=== PATIENT | female | born 1980 | race Caucasian/White ===

== ENCOUNTER 2017-07-08 18:26 | Emergency (ER) | payer OTHER, SELFPAY ==
[2017-07-08 18:26] VITALS: BP 183/106; PULSE 92; RESP 20; TEMP 36.7; O2SAT 97; BMI 30.7
--- NOTE | 2017-07-08 18:36 | RAD_ITS ---
STUDY: X-RAY - RIGHT WRIST REASON FOR EXAM: Female, 37 years old. Fall TECHNIQUE: 3 view(s) of the wrist were obtained. COMPARISON: None. FINDINGS: There is a comminuted intra-articular distal radial fracture with dorsal displacement of the distal radius. There is an ulnar styloid fracture visualized as well. Normal carpal bones. Normal carpal articulations. Normal carpometacarpal articulation of the thumb. Normal second through fifth carpometacarpal articulations. Normal visualized metacarpal bones. There is diffuse soft tissue swelling overlying the distal radius and ulna. RAD/Wrist min 3 Views IMPRESSION: Comminuted distal radial fracture. Ulnar styloid fracture. Electronically Signed: Jen Hemphill MD at 20:08 EDT Tel , Service support ,
--- NOTE | 2017-07-08 18:42 | ED.VISSUMM ---
- ER Visit Summary Date of Service: 07/08/17 Chief Complaint: Fall complaining of right wrist pain History of Present Illness: The patient is a 37 F was bowling with her family. She slipped and fell injuring her right wrist. Denies other injuries. She is right-hand dominant. She has never broken her right wrist or any prior right upper extremity surgery. Physical Examination: Young female no acute distress. Vital signs are stable afebrile. Right arm is in a sling with an ice pack on it. H EENT exam atraumatic. Pupils round reactive light. No signs of trauma to her face or scalp. Nontender. C-spine normal range of motion nontender. Trachea midline. Lungs clear to auscultation bilaterally. Heart regular rate and rhythm. Chest wall nontender. Abdomen soft nontender. Pelvic girdle intact. Left upper extremity both lower extremities have normal range of motion. No deformities and nontender. Back nontender. Neurologically she is awake and alert without focal deficits. Her right collarbone, shoulder, humerus, elbow and proximal right forearm are all nontender neurovascular intact no deformity. She has an on palpation to her right wrist. Skin is intact. Right hand is neurovascular intact with cap refill and sensation. Neurologic exam is normal. Test Results: Right wrist x-ray comminuted distal radius fracture with dorsal angulation and ulnar styloid fracture. Emergency Department Course and Treatment: Per patient request only Motrin for pain. I spoke to Dr. Samir Nance about the x-rays. He had me reduce the patient's fracture and he will see her in follow-up. Treatment Plan: Satish with patient options. She was consciously sedated with propofol. She had not eaten since lunch. She was initially given 60 mg IV of propofol and 40 more for a total of 100 mg. Conscious sedation was achieved. I was able to reduce the distal radius fracture. She was placed in a short arm AP Ortho-Glass splint that I fabricated. It was well-padded. An Jony wrap. Patient tolerated procedure very well. She will be watched so she wakes up and is appropriate to be discharged. With the sling. Disposition: Discharged Impression: Acute fall Acute right wrist still radius comminuted fracture and dorsally angulated and ulnar styloid fracture Fracture reduction and fracture care by ER physician. Short arm AP splint by ER. Conscious sedation using propofol by ER This note was generated with [employer] dictation software. It may contain incorrect words, spelling, and punctuation that were not noted in review of the chart prior to signing ED Disposition - Plan for ED Patient: Chief Complaint: Upper Extremity Injury Referrals: Yoselin Alexander DO [Primary Care Provider] -
[2017-07-08] MEDS: Ibuprofen 600 MG Tablet PO (18:47)
[2017-07-08 19:42] VITALS: BP 161/91; PULSE 90; RESP 17; O2SAT 100
[2017-07-08 20:02] VITALS: BP 127/79; BP 150/88; BP 177/102; PULSE 87; PULSE 88; PULSE 89; PULSE 90; PULSE 99; RESP 12; RESP 15; RESP 19; RESP 25; RESP 9; O2SAT 100
[2017-07-08] MEDS: Ondansetron 4 MG/2 ML Vial IV (20:02)
[2017-07-08] MEDS: Propofol 200 MG/20 ML Vial 40 MG IV BOLUS (20:10)
[2017-07-08 20:11] VITALS: BP 138/89; PULSE 83; RESP 25; O2SAT 100
--- NOTE | 2017-07-08 20:16 | ED.DEP ---
ED Disposition - Plan for ED Patient: Disposition: Home or Assisted Living Chief Complaint: Upper Extremity Injury Instructions: ED Fx Wrist General Prescriptions: Hydrocodone/Acetaminophen [Alden 7.5-325 Tablet] 1 ea PO Q4H PRN PRN #30 tab PRN Reason: Pain Ondansetron [Zofran Odt] 4 mg PO Q4H PRN PRN #20 tab.rapdis PRN Reason: Nausea Referrals: Deuce Nance, [STAFF PHYSICIAN] - As soon as possible Additional Instructions: Keep splint dry and clean. Ice and elevate right hand and wrist as much as possible to decrease pain and swelling. Motrin and Alden for pain. If you become nauseated I wrote you a prescription for Zofran. Call and follow-up with the orthopedic physician Dr. Deuce Nance or any orthopedic physician of your choice as soon as possible. This may need surgical repair.
--- NOTE | 2017-07-08 20:18 | RAD_ITS ---
STUDY: X-RAY - RIGHT WRIST REASON FOR EXAM: Female, 37 years old. Post reduction TECHNIQUE: 3 view(s) of the wrist were obtained. COMPARISON: July 08, 2017 at 6:43 PM FINDINGS: Casting material obscures anatomic detail. There is an intra-articular distal radial fracture. There is improved alignment. There is a ulnar styloid fracture visualized as well. Normal carpometacarpal articulation of the thumb. Normal second through fifth carpometacarpal articulations. Normal visualized metacarpal bones. The soft tissue structures are unremarkable. RAD/Wrist min 3 Views IMPRESSION: Distal intra-articular radial fracture. Ulnar styloid fracture. Electronically Signed: Jen Hemphill MD at 20:55 EDT Tel , Service support ,
[2017-07-08 20:20] VITALS: BP 149/81; O2SAT 100
--- NOTE | 2017-07-08 20:20 | DCINST.ED_ITS ---
ED Disposition - Plan for ED Patient: Disposition: Home or Assisted Living Chief Complaint: Upper Extremity Injury Instructions: ED Fx Wrist General Prescriptions: Hydrocodone/Acetaminophen [Medford 7.5-325 Tablet] 1 ea PO Q4H PRN PRN #30 tab PRN Reason: Pain Ondansetron [Zofran Odt] 4 mg PO Q4H PRN PRN #20 tab.rapdis PRN Reason: Nausea Referrals: Deuce Nance, [STAFF PHYSICIAN] - As soon as possible Additional Instructions: Keep splint dry and clean. Ice and elevate right hand and wrist as much as possible to decrease pain and swelling. Motrin and Medford for pain. If you become nauseated I wrote you a prescription for Zofran. Call and follow-up with the orthopedic physician Dr. Deuce Nance or any orthopedic physician of your choice as soon as possible. This may need surgical repair.
[2017-07-08] MEDS: Propofol 200 MG/20 ML Vial 60 MG IV BOLUS (20:24)
[2017-07-08] MEDS: Ondansetron ODT 4 MG Tablet PO (20:43)
[2017-07-08] MEDS: HYDROcodone Bitartrate/Apap 5/325 Tablet PO (20:43)
[2017-07-08 20:45] VITALS: BP 139/91; PULSE 91; RESP 14; O2SAT 98
== END 2017-07-08 20:46 | disposition home or self-care (01) ==
PROVIDERS: Emergency Provider Emergency Medicine; Family Provider Internal Medicine; PCP Internal Medicine
DX: S52.501A Unspecified fracture of the lower end of right radius, initial encounter for closed fracture (principal); S52.611A Displaced fracture of right ulna styloid process, initial encounter for closed fracture; W01.0XXA Fall on same level from slipping, tripping and stumbling without subsequent striking against object, initial encounter; Y93.9 Activity, unspecified; Y92.9 Unspecified place or not applicable; E11.9 Type 2 diabetes mellitus without complications; Z79.4 Long term (current) use of insulin
CPT/HCPCS: 25605; 73110; 96374; 99285; J7030

== ENCOUNTER → 2017-10-05 12:23 | Outpatient (CLI) | payer OTHER, SELFPAY ==
[2017-10-05 14:16] LABS: Absolute Lymphocyte Count 1.92 X10^3/ul (0.83-4.51); Absolute Neutrophil Count 4.7 X10^3/uL (2.0-7.7); Basophil# 0.05 X10^3/uL; Basophil% 0.6 % (0-1); Eosinophil# 0.24 X10^3/uL; Hematocrit 37.2 % (37-47); Hemoglobin 11.7 g/dl (12.0-15.0); Lymphocyte # 1.92 X10^3/ul (4.0); Lymphocyte % 23.9 % (19-41); Mean Corp Hgb Conc 31.5 g/gl (32-36); Mean Corpuscular Hgb 25.2 pg (27.0-32.0); Mean Corpuscular Volume 80.2 fL (81-99); Monocyte# 1.11 X10^3/uL; Monocyte% 13.8 % (0-10); Neutrophil # 4.71 X10^3/uL (2.7-7.7); Neutrophil % 58.6 % (47-70); Platelet Count 326 K/mm3 (150-450); RBC Distribution Width CV 14.3 % (11.6-14.6); RBC Distribution Width SD 41.6 fl (35.1-43.9); Red Blood Count 4.64 M/mm3 (4.2-5.4)
[2017-10-05 14:19] LABS: POSITIVE COUNT NO; POSITIVE DIFFERENTIAL NO; POSITIVE MORPHOLOGY NO
[2017-10-05 14:24] LABS: Hemoglobin A1c 8.5 % (4.2-6.3)
[2017-10-05 14:29] LABS: ALB/GLOB Ratio 0.8 RATIO (0.9-2.4); AST(SGOT) 16 U/L (15-37); Alanine Aminotransfer ALT/SGPT 24 U/L (13-56); Albumin, Serum 3.6 g/dL (3.2-5.0); Alkaline Phosphatase 112 U/L (45-117); Anion Gap 6 (5-15); BUN 18 mg/dL (7-18); BUN/Creat Ratio 19.4 RATIO (10-20); Calcium,Total 8.8 mg/dL (8.5-10.1); Chloride 103 mmol/L (98-107); Creatinine, Serum 0.93 mg/dL (0.55-1.02); EST Glomerular Filtration Rate 72 mL/min (>60); Est Glom Filt Rate - Afr Amer 87 mL/min (>60); Ferritin 8 ng/mL (8-252); Globulin 4.3 g/dL (2.2-4.2); Glucose 56 mg/dL (74-106); Iron 18 ug/dL (50-170); Protein, Total 7.9 g/dL (6.4-8.2); Sodium Level 138 mmol/L (136-145)
[2017-10-06 11:27] LABS: Thyroid Peroxidase AB 146 IU/mL (0-34)
== END ==
PROVIDERS: Family Provider Internal Medicine; PCP Internal Medicine; Visit Provider Internal Medicine Endocrinology, Diabetes & Metabolism
DX: E10.319 Type 1 diabetes mellitus with unspecified diabetic retinopathy without macular edema (principal); E10.65 Type 1 diabetes mellitus with hyperglycemia; E55.9 Vitamin D deficiency, unspecified; E04.0 Nontoxic diffuse goiter; E61.1 Iron deficiency
CPT/HCPCS: 36415; 80053; 82306; 82728; 83036; 83540; 84443; 85025; 86376

== ENCOUNTER 2017-10-06 13:30 | Outpatient (RCR) | payer OTHER, SELFPAY ==
--- NOTE | 2017-09-01 07:49 | HP.OTEVAL_ITS ---
Patient's Visit Information ROLANDO SWANN is a 37 year old F, referred to Occupational Therapy by Raúl Escobedo MD, with a diagnosis of right distal radius fx. Date of Evaluation: 08/30/17 Occupational Therapist: Shanna Rosen, OTR/L, CHT - Subjective Subjective: This 37 year old female states she was at a bowling event July 08 and fell and broke her right wrist. pt is right handed. pt underwent sx August 14 for right radius ORIF and CTR. pt states her fingers still feel numb most of the time. pt states she is out of her brace while working and at home. Does use brace for travel. - Pain right wrist 1 Pain Intensity Range: 0, 3 - Objective Objective/Observation: pt states she is still having difficulty to home mtg and daily occupations due to her limited ROM and strength. - ROM Forearm: right WFL left WNL Wrist: right 35/40 left 65/65 ROM Comments: right UD 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 with home mtg tasks by d/c Goal:: pt will report pain no greater than 1/10 with use of right hand with BADLs and IADLS by d/c Goal:: pt will report return of sensation to median n. digits by d/c Goal:: pt will demo understanding of scar mtg by end of 1st session, to decrease scar adhesions. - Rehabilitation General Assessment: S/P ORIF right wrist with right CTR. pt currently demo with decrease right wrist ROM and decrease functional strength. Pt states she is having most difficulty with home mtg tasks and ADL tasks. pt would benefit from skilled OT services to return pt to PLOF. Due to pts work and work travel schedule pt may only be able to schdule every other week. Therapy will focus on ROM and follow Dr. alatorre to begin PRE in 3 weeks. Today pt was ed.on scar mtg, AROM/PROM of wrist, forearm and digits. pt demo understanding of HEP given. Rehabilitation Potential: Good - Anticipated Interventions Anticipated Interventions: A/AAROM/PROM, Strengthening, Scar Care, Triggerpoint Release, Sensory Retraining, Modalities, Orthoses, Fine Motor Coord/Abhijeet, Home Program - Visit Plan Frequency: 1-2x /Week Duration: 6 Weeks TEXT: Thank you for the opportunity to evaluate your patient. For Medicare and Medicare HMO plans, please review the plan of care and approve it. It will need to be FAXED BACK to us at [phone] for Medicare purposes. Please let me know if there are questions or concerns regarding this plan of care. Physician Signature: Date:
--- NOTE | 2017-10-06 15:06 | HP.OTDCSUM_ITS ---
HP - OT D/C Summary It has been my pleasure to treat ORLANDO SWANN under orders from Raúl Escobedo MD, for the diagnosis of right distal radius fx for a total of 6 visit (s). Please see the following information for a summary of their discharge status. - Objective Objective/Function: right wrist 65/45. right special needs nanny 43# a increase from 20#. right lateral pinch 10# a increase from 2#. lateral pinch 8# a increase from unable. - Goals Patient Goals: Regain Mobility, Regain Strength, Return to Work, Use Hand/Wrist/ Arm Normally Again, Decrease Tingling/Numbness Goal:: pt will demo a increase in right special needs nanny strength to greater than 40# to return pt to PLOF with her ADLS and IADLs by d/c Goal:: pt will demo a increase in right wrist ROM 60/55 to gain increase ind. with home mtg tasks by d/c Goal:: pt will report pain no greater than 1/10 with use of right hand with BADLs and IADLS by d/c Goal:: pt will report return of sensation to median n. digits by d/c Goal:: pt will demo understanding of scar mtg by end of 1st session, to decrease scar adhesions. - Plan Plan: D/C - D/C Information Discharge Comments: PT attended 6 OT sessions. pt demo good increase in her functional ROM and strength pt has met goals in OT and is D/C with HEP to cont. to make improvments with her ROM /strength . pt is agreeable to tx plan. If there are questions or concerns regarding this patient's occupational therapy , please fell free to call me at [phone]. Thank you for the referral of this patient. Sincerely, Shanna Rosen, OTR/L, CHT
== END 2017-10-06 19:00 | disposition home or self-care (01) ==
LOC: OT 13:30
PROVIDERS: Family Provider Internal Medicine; PCP Internal Medicine; Visit Provider Orthopaedic Surgery
DX: S52.501D Unspecified fracture of the lower end of right radius, subsequent encounter for closed fracture with routine healing (principal)
CPT/HCPCS: 97110; 97140; 97166; 97530

== ENCOUNTER → 2017-11-11 11:29 | Outpatient (CLI) | payer OTHER, SELFPAY ==
[2017-11-11 14:23] LABS: Hemoglobin A1c 8.4 % (4.2-6.3)
[2017-11-11 14:30] LABS: ALB/GLOB Ratio 0.9 RATIO (0.9-2.4); AST(SGOT) 23 U/L (15-37); Alanine Aminotransfer ALT/SGPT 34 U/L (13-56); Albumin, Serum 3.5 g/dL (3.2-5.0); Alkaline Phosphatase 104 U/L (45-117); Anion Gap 11 (5-15); BUN 24 mg/dL (7-18); BUN/Creat Ratio 28.8 RATIO (10-20); Calcium,Total 8.7 mg/dL (8.5-10.1); Chloride 104 mmol/L (98-107); Creatinine, Serum 0.83 mg/dL (0.55-1.02); EST Glomerular Filtration Rate 81 mL/min (>60); Est Glom Filt Rate - Afr Amer 98 mL/min (>60); Ferritin 37 ng/mL (8-252); Glucose 182 mg/dL (74-106); Iron 56 ug/dL (50-170); Protein, Total 7.5 g/dL (6.4-8.2); Sodium Level 140 mmol/L (136-145)
[2017-11-11 14:32] LABS: Vitamin D,25 Hydroxy 25.8 ng/mL (29.95-100.01)
== END ==
PROVIDERS: Family Provider Internal Medicine; PCP Internal Medicine; Visit Provider Internal Medicine Endocrinology, Diabetes & Metabolism
DX: E10.65 Type 1 diabetes mellitus with hyperglycemia (principal); E55.9 Vitamin D deficiency, unspecified; E61.1 Iron deficiency; R30.0 Dysuria
CPT/HCPCS: 36415; 80053; 82306; 82728; 83036; 83540; 87086; 87088; 87186

== ENCOUNTER → 2018-03-30 14:56 | Outpatient (CLI) | payer OTHER, SELFPAY | PROVIDERS: Family Provider Family Medicine; PCP Family Medicine; Visit Provider Family Medicine | DX: R30.0 Dysuria (principal) | CPT/HCPCS: 87077; 87086; 87088; 87186 ==

== ENCOUNTER → 2019-01-01 13:33 | Outpatient (CLI) | payer OTHER, SELFPAY | PROVIDERS: Family Provider Family Medicine; PCP Family Medicine; Referring Provider Family Medicine; Visit Provider Family Medicine | DX: R30.0 Dysuria (principal) | CPT/HCPCS: 87086; 87088; 87186 ==

== ENCOUNTER → 2020-04-03 | Outpatient (CLI) | payer OTHER, SELFPAY | END | disposition home or self-care (01) | LOC: LABSPEC 04-04 14:20 | PROVIDERS: PCP Family Medicine; Visit Provider Family Medicine | DX: Z20.822 Contact with and (suspected) exposure to COVID-19 (principal) | CPT/HCPCS: 87635; U0005; U0003 ==

== ENCOUNTER → 2020-08-13 10:39 | Outpatient (CLI) | payer OTHER, SELFPAY ==
--- NOTE | 2020-08-13 | IMM_PTH ---
PATIENT: ORLANDO SORIANO LOC: [facility] U#:[id number] AGE/SX: 44/F ROOM: RE08/13/[address]: Dr. Elizabeth Og MD : 1980 BED: DIS: SPEC #: [id number] RECD: 08/14/20 12:50 STATUS: MANOHAR REQ #: [id number] KARAN: 08/13/20 00:[address]: Elizabeth Og DEPT: IMMUNOHISTOCHEMISTRY RECD BY: Kathrine Sanchez ENTERED: 08/14/20 12:51 SP TYPE: IMMUNO OTHR DR: Dr. Frederic Gomez MD Tissues: Right breast, NOS Procedures: SMA (add) CALPONIN-1 (add) CK7 (add) Pankeratin (initial) P40 (add) S-100 (add) PHYSICIAN & INSTITUTION [facility] [id number] SPECIMEN INFORMATION: Tissue Source: Right breast Clinical Info: Right breast abnormal mammogram Specimen Number: [id number] #1 CPT code: 31363, 33131 x5 METHODOLOGY: Deparaffinized sections of prefer/formalin-fixed tissue or PAP/DQ stained slides are incubated with monoclonal/polyclonal antibodies/oligonucleotide probes. Localization is made via biotin free immunoperoxidase method. Appropriate controls are performed and reacted as expected. Results on target cell population are indicated in the following table: RESULTS: ANTIBODY / CLONE RESULT Block 1 AE1-3 (AE1/AE3/PCK26) negative CK7 (OV-TL12/30) negative S-100 (4C4.9) negative Actin (1A4) positive P40 (BC28) negative Calponin-1 (JC761K) negative These tests were developed and their performance characteristics determined by [facility]. They may not have been cleared or approved by the U.S. Food and Drug Administration. The FDA has determined that such clearance or approval is not necessary. The above immunohistochemical/dualISH markers are ordered and reviewed by the Pathologist. INTERPRETATION: Right breast, stereotactic core biopsy: Negative for malignancy. LUCAS:donna 08/15/2020 Case has been reviewed in consultation with Dr. Barrios who concurs with the above diagnosis. IDC:AM
--- NOTE | 2020-08-13 11:05 | BRBX_PTH ---
PATIENT: ORLANDO SORIANO LOC: [facility] U#:[id number] AGE/SX: 44/F ROOM: RE08/13/[address]: Dr. Elizabeth Og MD : 1980 BED: DIS: SPEC #: [id number] RECD: 08/13/20 11:23 STATUS: MANOHAR RE #: [id number] KARAN: 08/13/20 11:[address]: Elizabeth Og DEPT: SURGICAL PATHOLOGY RECD BY: Gayle Garcia ENTERED: 08/13/20 12:15 SP TYPE: BREAST BX OTHR DR: Dr. Frederic Gomez MD Tissues: Right breast, NOS Procedures: Surgery Specimen Level IV HEADER OPERATION: Right breast stereotactic biopsy PRE-OP DIAGNOSIS: Right abnormal mammogram TISSUE SUBMITTED: Right breast core tissue ISCHEMIC TIME: 2 minutes FIXATION TIME: 8.5 hours MICROSCOPIC DIAGNOSIS Right breast, stereotactic core biopsy: Fragments of benign breast tissue with dense stromal keloidal type fibrosis, perilobular lymphocytic inflammation and focal epitheloid myofibroblasts. Negative for atypia or malignancy. See comment. 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 Immunohistochemistry ([id number]) supports the above diagnosis. Correlation with clinical, radiologic findings and appropriate follow up are necessary. Case has been reviewed in consultation with Dr. Barrios who concurs with the above diagnosis. IDC:AM MICROSCOPIC DESCRIPTION Slides are reviewed. GROSS DESCRIPTION Received in fixative is one container labeled with the patient name and designated right breast. The specimen consists of multiple elongated fragments of donald-yellow fibroadipose tissue that in aggregate measure 5 x 3 x 0.6 cm. The entire specimen is submitted in four cassettes. / LUCAS:donna 08/13/20 TC:5 CPT: 04858
--- NOTE | 2020-08-13 16:58 | OP.PCM_ITS ---
Report of Operation Date of Procedure: 08/13/20 Pre-Operative Diagnosis: abnormal mammogram Post-Operative Diagnosis: same Surgery/Procedure Performed:: right stereotactic breast biopsy Description of Surgical Findings:: density of right breast mammograms Surgeon: Elizabeth Og Type of Anesthesia: Local Specimen's removed: right breast tissue Estimated Blood Loss (mL): minimal Description of Procedure: After informed consent was given, the patient was brought into the Breast Biopsy suite. Appropriate time out protocol was followed. The patient was placed in the prone position on the stereotactic biopsy table. The patient?s right breast was then placed in the opening at the head of the biopsy table. A motorcycle builder compression mammogram was then obtained in the lateral view. The suspicious radiological lesion was thus identified. Stereo pictures of the lesion were then taken for XYZ coordinates. The Mammotome biopsy stylus was then positioned where it would be entering into the patient?s breast. The skin at this site was then cleansed with a surgical skin preparation. The skin and subcutaneous tissues at this site were then infiltrated with 1% xylocaine. A small skin incision was made with an 11 blade scalpel. The biopsy stylus was then positioned into the patient?s breast at the proper coordinates of depth. Using the Mammotome vacuum-assist device, several core samples of breast tissue were obtained. A hemostatic marker clip was then placed into the biopsy cavity and a motorcycle builder film revealed that it was properly deployed. The patient was then placed in the supine position and pressure was applied to the breast until no active bleeding was noted. Steristrips were applied to reapproximate the skin. A unilateral mammogram in the CC and MLO view were then taken which revealed that the marker clip was in the same area as the previous suspicious lesion. The patient tolerated the procedure well and was discharged from the Breast Biopsy suite in good condition. Complications none noted
== END ==
PROVIDERS: PCP Family Medicine; Referring Provider Surgery; Visit Provider Surgery
DX: R92.8 Other abnormal and inconclusive findings on diagnostic imaging of breast (principal); N60.31 Fibrosclerosis of right breast; E11.9 Type 2 diabetes mellitus without complications; E78.5 Hyperlipidemia, unspecified; I10 Essential (primary) hypertension; E03.9 Hypothyroidism, unspecified
CPT/HCPCS: 19081; 88305; 88341; 88342; J7050

== ENCOUNTER → 2021-01-26 08:58 | Outpatient (CLI) | payer OTHER, SELFPAY ==
[2021-01-26 10:39] LABS: Cholesterol 198 mg/dL (200); Glucose 149 mg/dL (74-106); High Density Lipoprotein 60 mg/dL; Triglycerides 170 mg/dL; Very Low Density Lipoprotein 34 mg/dL (5-40)
== END ==
PROVIDERS: PCP Family Medicine; Visit Provider Family Medicine
DX: Z13.9 Encounter for screening, unspecified (principal)
CPT/HCPCS: 36415; 80061; 82947

== ENCOUNTER 2021-03-16 17:49 | Outpatient (CLI) | payer OTHER, SELFPAY | END 2021-03-16 23:59 | disposition short-term general hospital (02) | PROVIDERS: PCP Family Medicine; Visit Provider Family Medicine | DX: U07.1 COVID-19 (principal) | CPT/HCPCS: 87635; U0003; U0005 ==

== ENCOUNTER 2021-05-05 11:53 | Outpatient (CLI) | payer OTHER, SELFPAY ==
[2021-05-05 15:50] LABS: ALB/GLOB Ratio 0.8 RATIO (0.9-2.4); AST(SGOT) 15 U/L (15-37); Alanine Aminotransfer ALT/SGPT 27 U/L (13-56); Albumin, Serum 3.3 g/dL (3.2-5.0); Alkaline Phosphatase 55 U/L (45-117); Anion Gap 6 (5-15); BUN 22 mg/dL (7-18); BUN/Creat Ratio 21.8 RATIO (10-20); Calcium,Total 8.8 mg/dL (8.5-10.1); Chloride 101 mmol/L (98-107); Cholesterol 176 mg/dL (200); Creatinine, Serum 1.01 mg/dL (0.55-1.02); EST Glomerular Filtration Rate 64 mL/min (>60); Est Glom Filt Rate - Afr Amer 77 mL/min (>60); Globulin 3.9 g/dL (2.2-4.2); Glucose 163 mg/dL (74-106); High Density Lipoprotein 49 mg/dL; Potassium 3.9 mmol/L (3.5-5.1); Protein, Total 7.2 g/dL (6.4-8.2); Sodium Level 134 mmol/L (136-145); T4 Free Direct 1.43 ng/dL (0.76-1.46); Thyroid Stim Hormone (TSH) 2.44 uIU/mL (0.358-3.74); Triglycerides 94 mg/dL; Very Low Density Lipoprotein 19 mg/dL (5-40)
[2021-05-05 16:10] LABS: Microalbumin,Random Urine < 5.0 mg/L (NO RANGE EST.)
== END 2021-05-05 23:59 | disposition home or self-care (01) ==
LOC: BIMLAB 11:54
PROVIDERS: PCP Family Medicine; Referring Provider Internal Medicine Endocrinology, Diabetes & Metabolism; Visit Provider Internal Medicine Endocrinology, Diabetes & Metabolism
DX: E10.65 Type 1 diabetes mellitus with hyperglycemia (principal); E03.8 Other specified hypothyroidism; E06.3 Autoimmune thyroiditis
CPT/HCPCS: 36415; 80053; 80061; 82043; 82570; 84439; 84443

== ENCOUNTER → 2022-06-22 | Outpatient (CLI) | payer OTHER, SELFPAY ==
[2022-06-22 10:30] LABS: Thyroid Stim Hormone (TSH) 3.36 uIU/mL (0.358-3.74)
== END | disposition home or self-care (01) ==
PROVIDERS: PCP Family Medicine; Referring Provider Internal Medicine Endocrinology, Diabetes & Metabolism; Visit Provider Internal Medicine Endocrinology, Diabetes & Metabolism
DX: E03.8 Other specified hypothyroidism (principal); E06.3 Autoimmune thyroiditis
CPT/HCPCS: 36415; 84439; 84443

== ENCOUNTER → 2022-06-30 | Outpatient (CLI) | payer OTHER, SELFPAY ==
[2022-06-30 15:32] LABS: Absolute Lymphocyte Count 1.76 X10^3/uL (0.83-4.51); Absolute Neutrophil Count 5.8 X10^3/uL (2.0-7.7); Basophil# 0.04 X10^3/uL; Basophil% 0.5 % (0-1); Eosinophils% 1.2 % (0-5); Hematocrit 37.1 % (37-47); Hemoglobin 12.4 g/dL (12.0-15.0); Lymphocyte # 1.76 X10^3/ul (0.83-4.51); Lymphocyte % 20.5 % (19-41); Mean Corp Hgb Conc 33.4 g/dL (32-36); Mean Corpuscular Hgb 29.5 pg (27.0-32.0); Mean Corpuscular Volume 88.1 fL (81-99); Mean Platelet Vol. 11.5 fl (6.2-12.0); Monocyte# 0.83 X10^3/uL; Monocyte% 9.7 % (0-10); NRBC Flagged by Analyzer 0 % (0-5); Neutrophil % 67.6 % (47-70); Platelet Count 280 K/mm3 (150-450); RBC Distribution Width CV 12.3 % (11.6-14.6); RBC Distribution Width SD 39.5 fl (35.1-43.9); Red Blood Count 4.21 M/mm3 (4.2-5.4); White Blood Count 8.6 K/mm3 (4.4-11.0)
[2022-06-30 15:52] LABS: Vitamin B12 740 pg/mL (211-911); Vitamin D,25 Hydroxy 133.8 ng/mL
[2022-06-30 16:03] LABS: ALB/GLOB Ratio 0.8 RATIO (0.9-2.4); AST(SGOT) 18 U/L (15-37); Alanine Aminotransfer ALT/SGPT 22 U/L (13-56); Albumin, Serum 3.2 g/dL (3.2-5.0); Alkaline Phosphatase 52 U/L (45-117); Anion Gap 7 (5-15); BUN 20 mg/dL (7-18); BUN/Creat Ratio 19.8 RATIO (10-20); Calcium,Total 8.7 mg/dL (8.5-10.1); Chloride 106 mmol/L (98-107); Creatinine, Serum 1.01 mg/dL (0.55-1.02); EST Glomerular Filtration Rate 64 mL/min (>60); Est Glom Filt Rate - Afr Amer 77 mL/min (>60); Ferritin 97 ng/mL (8-252); Free T3 2.4 pg/mL (2.18-3.98); Globulin 3.8 g/dL (2.2-4.2); Glucose 91 mg/dL (74-106); Iron 60 ug/dL (50-170); Potassium 3.6 mmol/L (3.5-5.1); Sodium Level 139 mmol/L (136-145); T4 Free Direct 1.52 ng/dL (0.76-1.46)
[2022-06-30 16:19] LABS: Erythrocyte Sedimentation Rate 14 mm/hr (0-30)
[2022-07-02 08:12] LABS: Thyroid Peroxidase AB 60 IU/mL (0-34)
== END | disposition home or self-care (01) ==
LOC: MFPLAB 14:10
PROVIDERS: PCP Family Medicine; Visit Provider Family Medicine
DX: R53.83 Other fatigue (principal); E03.9 Hypothyroidism, unspecified
CPT/HCPCS: 36415; 80053; 82306; 82533; 82607; 82728; 83540; 84439; 84481; 85025; 85652; 86376

== ENCOUNTER → 2022-09-24 | Outpatient (CLI) | payer OTHER, SELFPAY | END | disposition home or self-care (01) | PROVIDERS: Referring Provider Family Medicine; Visit Provider Family Medicine | DX: N39.0 Urinary tract infection, site not specified (principal) | CPT/HCPCS: 87077; 87086; 87088; 87186 ==

== ENCOUNTER → 2022-12-31 | Outpatient (CLI) | payer OTHER, SELFPAY ==
[2022-12-31 10:32] LABS: Hemoglobin A1c 6.6 % (3.8-5.6)
[2022-12-31 10:44] LABS: Free T3 2.9 pg/mL (2.18-3.98); T4 Free Direct 1.36 ng/dL (0.76-1.46); Thyroid Stim Hormone (TSH) 2.54 uIU/mL (0.358-3.74)
[2022-12-31 10:52] LABS: ALB/GLOB Ratio 1.1 RATIO (0.9-2.4); AST(SGOT) 32 U/L (15-37); Alanine Aminotransfer ALT/SGPT 48 U/L (13-56); Albumin, Serum 3.4 g/dL (3.2-5.0); Alkaline Phosphatase 75 U/L (45-117); Anion Gap 5 (5-15); BUN 22 mg/dL (7-18); BUN/Creat Ratio 20.8 RATIO (10-20); Calcium,Total 9.3 mg/dL (8.5-10.1); Chloride 103 mmol/L (98-107); Cholesterol 201 mg/dL (200); Creatinine, Serum 1.06 mg/dL (0.55-1.02); EST Glomerular Filtration Rate 60 mL/min (>60); Est Glom Filt Rate - Afr Amer 73 mL/min (>60); Globulin 3.2 g/dL (2.2-4.2); Glucose 109 mg/dL (74-106); High Density Lipoprotein 66 mg/dL; Potassium 4.1 mmol/L (3.5-5.1); Protein, Total 6.6 g/dL (6.4-8.2); Sodium Level 139 mmol/L (136-145); Triglycerides 78 mg/dL; Very Low Density Lipoprotein 16 mg/dL (5-40)
== END | disposition home or self-care (01) ==
PROVIDERS: PCP Family Medicine; Referring Provider Family Medicine; Visit Provider Family Medicine
DX: Z13.220 Encounter for screening for lipoid disorders (principal); E10.9 Type 1 diabetes mellitus without complications; E03.9 Hypothyroidism, unspecified
CPT/HCPCS: 36415; 80053; 80061; 83036; 84439; 84443; 84481

== ENCOUNTER → 2024-01-03 | Outpatient (CLI) | payer OTHER, SELFPAY ==
[2024-01-03 16:13] LABS: Hemoglobin A1c 7.4 % (3.8-5.6)
[2024-01-03 16:16] LABS: ALB/GLOB Ratio 0.9 RATIO (0.9-2.4); AST(SGOT) 37 U/L (15-37); Alanine Aminotransfer ALT/SGPT 58 U/L (13-56); Albumin, Serum 3.4 g/dL (3.2-5.0); Alkaline Phosphatase 88 U/L (45-117); Anion Gap 6 (5-15); BUN 21 mg/dL (7-18); BUN/Creat Ratio 19.6 RATIO (10-20); Calcium,Total 9.4 mg/dL (8.5-10.1); Chloride 102 mmol/L (98-107); Cholesterol 143 mg/dL (200); Creatinine, Serum 1.07 mg/dL (0.55-1.02); EST Glomerular Filtration Rate 59 mL/min (>60); Est Glom Filt Rate - Afr Amer 72 mL/min (>60); Globulin 3.8 g/dL (2.2-4.2); Glucose 105 mg/dL (74-106); High Density Lipoprotein 71 mg/dL; Potassium 4.2 mmol/L (3.5-5.1); Protein, Total 7.2 g/dL (6.4-8.2); Sodium Level 137 mmol/L (136-145); T4 Free Direct 1.27 ng/dL (0.76-1.46); Triglycerides 64 mg/dL; Very Low Density Lipoprotein 13 mg/dL (5-40)
== END | disposition home or self-care (01) ==
LOC: MFPLAB 11:18
PROVIDERS: PCP Family Medicine; Visit Provider Family Medicine
DX: E03.9 Hypothyroidism, unspecified (principal); E10.9 Type 1 diabetes mellitus without complications
CPT/HCPCS: 36415; 80053; 80061; 83036; 84439; 84443

== ENCOUNTER → 2024-02-03 | Outpatient (CLI) | payer OTHER, SELFPAY ==
[2024-02-03 10:01] LABS: Absolute Lymphocyte Count 1.65 X10^3/uL (0.83-4.51); Absolute Neutrophil Count 5.4 X10^3/uL (2.0-7.7); Basophil# 0.06 X10^3/uL; Basophil% 0.7 % (0-1); Eosinophils% 2.4 % (0-5); Hematocrit 36.1 % (37-47); Hemoglobin 11.8 g/dL (12.0-15.0); Lymphocyte # 1.65 X10^3/ul (0.83-4.51); Lymphocyte % 19.9 % (19-41); Mean Corp Hgb Conc 32.7 g/dL (32-36); Mean Corpuscular Hgb 28.3 pg (27.0-32.0); Mean Corpuscular Volume 86.6 fL (81-99); Mean Platelet Vol. 11.2 fl (6.2-12.0); Monocyte# 0.93 X10^3/uL; Monocyte% 11.2 % (0-10); NRBC Flagged by Analyzer 0 % (0-5); Neutrophil % 65.2 % (47-70); Platelet Count 245 K/mm3 (150-450); RBC Distribution Width SD 38.1 fl (35.1-43.9); Red Blood Count 4.17 M/mm3 (4.2-5.4); White Blood Count 8.3 K/mm3 (4.4-11.0)
[2024-02-03 10:18] LABS: Vitamin B12 1179 pg/mL (211-911); Vitamin D,25 Hydroxy 65.6 ng/mL
[2024-02-03 11:02] LABS: AST(SGOT) 27 U/L (15-37); Alanine Aminotransfer ALT/SGPT 39 U/L (13-56); Albumin, Serum 3.2 g/dL (3.2-5.0); Alkaline Phosphatase 95 U/L (45-117); Anion Gap 8 (5-15); BUN 17 mg/dL (7-18); BUN/Creat Ratio 18.9 RATIO (10-20); Calcium,Total 9.1 mg/dL (8.5-10.1); Chloride 105 mmol/L (98-107); EST Glomerular Filtration Rate 72 mL/min (>60); Est Glom Filt Rate - Afr Amer 87 mL/min (>60); Estradiol 357.7 pg/mL; Free T3 2.6 pg/mL (2.18-3.98); Globulin 3.2 g/dL (2.2-4.2); Glucose 178 mg/dL (74-106); Protein, Total 6.4 g/dL (6.4-8.2); Sodium Level 139 mmol/L (136-145); T4 Free Direct 1.16 ng/dL (0.76-1.46)
[2024-02-04 08:11] LABS: PROGESTERONE 0.8 ng/mL (.)
[2024-02-06 16:09] LABS: Anti-Thyroglobulin AB < 1.0 IU/mL (0.0-0.9); DHEA Sulfate 57.7 ug/dL (57.3-279.2); Thyroglobulin, Serum Qt. 4.8 ng/mL (1.5-38.5); Thyroid Peroxidase AB 24 IU/mL (0-34)
== END | disposition home or self-care (01) ==
LOC: MTLAB 07:55
PROVIDERS: PCP Family Medicine; Referring Provider Specialist; Visit Provider Specialist
DX: N95.8 Other specified menopausal and perimenopausal disorders (principal); E55.9 Vitamin D deficiency, unspecified; R53.83 Other fatigue; E03.8 Other specified hypothyroidism
CPT/HCPCS: 36415; 80053; 82306; 82607; 82627; 82670; 84144; 84403; 84432; 84439; 84443; 84481; 85025; 86376; 86800; 82626

== ENCOUNTER → 2024-02-08 | Outpatient (CLI) | payer OTHER, SELFPAY ==
--- NOTE | 2024-02-08 17:05 | RAD_ITS ---
EXAM: XR RIGHT HAND COMPLETE, 3 OR MORE VIEWS CLINICAL INDICATION: R 3rd PIP pain TECHNIQUE: Frontal, lateral and oblique views of the right hand. COMPARISON: Wrist, 07/08/2017 FINDINGS: BONES/JOINTS: Posttraumatic changes of the distal radius and distal ulna with displaced styloid process fracture of the ulna and status post plate-screw fixation of the distal radius. Periarticular erosions at the heads of the third and fourth proximal phalanges with mild joint space narrowing of the third and fourth proximal interphalangeal joints. No additional erosive changes and no evidence of an acute fracture or dislocation. SOFT TISSUES: No significant abnormality. No soft tissue swelling or gas. No radiopaque foreign body. RAD/Hand Min 3 Views IMPRESSION: 1. Posttraumatic changes of the distal radius and distal ulna with displaced styloid process fracture of the ulna and status post plate-screw fixation of the distal radius. 2. 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 Electronically Signed: Miller Calderon DO at 23:57 EST ,
== END | disposition home or self-care (01) ==
LOC: MTRAD 17:04
PROVIDERS: PCP Family Medicine; Referring Provider Family Medicine; Visit Provider Family Medicine
DX: M79.644 Pain in right finger(s) (principal)
CPT/HCPCS: 73130

== ENCOUNTER → 2024-02-24 | Outpatient (CLI) | payer OTHER, SELFPAY ==
[2024-02-24 12:13] LABS: Absolute Lymphocyte Count 1.62 X10^3/uL (0.83-4.51); Basophil# 0.06 X10^3/uL; Basophil% 0.6 % (0-1); Eosinophil# 0.15 X10^3/uL; Eosinophils% 1.5 % (0-5); Hematocrit 37.7 % (37-47); Hemoglobin 12.5 g/dL (12.0-15.0); Lymphocyte # 1.62 X10^3/ul (0.83-4.51); Lymphocyte % 16.6 % (19-41); Mean Corp Hgb Conc 33.2 g/dL (32-36); Mean Corpuscular Hgb 28.9 pg (27.0-32.0); Mean Corpuscular Volume 87.3 fL (81-99); Mean Platelet Vol. 11.1 fl (6.2-12.0); Monocyte# 0.81 X10^3/uL; Monocyte% 8.3 % (0-10); NRBC Flagged by Analyzer 0 % (0-5); Neutrophil # 7.01 X10^3/uL (2.7-7.7); Neutrophil % 72.2 % (47-70); Platelet Count 311 K/mm3 (150-450); RBC Distribution Width CV 12.3 % (11.6-14.6); RBC Distribution Width SD 39.3 fl (35.1-43.9); Red Blood Count 4.32 M/mm3 (4.2-5.4); White Blood Count 9.7 K/mm3 (4.4-11.0)
[2024-02-24 13:04] LABS: CRP 5.33 mg/L (0.0-3.0); Rheumatoid Factor < 10.0 IU/mL (<15); Uric Acid 4.3 mg/dL (2.6-6.0)
[2024-02-27 13:06] LABS: ANTINUCLEAR ANTIBODIES DIRECT Negative (Negative)
== END | disposition home or self-care (01) ==
LOC: MTLAB 10:08
PROVIDERS: PCP Family Medicine; Referring Provider Family Medicine; Visit Provider Family Medicine
DX: M79.644 Pain in right finger(s) (principal)
CPT/HCPCS: 36415; 84550; 85025; 86038; 86140; 86431

== ENCOUNTER → 2024-05-21 | Outpatient (CLI) | payer OTHER, SELFPAY | END | disposition home or self-care (01) | LOC: LABSPEC 15:11 | PROVIDERS: PCP Family Medicine; Visit Provider Family Medicine | DX: R30.0 Dysuria (principal) | CPT/HCPCS: 87086; 87088; 87186 ==

== ENCOUNTER → 2024-08-08 | Outpatient (CLI) | payer OTHER, SELFPAY | END | disposition home or self-care (01) | LOC: LABSPEC 16:54 | PROVIDERS: PCP Family Medicine; Referring Provider Family Medicine; Visit Provider Family Medicine | DX: N39.0 Urinary tract infection, site not specified (principal) | CPT/HCPCS: 87077; 87086; 87088; 87186 ==

== ENCOUNTER → 2024-08-27 | Outpatient (CLI) | payer OTHER, SELFPAY ==
[2024-08-27 10:16] LABS: Microalbumin,Random Urine < 12.0 mg/L (NO RANGE EST.); Microalbumin:Creatinine Ratio UNABLE TO CALCULATE mg/g CRE
== END | disposition home or self-care (01) ==
LOC: MTLAB 08:59
PROVIDERS: PCP Family Medicine; Referring Provider Internal Medicine Endocrinology, Diabetes & Metabolism; Visit Provider Internal Medicine Endocrinology, Diabetes & Metabolism
DX: E10.65 Type 1 diabetes mellitus with hyperglycemia (principal); Z96.41 Presence of insulin pump (external) (internal); E03.8 Other specified hypothyroidism; E06.3 Autoimmune thyroiditis; H00-H59 Diseases of the eye and adnexa; I10 Essential (primary) hypertension
CPT/HCPCS: 82043; 82570

== ENCOUNTER → 2024-10-15 | Outpatient (CLI) | payer OTHER, SELFPAY ==
[2024-10-15 10:30] LABS: Hematocrit 39.2 % (37-47); Hemoglobin 13.0 g/dL (12.0-15.0); Mean Corp Hgb Conc 33.2 g/dL (32-36); Mean Corpuscular Volume 87.5 fL (81-99); Mean Platelet Vol. 11.6 fl (6.2-12.0); Platelet Count 314 K/mm3 (150-450); RBC Distribution Width CV 12.9 % (11.6-14.6); RBC Distribution Width SD 41.1 fl (35.1-43.9); Red Blood Count 4.48 M/mm3 (4.2-5.4); White Blood Count 8.1 K/mm3 (4.4-11.0)
[2024-10-15 11:00] LABS: AST(SGOT) 16 U/L (<=31); Alanine Aminotransfer ALT/SGPT 22 U/L (<=34); Albumin, Serum 4.1 g/dL (3.5-5.0); Alkaline Phosphatase 58 U/L (35-104); Anion Gap 10 (5-15); BUN 17 mg/dL (4-19); BUN/Creat Ratio 15.3 RATIO (10-20); Calcium,Total 9.6 mg/dL (7.6-11.0); Carbon Dioxide 25.3 mmol/L (21.0-32.0); Chloride 105 mmol/L (98-108); Globulin 2.6 g/dL (2.2-4.2); Glucose 151 mg/dL (70-99); Potassium 4.5 mmol/L (3.3-5.1)
== END | disposition home or self-care (01) ==
LOC: MTLAB 09:05
PROVIDERS: PCP Family Medicine; Referring Provider Family Medicine; Visit Provider Family Medicine
DX: E03.9 Hypothyroidism, unspecified (principal); E10.9 Type 1 diabetes mellitus without complications
CPT/HCPCS: 36415; 80053; 84439; 84443; 85027

== ENCOUNTER → 2024-12-27 | Outpatient (CLI) | payer OTHER, SELFPAY ==
--- NOTE | 2024-12-27 11:59 | US_ITS ---
PROCEDURE: KIDNEY AND BLADDER 12/27/2024 REASON FOR EXAM: UTI TECHNIQUE: Procedure Code: USKI Modality: US Procedure: KIDNEY AND BLADDER FINDINGS: Right kidney measures 9 cm and left kidney measures 9.2 cm. Normal echotexture of bilateral kidneys. No hydronephrosis. No renal stones. Mildly thickened urinary bladder wall which may reflect cystitis vs nondistention; consider correlation with urinalysis. US/Kidney and Bladder IMPRESSION: No hydronephrosis. Mildly thickened urinary bladder wall which may reflect cystitis vs nondistenti on; consider correlation with urinalysis. Reading Location: [id number]
== END | disposition home or self-care (01) ==
LOC: US 11:58
PROVIDERS: PCP Family Medicine; Referring Provider Urology; Visit Provider Urology
DX: N39.0 Urinary tract infection, site not specified (principal)
CPT/HCPCS: 76770

== ENCOUNTER → 2025-02-19 | Outpatient (CLI) | payer OTHER, SELFPAY ==
--- OUTSIDE RECORDS SUMMARY | 2025-02-19 08:29 | XMS RPT_ITS | CCD ---
Author Organization [facility] Care Team Providers Care Machine Tech Name Role Phone BATRES, ELIZABETH K Unavailable Unavailable BATRES, ELIZABETH K Unavailable Unavailable NO REFERRING DR Unavailable Unavailable BATRES, ELIZABETH K Unavailable Unavailable BATRES, ELIZABETH K Unavailable Unavailable NO REFERRING DR Unavailable Unavailable BATRES, ELIZABETH K Unavailable Unavailable ROSELYN, KATRICARDO Unavailable Unavailable BATRES, ELIZABETH K Unavailable Unavailable BATRES, ELIZABETH K Unavailable Unavailable BATRES, ELIZABETH K Unavailable Unavailable BATRES, ELIZABETH K Unavailable Unavailable BATRES, ELIZABETH K Unavailable Unavailable Roselyn DO, Yoselin Unavailable Frederick Momin MD Unavailable [facility] Unavailable Zulma Loera Unavailable Mallorie Aranda RN Unavailable Unavailable Mallorie Rosen Unavailable Unavailable Corin Epstein RN Unavailable Unavailable Unavailable Unavailable Joan Maza MD Primary Care Provider Joan Maza MD Primary Care Provider Joan Maza MD Primary Care Provider [phone] Dr. Martinez Gomez Referring Provider Dr. Melquiades Gonzalez Attending Provider Rozina Gomez MD Primary Care Provider ASIYA CAVAZOS MD Attending Unavailable PHYSICIAN, NONE Primary Care Unavailable PHYSICIAN, NONE Primary Care Physician Unavailab Dr. Rozina Hutchinson MD Primary Care Provider Dr. Elan Mccabe DO Attending Provider Dr. Elan Mccabe DO Referring Provider Dr. Luis Carlos Gomez MDer Attending Provider Jason PATRICK, Dr. Handy Referring Provider King DARNELL, Dr. Arnett Attending Provider [phone] JASON PATRICK, DR HANDY Primary Care Physician JASON PATRICK, DR HANDY Primary Care Blane SMITH MD, SYLVIE Burgess Attending Unavail able Jason PATRICK, Dr. Handy Primary Care Provider Jason PATRICK, Dr. Handy Attending Provider [phone] Jason PATRICK, Dr. Handy Referring Provider [phone] King DARNELL, Dr. Arnett Attending Provider King DARNELL, Dr. Arnett Referring Provider Jason PATRICK, Dr. Handy Primary Care Provider Jason PATRICK, Dr. Handy Attending Provider JASON, LUIS CARLOSER B Primary Care Unavailabl e GERRY VARGAS, ANA Referring Unavail able JASON, LISAOPHER B Primary Care Unavailabl e OMAR HONGRE Attending Unavail able JASON, LUIS CARLOSER B Primary Care Unavailabl e NEDOMENICOT ALICIA, ANA Referring Unavail able RANJOHNATHON, CHRISTOPHER B Primary Care Unavailabl e ELIZABETH OG Attending Unavailable GERRY VARGAS, ANA Referring Unavail able Melquiades Gonzalez Referring Unavailable Melquiades Gonzalez Attending Unavailable Ranney, Christopher Primary Care Unavailable RanneyLuis Carloser Attending Unavailable Ranney, Christopher Referring Unavailable Ranney, Christopher Primary Care Unavailable Jazmín Adkins Attending Unavailable Jazmín Adkins Referring Unavailable Ranney, Christopher Primary Care Unavailable Ranney, Christopher Primary Care Unavailable Elan Mccabe Attending Unavailable Elan Mccabe Referring Unavailable Ranney, Christopher Primary Care Unavailable Rozina Gomez Attending Unavailable Ranney, Christopher Referring Unavailable Ranney, Christopher Primary Care Unavailable Rozina Gomez Attending Unavailable Ranney, Christopher Referring Unavailable Jazmín Adkins Attending Unavailable Ranney, Christopher Referring Unavailable Ranney, Rozina Primary Care Unavailable Placidojohnathon, Rozina Primary Care Unavailable Melquiades Gonzalez Attending Unavailable Jason, Rozina Referring Unavailable Ranjohnathon, Rozina Primary Care Unavailable Melquiades Gonzalez Attending Unavailable Jason, Rozina Referring Unavailable Jazmín Adkins Attending Unavailable Placidojohnathon, Rozina Referring Unavailable Ranjohnathon, Rozina Primary Care Unavailable Jason, Rozina Primary Care Unavailable Rozina Gomez Attending Unavailable Placidoebony, [facility] Unavailable Ranjohnathon, Rozina Attending Unavailable Jason, Luis Carloser Referring Unavailable Jason PATRICK, Dr. Handy Primary Care Physicia n Jason PATRICK, Dr. Handy Attending Physician Jason PATRICK, Dr. Handy Referring Provider Jed PATRICK, Dr. Noyola Attending Physician Dr. Jazmín Adkins MD Referring Provider Dr. Yoselin Dempsey DO Attending Physician Allergies Allergy Classification Reported Allergen(s) Allergy Type Date of Onset Reaction(s) Facility Unclassified (1 source) Potassimin *MINERALS & ELECTROLYTES*; Translations: [Potassimin *MINERALS & ELECTROLYTES*] Allergy to drug (finding) [facility]; [facility] Work Phone: Comment on above: IV edema (1 source) acetaminophen / HYDROcodone; Translations: [VICODIN] Drug Allergy [facility] Repository (1 source) acetaminophen / oxyCODONE; Translations: [PERCOCET] Drug Allergy [facility] (1 source) codeine; Translations: [CODEINE] Drug Allergy [facility] Rep[facility] (1 source) lisinopril; Translations: [LISINOPRIL] Drug Allergy [facility] (20 sources) potassium; Translations: [POTASSIUM] Drug Allergy 7 Swelling [facility] Comment on above: IV ONLY (1 source) potassium chloride; Translations: [POTASSIUM CHLORIDE] Drug Allergy [facility] Medications Current Medications Medication Drug Class(es) Dates Sig (Normalized) Sig (Original) atorvastatin 20 mg oral tablet (4 sources) HMG-CoA Reductase Inhibitor Start: 10-28-2023 atorvastatin 20 mg oral tablet 0 Refill(s) Start Date: 10/28/23 Status: Ordered Repeat number: 1 Start: 07-04-2023 take 1 tablet by mouth once at orvastatin (LIPITOR) 20 mg tablet Take 1 tablet by mouth every afternoon. 07/04/2023 Active biotin 10 mg oral capsule (9 sources) Start: 12-19-2024 Biotin 10,000 mcg capsule Active ug PO December 18, 2024 11:00pm Complies with drug therapy Start: 09-03-2020 End: 08-27-2024 take 1 mg by mouth once daily Biotin 5 mg tablet Disco ntinued mg PO DAILY September 02, 2020 11:00pm August 27, 2024 7:06am Start: 09-03-2020 take 1 mg by mouth once daily Biotin Active MG PO DAILY September 02, 2020 11:00pm Blood-Glucose Sensor (Dexcom G7 Sensor) device (6 sources) Start: 02-24-2024 Blood-Glucose Sensor (Dexcom G7 Sensor) device Active 0 .Route 1 0 February 24, 2024 12:00am As directed Start: 02-24-2024 Blood-Glucose Sensor (Dexcom G7 Sensor) device Active 0 .Route 1 0 February 24, 2024 1:00am As directed Start: 02-24-2024 Blood-Glucose Sensor (Dexcom G7 Sensor) device Active 0 .ROUTE 1 February 24, 2024 1:00am As directed 24 hr buPROPion hydrochloride 300 mg extended release oral tablet (16 sources) Aminoketone Start: 08-27-2024 take 1 tablet by mouth once daily in the morning Bupropion Hcl 300 mg tablet extended release 24 hr Active 300 mg PO EVERY MORNING August 27, 2024 7:06am Complies with drug therapy Start: 10-28-2023 buPROPion 300 mg/24 hours (XL) oral tablet, extended release 0 Refill(s) Start Date: 10/28/23 Status: Ordered Repeat number: 1 Start: 08-06-2021 End: 08-27-2024 take 1 tablet by mouth every twenty-four hours Bupropion Hcl 300 mg tablet extended release 24 hr Discontinued NMA PO August 05, 2021 11:00pm August 27, 2024 7:07am Start: 08-06-2021 Bupropion Hcl Active TAB PO August 05, 2021 11:00pm cephalexin 250 mg oral capsule (1 source) Cephalosporin Antibacterial Start: 12-19-2024 End: 01-07-2025 take 1 capsule by mouth at bedtime as needed Cephalexin 250 mg capsule Discontinued 250 mg PO AT BEDTIME as needed for sexual activity 90 0 December 18, 2024 11:00pm January 07, 2025 3:20pm cholecalciferol 0.125 mg oral capsule (18 sources) Vitamin D Start: 08-27-2024 take 1 capsule by mouth once daily Cholecalciferol (Vitamin D3) 125 mcg (5,000 unit) capsule Active 125 ug PO daily August 26, 2024 11:00pm Complies with drug therapy Start: 02-24-2024 End: 08-27-2024 take 1 capsule by mouth once daily Cholecalciferol (Vitamin D3) 250 mcg (10,000 unit) capsule Discontinued 125 ug PO DAILY February 24, 2024 9:27am August 27, 2024 7:06am Start: 09-03-2020 End: 02-24-2024 take 1 capsule by mouth once daily Cholecalciferol (Vitamin D3) 250 mcg (10,000 unit) capsule Discontinued 250 ug PO DAILY September 02, 2020 11:00pm February 24, 2024 9:29am cholecalciferol, vitamin D3, (VITAMIN D3 ORAL) (11 sources) cholecalciferol, vitamin D3, (VITAMIN D3 ORAL) Take by mouth. Active cholecalciferol, vitamin D3, (VITAMIN D3 ORAL) Take by mouth. 0 Active Comment on above: Take by mouth. estradiol 0.1 mg/ml vaginal cream (1 source) Estrogen Start: 12-19-2024 Estradiol 0.01 % (0.1 mg/gram) cream Active 1 g VAGINAL 3 TIMES A WEEK 42.5 90 3 December 18, 2024 11:00pm Complies with drug therapy Ethinyl Estradiol / Norethindrone (20 sources) Estrogen Start: 07-28-2023 Norethindrone Acet-Ethinyl Est (JUNE,) 1.5-30 mg-mcg Take 1 tablet by mouth once daily. Take one active pill continuously - discard placebo pill 112 tablet 4 07/28/2023 Active Start: 07-28-2023 End: 07-28-2023 take 1 tablet by mouth once daily Norethindrone Acet-Ethinyl Est (JULYL .07/27, ,) 1.5-30 mg-mcg Take 1 tablet by mouth once daily. 84 tablet 3 07/28/2023 07/28/2023 Discontinued Start: 12-27-2022 End: 07-28-2023 take 1 tablet by mouth once daily Norethindrone Acet-Ethinyl Est (JULYL .07/27, 21,) 1.5-30 mg-mcg Take 1 tablet by mouth once daily. 84 tablet 1 12/27/2022 07/28/2023 Discontinued Start: 12-27-2022 take 1 tablet by meli th once daily Norethindrone Acet-Ethinyl Est (, ,) 1.5-30 mg-mcg Take 1 tablet by mouth once daily. 84 tablet 1 12/27/2022 Active Start: 05-24-2022 End: 12-25-2022 take 1 tablet by mouth once daily JULYL 1.07/27, 21, 1.5-30 mg-mcg TAKE 1 TABLET BY MOUTH EVERY DAY 84 tablet 1 05/24/2022 12/25/2022 Discontinued Start: 05-24-2022 take 1 tablet by meli th once daily 1.07/27, 21, 1.5-30 mg-mcg TAKE 1 TABLET BY MOUTH EVERY DAY 84 tablet 1 05/24/2022 Active Start: 10-28-2021 End: 05-24-2022 take 1 tablet by mouth once daily Norethindrone Acet-Ethinyl Est (EDU .07/27, 21,) 1.5-30 mg-mcg Take 1 tablet by mouth once daily. 21 tablet 11 10/28/2021 05/24/2022 Discontinued Start: 10-28-2021 take 1 tablet by meli th once daily Norethindrone Acet-Ethinyl Est (EDU .07/27, 21,) 1.5-30 mg-mcg Take 1 tablet by mouth once daily. 21 tablet 11 10/28/2021 Active Start: 08-03-2021 End: 10-28-2021 take 1 tablet by mouth once daily EDU 1.5/30, 21, 1.5-30 mg-mcg take 1 tablet by mouth once daily 21 tablet 2 08/03/2021 10/28/2021 Discontinued Start: 08-03-2021 take 1 tablet by meli th once daily EDU 1.5/30, 21, 1.5-30 mg-mcg take 1 tablet by mouth once daily 21 tablet 2 08/03/2021 Active Start: 05-12-2021 End: 08-03-2021 take 1 tablet by mouth once daily EDU 1.5/30, 21, 1.5-30 mg-mcg take 1 tablet by mouth once daily 21 tablet 2 05/12/2021 08/03/2021 Discontinued Start: 05-12-2021 take 1 tablet by meli th once daily EDU 1.5/30, 21, 1.5-30 mg-mcg take 1 tablet by mouth once daily 21 tablet 2 05/12/2021 Active Start: 09-03-2020 End: 02-24-2024 Norethindrone Ac-Eth Estradi ol (Edu 1.5/30 (21)) 1.5-30 mg-mcg tablet Discontinued 1 {tbl} PO DAILY September 02, 2020 11:00pm February 24, 2024 9:28am Comment on above: take 1 tablet by meli th once daily Take 1 tablet by meli th once daily. TAKE 1 TABLET BY MELI TH EVERY DAY FA/mv,Ca,iron,min/lycopene/l ut (MULTIVITAL ORAL) (11 sources) FA/mv,Ca,iron,mi n/lycopene /lut (MULTIVITAL ORAL) Take by mouth. Active FA/mv,Ca,iron,mi n/lycopene/lut (MULTIVITAL ORAL) Take by mouth. 0 Active Comment on above: Take by mouth. hydroCHLOROthiazide 12.5 mg / losartan potassium 50 mg oral tablet (20 sources) Thiazide Diuretic, Angiotensin 2 Receptor Juan Miguel Start: 10-28-2023 hydrochlorothiazid e-losartan 12.5-50 mg oral tablet 0 Refill(s) Start Date: 10/28/23 Status: Ordered Repeat number: 1 Start: 11-30-2021 End: 02-13-2024 Losartan-Hydrochlorothiazide 50-12.5 mg tablet Discontinued 1 {tbl} PO DAILY January 10, 2023 10:40am February 13, 2024 10:09am Start: 11-30-2021 End: 08-23-2022 take 1 tablet by mouth once daily Losartan-Hydrochlorothiazide Active 1 TA BLET PO DAILY August 23, 2022 8:46am Start: 05-05-2021 End: 11-30-2021 Losartan-Hydrochlorothiazide 50-12.5 mg tablet Discontinued NMA PO May 05, 2021 12:00am November 30, 2021 12:28pm Start: 05-05-2021 End: 11-30-2021 Losartan-Hydrochlorothiazide Discontinued EACH PO May 05, 2021 12:00am November 30, 2021 12:28pm Start: 04-20-2021 End: 10-28-2021 take 1 tablet by mouth once daily losartan-hydroCHLOROthiazide (HYZAAR) 50-12.5 mg per tablet Take 1 tablet by mouth once daily. 30 tablet 10/28/2021 Active Comment on above: Take 1 tablet by meli th once daily. insulin aspart prot/insuln asp (NOVOLOG MIX 70-30 SUBCUTANEOUS) (2 sources) Start: 01-28-2021 insulin aspart prot/insuln asp (NOVOLOG MIX 70-30 SUBCUTANEOUS) 01/28/2021 Active Start: 01-28-2021 insulin aspart prot/insuln asp (NOVOLOG MIX 70-30 SUBCUTANEOUS) Insulin Pump Cart,Auto,Bt,G6 /7 (Omnipod 5 G6-G7 Pods (Gen 5)) cartridge (9 sources) Start: 08-27-2024 Insulin Pump C art,Auto,Bt,G6/7 (Omnipod 5 G6-G7 Pods (Gen 5)) cartridge Active 0 .Route 30 August 27, 2024 7:32am change every 3 days Start: 08-27-2024 Insulin Pump C art,Auto,Bt,G6/7 (Omnipod 5 G6-G7 Pods (Gen 5)) cartridge Active 0 .Route 30 August 27, 2024 8:32am change every 3 days Start: 06-18-2024 End: 08-27-2024 Insulin Pump Cart,Auto,Bt,G6 /7 (Omnipod 5 G6-G7 Pods (Gen 5)) cartridge Discontinued 0 .Route 30 June 17, 2024 11:00pm August 27, 2024 7:33am change every 3 days Start: 06-18-2024 End: 08-27-2024 Insulin Pump Cart,Auto,Bt,G6 /7 (Omnipod 5 G6-G7 Pods (Gen 5)) cartridge Discontinued 0 .Route 30 June 18, 2024 12:00am August 27, 2024 8:33am change every 3 days Start: 06-18-2024 Insulin Pump C art,Auto,Bt,G6/7 (Omnipod 5 G6-G7 Pods (Gen 5)) cartridge Active 0 .Route June 18, 2024 12:00am change every 3 days levocetirizine dihydrochloride 5 mg oral tablet (1 source) Histamine-1 Receptor Antagonist Start: 12-19-2024 take 1 tablet by mouth once daily Levocetirizine (Xyzal) 5 mg tablet Active 5 mg PO daily December 18, 2024 11:00pm Complies with drug therapy levothyroxine sodium 0.125 mg oral tablet (20 sources) l-Thyroxine Start: 10-28-2023 levothyroxine 125 mcg (0.125 mg) oral tablet 0 Refill(s) Start Date: 10/28/23 Status: Ordered Repeat number: 1 Start: 06-10-2020 End: 02-13-2024 take 1 tablet by mouth once daily Levothyroxine 125 mcg tablet Discontinued 125 ug PO DAILY 90 January 03, 2023 12:35pm February 13, 2024 10:09am Start: 04-09-2016 End: 09-27-2016 take 1 tablet by mouth once daily Synthroid 25 MCG Oral Tablet 1 (one) Tablet qd on empty stomach for 0 days Quantity: 30 {Tablet} Refills: 1 Ordered: 27-Sep-2016 Nadira Valera LPN Start : 09-Apr-2016 End : 27-Sep-2016 Discontinued Dispense as Written Comment on above: Take 125 mcg by mout h once daily. Multivitamin preparation (2 sources) Start: 09-03-2020 take 1 tablet by mouth once daily Multivitamin Active 1 TABLET PO DAILY September 02, 2020 11:00pm Start: 09-03-2020 take 1 tablet by meli th once daily Multivitamin Active 1 TABLET PO DAILY September 03, 2020 12:00am Multivitamin tablet (6 sources) Start: 09-03-2020 Multivitamin t ablet Active 1 {tbl} PO DAILY September 02, 2020 11:00pm Complies with drug therapy Start: 09-03-2020 Multivitamin t ablet Active 1 {tbl} PO DAILY September 03, 2020 12:00am naproxen 250 mg oral tablet (1 source) Nonsteroidal Anti-inflammatory Drug Start: 08-03-2024 End: 08-14-2024 naproxen 250 mg oral tablet Dose : 250 mg = 1 tab(s), Oral, BID, # 20 tab(s), 0 Refill(s), 08/14/24 1:08:00 PM EDT Start Date: 08/03/24 Stop Date: 08/14/24 Status: Ordered Quantity: 20.0 Unit: tab(s) Repeat number: 1 nitrofurantoin, macrocrystals 25 mg / nitrofurantoin, monohydrate 75 mg oral capsule (1 source) Nitrofuran Antibacterial Start: 12-19-2024 End: 01-07-2025 take 1 capsule by mouth twice daily at mealtime Nitrofurantoin Monohyd/M-Cryst (Macrobid) 100 mg capsule Discontinued 100 mg PO TWICE A DAY 14 0 December 18, 2024 11:00pm January 07, 2025 3:20pm must administer with a meal/food OMNIPOD 5 G6 PODS, GEN 5, crtg (2 sources) Start: 07-18-2023 OMNIPOD 5 G6 PODS, GEN 5, crtg USE 1 POD EVERY 72 HOURS 07/18/2023 Active Start: 07-18-2023 OMNIPOD 5 G6 P ODS, GEN 5, crtg USE 1 POD EVERY 72 HOURS 0 07/18/2023 Active semaglutide 3 mg oral tablet (1 source) Start: 12-19-2024 take 1 tablet by mouth once daily Semaglutide 3 mg tablet Active 3 mg PO daily December 18, 2024 11:00pm Complies with drug therapy Completed/Discontinued Medications Medication Drug Class(es) Dates Sig (Normalized) Sig (Original) acetaminophen 325 mg / HYDROcodone bitartrate 7.5 mg oral tablet (8 sources) Opioid Agonist Start: 07-08-2017 End: 09-03-2020 Hydrocodone-Acetami nophen 1 TABLET tablet Discontinued 1 NMA PO EVERY 4 HOURS NEEDED as needed for Pain 30 0 July 08, 2017 7:17pm September 03, 2020 9:28am Fracture of right wrist Start: 07-08-2017 End: 09-03-2020 Hydrocodone-Acetaminophen Di scontinued 1 EACH PO EVERY 4 HOURS NEEDED July 08, 2017 7:17pm September 03, 2020 9:28am amoxicillin 875 mg / clavulanate 125 mg oral tablet (1 source) Penicillin-class Antibacterial Start: 02-03-2017 End: 02-17-2017 take 1 tablet by mouth twice daily at mealtime Augmentin 875-125 MG Oral Tablet 1 (one) Tablet PO BID for 14 days Quantity: 28 {Tablet} Refills: 0 Ordered: 03-Feb-2017 Mallorie Rosen Start : 03-Feb-2017 End : 17-Feb-2017 Inactive Comments: Take with food Comment on above: Take with food ascorbic acid 250 mg oral tablet (8 sources) Vitamin C Start: 09-03-2020 End: 08-27-2024 take 1 tablet by mouth once daily Ascorbic Acid (Vitamin C) 250 mg tablet Discontinued 250 mg PO DAILY September 02, 2020 11:00pm August 27, 2024 7:06am ascorbic acid 60 mg / beta carotene 5000 unt / copper sulfate 40 mg / dl-alpha tocopheryl acetate 30 unt / sodium selenite 0.04 mg / zinc oxide 40 mg oral tablet (1 source) Vitamin C take 1 tablet by mouth once daily Multivitamin Women Oral Tablet 1 qd Active Blood-Glucose Sensor (Dexcom G6 Sensor) device (8 sources) Start: 05-05-2021 End: 02-24-2024 Blood-Glucose Sensor (Dexcom G6 Sensor) device Discontinued 0 .ROUTE .MEDSUPPLY 3 May 05, 2021 12:00am February 24, 2024 9:47am As directed Start: 05-05-2021 End: 02-24-2024 Blood-Glucose Sensor (Dexcom G6 Sensor) device Discontinued 0 .ROUTE .MEDSUPPLY 3 May 05, 2021 1:00am February 24, 2024 10:47am As directed Start: 05-05-2021 End: 02-24-2024 Blood-Glucose Sensor (Dexcom G6 Sensor) device Discontinued 0 .ROUTE .MEDSUPPLY 3 May 05, 2021 1:00am February 24, 2024 10:47am As directed Start: 05-05-2021 Blood-Glucose Sensor (Dexcom G6 Sensor) device Active 0 .ROUTE .MEDSUPPLY May 05, 2021 12:00am As directed Start: 05-05-2021 Blood-Glucose Sensor (Dexcom G6 Sensor) device Active 0 .ROUTE .MEDSUPPLY 3 May 05, 2021 1:00am As directed Blood-Glucose Transmitter (Dexcom G6 Transmitter) device (8 sources) Start: 05-05-2021 End: 02-24-2024 Blood-Glucose Transmitter (Dexcom G6 Transmitter) device Discontinued 0 .ROUTE .MEDSUPPLY 1 May 05, 2021 12:00am February 24, 2024 9:47am As directed Start: 05-05-2021 End: 02-24-2024 Blood-Glucose Transmitter (D excom G6 Transmitter) device Discontinued 0 .ROUTE .MEDSUPPLY 1 May 05, 2021 1:00am February 24, 2024 10:47am As directed Start: 05-05-2021 End: 02-24-2024 Blood-Glucose Transmitter (D excom G6 Transmitter) device Discontinued 0 .ROUTE .MEDSUPPLY May 05, 2021 1:00am February 24, 2024 10:47am As directed Start: 05-05-2021 Blood-Glucose Transmitter (Dexcom G6 Transmitter) device Active 0 .ROUTE .MEDSUPPLY May 05, 2021 12:00am As directed Start: 05-05-2021 Blood-Glucose Transmitter (Dexcom G6 Transmitter) device Active 0 .ROUTE .MEDSUPPLY May 05, 2021 1:00am As directed fexofenadine hydrochloride 180 mg oral tablet (12 sources) Histamine-1 Receptor Antagonist Start: 06-28-2017 take 1 tablet by mouth once daily Dianelys Allergy 180 MG Oral Tablet 1 (one) Tablet qd for 0 days Quantity: 30 {Tablet} Refills: 2 Ordered: 28-Jun-2017 Yoselin Dempsey DO, DO, Kathleen Start : 28-Jun-2017 Active fexofenadine HCl (DIANELYS ALLERGY ORAL) Take by mouth. Active fexofenadine HCl (DIANELYS ALLERGY ORAL) Take by mouth. 0 Active Comment on above: Take by mouth. fluconazole 150 mg oral tablet (1 source) Azole Antifungal Start: 02-03-2017 End: 06-28-2017 Diflucan 150 MG Oral Tablet 1 (one) Tablet PO x 1 for 0 days Quantity: 1 {Tablet} Refills: 0 Ordered: 28-Jun-2017 Corin Epstein RN Start : 03-Feb-2017 End : 28-Jun-2017 Inactive insulin aspart, human 100 unt/ml injectable solution (20 sources) Insulin Analog Start: 10-28-2023 NovoLOG 100 units/mL injectable solution 0 Refill(s) Start Date: 10/28/23 Status: Ordered Repeat number: 1 Start: 05-05-2021 End: 08-27-2024 Insulin Aspart U-100 (Novolo g U-100 Insulin Aspart) 100 unit/mL solution Discontinued 100 U SC DAILY 60 1 February 13, 2024 10:07am February 24, 2024 9:53am via insulin pump 3 ml insulin glargine 100 unt/ml pen injector (14 sources) Insulin Analog Start: 12-27-2022 End: 02-24-2024 Insulin Glargine (Basaglar Kwikpen U-100 Insulin) 100 unit/mL (3 mL) insulin pen Discontinued 20 U SC EVERY MORNING 15 0 December 28, 2022 11:00pm February 24, 2024 9:29am Type 1 diabetes mellitus with hyperglycemia Type 1 diabetes mellitus with hyperglycemia to be used for pump failure insulin glulisine, human 100 unt/ml injectable solution (20 sources) Insulin Analog Start: 07-08-2017 End: 05-05-2021 Insulin Glulisine U-100 (Apidra) 100 UNIT/ML solution Discontinued July 07, 2017 11:00pm May 05, 2021 11:24am Start: 06-28-2017 End: 07-28-2017 Apidra 100 UNIT/ML Injection Solution 1 (one) Solution uad for 30 days Quantity: 1 {Box} Refills: 0 Ordered: 28-Jun-2017 Yoselin Dempsey DO, DO, Kathleen Start : 28-Jun-2017 End : 28-Jul-2017 Inactive Comments: insulin pump INSULIN GLULISIN E (APIDRA SUBCUTANEOUS) Inject subcutaneously. Administered via pump Active INSULIN GLULISIN E (APIDRA SUBCUTANEOUS) Inject subcutaneously. Administered via pump 0 Active Comment on above: insulin pump Inject subcutaneousl y. Administered via pump insulin lispro 100 unt/ml injectable solution (16 sources) Insulin Analog Start: 05-06-19 End: 05-06-19 inject 1 dose by subcutaneous injection once daily Insulin Lispro 100 unit/mL solution Discontinued 100 sliding scale dose continuous subcutaneous infusion DAILY 30 6 May 05, 2021 11:24am May 05, 2021 5:49pm Start: 05-05-2021 End: 05-05-2021 Insulin Lispro 100 unit/mL s olution Discontinued 1 sliding scale dose continuous subcutaneous infusion May 05, 2021 12:00am May 05, 2021 11:25am Insulin Pump Cart,Auto,Bt-Cn tr (Omnipod 5 G6 Intro Kit (Gen 5)) cartridge (20 sources) Start: 12-21-2021 End: 08-30-2022 Insulin Pump Cart,Auto,Bt-Cn tr (Omnipod 5 G6 Intro Kit (Gen 5)) cartridge Discontinued 0 .Route 1 December 20, 2021 11:00pm August 30, 2022 3:25pm As directed Start: 12-21-2021 End: 08-30-2022 Insulin Pump Cart,Auto,Bt-Cn tr (Omnipod 5 G6 Intro Kit (Gen 5)) cartridge Discontinued 0 .Route 1 December 21, 2021 12:00am August 30, 2022 4:25pm As directed Start: 12-21-2021 End: 08-30-2022 Insulin Pump Cart,Auto,Bt-Cn tr (Omnipod 5 G6 Intro Kit (Gen 5)) cartridge Discontinued 0 .Route 1 December 20, 2021 11:00pm August 30, 2022 3:25pm As directed Start: 12-21-2021 End: 08-30-2022 Insulin Pump Cart,Auto,Bt-Cn tr (Omnipod 5 G6 Intro Kit (Gen 5)) cartridge Discontinued 0 .Route 1 December 21, 2021 12:00am August 30, 2022 4:25pm As directed Start: 12-10-2021 End: 08-30-2022 Insulin Pump Cart,Auto,Bt-Cn tr (Omnipod 5 G6 Intro Kit (Gen 5)) cartridge Discontinued 0 .Route 1 0 December 10, 2021 11:07am August 30, 2022 3:25pm Diabetes mellitus Type 1 diabetes mellitus with hyperglycemia As directed Start: 12-10-2021 End: 08-30-2022 Insulin Pump Cart,Auto,Bt-Cn tr (Omnipod 5 G6 Intro Kit (Gen 5)) cartridge Discontinued 0 .Route 1 0 December 10, 2021 12:07pm August 30, 2022 4:25pm Diabetes mellitus Type 1 diabetes mellitus with hyperglycemia As directed Start: 12-10-2021 End: 08-30-2022 Insulin Pump Cart,Auto,Bt-Cn tr (Omnipod 5 G6 Intro Kit (Gen 5)) cartridge Discontinued 0 .Route 1 December 10, 2021 11:07am August 30, 2022 3:25pm As directed Start: 12-10-2021 End: 08-30-2022 Insulin Pump Cart,Auto,Bt-Cn tr (Omnipod 5 G6 Intro Kit (Gen 5)) cartridge Discontinued 0 .Route 1 December 10, 2021 12:07pm August 30, 2022 4:25pm As directed Start: 08-27-2021 End: 12-10-2021 Insulin Pump Cart,Auto,Bt-Cn tr (Omnipod 5 G6 Intro Kit (Gen 5)) cartridge Discontinued 0 .Route 1 0 August 26, 2021 11:00pm December 10, 2021 11:07am Diabetes mellitus Type 1 diabetes mellitus with hyperglycemia As directed Start: 08-27-2021 End: 12-10-2021 Insulin Pump Cart,Auto,Bt-Cn tr (Omnipod 5 G6 Intro Kit (Gen 5)) cartridge Discontinued 0 .Route 1 0 August 27, 2021 12:00am December 10, 2021 12:07pm Diabetes mellitus Type 1 diabetes mellitus with hyperglycemia As directed Start: 08-27-2021 End: 12-10-2021 Insulin Pump Cart,Auto,Bt-Cn tr (Omnipod 5 G6 Intro Kit (Gen 5)) cartridge Discontinued 0 .Route 1 August 26, 2021 11:00pm December 10, 2021 11:07am As directed Start: 08-27-2021 End: 12-10-2021 Insulin Pump Cart,Auto,Bt-Cn tr (Omnipod 5 G6 Intro Kit (Gen 5)) cartridge Discontinued 0 .Route 1 August 27, 2021 12:00am December 10, 2021 12:07pm As directed Insulin Pump Cart,Automated, Bt (Omnipod 5 G6 Pods (Gen 5)) cartridge (20 sources) Start: 10-11-2023 End: 06-18-2024 Insulin Pump Cart,Automated, Bt (Omnipod 5 G6 Pods (Gen 5)) cartridge Discontinued 0 .Route 30 2 October 11, 2023 11:08am June 18, 2024 11:52am Diabetes mellitus Type 1 diabetes mellitus with hyperglycemia 1 pod q 72 hours Start: 10-11-2023 End: 06-18-2024 Insulin Pump Cart,Automated, Bt (Omnipod 5 G6 Pods (Gen 5)) cartridge Discontinued 0 .Route 30 October 11, 2023 12:08pm June 18, 2024 12:52pm Diabetes mellitus Type 1 diabetes mellitus with hyperglycemia 1 pod q 72 hours Start: 10-11-2023 End: 06-18-2024 Insulin Pump Cart,Automated, Bt (Omnipod 5 G6 Pods (Gen 5)) cartridge Discontinued 0 .Route October 11, 2023 12:08pm June 18, 2024 12:52pm 1 pod q 72 hours Start: 10-11-2023 Insulin Pump C art,Automated,Bt (Omnipod 5 G6 Pods (Gen 5)) cartridge Active 0 .Route October 11, 2023 12:08pm 1 pod q 72 hours Start: 07-18-2023 End: 10-11-2023 Insulin Pump Cart,Automated, Bt (Omnipod 5 G6 Pods (Gen 5)) cartridge Discontinued 0 .Route 30 July 18, 2023 7:07am October 11, 2023 11:08am Diabetes mellitus Type 1 diabetes mellitus with hyperglycemia 1 pod q 72 hours Start: 07-18-2023 End: 10-11-2023 Insulin Pump Cart,Automated, Bt (Omnipod 5 G6 Pods (Gen 5)) cartridge Discontinued 0 .Route 30 July 18, 2023 8:07am October 11, 2023 12:08pm Diabetes mellitus Type 1 diabetes mellitus with hyperglycemia 1 pod q 72 hours Start: 07-18-2023 End: 10-11-2023 Insulin Pump Cart,Automated, Bt (Omnipod 5 G6 Pods (Gen 5)) cartridge Discontinued 0 .Route July 18, 2023 8:07am October 11, 2023 12:08pm 1 pod q 72 hours Start: 12-27-2022 End: 07-18-2023 Insulin Pump Cart,Automated, Bt (Omnipod 5 G6 Pods (Gen 5)) cartridge Discontinued 0 .Route 29 03December 27, 2022 6:33am July 18, 2023 7:08am Diabetes mellitus Type 1 diabetes mellitus with hyperglycemia 1 pod q 72 hours Start: 12-27-2022 End: 07-18-2023 Insulin Pump Cart,Automated, Bt (Omnipod 5 G6 Pods (Gen 5)) cartridge Discontinued 0 .Route 29 03December 27, 2022 7:33am July 18, 2023 8:08am Diabetes mellitus Type 1 diabetes mellitus with hyperglycemia 1 pod q 72 hours Start: 12-27-2022 End: 07-18-2023 Insulin Pump Cart,Automated, Bt (Omnipod 5 G6 Pods (Gen 5)) cartridge Discontinued 0 .Route December 27, 2022 7:33am July 18, 2023 8:08am 1 pod q 72 hours Start: 12-27-2022 Insulin Pump C art,Automated,Bt (Omnipod 5 G6 Pods (Gen 5)) cartridge Active 0 .Route December 27, 2022 6:33am 1 pod q 72 hours Start: 08-05-2022 End: 12-27-2022 Insulin Pump Cart,Automated, Bt (Omnipod 5 G6 Pods (Gen 5)) cartridge Discontinued 0 .Route 29 03August 05, 2022 8:11am December 27, 2022 6:35am Diabetes mellitus Type 1 diabetes mellitus with hyperglycemia 1 pod q 72 hours Start: 08-05-2022 End: 12-27-2022 Insulin Pump Cart,Automated, Bt (Omnipod 5 G6 Pods (Gen 5)) cartridge Discontinued 0 .Route 29 03August 05, 2022 9:11am December 27, 2022 7:35am Diabetes mellitus Type 1 diabetes mellitus with hyperglycemia 1 pod q 72 hours Start: 08-05-2022 End: 12-27-2022 Insulin Pump Cart,Automated, Bt (Omnipod 5 G6 Pods (Gen 5)) cartridge Discontinued 0 .Route August 05, 2022 9:11am December 27, 2022 7:35am 1 pod q 72 hours Start: 08-05-2022 End: 12-27-2022 Insulin Pump Cart,Automated, Bt (Omnipod 5 G6 Pods (Gen 5)) cartridge Discontinued 0 .Route August 05, 2022 8:11am December 27, 2022 6:35am 1 pod q 72 hours Start: 08-05-2022 Insulin Pump C art,Automated,Bt (Omnipod 5 G6 Pods (Gen 5)) cartridge Active 0 .Route August 05, 2022 9:11am 1 pod q 72 hours Start: 12-21-2021 End: 12-27-2022 Insulin Pump Cart,Automated, Bt (Omnipod 5 G6 Pods (Gen 5)) cartridge Discontinued 0 .Route 12 03December 20, 2021 11:00pm December 27, 2022 6:33am As directed Start: 12-21-2021 End: 12-27-2022 Insulin Pump Cart,Automated, Bt (Omnipod 5 G6 Pods (Gen 5)) cartridge Discontinued 0 .Route 12 03December 21, 2021 12:00am December 27, 2022 7:33am As directed Start: 12-21-2021 End: 12-27-2022 Insulin Pump Cart,Automated, Bt (Omnipod 5 G6 Pods (Gen 5)) cartridge Discontinued 0 .Route December 21, 2021 12:00am December 27, 2022 7:33am As directed Start: 12-21-2021 End: 12-27-2022 Insulin Pump Cart,Automated, Bt (Omnipod 5 G6 Pods (Gen 5)) cartridge Discontinued 0 .Route December 20, 2021 11:00pm December 27, 2022 6:33am As directed Start: 12-21-2021 Insulin Pump C art,Automated,Bt (Omnipod 5 G6 Pods (Gen 5)) cartridge Active 0 .Route December 21, 2021 12:00am As directed Start: 12-10-2021 End: 08-05-2022 Insulin Pump Cart,Automated, Bt (Omnipod 5 G6 Pods (Gen 5)) cartridge Discontinued 0 .Route 30 December 10, 2021 11:07am August 05, 2022 8:11am Diabetes mellitus Type 1 diabetes mellitus with hyperglycemia 1 pod q 72 hours Start: 12-10-2021 End: 08-05-2022 Insulin Pump Cart,Automated, Bt (Omnipod 5 G6 Pods (Gen 5)) cartridge Discontinued 0 .Route 30 December 10, 2021 12:07pm August 05, 2022 9:11am Diabetes mellitus Type 1 diabetes mellitus with hyperglycemia 1 pod q 72 hours Start: 12-10-2021 End: 08-05-2022 Insulin Pump Cart,Automated, Bt (Omnipod 5 G6 Pods (Gen 5)) cartridge Discontinued 0 .Route December 10, 2021 11:07am August 05, 2022 8:11am 1 pod q 72 hours Start: 12-10-2021 End: 08-05-2022 Insulin Pump Cart,Automated, Bt (Omnipod 5 G6 Pods (Gen 5)) cartridge Discontinued 0 .Route December 10, 2021 12:07pm August 05, 2022 9:11am 1 pod q 72 hours Start: 08-27-2021 End: 12-10-2021 Insulin Pump Cart,Automated, Bt (Omnipod 5 G6 Pods (Gen 5)) cartridge Discontinued 0 .Route 30 August 26, 2021 11:00pm December 10, 2021 11:07am Diabetes mellitus Type 1 diabetes mellitus with hyperglycemia 1 pod q 72 hours Start: 08-27-2021 End: 12-10-2021 Insulin Pump Cart,Automated, Bt (Omnipod 5 G6 Pods (Gen 5)) cartridge Discontinued 0 .Route 30 August 27, 2021 12:00am December 10, 2021 12:07pm Diabetes mellitus Type 1 diabetes mellitus with hyperglycemia 1 pod q 72 hours Start: 08-27-2021 End: 12-10-2021 Insulin Pump Cart,Automated, Bt (Omnipod 5 G6 Pods (Gen 5)) cartridge Discontinued 0 .Route August 26, 2021 11:00pm December 10, 2021 11:07am 1 pod q 72 hours Start: 08-27-2021 End: 12-10-2021 Insulin Pump Cart,Automated, Bt (Omnipod 5 G6 Pods (Gen 5)) cartridge Discontinued 0 .Route August 27, 2021 12:00am December 10, 2021 12:07pm 1 pod q 72 hours Insulin Pump Cart,Automated, Bt cartridge (5 sources) Start: 06-18-2024 End: 06-18-2024 Insulin Pump Cart,Automated, Bt cartridge Discontinued 0 .Route 30 2 June 18, 2024 11:51am June 18, 2024 3:47pm Diabetes mellitus Type 1 diabetes mellitus with hyperglycemia 1 pod q 72 hours Start: 06-18-2024 End: 06-18-2024 Insulin Pump Cart,Automated, Bt cartridge Discontinued 0 .Route 30 2 June 18, 2024 12:51pm June 18, 2024 4:47pm Diabetes mellitus Type 1 diabetes mellitus with hyperglycemia 1 pod q 72 hours Start: 06-18-2024 End: 06-18-2024 Insulin Pump Cart,Automated, Bt cartridge Discontinued 0 .Route 30 June 18, 2024 12:51pm June 18, 2024 4:47pm 1 pod q 72 hours losartan potassium 25 mg oral tablet (11 sources) Angiotensin 2 Receptor Juan Miguel Start: 10-08-2014 End: 09-03-2020 take 1 tablet by mouth once daily Losartan 25 MG tablet Discontinued 25 mg PO DAILY July 07, 2017 11:00pm September 03, 2020 9:28am meclizine hydrochloride 25 mg oral tablet (1 source) Antiemetic Start: 01-15-2016 End: 09-27-2016 take 1 tablet by mouth every eight hours as needed Meclizine HCl 25 MG Oral Tablet 1 (one) Tablet q 8 hr prn vertigo for 0 days Quantity: 30 {Tablet} Refills: 0 Ordered: 27-Sep-2016 Nadira Valera LPN Start : 15-Jan-2016 End : 27-Sep-2016 Discontinued mometasone furoate 0.05 mg/actuat metered dose nasal spray (1 source) Corticosteroid Start: 06-28-2017 take 1 spray(s) nasal route once daily Nasonex 50 MCG/ACT Nasal Suspension 1 (one) [place] each nostril daily for 0 days Quantity: 1 {Container} Refills: 0 Ordered: 28-Jun-2017 Yoselin Dempsey DO, DO, Kathleen Start : 28-Jun-2017 Active olopatadine 1 mg/ml ophthalmic solution (1 source) Histamine-1 Receptor Inhibitor Start: 06-28-2017 Patanol 0.1 % Ophthalmic Solution 1 (one) Metric Drop each eye bid for 0 days Quantity: 1 {Bottle} Refills: 0 Ordered: 28-Jun-2017 Yoselin Dempsey DO, DO, Kathleen Start : 28-Jun-2017 Active Comments: remove contacts to apply Comment on above: remove contacts to a pply ondansetron 4 mg disintegrating oral tablet (8 sources) Serotonin-3 Receptor Antagonist Start: 07-08-2017 End: 09-03-2020 take 1 tablet by mouth every four hours as needed for nausea Ondansetron 4 MG tablet,disintegra ting Discontinued 4 mg PO EVERY 4 HOURS NEEDED as needed for Nausea 20 0 July 08, 2017 7:19pm September 03, 2020 9:28am Semaglutide (Weight Loss) (12 sources) Start: 10-28-2023 End: 02-24-2024 Semaglutide (Weight Loss) (Wegovy) 0.25 mg/0.5 mL pen injector Discontinued 0.25 mg SC EVERY WEEK 2 October 28, 2023 10:09am February 24, 2024 9:28am administer weeks 1 through 4 of therapy Start: 10-28-2023 End: 02-24-2024 Semaglutide (Weight Loss) (W egovy) 0.25 mg/0.5 mL pen injector Discontinued 0.25 mg SC EVERY WEEK 2 October 28, 2023 11:09am February 24, 2024 10:28am administer weeks 1 through 4 of therapy Start: 10-28-2023 End: 02-24-2024 Semaglutide (Weight Loss) (W egovy) 0.25 mg/0.5 mL pen injector Discontinued 0.25 mg SC EVERY WEEK 2 October 28, 2023 11:09am February 24, 2024 10:28am administer weeks 1 through 4 of therapy Start: 10-27-2023 End: 10-28-2023 Semaglutide (Weight Loss) (W egovy) 0.25 mg/0.5 mL pen injector Discontinued 0.25 mg SC EVERY WEEK 2 October 26, 2023 11:00pm October 28, 2023 10:09am administer weeks 1 through 4 of therapy Start: 10-27-2023 End: 10-28-2023 Semaglutide (Weight Loss) (W egovy) 0.25 mg/0.5 mL pen injector Discontinued 0.25 mg SC EVERY WEEK 2 1 October 27, 2023 12:00am October 28, 2023 11:09am administer weeks 1 through 4 of therapy Start: 10-27-2023 End: 10-28-2023 Semaglutide (Weight Loss) (W egovy) 0.25 mg/0.5 mL pen injector Discontinued 0.25 mg SC EVERY WEEK 2 October 27, 2023 12:00am October 28, 2023 11:09am administer weeks 1 through 4 of therapy NEGATED: Highlighted row has not occurred!No Known Historical Medications (1 source) No Known Histori aleksandra Medications Problems Active Problems Problem Classification Problem Date Documented Date Episodic/Chronic Abdominal pain (1 source) Pelvic and perineal pain; Translations: [Pelvic pain in female] Onset: 11-27-2024 Episodic Conditions associated with dizziness or vertigo (2 sources) Vertigo; Translations: [Vertigo] 02-03-2017 Episodic Comment on above: will hold off on ENT referral for now Deficiency and other anemia (1 source) Deficiency and other anemia Diabetes mellitus with complications (16 sources) Diabetes with ophthalmic manifestations, type I [juvenile type], not stated as uncontrolled; Translations: [Diabetes type I, uncontrolled, ophthalmic comp (250.53)] Onset: 08-29-2024 06-28-2017 Chronic Diabetes mellitus without complication (8 sources) Patient encounter status; Translations: [Encounter for fitting and adjustment of insulin pump] 12-11-2021 Chronic Diabetes mellitus without complication (12 sources) Insulin pump present; Translations: [Presence of insulin pump (external) (internal)] 09-02-2022 Episodic Diabetes mellitus without complication (3 sources) Diabetes mellitus without complication Essential hypertension (13 sources) Benign hypertension; Translations: [HTN (hypertension), benign] 02-03-2017 Chronic Comment on above: Hasn't taken BP meds for a couple months. Fracture of lower limb (2 sources) Closed fracture of metatarsal bone; Translations: [Displaced fracture of fifth metatarsal bone, unspecified foot, initial encounter for closed fracture] Onset: 08-03-2024 Episodic Genitourinary symptoms and ill-defined conditions (4 sources) Stress incontinence (female) (male); Translations: [Genuine stress incontinence] Onset: 01-07-2025 12-20-2024 Chronic Immunizations and screening for infectious disease (3 sources) Pneumococcal vaccination given; Translations: [Pneumococcal vaccination given] 02-03-2017 Episodic Malaise and fatigue (1 source) Fatigue; Translations: [Other fatigue] 11-12-2024 Episodic Menopausal disorders (1 source) Other specified menopausal and perimenopausal disorders; Translations: [Other specified menopausal and perimenopausal disorders] Onset: 03-06-2024 Chronic Menstrual disorders (1 source) Disorder of menstruation; Translations: [Abnormal menses] 02-03-2017 Chronic Comment on above: discussed us etc to look at stripe / gn can do in office or know meds to rx etc - will see them Mycoses (1 source) Opportunistic mycosis; Translations: [Antibiotic-induced yeast infection] 02-03-2017 Episodic Other connective tissue disease (1 source) Ganglion cyst of right wrist; Translations: [Ganglion of right wrist] 02-03-2017 Episodic Comment on above: pt will follow and i f more pain will refer to hand specialist for resection Other ear and sense organ disorders (1 source) Impacted cerumen in left ear; Translations: [Impacted cerumen of left ear] 02-03-2017 Episodic Other female genital disorders (2 sources) Vaginal bleeding; Translations: [Vaginal bleeding] 02-03-2017 Chronic Other female genital disorders (1 source) Deep dyspareunia; Translations: [Deep dyspareunia] Onset: 11-27-2024 Chronic Other female genital disorders (1 source) Pruritus of vagina; Translations: [Vaginal itching] 02-03-2017 Episodic Other hematologic conditions (1 source) H/O: anemia - iron deficient; Translations: [History of iron deficiency anemia] 02-03-2017 Episodic Other lower respiratory disease (2 sources) Cough; Translations: [Cough] 02-03-2017 Episodic Other lower respiratory disease (2 sources) Dyspnea; Translations: [SOB (shortness of breath)] 02-03-2017 Episodic Other nutritional; endocrine; and metabolic disorders (2 sources) Body mass index 30+ - obesity; Translations: [BMI 30.0-30.9,adult] 06-28-2017 Chronic Other nutritional; endocrine; and metabolic disorders (11 sources) Obesity; Translations: [Obesity, unspecified] 09-02-2022 Chronic Other nutritional; endocrine; and metabolic disorders (1 source) Obesity, unspecified; Translations: [Obesity, unspecified] 08-30-2022 Chronic Other nutritional; endocrine; and metabolic disorders (6 sources) Body mass index 25-29 - overweight 09-30-2023 Episodic Other upper respiratory disease (1 source) Allergic rhinitis; Translations: [Allergic rhinitis, mild] 06-28-2017 Chronic Other upper respiratory infections (1 source) Bacterial sinusitis; Translations: [Sinusitis, bacterial] 02-03-2017 Chronic Residual codes; unclassified (1 source) Generalized aches and pains; Translations: [Body aches] 02-03-2017 Episodic Residual codes; unclassified (1 source) Non-smoker; Translations: [Non-smoker] 06-28-2017 Episodic Retinal detachments; defects; vascular occlusion; and retinopathy (9 sources) Proliferative retinopathy; Translations: [Other non-diabetic proliferative retinopathy, bilateral] 09-30-2023 Chronic Thyroid disorders (13 sources) Hypothyroidism; Translations: [Hypothyroidism, unspecified] Onset: 10-26-2024 09-02-2022 Chronic Unclassified (11 sources) Inconclusive mammogram; Translations: [Thyroid hormone tests abnormal] Onset: 10-21-2016 02-03-2017 Episodic Unclassified (6 sources) Unclassified (4 sources) Non-smoker Unclassified (3 sources) BMI 31.0-31.9,adult Unclassified (3 sources) HTN (hypertension), benign Unclassified (1 source) Abnormal TSH Unclassified (1 source) Ganglion of right wrist Unclassified (1 source) Abnormal menses Unclassified (2 sources) Body mass index 25-29 - overweight; Translations: [Body mass index (BMI) of 25.0 to 29.9] 12-11-2021 Unclassified (1 source) Pelvic pain in female; Translations: [Pelvic pain in female] Onset: 11-30-2024 Urinary tract infections (4 sources) Urinary tract infection, site not specified; Translations: [Urinary tract infectious disease] Onset: 01-02-2025 12-19-2024 Episodic Past or Other Problems Problem Classification Problem Date Documented Da te Episodic/Chronic Genitourinary symptoms and ill-defined conditions (4 sources) Dysuria; Translations: [Nocturia] Onset: 05-28-2024 12-20-2024 Episodic Nonmalignant breast conditions (3 sources) Unspecified lump in breast; Translations: [UNSPECIFIED LUMP IN GILBERTO] Onset: 10-21-2016 Episodic Other connective tissue disease (1 source) Pain in right finger(s); Translations: [Pain in right finger(s)] Onset: 03-19-2024 Episodic Unclassified (1 source) Abortions/Miscarria ges; Translations: [Abortions/Miscarri ages] 02-03-2017 Comment on above: 1. Unclassified (1 source) Pregnancies (); Translations: [Pregnancies ()] 02-03-2017 Comment on above: 1. Unclassified (1 source) BMI 30.0-30.9,adult Unclassified (1 source) Allergic rhinitis, mild Unclassified (1 source) Body aches Unclassified (1 source) Impacted cerumen of left ear Unclassified (1 source) Sinusitis, bacterial Unclassified (1 source) Antibiotic-induced yeast infection Unclassified (1 source) Vaginal itching Unclassified (1 source) Encounter for well adult exam with abnormal findings (Renamed from Encounter for general adult medical examination with abnormal findings) Results Test Name Value Interpretation Reference Range Facility Laboratory - Chemistry and C hemistry - challengeOrdered By: Jazmín Adkins on 01-07-2025 Bilirubin Ql (U) Negative [facility] Glucose Ql (U) Negative [facility] Ketones Ql (U) Trace (5) [facility] pH (U) 6.5 [pH] [facility] Specific gravity (U) [Rel density] 1.015 [facility] Urobilinogen (U) [Mass/Vol] 0.9689372 mg/dL [facility] Laboratory - Hematology and Cell countsOrdered By: Jazmín Adkins on 01-07-2025 Hemoglobin Ql (U) Trace [facility] Laboratory - UrinalysisOrder ed By: Jazmín Adkins on 01-07-2025 Nitrite Ql (U) Negative [facility] Protein Ql (U) Trace [facility] MR/BMSDanette 01-07-2025 MR/ISACC [facility] [address], [address] [place] [address] OFFICE VISIT Date of Service: 01/07/25 MR#: [id number] Acct: [id number] Name: IRMA SORIANO Rep #: [id number] : 1980 Provider: Dr. 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 Accompanied by: self Is patient in pain?: No Allergies potassium Allergy (Verified 01/07/25 15:20) Swelling Medications ???Medication ???Instructions ???Recorded ???Confirmed ???Type multivitamin 1 tab PO DAILY 09/03/20 01/07/25 H istory insulin syringe-needle U-100 0.3 #100 ea 12/27/22 08/27/24 Rx mL 31 gauge x 5/16 (BD Insulin Syringe Ultra-Fine) levothyroxine 125 mcg tablet 125 mcg PO DAILY #90 tabs 02/13/24 01/07/25 Rx losartan 50 mg-hydrochlorothiazide 1 tab PO DAILY #90 tabs 02/13/24 01/07/25 Rx 12.5 mg tablet blood-glucose sensor (Dexcom G7 #1 ea 02/24/24 08/27/24 Rx Sensor device) Novolog U-100 Insulin aspart 100 100 unit subcut DAILY #90 mL 08/2701/07/25 Rx unit/mL subcutaneous solution (insulin aspart U-100) bupropion HCl 300 mg 24 hr tablet, 300 mg PO QAM 08/27/24 01/07/25 History extended release cholecalciferol (vitamin D3) 125 125 mcg PO QDAY 08/27/24 01/07/25 History mcg (5,000 unit) capsule insulin pump cart,auto,BT,G6/7 #30 ea 08/27/24 08/27/24 Rx (Omnipod 5 G6-G7 Pods (Gen 5) subcutaneous cartridge) biotin 10,000 mcg capsule mcg PO 12/19/24 01/07/25 History estradiol 0.01% (0.1 mg/gram) 1 g vaginal 3XW 3 months #42.5 01/07/25 Rx vaginal cream grams levocetirizine 5 mg tablet (Xyzal) 5 mg PO QDAY 12/19/24 01/07/25 H istory semaglutide 3 mg tablet 3 mg PO QDAY 12/19/24 01/07/25 His tory Nurse's Note: undressed [facility] Medical History Type 1 diabetes mellitus with hyperglycemia Overweight (BMI 25.0-29.9) Insulin pump titration Presence of insulin pump Obesity Hypothyroid Vertigo Migraine High cholesterol Hypertension Surgical History H/O lumpectomy left wrist hardware removal left thumb tendon transfer left wrist orif H/O foot surgery Family History Grandfather Alcoholism Diabetes Mother Diabetes Thyroid disorder Celiac disease Father Hypertension High cholesterol CVA (cerebral vascular accident) Brother Severe allergy Sister Sarcoidosis Social History Smoking Status: Never smoker alcohol intake: current alcohol intake frequency: holidays/special occasions only Alcohol type: hard liquor substance use type: does not use what type of physical activity do you participate in: walking and aerobics frequency: 1-2 times per week HPI HPI Urology Chief Complaint: cystoscpy and pevic exam Details: IRMA SORIANO, is a 44 F. She is here for cystoscopy and pelvic exam today. She has no sign of acute urinary tract infection today. She denies hematuria. Questions regarding the procedure were answered and she gives consent to proceed. 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 Usually getting cranberry in twice a day. We discussed start thearpy and when to follow up here. ROS Const Constitutional: No chills, fatigue, fever(s), headache(s), night sweats, weakness, weight change, abnormal sleep pattern or change in appetite Eyes Eyes: No change in vision ENT ENT: No headache(s) or dry mouth Resp Respiratory: No cough, chest congestion, shortness of breath or wheezing Cardio Cardiology: Positive for other (No chest pain.); No shortness of breath, irregular heart rhythm or lightheadedness Gastro GI: Positive for other (No nausea.); No abdominal pain, change in bowel habits, constipation, diarrhea or vomiting Musc Musculoskeletal: No abnormal gait Skin Skin: No yellowing of the eye, lesions, itchy eyes, rash or skin ulcer Neuro Neurology: No abnormal gait, confusion, dizziness, weakness, headache(s) or memory loss Psych Psychiatric: No abnormal sleep pattern, No change in appetite, No confusion and No memory loss Endo Endocrine: No fatigue, increased thirst/drinking or weight change Aller/Imm Allergy/Immunologic: No itchy eyes or wheezing Paulo/Lymp Hematologic/Lymphatic: No easy bleeding, easy bruising or enlarged lymph nodes Exam Const General: cooperative, healthy appearing, comfortable and no acute distress HENMT (more content not included)... Normal [facility] No Panel InformationOrdered By: Jazmín Adkins on 01-07-2025 Urine Leukocytes Positive [facility] Urine Non-Hemolyzed Blood Negative [facility] RAJ SCREENING W TOMOon 01-04 RAJ SCREENING W ESTEFANI * * *Final Report* * * DATE OF EXAM: Jan 04 2025 9:58AM [facility] [id number] - RAJ SCREENING W ESTEFANI / PROCEDURE REASON: Encounter for screening mammogram for breast cancer * * * * Physician Interpretation * * * * RESULT: [place] [id number] #[id number] - RAJ SCREENING W ESTEFANI HISTORY: 44 year-old patient presents for screening. Patient is asymptomatic in both breasts. Patient states no personal history of breast cancer. COMPARISON STUDIES: The present examination has been compared to prior imaging studies dated 07/03/2020 (mammogram), 07/15/2020 (mammogram), 11/20/2021 (mammogram), 12/27/2022 (mammogram) and 12/30/2023 (mammogram). MAMMOGRAM TECHNIQUE: The study was acquired using full field digital technology and interpreted from soft copy. Digital Breast Tomosynthesis (DBT) images were obtained and used to assist in the interpretation of this examination. MAMMOGRAM FINDINGS: The breasts are heterogeneously dense, which may obscure small masses. There is a biopsy clip in the right breast. No suspicious mass, calcifications, or other abnormality is seen in either breast. There are no significant interval changes. IMPRESSION: There is no mammographic evidence of malignancy in either breast. Routine screening mammogram is recommended. Annual mammogram will be due in 1 year. BI-RADS Category 1: Negative RISK: Based on the Tyrer-Cuzick (TC) risk assessment model, this patient has a 14.3% lifetime risk of developing breast cancer, meaning they are at average risk for developing breast cancer. However, this is only an estimate based on available history provided on the patient's questionnaire. We encourage all patients to talk with their providers about these results, further recommendations for managing breast health, and appropriate supplemental screening options if the patient has dense breast tissue. Interpreting Radiologist: Rissa Molina M.D. Electronically signed on: 01/05/2025 Cheese Wrapper: SARA Transcribe Date/Time: Jan 04 2025 9:41A Dictated by: RISSA MOLINA MD This examination was interpreted and the report reviewed and electronically signed by: RISSA MOLINA MD on Jan 05 2025 9:07AM EST [id number] Normal [facility] Kidney and Bladderon [address] [facility] Imaging Services [address] [place] [address] [id number] Kidney and Bladder MR#: [id number] Acct: [id number] Name: IRMA SORIANO VIPIN Rep #: [id number] : 1980 F 44 From: Chelsea Jiang PCP: Dr. Rozina Gomez MD Status: [facility] CLI Study: Kidney and Bladder Date of Exam: 12/27/24 Exam# [id number] Ordering Dr: Jazmín Adkins MD PROCEDURE: KIDNEY AND BLADDER 12/27/2024 REASON FOR EXAM: UTI TECHNIQUE: Procedure Code: USKI Modality: US Procedure: KIDNEY AND BLADDER FINDINGS: Right kidney measures 9 cm and left kidney measures 9.2 cm. Normal echotexture of bilateral kidneys. No hydronephrosis. No renal stones. Mildly thickened urinary bladder wall which may reflect cystitis vs nondistention; consider correlation with urinalysis. US/Kidney and Bladder IMPRESSION: No hydronephrosis. Mildly thickened urinary bladder wall which may reflect cystitis vs nondistention; consider correlation with urinalysis. Reading Location: [facility] CC: Dr. Rozina Gomez MD; Dr. Jazmín Adkins MD Cheese Wrapper: Signed Normal [facility] [id number] 12-25-2024 [id number] HNO ID: [id number] Author: KELSIE GUTIÉRREZ RN Service: ? Author Type: Registered Nurse Type: [id number] Filed: 12/25/2024 10:05 Note Text: Post procedure discharge instructions, copy of report, and appointment reminder if applicable given to patient and All questions answered and patient verbalizes understanding. Kelsie Gutiérrez RN Normal [facility] Colonoscopyon 12-25-2024 Colonoscopy [facility] Gastrointestinal Endoscopy Patient Name: Irma Soriano Procedure Date: 12/25/2024 8:33 AM Date of : 1980 Admit Type: Outpatient Age: 44 Gender: Female Note Status: Finalized Procedure: Colonoscopy - screening Indications: Screening for colorectal malignant neoplasm Providers: Elizabeth Og MD Patient Profile: Refer to note in patient chart for documentation of history and physical. Last Colonoscopy: none. The patient's first colonoscopy is today. Referring Physician: Ana Vargas (Referring ) Medicines: Midazolam 5 mg IV, Fentanyl 50 micrograms IV, Diphenhydramine 50 mg IV, Ondansetron 4 mg IV Complications: No immediate complications. Requesting Provider: Procedure: Pre-Anesthesia Assessment: - Prior to the procedure, a History and Physical was performed, and patient medications and allergies were reviewed. The patient is competent. The risks and benefits of the procedure and the sedation options and risks were discussed with the patient. All questions were answered and informed consent was obtained. Patient identification and proposed procedure were verified by the physician in the pre-procedure area. Mental Status Examination: alert and oriented. Airway Examination: normal oropharyngeal airway and neck mobility. CV Examination: normal. Prophylactic Antibiotics: The patient does not require prophylactic antibiotics. Prior Anticoagulants: The patient has taken no anticoagulant or antiplatelet agents. ASA Grade Assessment: III - A patient with severe systemic disease. After reviewing the risks and benefits, the patient was deemed in satisfactory condition to undergo the procedure. The anesthesia plan was to use moderate sedation / analgesia (conscious sedation). Immediately prior to administration of medications, the patient was re-assessed for adequacy to receive sedatives. The heart rate, respiratory rate, oxygen saturations, blood pressure, adequacy of pulmonary ventilation, and response to care were monitored throughout the procedure. The physical status of the patient was re-assessed after the procedure. After I obtained informed consent, the scope was passed under direct vision. Throughout the procedure, the patient's blood pressure, pulse, and oxygen saturations were monitored continuously. The Colonoscope was introduced through the anus and advanced to the cecum, identified by the appendiceal orifice, IC valve and transillumination. The colonoscopy was performed without difficulty. The patient tolerated the procedure well. The quality of the bowel preparation was adequate to identify polyps greater than 5 mm in size. The ileocecal valve, the appendiceal orifice and the rectum were photographed. Moderate Sedation: The administration of moderate sedation was initiated at 08:42. Moderate (conscious) sedation was personally administered by the endoscopist. The following parameters were monitored: oxygen saturation, heart rate, blood pressure, respiratory rate, EKG, adequacy of pulmonary ventilation, and response to care. Total physician intraservice time was 19 minutes. Findings: The perianal and digital rectal examinations were normal. Non-bleeding external and internal hemorrhoids were found. A 1 to 2 mm polyp was found in the cecum. The polyp was sessile. The polyp was removed with a cold biopsy forceps. Resection and retrieval were complete. Verification of patient identification for the specimen was done by the nurse. Estimated blood loss was minimal. Impression: - Non-bleeding external and internal hemorrhoids. - One 1 to 2 mm polyp in the cecum, removed with a cold biopsy forceps. Resected and retrieved. Recommendation: - Repeat colonoscopy date to be determined after pending pathology results are reviewed for surveillance based on pathology results. - Return to referring provider at the next available appointment. - OR- Follow up with Shala Rossi NP, , may be via televisit for discussion of pathology results and determination of timing of future endoscopies - Patient has a contact number available for emergencies. The signs and symptoms of potential delayed complications were discussed with the patient. Return to normal activities tomorrow. Written discharge instructions were provided to the patient. - Continue present medications. - Resume previous diet. Procedure Code(s): --- Professional --- 57198, Colonoscopy, flexible; with biopsy, single or multiple 96587, 59, Moderate sedation services provided by the same physician or other qualified health home care music therapist performing the diagnostic or therapeutic service that the sedation supports, requiring the presence of an independent trained observer to assist in the monitoring of the patient's level of consciousness and physiological status; initial 15 minutes of int (more content not included)... Normal [facility] HISTORY PHYSICALon HISTORY PHYSICAL HNO ID: [id number] Author: ELIZABETH OG MD Service: General Surgery Author Type: Physician Type: H&P Filed: 12/25/2024 08:33 Note Text: HISTORY AND PHYSICAL Irma Soriano 1980 REFERRING PHYSICIAN: Trice Hong* CHIEF COMPLAINT: No chief complaint on file. HPI: The patient is a 44 year old female here for colonoscopy for screening for colon Cancer Last colonoscopy - none PAST MEDICAL HISTORY Diagnosis Date Anemia Diabetes (HCC) Hyperlipidemia Hypertension Hypothyroid Migraines Seasonal allergies Sinus tachycardia Vertigo PAST SURGICAL HISTORY Procedure Laterality Date BREAST BIOPSY HX Left BX BREAST W/DEVICE 1ST LESION STEREOTACTIC GUID Right 08/13/2020 FOOT SURGERY HX Left 1992 WRIST SURGERY HX Bilateral 2018- Right 2014-Left Current Outpatient Medications Medication Sig SEMAGLUTIDE, WEIGHT LOSS, SQ INJECT 20 UNITS SUBCUTANEOUSLY ONCE WEEKLY buPROPion XL (WELLBUTRIN XL) 300 mg 24 hr tablet Take 300 mg by mouth once daily. OMNIPOD 5 G6 PODS, GEN 5, crtg USE 1 POD EVERY 72 HOURS losartan (COZAAR) 25 mg tablet insulin aspart prot/insuln asp (NOVOLOG MIX 70-30 SUBCUTANEOUS) atorvastatin (LIPITOR) 20 mg tablet Take 1 tablet by mouth every afternoon. losartan-hydroCHLOROthi azide (HYZAAR) 50-12.5 mg per tablet Take 1 tablet by mouth once daily. FA/mv,Ca,iron,min/lycop alessia/lut (MULTIVITAL ORAL) Take by mouth. cholecalciferol, vitamin D3, (VITAMIN D3 ORAL) Take by mouth. levothyroxine (SYNTHROID) 125 mcg tablet Take 125 mcg by mouth once daily. No current facility-administered medications for this encounter. ALLERGIES: Potassium PERSONAL HISTORY: SOCIAL HISTORY[1] FAMILY HISTORY Problem Relation Age of Onset other (papilloma) Mother Celiac Disease Mother Diabetes Mother type 2 other (htn) Father Stroke Father TIA Hyperlipidemia Father Lung Cancer Father Sarcoidosis Sister Thyroid Brother REVIEW OF SYMPTOMS: Denies chest pain Denies shortness of breath PHYSICAL EXAMINATION: General: The patient is 44 year old female, well nourished, well hydrated in no acute distress. The patient is oriented to time, place, and person. VITALS: Last menstrual period 10/12/2024. There is no height or weight on file to calculate BMI. Head - Normocephalic. EOM intact with sclera clear. Mouth with mucus membranes moist. Neck - supple with no jugular venous distention noted. Trachea is midline. Lungs - normal breath sounds, normal respiratory motion, no adventitial sounds noted. Heart - normal heart sounds. Regular rate. Abdomen - soft and benign. Extremities - no pitting edema noted. Skin - Normal skin integrity. Neurological - non focal Psych - calm and appropriate Impression: screening for colon cancer, Discussion/Plan/Recomme ndations: I have discussed the above with the patient. I have offered colonoscopy , possible biopsies I have explained the procedure to the patient. I have counseled the patient as to the risks of the procedure, including but not limited to: infection, bleeding, injury to any intrabdominal organs such as liver/spleen, perforation of the GI tract, inability to complete the procedure, complications of anesthesia, etc. - the patient understands. The patient wishes to proceed. I have answered all questions to the patient?s satisfaction and the patient has no further questions. . Elizabeth Og MD [1] Social History Tobacco Use Smoking status: Never Smokeless tobacco: Never Vaping Use Vaping status: Never Used Substance Use Topics Alcohol use: Yes Comment: social Drug use: No Normal [facility] Pathology biopsy report Dilip (Tiss)on 12-25-2024 AP DISCLAIMER Normal [facility] Comment on above: Order Comment: Speci men Type: TISSUE SPECIMEN Ordering Facility: [facility] Address: [address] [place] [address] Result Comment: Brodie macedo Developed Test (LDT) Disclaimer: Performance characteristics of immunohistochemical, immunofluorescent, and chromogenic in-situ hybridization tests have been determined by the performing laboratory within the [facility] Department of Pathology and Laboratory Medicine ([facility], [facility], [facility], [facility], [facility], [facility], or [facility]) in a manner consistent with CLIA requirements. One or more of these tests may not have been cleared or approved by the FDA. The [facility] Department of Pathology and Laboratory Medicine is regulated under CLIA as qualified to perform high-complexity testing. These tests are used for clinical purposes. These should not be regarded as investigational or for research. Positive and negative controls stain appropriately. Performed By: #### 6 6121-5 #### [facility] CLIA [id number] [address] [place] [address] [place] CASE REPORT Normal [facility] Comment on above: Order Comment: Mc zuñiga Type: TISSUE SPECIMEN Ordering Facility: [facility] Address: [address] [place] [address] Result Comment: Surg [facility] Pathology Report Case: [id number] Authorizing Provider: Elizabeth Og MD Collected: 12/25/2024 08:54 AM Ordering Location: Ambulatory Surgery Received: 12/25/2024 02:33 PM Pathologist: Umer Johnston MD Specimen: Colon, Cecum, Polyp Performed By: #### 6 6121-5 #### [facility] CLIA [id number] [address] [place] [address] [place] CLINICAL HISTORY Normal [facility] Comment on above: Order Comment: Mc zuñiga Type: TISSUE SPECIMEN Ordering Facility: [facility] Address: [address] [place] [address] Result Comment: Lynda felder Diagnoses: Z12.11 - Screen for colon cancer Performed By: #### 6 6121-5 #### [facility] CLIA [id number] [address] [place] [address] [place] FINAL DIAGNOSIS Normal [facility] Comment on above: Order Comment: Speci men Type: TISSUE SPECIMEN Ordering Facility: [facility] Address: [address] [place] [address] Result Comment: Andrei andersonum, polypectomy: - Tubular adenoma. at 1304 EDT Performed By: #### 6 6121-5 #### [facility] CLIA [id number] [address] [place] [address] [place] FINAL PERFORMING LAB Normal [facility] Comment on above: Order Comment: Speci men Type: TISSUE SPECIMEN Ordering Facility: [facility] Address: [address] [place] [address] Result Comment: Diag nostic interpretation performed at: [facility], [address] [place] [address] CLIA# [id number] Fuse Spooler: Sherin Castillo MD Performed By: #### 6 6121-5 #### [facility] CLIA [id number] [address] [place] [address] [place] GROSS DESCRIPTION Normal [facility] Comment on above: Order Comment: Speci men Type: TISSUE SPECIMEN Ordering Facility: [facility] Address: [address] [place] [address] Result Comment: Andrei Howard olon, Cecum, Polyp Received in formalin is one piece of donald, soft tissue measuring 0.3 x 0.2 x 0.2 cm. Totally submitted in one cassette. [facility] December 25, 2024 11:19 PM Gross examination performed at [facility], [address] [place] [address] Performed By: #### 6 6121-5 #### [facility] CLIA [id number] [address] [place] [address] [place] Laboratory - Chemistry and C hemistry - challengeOrdered By: Jazmín Adkins on 12-19-2024 Bilirubin Ql (U) Negative [facility] Glucose Ql (U) Negative [facility] Ketones Ql (U) Negative [facility] pH (U) 6 [pH] [facility] Specific gravity (U) [Rel density] 1.015 [facility] Urobilinogen (U) [Mass/Vol] 0.5381786 mg/dL [facility] Laboratory - Hematology and Cell countsOrdered By: Jazmín Adkins on 12-19-2024 Hemoglobin Ql (U) Negative [facility] Laboratory - UrinalysisOrder ed By: Jazmín Adkins on 12-19-2024 Nitrite Ql (U) Negative [facility] Protein Ql (U) Trace [facility] MR/Petra 12-19-2024 MR/[facility] [address], [address] [place] [address] OFFICE VISIT Date of Service: 12/19/24 MR#: [id number] Acct: [id number] Name: IRMA SORIANO Rep #: [id number] : 1980 Provider: Dr. Jazmín Muniz i, MD Age/Sex: 44/F [facility] Status: Signed Intake Vital Signs 08/27/24 08:00 12/19/24 14:26 Height 5 ft 4 in 5 ft 4 in Weight: 183 lb 183 lb BMI 31.4 31.4 BP 108/74 115/84 H Blood Pressure Location Lt brachial Position Sitting Pulse 92 91 Pulse Source Monitor Pulse Oximetry (%) 97 Oxygen Delivery Method room air Intake Visit Reasons: Recurrent UTI Chief Complaint: new patient- recurrent uti Senior Maintenance Technician Required: No Accompanied by: self Allergies potassium Allergy (Verified 12/19/24 14:24) Swelling Medications ???Medication ???Instructions ???Recorded ???Confirmed ???Type multivitamin 1 tab PO DAILY 09/03/20 12/19/24 H istory insulin syringe-needle U-100 0.3 #100 ea 12/27/22 08/27/24 Rx mL 31 gauge x 5/16 (BD Insulin Syringe Ultra-Fine) levothyroxine 125 mcg tablet 125 mcg PO DAILY #90 tabs 02/13/24 12/19/24 Rx losartan 50 mg-hydrochlorothiazide 1 tab PO DAILY #90 tabs 02/13/24 12/19/24 Rx 12.5 mg tablet blood-glucose sensor (Skiftcom G7 #1 ea 02/24/24 08/27/24 Rx Sensor device) Novolog U-100 Insulin aspart 100 100 unit subcut DAILY #90 mL 08/2712/19/24 Rx unit/mL subcutaneous solution (insulin aspart U-100) bupropion HCl 300 mg 24 hr tablet, 300 mg PO QAM 08/27/24 12/19/24 History extended release cholecalciferol (vitamin D3) 125 125 mcg PO QDAY 08/27/24 12/19/24 History mcg (5,000 unit) capsule insulin pump cart,auto,BT,G6/7 #30 ea 08/27/24 08/27/24 Rx (Omnipod 5 G6-G7 Pods (Gen 5) subcutaneous cartridge) biotin 10,000 mcg capsule mcg PO 12/19/24 12/19/24 History cephalexin 250 mg capsule 250 mg PO QHS PRN sexual activity 12/19/24 12/19/24 Rx #90 caps estradiol 0.01% (0.1 mg/gram) 1 g vaginal 3XW 3 months #42.5 12/19/24 Rx vaginal cream grams levocetirizine 5 mg tablet (Xyzal) 5 mg PO QDAY 12/19/24 12/19/24 H istory nitrofurantoin 100 mg PO BID #14 caps 12/19/24 Rx monohydrate/macrocrysta ls 100 mg capsule (Macrobid) semaglutide 3 mg tablet 3 mg PO QDAY 12/19/24 12/19/24 His tory Nurse's Note: recurrent uti, sx come back within weeks of finishing abx H/o diabetes bladder scan PVR 0cc PFSH Medical History Type 1 diabetes mellitus with hyperglycemia Overweight (BMI 25.0-29.9) Insulin pump titration Presence of insulin pump Obesity Hypothyroid Vertigo Migraine High cholesterol Hypertension Surgical History H/O lumpectomy left wrist hardware removal left thumb tendon transfer left wrist orif H/O foot surgery Family History Grandfather Alcoholism Diabetes Mother Diabetes Thyroid disorder Celiac disease Father Hypertension High cholesterol CVA (cerebral vascular accident) Brother Severe allergy Sister Sarcoidosis Social History Smoking Status: Never smoker alcohol intake: current alcohol intake frequency: holidays/special occasions only Alcohol type: hard liquor substance use type: does not use what type of physical activity do you participate in: walking and aerobics frequency: 1-2 times per week HPI HPI Urology Chief Complaint: new patient- recurrent uti Details: IRMA SORIANO, is a 44 F. She is here for evaluation and management of recurrent urinary tract infection. She has had these for a long time, but many more in the last year. She has had at least 5 in the last year. Her symptoms are typically odor, pressure, urgency, frequency and nocturia. No fever, chills, nausea, vomiting, hematuria or dysuria. She has been seen by urology a long time ago, she remembers a bladder ultrasound, nothing else. She is a type on diabetic. She is voiding 5-6 times during the day, 1 times at night. There is no urge incontinence where she cannot make it to the bathroom. There is mild stress incontinence with cough, laugh, sneeze, lifting, etc. She is using 0 pads in 24 hours. She has not had visible blood in her urine. She is sexually active, 1-2 times weekly, no issues. There is no sensation of vaginal bulging. One that was a miscarriage. She has the following issues with chronic bowel function: none. There is no pelvic pain. She has no history of smoking. There is no history of blood clots or easy bleeding. There is not a family history of female cancer. ROS Const Constitutional: No chills, fatigue, (more content not included)... Normal [facility] No Panel InformationOrdered By: Jazmín Adkins on 12-19-2024 Urine Leukocytes Negatve [facility] Urine Non-Hemolyzed Blood Negative [facility] CNOVon 11-27-2024 CNOV Office Visit (OBGYWM ) IRMA SORIANO ([id number]) 1980 F Date Time Provider Department 11/27/24 2:30 PM ANA HONG OBGYWM During your visit today, we recorded the following information about you: Blood pressure Weight Height Last Period 128/80 76.7 kg 1.626 m 10/12/24 Ana Hong MD 11/27/2024 4:07 PM Signed Garment Cutter offered: Patient declines.Garment Cutter offered: Patient declines. Some documentation from previous visit of 07/28/23 was copied and pasted, documentation has been reviewed and edited as necessary for today's visit. Eli is a 44 year old who presents for an annual gynecologic exam with concerns- sporadic RLQ during intercourse. Has had 6 UTIs this year. Will be seeing urology this month. Works for [employer]. 2 daughters- 15/16yo. Using testosterone pellets and progesterone PO By outside MANAGER ADOBE Menses: cycles every 28 days and 3-4 days of flow. Contraception: vasectomy HPV vaccine: No Last Pap: 08/09/2023 normal HPV: 08/09/2023 negative History of abnormal pap: No Last mammogram: 2023 normal Sexually active: Yes History of STDS: None Patient concerns for STD exposure: No. 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: 10/12/2024, Having periods Age at Menarche: 12 Age at First : Age at Menopause: Certified Composites Technician History Comments: Sexual Activity: Yes; Male Contraception: Vasectomy Menstrual Tracking History Flowsheet Row Office Visit from 11/27/2024 in OB/Gynecology Period Cycle (Days) 28 Period Duration (Days) 5 Menstrual Flow Moderate PAST MEDICAL HISTORY Diagnosis Date Anemia Diabetes (HCC) Hyperlipidemia Hypertension Hypothyroid Migraines Seasonal allergies Sinus tachycardia Vertigo PAST SURGICAL HISTORY Procedure Laterality Date BREAST BIOPSY HX Left BX BREAST W/DEVICE 1ST LESION STEREOTACTIC GUID Right 08/13/2020 FOOT SURGERY HX Left 1993 WRIST SURGERY HX Bilateral 2018- Right 2015-Left FAMILY HISTORY Problem Relation Age of Onset other (papilloma) Mother Celiac Disease Mother Diabetes Mother type 2 other (htn) Father Stroke Father TIA Hyperlipidemia Father Lung Cancer Father Sarcoidosis Sister Thyroid Brother SOCIAL HISTORY Social History Tobacco Use Smoking status: Never Smokeless tobacco: Never Vaping Use Vaping status: Never Used Substance Use Topics Alcohol use: Yes Comment: social Drug use: No REVIEW OF SYSTEMS Abdomen: No abdominal pain, nausea, vomiting, diarrhea, or constipation. No bloating, early satiety, indigestion, or increased flatulence. Bladder: No dysuria, gross hematuria, urinary frequency, urinary urgency, or incontinence. Breast: No breast lumps, nipple d/c, overlying skin changes, redness or skin retraction. Allergies and current medication updated:Yes EXAM: BP 128/80 Ht 5' 4 (1.63m) Wt 169 lb (76.7kg) LMP 10/12/2024 BMI 28.99 kg/(m2). GENERAL: pleasant, female in no apparent distress HEENT: Normocephalic, atraumatic, mucus membranes moist, and no lesions NECK: Supple, full range of motion, no adenopathy, and thyroid normal DERMATOLOGY: Normal, without lesions, non-icteric, and non-hirsute BREAST: soft, non-tender, symmetric, no dominant mass, normal nipple-areolar complex, no lymphadenopathy, and no nipple discharge ABDOMEN: soft, non-tender, and no masses PELVIC: external genitalia normal, normal Bartholin's glands, urethra, Olar's glands, no vulvar lesions, no cervical lesions, good vaginal support, physiologic discharge present, normal appearing perineal body and perianal region BIMANUAL: uterus normal size, shape and consistency, no adnexal masses, and non-tender RECTOVAGINAL: deferred. NEURO: alert and oriented x3,exam grossly non-focal EXTREMITIES: normal ASSESSMENT/PLAN: 1) Health maintenance: Pap done with HPV. Mammogram ordered Nutrition, exercise and routine health maintenance exams reviewed. Calcium/Vitamin D supplementation information provided. Colon cancer screening: start at age 45 2) Contraception: Vasectomy 3) STD screening: Declined STD check. 4) Follow up one year or sooner as needed MD Gerry Gamino Deidre, MD 11/27/2024 4:07 PM Signed Garment Cutter offered: Patient declines. Allergies As of Date: 11/27/2024 Noted Allergy Reaction POTASSIUM 10/07/2016 7 - Swelling Comments: When administered through IV Arm swelling Date Reviewed: 11/27/2024 Reviewed by: Keila Valladares MA - Fully Assessed Reason for Visit: Yearly Exam [187] Primary Visit Diagnosis:Encounter for gynecological examination (general) (routine) without abnormal findings [Z01.419] Other (more content not included)... Normal [facility] Anion gap in Serum or Plasma Ordered By: Rozina Gomez on 10-15-2024 Anion gap [Moles/Vol] 10 mmol/L 5-15 [facility] BUN/creatinine ratioOrdered By: Rozina Gomez on 10-15-2024 Urea nitrogen/Creatinine [Mass ratio] 15.3 mg/mg 10-20 [facility] Bilirubin, totalOrdered By: Rozina Gomez on 10-15-2024 Bilirubin [Mass/Vol] 0.40 mg/dL Normal 0.00-1.30 [facility] Comment on above: Order Comment: Order Date: 10/10/24 Order Info: 0786-1 - CMP Order Info: 3016-3 - TSH Order Info: 3024-7 - T4F Performed By: #### L 501.9520, L506.0400, L100.0500, L500.4050 #### [facility] [address] [place], [address] CBC-Complete Blood Cnt No Di ffon 10-15-2024 Erythrocyte distribution width (RBC) [Ratio] 12.9 % Normal 11.6-14.6 [facility] Comment on above: Order Comment: Order Date: 10/10/24 Order Info: [id number] - CBC Performed By: #### L [id number], L506.0400, L100.0500, L500.4050 #### [facility] [address] [place], [address] Hematocrit (Bld) [Volume fraction] 39.2 % Normal 37-47 [facility] Comment on above: Order Comment: Order Date: 10/10/24 Order Info: [id number] - CBC Performed By: #### L [id number], L506.0400, L100.0500, L500.4050 #### [facility] [address] [place], [address] Hemoglobin (Bld) [Mass/Vol] 13.0 g/dL Normal 12.0-15.0 [facility] Comment on above: Order Comment: Order Date: 10/10/24 Order Info: [id number] - CBC Performed By: #### L [id number], L506.0400, L100.0500, L500.4050 #### [facility] [address] [place], [address] MCH (RBC) [Entitic mass] 29.0 pg Normal 27.0-32.0 [facility] Comment on above: Order Comment: Order Date: 10/10/24 Order Info: [id number] - CBC Performed By: #### L [id number], L506.0400, L100.0500, L500.4050 #### [facility] [address] [place], [address] MCHC (RBC) [Mass/Vol] 33.2 g/dL Normal 32-36 [facility] Comment on above: Order Comment: Order Date: 10/10/24 Order Info: [id number] - CBC Performed By: #### L 501.9520, L506.0400, L100.0500, L500.4050 #### [facility] [address] [place], [address] MCV (RBC) [Entitic vol] 87.5 fL Normal 81-99 [facility] Comment on above: Order Comment: Order Date: 10/10/24 Order Info: [id number] - CBC Performed By: #### L [id number], L506.0400, L100.0500, L500.4050 #### [facility] [address] [place], [address] Platelet mean volume (Bld) [Entitic vol] 11.6 fL Normal 6.2-12.0 [facility] Comment on above: Order Comment: Order Date: 10/10/24 Order Info: [id number] - CBC Performed By: #### L 501.9520, L506.0400, L100.0500, L500.4050 #### [facility] [address] [place], [address] Platelets (Bld) [#/Vol] 314 10*3/uL Normal 150-450 [facility] Comment on above: Order Comment: Order Date: 10/10/24 Order Info: [id number] - CBC Performed By: #### L 501.9520, L506.0400, L100.0500, L500.4050 #### [facility] [address] [place], [address] RBC (Bld) [#/Vol] 4.48 10*6/uL Normal 4.2-5.4 [facility] Comment on above: Order Comment: Order Date: 10/10/24 Order Info: [id number] - CBC Performed By: #### L 501.9520, L506.0400, L100.0500, L500.4050 #### [facility] [address] [place], [address] RDW SD 41.1 fl Normal 35.1-43.9 [facility] Comment on above: Order Comment: Order Date: 10/10/24 Order Info: [id number] - CBC Performed By: #### L 501.9520, L506.0400, L100.0500, L500.4050 #### [facility] [address] [place], [address] WBC (Bld) [#/Vol] 8.1 10*3/uL Normal 4.4-11.0 [facility] Comment on above: Order Comment: Order Date: 10/10/24 Order Info: [id number] - CBC Performed By: #### L 501.9520, L506.0400, L100.0500, L500.4050 #### [facility] [address] [place], [address] Carbon dioxide, total [Moles /volume] in Central venous bloodOrdered By: Rozina Gomez on 10-15-2024 CO2 [Moles/Vol] 25.3 mmol/L Normal 21.0-32.0 [facility] Comment on above: Order Comment: Order Date: 10/10/24 Order Info: 0786-1 - CMP Order Info: 3016-3 - TSH Order Info: 3024-7 - T4F Performed By: #### L 501.9520, L506.0400, L100.0500, L500.4050 #### [facility] [address] [place], [address] Chloride assayOrdered By: Patti Gomez on 10-15-2024 Chloride [Moles/Vol] 105 mmol/L Normal 98-108 [facility] Comment on above: Order Comment: Order Date: 10/10/24 Order Info: 0786-1 - CMP Order Info: 3016-3 - TSH Order Info: 3024-7 - T4F Performed By: #### L 501.9520, L506.0400, L100.0500, L500.4050 #### [facility] [address] [place], [address] Comprehensive Metabolic Prof ilon 10-15-2024 ALK PHOS 58 U/L Normal 35-104 [facility] Comment on above: Order Comment: Order Date: 10/10/24 Order Info: 0786-1 - CMP Order Info: 3016-3 - TSH Order Info: 3024-7 - T4F Performed By: #### L 501.9520, L506.0400, L100.0500, L500.4050 #### [facility] [address] [place], [address] BUN/CRE 15.3 RATIO Normal 10-20 [facility] Comment on above: Order Comment: Order Date: 10/10/24 Order Info: 0786-1 - CMP Order Info: 3016-3 - TSH Order Info: 3024-7 - T4F Performed By: #### L 501.9520, L506.0400, L100.0500, L500.4050 #### [facility] [address] [place], [address] GAP 10 Normal 5-15 [facility] Comment on above: Order Comment: Order Date: 10/10/24 Order Info: 785-1 - CMP Order Info: 3015-3 - TSH Order Info: 3024-7 - T4F Performed By: #### L 501.9520, L506.0400, L100.0500, L500.4050 #### [facility] [address] [place], [address] Potassium [Moles/Vol] 4.5 mmol/L Normal 3.3-5.1 [facility] Comment on above: Order Comment: Order Date: 10/10/24 Order Info: 07-1 - CMP Order Info: 3016-3 - TSH Order Info: 3024-7 - T4F Performed By: #### L 501.9520, L506.0400, L100.0500, L500.4050 #### [facility] [address] [place], [address] T PROT 6.7 g/dL Normal 5.9-8.4 [facility] Comment on above: Order Comment: Order Date: 10/10/24 Order Info: 07-1 - CMP Order Info: 3016-3 - TSH Order Info: 3024-7 - T4F Performed By: #### L 501.9520, L506.0400, L100.0500, L500.4050 #### [facility] [address] [place], [address] Comprehensive Metabolic Prof ilOrdered By: Rozina Gomez on 10-15-2024 AST [Catalytic activity/Vol] 16 U/L Normal <=31 [facility] Comment on above: Order Comment: Order Date: 10/10/24 Order Info: 0786-1 - CMP Order Info: 3013 - TSH Order Info: 7 - T4F Performed By: #### L 501.9520, L506.0400, L100.0500, L500.4050 #### [facility] [address] [place], [place], [address] Erythrocyte distribution wid th ratioOrdered By: Rozina Gomez on 10-15-2024 Erythrocyte distribution width (RBC) [Ratio] 12.9 % 11.6-14.6 [facility] Erythrocyte distribution wid th standard deviationOrdered By: Rozina Gomez on 10-15-2024 Erythrocyte distribution width (RBC) [Ratio] 41.1 fl 35.1-43.9 [facility] Glomerular filtration rate ( GFR) estimation/1.73 sq m using serum, plasma, or whole bOrdered By: Rozina Gomez on 10-15-2024 GFR/1.73 sq M.predicted among non-blacks MDRD (S/P/Bld) [Vol rate/Area] 63 mL/min/{1.73_m2} Normal >60 [facility] Comment on above: mL/min/1.73m2 CKD-EP I Creatinine Equation (2020) Order Comment: Order Date: 10/10/24 Order Info: 0786-1 - CMP Order Info: 30107-31 - TSH Order Info: 3023-08 - T4F Result Comment: mL/m in/1.73m2 CKD-EPI Creatinine Equation (2020) Performed By: #### L 501.9520, L506.0400, L100.0500, L500.4050 #### [facility] [address] [place], [place], [address] Hematocrit Auto (Bld) [Volum e fraction]Ordered By: Rozina Gomez on 10-15-2024 Hematocrit (Bld) [Volume fraction] 39.2 % 37-47 [facility] Hemoglobin measurementOrdere d By: Rozina Gomez on 10-15-2024 Hemoglobin (Bld) [Mass/Vol] 13.0 g/dL 12.0-15.0 [facility] MCV (mean corpuscular volume ) determinationOrdered By: Rozina Gomez on 10-15-2024 MCV (RBC) [Entitic vol] 87.5 fL 81-99 [facility] Mean corpuscular hemoglobin (MCH) determinationOrdered By: Rozina Gomez on 10-15-2024 MCH (RBC) [Entitic mass] 29.0 pg 27.0-32.0 [facility] Mean corpuscular hemoglobin concentration (MCHC) determinationOrdered By: Rozina Gomez on 10-15-2024 MCHC (RBC) [Mass/Vol] 33.2 g/dL 32-36 [facility] Mean platelet volume determi nationOrdered By: Rozina Gomez on 10-15-2024 Platelet mean volume (Bld) [Entitic vol] 11.6 fL 6.2-12.0 [facility] Platelet countOrdered By: Patti Gomez on 10-15-2024 Platelets (Bld) [#/Vol] 314 10*3/uL 150-450 [facility] Potassium measurement (mass/ volume)Ordered By: Rozina Gomez on 10-15-2024 Potassium (Unsp spec) [Mass/Vol] 4.5 mmol/L 3.3-5.1 [facility] RBC Auto (Bld) [#/Vol]Ordere d By: Rozina Gomez on 10-15-2024 RBC (Bld) [#/Vol] 4.48 10*6/uL 4.2-5.4 [facility] Serum creatinine measurement (mass/volume)Ordered By: Rozina Gomez on 10-15-2024 Creatinine [Mass/Vol] 1.10 mg/dL Normal 0.70-1.20 [facility] Comment on above: Order Comment: Order Date: 10/10/24 Order Info: 0786-1 - CMP Order Info: 3016-3 - TSH Order Info: 3024-7 - T4F Performed By: #### L 501.9520, L506.0400, L100.0500, L500.4050 #### [facility] [address] [place], [address] Serum globulin measurementOr dered By: Rozina Gomez on 10-15-2024 Globulin (S) [Mass/Vol] 2.6 g/dL Normal 2.2-4.2 [facility] Comment on above: Order Comment: Order Date: 10/10/24 Order Info: 0786-1 - CMP Order Info: 3016-3 - TSH Order Info: 3024-7 - T4F Performed By: #### L 501.9520, L506.0400, L100.0500, L500.4050 #### [facility] [address] [place], [address] Serum glucose measurement (m ass/volume)Ordered By: Rozina Gomez on 10-15-2024 Glucose [Mass/Vol] 151 mg/dL High 70-99 [facility] Comment on above: Order Comment: Order Date: 10/10/24 Order Info: 0786-1 - CMP Order Info: 3015-3 - TSH Order Info: 3024-7 - T4F Performed By: #### L 501.9520, L506.0400, L100.0500, L500.4050 #### [facility] [address] [place], [address] Serum or plasma alanine mantilla otransferase (ALT) measurementOrdered By: Rozina Gomez on 10-15-2024 ALT [Catalytic activity/Vol] 22 U/L Normal <=34 [facility] Comment on above: Order Comment: Order Date: 10/10/24 Order Info: 0786-1 - CMP Order Info: 3016-3 - TSH Order Info: 3024-7 - T4F Performed By: #### L 501.9520, L506.0400, L100.0500, L500.4050 #### [facility] [address] [place], [address] Serum or plasma albumin betty urement (mass/volume)Ordered By: Rozina Gomez on 10-15-2024 Albumin [Mass/Vol] 4.1 g/dL Normal 3.5-5.0 [facility] Comment on above: Order Comment: Order Date: 10/10/24 Order Info: 0786-1 - CMP Order Info: 3015-3 - TSH Order Info: 3023-7 - T4F Performed By: #### L 501.9520, L506.0400, L100.0500, L500.4050 #### [facility] [address] [place], [place], [address] Serum or plasma albumin/glob ulin mass ratioOrdered By: Rozina Gomez on 10-15-2024 Albumin/Globulin [Mass ratio] 1.5 {ratio} Normal 0.9-2.4 [facility] Comment on above: Order Comment: Order Date: 10/10/24 Order Info: 0786-1 - CMP Order Info: 3015-3 - TSH Order Info: 3023-08 - T4F Performed By: #### L 501.9520, L506.0400, L100.0500, L500.4050 #### [facility] [address] [place], [address] Serum or plasma alkaline corine sphatase measurementOrdered By: Rozina Gomez on 10-15-2024 ALP [Catalytic activity/Vol] 58 U/L 35-104 [facility] Serum or plasma calcium betty urement (mass/volume)Ordered By: Rozina Gomez on 10-15-2024 Calcium [Mass/Vol] 9.6 mg/dL Normal 7.6-11.0 [facility] Comment on above: Order Comment: Order Date: 10/10/24 Order Info: 0786-1 - CMP Order Info: 3016-3 - TSH Order Info: 3024-7 - T4F Performed By: #### L 501.9520, L506.0400, L100.0500, L500.4050 #### [facility] [address] [place], [place], [address] Serum or plasma urea nitroge n measurement (mass/volume)Ordered By: Rozina Gomez on 10-15-2024 Urea nitrogen [Mass/Vol] 17 mg/dL Normal 4-19 [facility] Comment on above: Order Comment: Order Date: 10/10/24 Order Info: 0786-1 - CMP Order Info: 3016-3 - TSH Order Info: 302-7 - T4F Performed By: #### L 501.9520, L506.0400, L100.0500, L500.4050 #### [facility] [address] [place], [place], [id number] Sodium levelOrdered By: Rudy Gomez on 10-15-2024 Sodium [Moles/Vol] 140 mmol/L Normal 133-145 [facility] Comment on above: Order Comment: Order Date: 10/10/24 Order Info: 0786 - CMP Order Info: 3 - TSH Order Info: 3027 - T4F Performed By: #### L 501.9520, L506.0400, L100.0500, L500.4050 #### [facility] [address] [place], [place], [address] T4 Free Directon 10-15-2024 T4 FREE DIRECT 1.60 ng/dL High 0.76-1.46 [facility] Comment on above: Order Comment: Order Date: 10/10/24 Order Info: 0786-1 - CMP Order Info: 3016-3 - TSH Order Info: 3024-7 - T4F Performed By: #### L 501.9520, L506.0400, L100.0500, L500.4050 #### [facility] [address] [place], [place], [id number] T4 freeOrdered By: Luis Carlos Gomez on 10-15-2024 Free T4 [Mass/Vol] 1.60 ng/dL High 0.76-1.46 [facility] TSH DL <= 0.005 mIU/L QnOrde red By: Rozina Gomez on 10-15-2024 TSH Qn 0.258 uIU/mL Low 0.300-4.20 0 [facility] Thyroid Stim Hormone (TSH)on 10-15-2024 TSH 0.258 uIU/mL Low 0.300-4.20 0 [facility] Comment on above: Order Comment: Order Date: 10/10/24 Order Info: 0786-1 - CMP Order Info: 3016-3 - TSH Order Info: 3024-7 - T4F Performed By: #### L 501.9520, L506.0400, L100.0500, L500.4050 #### [facility] [address] [place], [place], [address] Total proteinOrdered By: Spike Gomez on 10-15-2024 Protein [Mass/Vol] 6.7 g/dL 5.9-8.4 [facility] White blood cell (WBC) count Ordered By: Rozina Gomez on 10-15-2024 WBC (Bld) [#/Vol] 8.1 10*3/uL 4.4-11.0 [facility] Endocrinology Visit Reporton 08-27-2024 Endocrinology Visit Report [facility] [address] [place] [address]. 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 Required: No Accompanied by: Self Is patient in pain?: No Allergies potassium Allergy (Verified 08/27/24 08:00) Swelling Medications ???Medication ???Instructions ???Recorded ???Confirmed ???Type multivitamin 1 tab PO DAILY 09/03/20 08/27/24 H istory insulin syringe-needle U-100 0.3 #100 ea 12/27/22 08/27/24 Rx mL 31 gauge x 5/16 (BD Insulin Syringe Ultra-Fine) levothyroxine 125 mcg tablet 125 mcg PO DAILY #90 tabs 02/13/24 08/27/24 Rx losartan 50 mg-hydrochlorothiazide 1 tab PO DAILY #90 tabs 02/13/24 08/27/24 Rx 12.5 mg tablet blood-glucose sensor (Dexcom G7 #1 ea 02/24/24 08/27/24 Rx Sensor device) Novolog U-100 Insulin aspart 100 100 unit subcut DAILY #90 mL 08/2708/27/24 Rx unit/mL subcutaneous solution (insulin aspart U-100) bupropion HCl 300 mg 24 hr tablet, 300 mg PO QAM 08/27/24 08/27/24 History extended release cholecalciferol (vitamin D3) 125 125 mcg PO QDAY 08/27/24 08/27/24 History mcg (5,000 unit) capsule insulin pump cart,auto,BT,G6/7 #30 ea 08/27/24 08/27/24 Rx (Omnipod 5 G6-G7 Pods (Gen 5) subcutaneous cartridge) Have you fallen in the past year?: No PFSH Medical History Type 1 diabetes mellitus with hyperglycemia Overweight (BMI 25.0-29.9) Insulin pump titration Presence of insulin pump Obesity Hypothyroid Vertigo Migraine High cholesterol Hypertension Surgical History H/O lumpectomy left wrist hardware removal left thumb tendon transfer left wrist orif H/O foot surgery Family History Grandfather Alcoholism Diabetes Mother Diabetes Thyroid disorder Celiac disease Father Hypertension High cholesterol CVA (cerebral vascular accident) Brother Severe allergy Sister Sarcoidosis Social History Smoking Status: Never smoker alcohol intake: current alcohol intake frequency: a few times a month substance use type: does not use what type of physical activity do you participate in: walking frequency: 1-2 times per week HPI HPI Chief Complaint: Diabetes Details: IRMA SORIANO, is a 44 F who presents to the office today for follow up. A1C is 6.9% GMI is 7.5% She is using Omnipod 5 insulin pump with Dexcom CGM and automated mode. Upload shows controlled blood sugars with highs post meal and only reporting 88 g carbs/day. She has lost 18 pounds. She is using compounded semaglutide. She is feeling well. She has known retinopathy. She is overdue for urine microalbumin. She has hypothyroidism. TSH normal in January. She is on ARB. BP is good today, she doesn't want to discontinue HCTZ due to fluid shifts. ROS Const Constitutional: Positive for weight change; No fatigue, weakness or change in appetite Eyes Eyes: No change in vision ENT ENT: No hearing loss, nasal congestion or difficulty swallowing Cardio Cardiology: No chest pain at rest, chest pain with exertion or shortness of breath Musc Musculoskeletal: No numbness Neuro Neurology: No weakness, memory loss or numbness Psych Psychiatric: No change in appetite, No memory loss and No Thoughts of harming yourself/Others Resp Respiratory: No cough, chest congestion or shortness of breath Gastro GI: No abdominal pain, constipation, diarrhea or difficulty swallowing Genitourinary-Female: No burning urination Skin Skin: No itchy eyes or wounds Endo Endocrine: Positive for weight change; No fatigue Aller/Imm Allergy/Immunologic: No itchy eyes Exam Const General: cooperative, healthy appearing, comfortable, no acute distress, well developed and not cushingoid Nutritional Appearance: well nourished Orientation: alert, awake and oriented x3 HENMT Head: normal to inspection Ears: hearing grossly normal bilaterally Nose: external nose normal Mouth: oral mucosae normal Eyes General: appearance normal, both eyes and all related structures Alignment and Position: alignment piyush (more content not included)... Normal [facility] - Hematology and Cell countsOrdered By: Melquiades Gonzalez on 08-27-2024 HbA1c (Bld) [Mass fraction] 6.9 % High 4.2-6.3 [facility] Microalb:Creat Ratio,Random URon 08-27-2024 Creatinine [Mass/Vol] 71.80 mg/dL Normal 28.00- 217. 00 [facility] Comment on above: Order Comment: GAMA MARTINEZ STATES THAT SHE WILL DO URINE ONLY TODAY Performed By: #### M 100.2200 #### [facility] [address] [place], [address] MALB:CREAT UNABLE TO CALCULATE Normal [facility] Comment on above: Order Comment: GAMA MARTINEZ STATES THAT SHE WILL DO URINE ONLY TODAY Performed By: #### M 100.2200 #### [facility] [address] [place], [address] MICROALBUMIN,UR < 12.0 Normal NO RANGE EST. [facility] Comment on above: Order Comment: GAMA MARTINEZ STATES THAT SHE WILL DO URINE ONLY TODAY Performed By: #### M 100.2200 #### [facility] [address] [place], [address] Microalbumin/creat ratio urO rdered By: Melquiades Gonzalez on 08-27-2024 Urine microalbumin/creatinine ratio measurement UNABLE TO CALCULATE mg/g CRE [facility] Random urine creatinine betty urement (mass/volume)Ordered By: Melquiades Gonzalez on 08-27-2024 Creatinine Unsp time (U) [Mass/Vol] 71.80 mg/dL 28.00-217. 00 [facility] Urine albumin measurement wi detection limit of 20 mg/L or less (mass/volume)Ordered By: Melquiades Gonzalez on 08-27-2024 Albumin DL <= 20 mg/L (U) [Mass/Vol] < 12.0 mg/L NO RANGE EST. [facility] Urine Cultureon 08-10-2024 URC Order Date: 08/08/24 Order Info: 630-4 - CUUR Escherichia coli [place] Count 50,000-80,000 Escherichia coli: REACTION Ampicillin Islt CAROL 8 Ampicillin+Sulbac Islt CAROL <=2 S Cefepime Islt CAROL <=0.12 S cefTRIAXone Islt CAROL <=0.25 S Ciprofloxacin Islt CAROL <=0.06 S B-Lactamase Extended Susc Islt NEG Gentamicin Islt CAROL <=1 S levoFLOXacin Islt CAROL <=0.12 S Meropenem Islt CAROL <=0.25 S Pip+Tazo Islt CAROL <=4 S TMP SMX Islt CAROL <=20 S Normal [facility] Comment on above: Performed By: #### M 100.4170 #### [facility] [address] [place], [address] Urine cultureOrdered By: Spike Gomez on 08-08-2024 Bacteria identified Cx Nom (U) Escherichia coli Abnormal [facility] XR TOES 5TH DIGIT 3 VIEWS RI Polina 08-03-2024 XR TOES 5TH DIGIT 3 VIEWS RIGHT ORIGINAL EXAMINATION: THREE XRAY VIEWS OF THE RIGHT TOE(S)08/03/2024 12:43 pm Right foot 5th digit three views COMPARISON: None HISTORY: ORDERING SYSTEM PROVIDED HISTORY: Reason for Exam: pain, swelling, injury FINDINGS: There is an oblique mildly displaced and minimally comminuted fracture of the 5th proximal phalanx without articular extension. No radiopaque foreign body. IMPRESSION: Fracture 5th proximal phalanx. Interpreted by: Fern Baez MD Preliminary Report By: Fern Baez MD Electronically signed By Fern Baez MD Dictated Date: 08/03/2024 12:58:15 PM Prelim Date: 08/03/2024 12:58:56 PM Sign Date: 08/03/2024 12:58:56 PM Ordering Provider: RUSTY Henry [facility] Urine Cultureon 05-23-2024 [facility] Order Date: 05/21/24 Order Info: 630-4 - CUUR Presumptive E. coli [place] Count >100,000 Presumptive E. coli: REACTION Ampicillin Islt CAROL 8 Ampicillin+Sulbac Islt CAROL <=2 S Cefepime Islt CAROL <=0.12 S cefTRIAXone Islt CAROL <=0.25 S Ciprofloxacin Islt CAROL <=0.06 S B-Lactamase Extended Susc Islt NEG Gentamicin Islt CAROL <=1 S levoFLOXacin Islt CAROL <=0.12 S Meropenem Islt CAROL <=0.25 S Pip+Tazo Islt CAROL <=4 S TMP SMX Islt CAROL <=20 S Normal [facility] Comment on above: Performed By: #### M 100.2200 #### [facility] [address] [place], [place], [id number] Urine cultureOrdered By: Spike Gomez on 05-21-2024 Bacteria identified Cx Nom (U) Presumptive E. coli Abnormal [facility] ANTINUCLEAR ANTIBODIES DIREC Ton 02-27-2024 ИВАН,DIRECT Negative Normal Negative [facility] Comment on above: Order Comment: Order Date: 02/14/24Order Info: 0270-1 - ИВАН Result Comment: Perf ormed at: [facility] [address] [place], [place] [id number] [employer] Meter Installer: Jules Field PhD, Phone: [phone] Performed By: #### M 100.2200 #### [facility] [address] [place], [address] ИВАН serumOrdered By: Shaquille Gomez on 02-24-2024 Anti-Nuclear Antibody Screen Negative Negative [facility] Comment on above: Performed at: [facility] [address] [place], [place] [id number] Director: Jules Field PhD, Phone: [phone] Absolute neutrophil countOrd ered By: Rozina Gomez on 02-24-2024 Neutrophils (Bld) [#/Vol] 7.0 10*3/uL 2.0-7.7 [facility] Basophil percentageOrdered B y: Rozina Gomez on 02-24-2024 Basophils/100 WBC (Bld) 0.6 % 0-1 [facility] C-reactive protein measureme nt by high sensitivity methodOrdered By: Rozina Gomez on 02-24-2024 C-Reactive Protein Extended Range 5.33 mg/L High 0.0-3.0 [facility] Comment on above: C-Reactive Protein ( CRP) provides useful information for thediagnosis, therapy and monitoring of inflammatory processesand associated diseases. For the evaluation of Relative Riskfor Cardiovascular Disease, a High Sensitivity CRP (HSCRP)should be ordered. CBC W/Diff, Automatedon 01-29 Absolute Lymph 1.62 X10 3/uL Normal 0.83-4.51 [facility] Comment on above: Order Comment: Order Date: 02/14/24Order Info: 0184-1 - CBCD Performed By: #### M 100.2200 #### [facility] [address] [place], [address] Absolute Neut 7.0 X10 3/uL Normal 2.0-7.7 [facility] Comment on above: Order Comment: Order Date: 02/14/24Order Info: 0184-1 - CBCD Performed By: #### M 100.2200 #### [facility] [address] [place], [address] Basophils/100 WBC (Bld) 0.6 % Normal 0-1 [facility] Comment on above: Order Comment: Order Date: 02/14/24Order Info: 4-1 - CBCD Performed By: #### M 100.2200 #### [facility] [address] [place], [address] Eosinophils/100 WBC (Bld) 1.5 % Normal 0-5 [facility] Comment on above: Order Comment: Order Date: 02/14/24Order Info: 0184-1 - CBCD Performed By: #### M 100.2200 #### [facility] [address] [place], [address] Erythrocyte distribution width (RBC) [Ratio] 12.3 % Normal 11.6-14.6 [facility] Comment on above: Order Comment: Order Date: 02/14/24Order Info: 0184-1 - CBCD Performed By: #### M 100.2200 #### [facility] [address] [place], [address] Hematocrit (Bld) [Volume fraction] 37.7 % Normal 37-47 [facility] Comment on above: Order Comment: Order Date: 02/14/24Order Info: 0184-1 - CBCD Performed By: #### M 100.2200 #### [facility] [address] [place], [address] Hemoglobin (Bld) [Mass/Vol] 12.5 g/dL Normal 12.0-15.0 [facility] Comment on above: Order Comment: Order Date: 02/14/24Order Info: 183- - CBCD Performed By: #### M 100.2200 #### [facility] [address] [place], [address] IG% 0.800 Normal 0.0-0.9 [facility] Comment on above: Order Comment: Order Date: 02/14/24Order Info: 183- - CBCD Result Comment: IG% - Immature Granulocytes (promyelocytes, myelocytes and metamyelocytes) > 1% indicates that a LEFT SHIFT is Present. Performed By: #### M 100.2200 #### [facility] [address] [place], [address] Lymphocytes/100 WBC (Bld) 16.6 % Low 19-41 [facility] Comment on above: Order Comment: Order Date: 02/14/24Order Info: 183- - CBCD Performed By: #### M 100.2200 #### [facility] [address] [place], [address] MCH (RBC) [Entitic mass] 28.9 pg Normal 27.0-32.0 [facility] Comment on above: Order Comment: Order Date: 02/14/24Order Info: 018- - CBCD Performed By: #### M 100.2200 #### [facility] [address] [place], [address] MCHC (RBC) [Mass/Vol] 33.2 g/dL Normal 32-36 [facility] Comment on above: Order Comment: Order Date: 02/14/24Order Info: 018- - CBCD Performed By: #### M 100.2200 #### [facility] [address] [place], [address] MCV (RBC) [Entitic vol] 87.3 fL Normal 81-99 [facility] Comment on above: Order Comment: Order Date: 02/14/24Order Info: 183-1 - CBCD Performed By: #### M 100.2200 #### [facility] [address] [place], [address] Monocytes/100 WBC (Bld) 8.3 % Normal 0-10 [facility] Comment on above: Order Comment: Order Date: 02/14/24Order Info: 183- - CBCD Performed By: #### M 100.2200 #### [facility] [address] [place], [address] Neutrophils/100 WBC (Bld) 72.2 % High 47-70 [facility] Comment on above: Order Comment: Order Date: 02/14/24Order Info: 183- - CBCD Performed By: #### M 100.2200 #### [facility] [address] [place], [address] Nucleated RBC (Bld) [#/Vol] 0 10*3/uL Normal 0-5 [facility] Comment on above: Order Comment: Order Date: 02/14/24Order Info: 018- - CBCD Performed By: #### M 100.2200 #### [facility] [address] [place], [address] Platelet mean volume (Bld) [Entitic vol] 11.1 fL Normal 6.2-12.0 [facility] Comment on above: Order Comment: Order Date: 02/14/24Order Info: 018-1 - CBCD Performed By: #### M 100.2200 #### [facility] [address] [place], [address] Platelets (Bld) [#/Vol] 311 10*3/uL Normal 150-450 [facility] Comment on above: Order Comment: Order Date: 02/14/24Order Info: 018- - CBCD Performed By: #### M 100.2200 #### [facility] [address] [place], [address] RBC (Bld) [#/Vol] 4.32 10*6/uL Normal 4.2-5.4 [facility] Comment on above: Order Comment: Order Date: 02/14/24Order Info: 018- - CBCD Performed By: #### M 100.2200 #### [facility] [address] [place], [address] RDW SD 39.3 fl Normal 35.1-43.9 [facility] Comment on above: Order Comment: Order Date: 02/14/24Order Info: [id number] - CBCD Performed By: #### M 100.2200 #### [facility] [address] [place], [address] WBC (Bld) [#/Vol] 9.7 10*3/uL Normal 4.4-11.0 [facility] Comment on above: Order Comment: Order Date: 02/14/24Order Info: 018- - CBCD Performed By: #### M 100.2200 #### [facility] [address] [place], [address] CRPon 02-24-2024 C-REACTIVE PROT 5.33 mg/L High 0.0-3.0 [facility] Comment on above: Order Comment: Order Date: 02/14/24Order Info: 3084-1 - URICOrder Info: [id number] - CRPOrder Info: 75578-6 - RA Result Comment: C-Re active Protein (CRP) provides useful information for the diagnosis, therapy and monitoring of inflammatory processes and associated diseases. For the evaluation of Relative Risk for Cardiovascular Disease, a High Sensitivity CRP (HSCRP) should be ordered. Performed By: #### M 100.2200 #### [facility] [address] [place], [address] Endocrinology Visit Reporton 02-24-2024 Endocrinology Visit Report [facility] [address] [place] [address] OFFICE VISIT Date of Service: 02/24/24 MR#: [id number] Acct: [id number] Name: IRMA SORIANO Rep #: [id number] : 1980 Provider: Nidhi Lopez Age/Sex: 43/F Location: [facility] Status: Signed Intake Vital Signs 09/30/23 08:52 02/24/24 09:26 Height 5 ft 4 in 5 ft 4 in Weight: 201 lb 4 oz BMI 34.5 BP 128/80 H Blood Pressure Location Rt brachial Position Sitting Pulse 96 Pulse Source Monitor Pulse Oximetry (%) 98 Oxygen Delivery Method room air Intake Visit Reasons: 4 M FU Chief Complaint: Diabetes Is patient in pain?: No Allergies potassium Allergy (Verified 09/30/23 08:50) Swelling Medications ???Medication ???Instructions ???Recorded ???Confirmed ???Type ascorbic acid (vitamin C) 250 mg 250 mg PO DAILY 09/03/20 02/24/24 History tablet biotin 5 mg tablet mg PO DAILY 09/03/20 02/24/24 History multivitamin 1 tab PO DAILY 09/03/20 02/24/24 History bupropion HCl 300 mg 24 hr tablet, tablet PO 08/06/21 02/24/24 History extended release insulin syringe-needle U-100 0.3 #100 ea 12/27/22 02/24/24 Rx mL 31 gauge x 5/16 (BD Insulin Syringe Ultra-Fine) insulin pump cart,automated,BT #30 ea 10/11/23 02/24/24 Rx (Omnipod 5 G6 Pods (Gen 5) subcutaneous cartridge) levothyroxine 125 mcg tablet 125 mcg PO DAILY #90 tabs 02/13/24 02/24/24 Rx losartan 50 mg-hydrochlorothiazide 1 tab PO DAILY #90 tabs 02/13/24 02/24/24 Rx 12.5 mg tablet Novolog U-100 Insulin aspart 100 100 unit subcut DAILY #90 mL 02/24/24 02/24/24 Rx unit/mL subcutaneous solution (insulin aspart U-100) blood-glucose sensor (Dexcom G7 #1 ea 02/24/24 02/24/24 Rx Sensor device) cholecalciferol (vitamin D3) 250 125 mcg PO DAILY 02/24/24 02/24/24 History mcg (10,000 unit) capsule [facility] Medical History Type 1 diabetes mellitus with hyperglycemia Overweight (BMI 25.0-29.9) Insulin pump titration Presence of insulin pump Obesity Hypothyroid Vertigo Migraine High cholesterol Hypertension Surgical History H/O lumpectomy left wrist hardware removal left thumb tendon transfer left wrist orif H/O foot surgery Family History Grandfather Alcoholism Diabetes Mother Diabetes Thyroid disorder Celiac disease Father Hypertension High cholesterol CVA (cerebral vascular accident) Brother Severe allergy Sister Sarcoidosis Social History Smoking Status: Never smoker alcohol intake: current alcohol intake frequency: a few times a month substance use type: does not use what type of physical activity do you participate in: walking frequency: 1-2 times per week HPI HPI Chief Complaint: Diabetes Details: IRMA SORIANO, is a 43 F who presents to the office today for follow up. A1C is 7.4% down from 9.4% She is using Omnipod 5 with Dexcom G7 and automated mode. Upload shows controlled blood sugars. She has hypothyroidism and is taking levothyroxine. TSH is normal. Lipid panel is good. She has known retinopathy. She has gained weight. ROS Const Constitutional: No fatigue, weight change or change in appetite Eyes Eyes: No change in vision ENT ENT: No dizziness/vertigo or difficulty swallowing Cardio Cardiology: No chest pain at rest, chest pain with exertion, shortness of breath or palpitations Musc Musculoskeletal: No abnormal gait, joint pain, numbness or tingling Neuro Neurology: No abnormal gait, memory loss, numbness or tingling Psych Psychiatric: No change in appetite, No memory loss and No Thoughts of harming yourself/Others Resp Respiratory: No cough, chest congestion or shortness of breath Gastro GI: No abdominal pain, constipation, diarrhea or difficulty swallowing Genitourinary-Female: No burning urination Skin Skin: No itchy eyes or wounds Endo Endocrine: No fatigue or weight change Aller/Imm Allergy/Immunologic: No itchy eyes Exam Const General: cooperative, healthy appearing, comfortable, no acute distress, well developed and not cushingoid Nutritional Appearance: well nourished Orientation: alert, awake and oriented x3 HENMT Head: normal to inspection Ears: hearing grossly normal bilaterally Nose: external nose normal Mouth: oral mucosae normal Eyes General: appearance normal, both eyes and all related structures Alignment and Position: alignment normal Periorbital: periorbital findings normal Eyelids: eyelids normal Conjunctivae: conjunctivae normal Neck Neck: normal visual inspection Neck mass: (more content not included)... Normal [facility] Eosinophil percentageOrdered By: Rozina Gomez on 02-24-2024 Eosinophils/100 WBC (Bld) 1.5 % 0-5 [facility] Erythrocyte distribution wid th ratioOrdered By: Rozina Gomez on 02-24-2024 Erythrocyte distribution width (RBC) [Ratio] 12.3 % 11.6-14.6 [facility] Erythrocyte distribution wid th standard deviationOrdered By: Rozina Gomez on 02-24-2024 Erythrocyte distribution width (RBC) [Entitic vol] 39.3 fL 35.1-43.9 [facility] Hematocrit Auto (Bld) [Volum e fraction]Ordered By: Rozina Gomez on 02-24-2024 Hematocrit (Bld) [Volume fraction] 37.7 % 37-47 [facility] Hemoglobin measurementOrdere d By: Rozina Gomez on 02-24-2024 Hemoglobin (Bld) [Mass/Vol] 12.5 g/dL 12.0-15.0 [facility] Immature granulocytes/100 WB C Auto (Bld)Ordered By: Rozina Gomez on 02-24-2024 Immature granulocytes/100 WBC (Bld) 0.800 % 0.0-0.9 [facility] Comment on above: IG% - Immature Granu locytes (promyelocytes, myelocytes and metamyelocytes) > 1% indicates that a LEFT SHIFT is Present. Lymphocytes Auto (Unsp spec) [#/Vol]Ordered By: Rozina Gomez on 02-24-2024 Lymphocytes (Bld) [#/Vol] 1.62 10*3/uL 0.83-4.51 [facility] Lymphocytes/100 WBC Auto (Un sp spec)Ordered By: Rozina Gomez on 02-24-2024 Lymphocytes/100 WBC (Bld) 16.6 % Low 19-41 [facility] MCV (mean corpuscular volume ) determinationOrdered By: Rozina Gomez on 02-24-2024 MCV (RBC) [Entitic vol] 87.3 fL 81-99 [facility] Mean corpuscular hemoglobin (MCH) determinationOrdered By: Rozina Gomez on 02-24-2024 MCH (RBC) [Entitic mass] 28.9 pg 27.0-32.0 [facility] Mean corpuscular hemoglobin concentration (MCHC) determinationOrdered By: Rozina Gomez on 02-24-2024 MCHC (RBC) [Mass/Vol] 33.2 g/dL 32-36 [facility] Mean platelet volume determi nationOrdered By: Rozina Gomez on 02-24-2024 Platelet mean volume (Bld) [Entitic vol] 11.1 fL 6.2-12.0 [facility] Monocyte percentageOrdered B y: Rozina Gomez on 02-24-2024 Monocytes/100 WBC (Bld) 8.3 % 0-10 [facility] Neutrophil percentageOrdered By: Rozina Gomez on 02-24-2024 Neutrophils/100 WBC (Bld) 72.2 % High 47-70 [facility] Nucleated red blood cell per centageOrdered By: Rozina Gomez on 02-24-2024 Nucleated RBC/100 WBC (Bld) [Ratio] 0 % 0-5 [facility] Platelet countOrdered By: Patti Gomez on 02-24-2024 Platelets (Bld) [#/Vol] 311 10*3/uL 150-450 [facility] RBC Auto (Bld) [#/Vol]Ordere d By: Rozina Gomez on 02-24-2024 RBC (Bld) [#/Vol] 4.32 10*6/uL 4.2-5.4 [facility] Rheumatoid Factoron 02-24-20 RHEUMATOID FAC < 10.0 Normal <15 [facility] Comment on above: Order Comment: Order Date: 02/14/24Order Info: 3084-1 - URICOrder Info: [id number] - CRPOrder Info: [id number] - RA Performed By: #### M 100.2200 #### [facility] [address] [place], [place], [address] Rheumatoid factor measuremen tOrdered By: Rozina Gomez on 02-24-2024 Rheumatoid Factor < 10.0 IU/mL <15 [facility] Serum or plasma uric acid me asurement (mass/volume)Ordered By: Rozina Gomez on 02-24-2024 Urate [Mass/Vol] 4.3 mg/dL 2.6-6.0 [facility] Comment on above: The drugs N-Acetylcy steine and Metamizole may falsely depress this assay. Uric Acidon 02-24-2024 URIC 4.3 mg/dL Normal 2.6-6.0 [facility] Comment on above: Order Comment: Order Date: 02/14/24Order Info: 3084-1 - URICOrder Info: [id number] - CRPOrder Info: [id number] - RA Result Comment: The drugs N-Acetylcysteine and Metamizole may falsely depress this assay. Performed By: #### M 100.2200 #### [facility] [address] [place], [address] White blood cell (WBC) count Ordered By: Rozina Gomez on 02-24-2024 WBC (Bld) [#/Vol] 9.7 10*3/uL 4.4-11.0 [facility] Hand Min 3 Viewson [address] [facility] [address] [place], [place] [address] (557) Hand Min 3 Views MR#: [id number] Acct: [id number] Name: IRMA SORIANO Rep #: [id number] : 1980 F 43 From: Miller Brad carrascomily PCP: Dr. Rozina Gomez MD Status: REG CLI Study: Hand Min 3 Views Date of Exam: 02/08/24 Exam# [id number] Ordering Dr: Rozina Gomez [id number] EXAM: XR RIGHT HAND COMPLETE, 3 OR MORE VIEWS CLINICAL INDICATION: R 3rd PIP pain TECHNIQUE: Frontal, lateral and oblique views of the right hand. COMPARISON: Wrist, 07/08/2017 FINDINGS: BONES/JOINTS: Posttraumatic changes of the distal radius and distal ulna with displaced styloid process fracture of the ulna and status post plate-screw fixation of the distal radius. Periarticular erosions at the heads of the third and fourth proximal phalanges with mild joint space narrowing of the third and fourth proximal interphalangeal joints. No additional erosive changes and no evidence of an acute fracture or dislocation. SOFT TISSUES: No significant abnormality. No soft tissue swelling or gas. No radiopaque foreign body. RAD/Hand Min 3 Views IMPRESSION: 1. Posttraumatic changes of the distal radius and distal ulna with displaced styloid process fracture of the ulna and status post plate-screw fixation of the distal radius. 2. 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 Electronically Signed: Miller BroDimple Calderon DO at 23:57 EST , CC: Dr. Rozina Gomez MD Cheese Wrapper: Signed Normal [facility] DHEA Sulfateon 02-06-2024 DHEA SULFATE 57.7 ug/dL Normal 57.3-279.2 [facility] Comment on above: Order Comment: N Performed By: #### M 100.8750 #### [facility] [address] [place], [address] Thyroglobulin w/Anti-TG ABon 02-06-2024 Anti-TG AB < 1.0 Normal 0.0-0.9 [facility] Comment on above: Order Comment: N Result Comment: Thyr oglobulin Antibody measured by Kerry Tony Methodology It should be noted that the presence of thyroglobulin antibodies may not be pathogenic nor diagnostic, especially at very low levels. The assay plumber apprentice has found that four percent of individuals without evidence of thyroid disease or autoimmunity will have positive TgAb levels up to 4 IU/mL. Performed By: #### M 100.2200 #### [facility] [address] [place], [place], [address] THYROGLOB QUANT 4.8 ng/mL Normal 1.5-38.5 [facility] Comment on above: Order Comment: N Result Comment: Acco rding to the National Academy of Clinical Biochemistry, the reference interval for Thyroglobulin (TG) should be related to euthyroid patients and not for patients who underwent thyroidectomy. TG reference intervals for these patients depend on the residual mass of the thyroid tissue left after surgery. Establishing a post-operative baseline is recommended. The assay limit of quantitation is 0.1 ng/mL Thyroglobulin measured by Kerry Hopkinton Immunometric Assay Performed By: #### M 100.2200 #### [facility] [address] [place], [address] Thyroid Peroxidase ABon 12-0 THYR PEROX AB 24 IU/mL Normal 0-34 [facility] Comment on above: Order Comment: N Result Comment: Perf ormed at: [facility] [employer] [id number] Gas [employer] Water Meter Installer: Jules Field PhD, Phone: [phone] Performed By: #### M 100.2200 #### [facility] [address] [place], [place], [address] PROGESTERONE 4317on 02-04-20 24 PROGESTERONE 0.8 ng/mL Normal . [facility] Comment on above: Order Comment: N Result Comment: Foll icular phase 0.1 - 0.9 Luteal phase 1.8 - 23.9 Ovulation phase 0.1 - 12.0 First trimester 11.0 - 44.3 Second trimester 25.4 - 83.3 Third trimester 58.7 - 214.0 Postmenopausal 0.0 - 0.1 Performed at: [facility] [employer] [id number] [employer] Water Meter Installer: Jules Field PhD, Phone: [phone] Performed By: #### L 3300.1750, L506.0400, L506.1000, L503.0105, L100.0100, L500.4050, L801.2600, L501.25342, L509.3000, L501.9520, L3300.6820, L3300.6900, L3300.1500 ####[facility] [address] [place], [address] [id number] DOrdered By: Eufemia Mccabe on 02-03-2024 Vitamin D 25-Hydroxy 65.6 ng/mL [facility] Comment on above: Vitamin D 25(OH) Sta tus Range Deficiency <20 ng/mL (50nmol/L) Insufficiency 20 - 30 ng/mL (50 - 75 nmol/L) Sufficiency 30 - 100 ng/mL (75 - 250 nmol/L) Toxicity >100 ng/mL (>250 nmol/L) Absolute neutrophil countOrd ered By: Elan Mcacbe on 02-03-2024 Neutrophils (Bld) [#/Vol] 5.4 10*3/uL 2.0-7.7 [facility] Albumin to globulin ratioOrd ered By: Elan Mccabe on 02-03-2024 Albumin/Globulin [Mass ratio] 1.0 {ratio} 0.9-2.4 [facility] Basophil percentageOrdered B y: Elan Mccabe on 02-03-2024 Basophils/100 WBC (Bld) 0.7 % 0-1 [facility] Bilirubin, totalOrdered By: Elan Mccabe on 02-03-2024 Bilirubin [Mass/Vol] 0.40 mg/dL 0.20-1.00 [facility] Comment on above: For patients on eltr ombopag therapy, use of Dimension Gilman TBIL is not recommended. Blood urea nitrogen (BUN)/cr eatinine ratioOrdered By: Elan Mccabe on 02-03-2024 Urea nitrogen/Creatinine [Mass ratio] 18.9 mg/mg 10-20 [facility] CBC W/Diff, Automatedon 12-0 -2023 Absolute Lymph 1.65 X10 3/uL Normal 0.83-4.51 [facility] Comment on above: Performed By: #### L 3300.1750, L506.0400, L506.1000, L503.0105, L100.0100, L500.4050, L801.2600, L501.32198, L509.3000, L501.9520, L3300.6820, L3300.6900, L3300.1500 ####[facility] [address] [place], [address] Absolute Neut 5.4 X10 3/uL Normal 2.0-7.7 [facility] Comment on above: Performed By: #### L 3300.1750, L506.0400, L506.1000, L503.0105, L100.0100, L500.4050, L801.2600, L501.14235, L509.3000, L501.9520, L3300.6820, L3300.6900, L3300.1500 ####[facility] [address] [place], [address] Basophils/100 WBC (Bld) 0.7 % Normal 0-1 [facility] Comment on above: Performed By: #### L 3300.1750, L506.0400, L506.1000, L503.0105, L100.0100, L500.4050, L801.2600, L501.68444, L509.3000, L501.9520, L3300.6820, L3300.6900, L3300.1500 ####[facility] [address] [place], [address] Eosinophils/100 WBC (Bld) 2.4 % Normal 0-5 [facility] Comment on above: Performed By: #### L 3300.1750, L506.0400, L506.1000, L503.0105, L100.0100, L500.4050, L801.2600, L501.24223, L509.3000, L501.9520, L3300.6820, L3300.6900, L3300.1500 ####[facility] [address] [place], [place], [address] Erythrocyte distribution width (RBC) [Ratio] 12.0 % Normal 11.6-14.6 [facility] Comment on above: Performed By: #### L 3300.1750, L506.0400, L506.1000, L503.0105, L100.0100, L500.4050, L801.2600, L501.21953, L509.3000, L501.9520, L3300.6820, L3300.6900, L3300.1500 ####[facility] [address] [place], [address] Hematocrit (Bld) [Volume fraction] 36.1 % Low 37-47 [facility] Comment on above: Performed By: #### L 3300.1750, L506.0400, L506.1000, L503.0105, L100.0100, L500.4050, L801.2600, L501.54803, L509.3000, L501.9520, L3300.6820, L3300.6900, L3300.1500 ####[facility] [address] [place], [address] Hemoglobin (Bld) [Mass/Vol] 11.8 g/dL Low 12.0-15.0 [facility] Comment on above: Performed By: #### L 3300.1750, L506.0400, L506.1000, L503.0105, L100.0100, L500.4050, L801.2600, L501.05505, L509.3000, L501.9520, L3300.6820, L3300.6900, L3300.1500 ####[facility] [address] [place], [address] IG% 0.600 Normal 0.0-0.9 [facility] Comment on above: Result Comment: IG% - Immature Granulocytes (promyelocytes, myelocytes and metamyelocytes) > 1% indicates that a LEFT SHIFT is Present. Performed By: #### L 3300.1750, L506.0400, L506.1000, L503.0105, L100.0100, L500.4050, L801.2600, L501.76655, L509.3000, L501.9520, L3300.6820, L3300.6900, L3300.1500 ####[facility] [address] [place], [address] Lymphocytes/100 WBC (Bld) 19.9 % Normal 19-41 [facility] Comment on above: Performed By: #### L 3300.1750, L506.0400, L506.1000, L503.0105, L100.0100, L500.4050, L801.2600, L501.48811, L509.3000, L501.9520, L3300.6820, L3300.6900, L3300.1500 ####[facility] [address] [place], [address] MCH (RBC) [Entitic mass] 28.3 pg Normal 27.0-32.0 [facility] Comment on above: Performed By: #### L 3300.1750, L506.0400, L506.1000, L503.0105, L100.0100, L500.4050, L801.2600, L501.30227, L509.3000, L501.9520, L3300.6820, L3300.6900, L3300.1500 ####[facility] [address] [place], [address] MCHC (RBC) [Mass/Vol] 32.7 g/dL Normal 32-36 [facility] Comment on above: Performed By: #### L 3300.1750, L506.0400, L506.1000, L503.0105, L100.0100, L500.4050, L801.2600, L501.53891, L509.3000, L501.9520, L3300.6820, L3300.6900, L3300.1500 ####[facility] [address] [place], [address] MCV (RBC) [Entitic vol] 86.6 fL Normal 81-99 [facility] Comment on above: Performed By: #### L 3300.1750, L506.0400, L506.1000, L503.0105, L100.0100, L500.4050, L801.2600, L501.20488, L509.3000, L501.9520, L3300.6820, L3300.6900, L3300.1500 ####[facility] [address] [place], [address] Monocytes/100 WBC (Bld) 11.2 % High 0-10 [facility] Comment on above: Performed By: #### L 3300.1750, L506.0400, L506.1000, L503.0105, L100.0100, L500.4050, L801.2600, L501.95318, L509.3000, L501.9520, L3300.6820, L3300.6900, L3300.1500 ####[facility] [address] [place], [address] Neutrophils/100 WBC (Bld) 65.2 % Normal 47-70 [facility] Comment on above: Performed By: #### L 3300.1750, L506.0400, L506.1000, L503.0105, L100.0100, L500.4050, L801.2600, L501.51614, L509.3000, L501.9520, L3300.6820, L3300.6900, L3300.1500 ####[facility] [address] [place], [address] Nucleated RBC (Bld) [#/Vol] 0 10*3/uL Normal 0-5 [facility] Comment on above: Performed By: #### L 3300.1750, L506.0400, L506.1000, L503.0105, L100.0100, L500.4050, L801.2600, L501.59008, L509.3000, L501.9520, L3300.6820, L3300.6900, L3300.1500 ####[facility] [address] [place], [address] Platelet mean volume (Bld) [Entitic vol] 11.2 fL Normal 6.2-12.0 [facility] Comment on above: Performed By: #### L 3300.1750, L506.0400, L506.1000, L503.0105, L100.0100, L500.4050, L801.2600, L501.10811, L509.3000, L501.9520, L3300.6820, L3300.6900, L3300.1500 ####[facility] [address] [place], [address] Platelets (Bld) [#/Vol] 245 10*3/uL Normal 150-450 [facility] Comment on above: Performed By: #### L 3300.1750, L506.0400, L506.1000, L503.0105, L100.0100, L500.4050, L801.2600, L501.74254, L509.3000, L501.9520, L3300.6820, L3300.6900, L3300.1500 ####[facility] [address] [place], [address] RBC (Bld) [#/Vol] 4.17 10*6/uL Low 4.2-5.4 [facility] Comment on above: Performed By: #### L 3300.1750, L506.0400, L506.1000, L503.0105, L100.0100, L500.4050, L801.2600, L501.32847, L509.3000, L501.9520, L3300.6820, L3300.6900, L3300.1500 ####[facility] [address] [place], [place], [phone](055) RDW SD 38.1 fl Normal 35.1-43.9 [facility] Comment on above: Performed By: #### L 3300.1750, L506.0400, L506.1000, L503.0105, L100.0100, L500.4050, L801.2600, L501.41604, L509.3000, L501.9520, L3300.6820, L3300.6900, L3300.1500 ####[facility] [address] [place], [place], [phone] WBC (Bld) [#/Vol] 8.3 10*3/uL Normal 4.4-11.0 [facility] Comment on above: Performed By: #### L 3300.1750, L506.0400, L506.1000, L503.0105, L100.0100, L500.4050, L801.2600, L501.17888, L509.3000, L501.9520, L3300.6820, L3300.6900, L3300.1500 ####[facility] [address] [place], [place], [phone] Carbon dioxide measurementOr dered By: Elan Mccabe on 02-03-2024 CO2 [Moles/Vol] 26.0 mmol/L 21.0-32.0 [facility] Chloride measurementOrdered By: Elan Mccabe on 02-03-2024 Chloride [Moles/Vol] 105 mmol/L 98-107 [facility] Comprehensive Metabolic Prof ilon 02-03-2024 Albumin [Mass/Vol] 3.2 g/dL Normal 3.2-5.0 [facility] Comment on above: Order Comment: N Performed By: #### L 3300.1750, L506.0400, L506.1000, L503.0105, L100.0100, L500.4050, L801.2600, L501.81107, L509.3000, L501.9520, L3300.6820, L3300.6900, L3300.1500 ####[facility] [address] [place], [place], [phone] Albumin/Globulin [Mass ratio] 1.0 {ratio} Normal 0.9-2.4 [facility] Comment on above: Order Comment: N Performed By: #### L 3300.1750, L506.0400, L506.1000, L503.0105, L100.0100, L500.4050, L801.2600, L501.98636, L509.3000, L501.9520, L3300.6820, L3300.6900, L3300.1500 ####[facility] [address] [place], [place], [phone] ALK P 95 U/L Normal 45-117 [facility] Comment on above: Order Comment: N Performed By: #### L 3300.1750, L506.0400, L506.1000, L503.0105, L100.0100, L500.4050, L801.2600, L501.55187, L509.3000, L501.9520, L3300.6820, L3300.6900, L3300.1500 ####[facility] [address] [place], [place], [phone] ALT [Catalytic activity/Vol] 39 U/L Normal 13-56 [facility] Comment on above: Order Comment: N Performed By: #### L 3300.1750, L506.0400, L506.1000, L503.0105, L100.0100, L500.4050, L801.2600, L501.85943, L509.3000, L501.9520, L3300.6820, L3300.6900, L3300.1500 ####[facility] [address] [place], [place], [phone] AST [Catalytic activity/Vol] 27 U/L Normal 15-37 [facility] Comment on above: Order Comment: N Performed By: #### L 3300.1750, L506.0400, L506.1000, L503.0105, L100.0100, L500.4050, L801.2600, L501.54218, L509.3000, L501.9520, L3300.6820, L3300.6900, L3300.1500 ####[facility] [address] [place], [place], [phone] Bilirubin [Mass/Vol] 0.40 mg/dL Normal 0.20-1.00 [facility] Comment on above: Order Comment: N Result Comment: For patients on eltrombopag therapy, use of Dimension Gilman TBIL is not recommended. Performed By: #### L 3300.1750, L506.0400, L506.1000, L503.0105, L100.0100, L500.4050, L801.2600, L501.90702, L509.3000, L501.9520, L3300.6820, L3300.6900, L3300.1500 ####[facility] [address] [place], [place], [phone] BUN/CRE 18.9 RATIO Normal 10-20 [facility] Comment on above: Order Comment: N Performed By: #### L 3300.1750, L506.0400, L506.1000, L503.0105, L100.0100, L500.4050, L801.2600, L501.63435, L509.3000, L501.9520, L3300.6820, L3300.6900, L3300.1500 ####[facility] [address] [place], [address] CA,Total 9.1 mg/dL Normal 8.5-10.1 [facility] Comment on above: Order Comment: N Performed By: #### L 3300.1750, L506.0400, L506.1000, L503.0105, L100.0100, L500.4050, L801.2600, L501.24486, L509.3000, L501.9520, L3300.6820, L3300.6900, L3300.1500 ####[facility] [address] [place], [address] Chloride [Moles/Vol] 105 mmol/L Normal 98-107 [facility] Comment on above: Order Comment: N Performed By: #### L 3300.1750, L506.0400, L506.1000, L503.0105, L100.0100, L500.4050, L801.2600, L501.11678, L509.3000, L501.9520, L3300.6820, L3300.6900, L3300.1500 ####[facility] [address] [place], [address] CO2 [Moles/Vol] 26.0 mmol/L Normal 21.0-32.0 [facility] Comment on above: Order Comment: N Performed By: #### L 3300.1750, L506.0400, L506.1000, L503.0105, L100.0100, L500.4050, L801.2600, L501.13343, L509.3000, L501.9520, L3300.6820, L3300.6900, L3300.1500 ####[facility] [address] [place], [address] Creatinine [Mass/Vol] 0.90 mg/dL Normal 0.55-1.02 [facility] Comment on above: Order Comment: N Result Comment: The validity of the calculated GFR GFRAA in patients over 70 years has not been determined. Clinical correlation is essential. Performed By: #### L 3300.1750, L506.0400, L506.1000, L503.0105, L100.0100, L500.4050, L801.2600, L501.54309, L509.3000, L501.9520, L3300.6820, L3300.6900, L3300.1500 ####[facility] [address] [place], [place], [phone] EST GFR - AA 87 mL/min Normal >60 [facility] Comment on above: Order Comment: N Result Comment: Afri can [place]er GFR Calc Performed By: #### L 3300.1750, L506.0400, L506.1000, L503.0105, L100.0100, L500.4050, L801.2600, L501.79427, L509.3000, L501.9520, L3300.6820, L3300.6900, L3300.1500 ####[facility] [address] [place], [place], [phone] GAP 8 Normal 5-15 [facility] Comment on above: Order Comment: N Performed By: #### L 3300.1750, L506.0400, L506.1000, L503.0105, L100.0100, L500.4050, L801.2600, L501.16789, L509.3000, L501.9520, L3300.6820, L3300.6900, L3300.1500 ####[facility] [address] [place], [place], [phone] GFR/1.73 sq M.predicted among non-blacks MDRD (S/P/Bld) [Vol rate/Area] 72 mL/min/{1.73_m2} Normal >60 [facility] Comment on above: Order Comment: N Result Comment: Non- GFR Calc Performed By: #### L 3300.1750, L506.0400, L506.1000, L503.0105, L100.0100, L500.4050, L801.2600, L501.02678, L509.3000, L501.9520, L3300.6820, L3300.6900, L3300.1500 ####[facility] [address] [place], [address] Globulin (S) [Mass/Vol] 3.2 g/dL Normal 2.2-4.2 [facility] Comment on above: Order Comment: N Performed By: #### L 3300.1750, L506.0400, L506.1000, L503.0105, L100.0100, L500.4050, L801.2600, L501.39136, L509.3000, L501.9520, L3300.6820, L3300.6900, L3300.1500 ####[facility] [address] [place], [address] Glucose [Mass/Vol] 178 mg/dL High 74-106 [facility] Comment on above: Order Comment: N Result Comment: Fast ing Glucose result greater than or equal to 126 mg/dL suggests DIABETES MELLITUS per A.D.A. criteria. Performed By: #### L 3300.1750, L506.0400, L506.1000, L503.0105, L100.0100, L500.4050, L801.2600, L501.77326, L509.3000, L501.9520, L3300.6820, L3300.6900, L3300.1500 ####[facility] [address] [place], [address] Potassium [Moles/Vol] 4.0 mmol/L Normal 3.5-5.1 [facility] Comment on above: Order Comment: N Performed By: #### L 3300.1750, L506.0400, L506.1000, L503.0105, L100.0100, L500.4050, L801.2600, L501.46322, L509.3000, L501.9520, L3300.6820, L3300.6900, L3300.1500 ####[facility] [address] [place], [address] Sodium [Moles/Vol] 139 mmol/L Normal 136-145 [facility] Comment on above: Order Comment: N Performed By: #### L 3300.1750, L506.0400, L506.1000, L503.0105, L100.0100, L500.4050, L801.2600, L501.31626, L509.3000, L501.9520, L3300.6820, L3300.6900, L3300.1500 ####[facility] [address] [place], [place], [phone](225) T PROT 6.4 g/dL Normal 6.4-8.2 [facility] Comment on above: Order Comment: N Performed By: #### L 3300.1750, L506.0400, L506.1000, L503.0105, L100.0100, L500.4050, L801.2600, L501.81269, L509.3000, L501.9520, L3300.6820, L3300.6900, L3300.1500 ####[facility] [address] [place], [place], [phone] Urea nitrogen [Mass/Vol] 17 mg/dL Normal 7-18 [facility] Comment on above: Order Comment: N Performed By: #### L 3300.1750, L506.0400, L506.1000, L503.0105, L100.0100, L500.4050, L801.2600, L501.18821, L509.3000, L501.9520, L3300.6820, L3300.6900, L3300.1500 ####[facility] [address] [place], [place], [phone]([phone] Dehydroepiandrosterone sulfa te (DHEA-S) measurementOrdered By: Elan Mccabe on 02-03-2024 Dehydroepiandrosterone Sulfate 57.7 ug/dL 57.3-279.2 [facility] Direct serum free thyroxine (FT4) measurementOrdered By: Elan Mccabe on 02-03-2024 Free T4 [Mass/Vol] 1.16 ng/dL 0.76-1.46 [facility] Eosinophil percentageOrdered By: Elan Mccabe on 02-03-2024 Eosinophils/100 WBC (Bld) 2.4 % 0-5 [facility] Erythrocyte distribution wid th ratioOrdered By: Elan Mccabe on 02-03-2024 Erythrocyte distribution width (RBC) [Ratio] 12.0 % 11.6-14.6 [facility] Erythrocyte distribution wid th standard deviationOrdered By: Elan Mccabe on 02-03-2024 Erythrocyte distribution width (RBC) [Entitic vol] 38.1 fL 35.1-43.9 [facility] Estimated glomerular filtrat ion rate (GFR) AmericanOrdered By: Elan Mccabe on 02-03-2024 Estimated GFR (MDRD) Amer 87 mL/min >60 [facility] Comment on above: GFR Calc Estradiolon 02-03-2024 ESTRADIOL 357.7 pg/mL Normal [facility] Comment on above: Order Comment: N Result Comment: NORM AL REFERENCE RANGES FEMALE FOLLICULAR 21.4 - 164.8 pg/mL MID-CYCLE PEAK 49.9 - 367.2 pg/mL LUTEAL 40.2 - 259.0 pg/mL POST-MENOPAUSAL ON MHT <11.0 - 462.1 pg/mL NOT ON MHT <11.0 - 58.3 pg/mL MALE <11.0 - 52.5 pg/mL NOTE: [employer] HAS CONFIRMED THE DRUG FULVETRANT (FASLODEX) MAY CAUSE FALSELY ELEVATED ESTRADIOL RESULTS WHEN USING THIS TEST METHOD. IF PATIENT IS TAKING FULVESTRANT AN ALTERNATIVE METHOD SHOULD BE USED TO DETERMINE ESTRADIOL CONCENTRATION. Performed By: #### L 3300.1750, L506.0400, L506.1000, L503.0105, L100.0100, L500.4050, L801.2600, L501.87174, L509.3000, L501.9520, L3300.6820, L3300.6900, L3300.1500 ####[facility] [address] [place], [place], [phone] Estradiol measurementOrdered By: Elan Mccabe on 02-03-2024 Estradiol (E2) Level 357.7 pg/mL [facility] Comment on above: NORMAL REFERENCE RAN GES FEMALE FOLLICULAR 21.4 - 164.8 pg/mL MID-CYCLE PEAK 49.9 - 367.2 pg/mL LUTEAL 40.2 - 259.0 pg/mL POST-MENOPAUSAL ON MHT <11.0 - 462.1 pg/mL NOT ON MHT <11.0 - 58.3 pg/mL MALE <11.0 - 52.5 pg/mL NOTE:[employer] HAS CONFIRMED THE DRUG FULVETRANT (FASLODEX) MAY CAUSE FALSELY ELEVATED ESTRADIOL RESULTS WHEN USING THIS TEST METHOD. IF PATIENT IS TAKING FULVESTRANT AN ALTERNATIVE METHOD SHOULD BE USED TO DETERMINE ESTRADIOL CONCENTRATION. Free T3on 02-03-2024 Free T3 [Mass/Vol] 2.6 pg/mL Normal 2.18-3.98 [facility] Comment on above: Order Comment: N Performed By: #### L 3300.1750, L506.0400, L506.1000, L503.0105, L100.0100, L500.4050, L801.2600, L501.58247, L509.3000, L501.9520, L3300.6820, L3300.6900, L3300.1500 ####[facility] [address] [place], [place], [phone] Free Q3Cabcspz By: Elan Mccabe on 02-03-2024 Free Triiodothyronine (T3) pg/dL 2.6 pg/mL 2.18-3.98 [facility] Glomerular filtration rate ( GFR) estimationOrdered By: Elan Mccabe on 02-03-2024 Estimated GFR (MDRD) Non-Af Amer 72 mL/min >60 [facility] Comment on above: Non- GFR Calc Glucose measurementOrdered B y: Elan Mccabe on 02-03-2024 Glucose [Mass/Vol] 178 mg/dL High 74-106 [facility] Comment on above: Fasting Glucose resu lt greater than or equal to 126 mg/dL suggests DIABETES MELLITUS per A.D.A. criteria. Hematocrit Auto (Bld) [Volum e fraction]Ordered By: Elan Mccabe on 02-03-2024 Hematocrit (Bld) [Volume fraction] 36.1 % Low 37-47 [facility] Hemoglobin measurementOrdere d By: Elan Mccabe on 02-03-2024 Hemoglobin (Bld) [Mass/Vol] 11.8 g/dL Low 12.0-15.0 [facility] Immature granulocytes/100 WB C Auto (Bld)Ordered By: Elan Mccabe on 02-03-2024 Immature granulocytes/100 WBC (Bld) 0.600 % 0.0-0.9 [facility] Comment on above: IG% - Immature Granu locytes (promyelocytes, myelocytes and metamyelocytes) > 1% indicates that a LEFT SHIFT is Present. Laboratory - Chemistry and C hemistry - challengeOrdered By: Elan Mccabe on 02-03-2024 AST [Catalytic activity/Vol] 27 U/L 15-37 [facility] Lymphocytes Auto (Unsp spec) [#/Vol]Ordered By: Elan Mccabe on 02-03-2024 Lymphocytes (Bld) [#/Vol] 1.65 10*3/uL 0.83-4.51 [facility] Lymphocytes/100 WBC Auto (Un sp spec)Ordered By: Elan Mccabe on 02-03-2024 Lymphocytes/100 WBC (Bld) 19.9 % 19-41 [facility] MCV (mean corpuscular volume ) determinationOrdered By: Elan Mccabe on 02-03-2024 MCV (RBC) [Entitic vol] 86.6 fL 81-99 [facility] Mean corpuscular hemoglobin (MCH) determinationOrdered By: Elan Mccabe on 02-03-2024 MCH (RBC) [Entitic mass] 28.3 pg 27.0-32.0 [facility] Mean corpuscular hemoglobin concentration (MCHC) determinationOrdered By: Elan Mccabe on 02-03-2024 MCHC (RBC) [Mass/Vol] 32.7 g/dL 32-36 [facility] Mean platelet volume determi nationOrdered By: Ealn Mccabe on 02-03-2024 Platelet mean volume (Bld) [Entitic vol] 11.2 fL 6.2-12.0 [facility] Monocyte percentageOrdered B y: Elan Mccabe on 02-03-2024 Monocytes/100 WBC (Bld) 11.2 % High 0-10 [facility] Neutrophil percentageOrdered By: Elan Mccabe on 02-03-2024 Neutrophils/100 WBC (Bld) 65.2 % 47-70 [facility] Nucleated red blood cell per centageOrdered By: Elan Mccabe on 02-03-2024 Nucleated RBC/100 WBC (Bld) [Ratio] 0 % 0-5 [facility] Platelet countOrdered By: Gloria Mccabe on 02-03-2024 Platelets (Bld) [#/Vol] 245 10*3/uL 150-450 [facility] Potassium measurementOrdered By: Elan Mccabe on 02-03-2024 Potassium [Moles/Vol] 4.0 mmol/L 3.5-5.1 [facility] Quantitative serum progester one measurement by electrochemiluminescence immunoassay (Ordered By: Elan Mccabe on 02-03-2024 Progesterone Level 0.8 ng/mL . [facility] Comment on above: Follicular phase 0.1 - 0.9 Luteal phase 1.8 - 23.9 Ovulation phase 0.1 - 12.0 First trimester 11.0 - 44.3 Second trimester 25.4 - 83.3 Third trimester 58.7 - 214.0 Postmenopausal 0.0 - 0.1Performed at: - [facility] [id number] Director: Jules Field PhD, Phone: [phone] RBC Auto (Bld) [#/Vol]Ordere d By: Elan Mccabe on 02-03-2024 RBC (Bld) [#/Vol] 4.17 10*6/uL Low 4.2-5.4 [facility] Serum anion gap measurementO rdered By: Elan Mccabe on 02-03-2024 Anion gap [Moles/Vol] 8 mmol/L 5-15 [facility] Serum globulin measurementOr dered By: Elan Mccabe on 02-03-2024 Globulin (S) [Mass/Vol] 3.2 g/dL 2.2-4.2 [facility] Serum or plasma alanine mantilla otransferase (ALT) measurementOrdered By: Elan Mccabe on 02-03-2024 ALT [Catalytic activity/Vol] 39 U/L 13-56 [facility] Serum or plasma albumin betty urement (mass/volume)Ordered By: Elan Mccabe on 02-03-2024 Albumin [Mass/Vol] 3.2 g/dL 3.2-5.0 [facility] Serum or plasma alkaline corine sphatase measurementOrdered By: Elan Mccabe on 02-03-2024 ALP [Catalytic activity/Vol] 95 U/L 45-117 [facility] Serum or plasma calcium betty urement (mass/volume)Ordered By: Elan Mccabe on 02-03-2024 Calcium [Mass/Vol] 9.1 mg/dL 8.5-10.1 [facility] Serum or plasma creatinine m easurement (mass/volume)Ordered By: Elan Mccabe on 02-03-2024 Creatinine [Mass/Vol] 0.90 mg/dL 0.55-1.02 [facility] Comment on above: The validity of the calculated GFR & GFRAA in patients over 70 years has not been determined. Clinical correlation is essential. Serum or plasma urea nitroge n measurement (mass/volume)Ordered By: Elan Mccabe on 02-03-2024 Urea nitrogen [Mass/Vol] 17 mg/dL 7-18 [facility] Sodium levelOrdered By: Yury Mccabe on 02-03-2024 Sodium [Moles/Vol] 139 mmol/L 136-145 [facility] T4 Free Directon 02-03-2024 T4 FREE DIRECT 1.16 ng/dL Normal 0.76-1.46 [facility] Comment on above: Order Comment: N Performed By: #### L 3300.1750, L506.0400, L506.1000, L503.0105, L100.0100, L500.4050, L801.2600, L501.44631, L509.3000, L501.9520, L3300.6820, L3300.6900, L3300.1500 ####[facility] [address] [place], [place], [phone] TPO Ab QnOrdered By: Nandini Mccabe on 02-03-2024 Thyroid Peroxidase Antibodies 24 IU/mL 0-34 [facility] Comment on above: Performed at: [address] [id number] Director: Jules Field PhD, Phone: [phone] TSH QnOrdered By: Elan quintana on 02-03-2024 Thyroid Stimulating Hormone (TSH) 2.090 uIU/mL 0.358-3.74 0 [facility] Testosterone, Serum Totalon 02-03-2024 Testosterone [Mass/Vol] 26.44 ng/dL Normal [facility] Comment on above: Result Comment: CENT RAL 90% REFERENCE RANGES MALE AGE <50 197.44 - 669.58 ng/dL MALE AGE > or = 50 187.72 - 684.19 ng/dL FEMALE AGE <50 8.38 - 35.01 ng/dL FEMALE AGE > or = 50 <7.00 - 35.92 ng/dL Effective as of 09/23/20 Performed By: #### L 3300.1750, L506.0400, L506.1000, L503.0105, L100.0100, L500.4050, L801.2600, L501.75977, L509.3000, L501.9520, L3300.6820, L3300.6900, L3300.1500 ####[facility] [address] [place], [place], [id number] Testosterone, totalOrdered B y: Elan Mccabe on 02-03-2024 Testosterone [Mass/Vol] 26.44 ng/dL [facility] Comment on above: CENTRAL 90% REFERENC E RANGES MALE AGE <50 197.44 - 669.58 ng/dL MALE AGE > or = 50 187.72 - 684.19 ng/dL FEMALE AGE <50 8.38 - 35.01 ng/dL FEMALE AGE > or = 50 <7.00 - 35.92 ng/dL Effective as of 09/23/20 Thyroglobulin Ab serumOrdere d By: Elan Mccabe on 02-03-2024 Thyroglobulin Antibody < 1.0 IU/mL 0.0-0.9 [facility] Comment on above: Thyroglobulin Antibo dy measured by Kerry CoulterMethodologyIt should be noted that the presence of thyroglobulinantibodies may not be pathogenic nor diagnostic, especiallyat very low levels. The assay plumber apprentice has found thatfour percent of individuals without evidence of thyroiddisease or autoimmunity will have positive TgAb levels upto 4 IU/mL. Thyroglobulin serOrdered By: Elan Mccabe on 02-03-2024 Thyroglobulin Level 4.8 ng/mL 1.5-38.5 [facility] Comment on above: According to the [facility] [employer],the reference interval for Thyroglobulin (TG) should berelated to euthyroid patients and not for patients whounderwent thyroidectomy. TG reference intervals for thesepatients depend on the residual mass of the thyroid tissueleft after surgery. Establishing a post-operative baselineis recommended. The assay limit of quantitation is 0.1ng/mLThyroglobulin measured by Kerry Tony ImmunometricAssay Thyroid Stim Hormone (TSH)on 02-03-2024 TSH 2.090 uIU/mL Normal 0.358-3.74 0 [facility] Comment on above: Order Comment: N Performed By: #### L 3300.1750, L506.0400, L506.1000, L503.0105, L100.0100, L500.4050, L801.2600, L501.88863, L509.3000, L501.9520, L3300.6820, L3300.6900, L3300.1500 ####[facility] [address] [place], [place], [id number] Total proteinOrdered By: Stalin Mccabe on 02-03-2024 Protein [Mass/Vol] 6.4 g/dL 6.4-8.2 [facility] Vitamin B12on 02-03-2024 Cobalamin (Vitamin B12) [Mass/Vol] 1179 pg/mL High 211-911 [facility] Comment on above: Performed By: #### L 3300.1750, L506.0400, L506.1000, L503.0105, L100.0100, L500.4050, L801.2600, L501.94493, L509.3000, L501.9520, L3300.6820, L3300.6900, L3300.1500 ####[facility] [address] [place], [address] Vitamin B12 measurementOrder ed By: Elan Mccabe on 02-03-2024 Cobalamin (Vitamin B12) [Mass/Vol] 1179 pg/mL High 211-911 [facility] Vitamin D,25 Hydroxyon 02-02 Vitamin D 25-OH 65.6 ng/mL Normal [facility] Comment on above: Result Comment: Tiffanie min D 25(OH) Status Range Deficiency <20 ng/mL (50nmol/L) Insufficiency 20 - 30 ng/mL (50 - 75 nmol/L) Sufficiency 30 - 100 ng/mL (75 - 250 nmol/L) Toxicity >100 ng/mL (>250 nmol/L) Performed By: #### L 3300.1750, L506.0400, L506.1000, L503.0105, L100.0100, L500.4050, L801.2600, L501.80631, L509.3000, L501.9520, L3300.6820, L3300.6900, L3300.1500 ####[facility] [address] [place], [address] White blood cell (WBC) count Ordered By: Elan Mccabe on 02-03-2024 WBC (Bld) [#/Vol] 8.3 10*3/uL 4.4-11.0 [facility] DBT Breast - bilateral scree carolegon 12-31-2023 IMPRESSION: There is no mammographic evidence of malignancy. Routine screening mammogram is recommended. Annual mammogram will be due in 1 year. BI-RADS Category 2: Benign RISK: Based on the Tyrer-Cuzick (TC) risk assessment model, this patient has a 14.4% lifetime risk of developing breast cancer, meaning they are at average risk for developing breast cancer. However, this is only an estimate based on available history provided on the patient's questionnaire. We encourage all patients to talk with their providers about these results, further recommendations for managing breast health, and appropriate supplemental screening options if the patient has dense breast tissue. Interpreting Radiologist: Malinda Bellamy M.D. Electronically signed on: 12/30/2023 Cheese Wrapper: SARA Transcribe Date/Time: Dec 30 2023 7:10A Dictated by: GABBI KOHLI MD This examination was interpreted and the report reviewed and electronically signed by: YUDELKA BRYANT MD on Dec 31 2023 5:55AM [facility] DIVISION OF RADIOLOGY * * *Final Report* * * DATE OF EXAM: Dec 30 2023 7:22AM [facility] 0582 - RAJ SCREENING W ESTEFANI / PROCEDURE REASON: Encounter for screening mammogram for breast cancer * * * * Physician Interpretation * * * * RESULT: [place] [address] HISTORY: Patient is 43 years old and is seen for screening and is asymptomatic in both breasts. Patient states no personal history of breast cancer. Patient states no personal history of other cancers. COMPARISON STUDIES: The present examination has been compared to prior imaging studies dated 07/03/2020 (mammogram), 07/15/2020 (mammogram), 11/20/2021 (mammogram) and 12/27/2022 (mammogram). MAMMOGRAM TECHNIQUE: The study was acquired using full field digital technology and interpreted from soft copy. Digital Breast Tomosynthesis (DBT) images were obtained and used to assist in the interpretation of this examination. Computer-aided detection was utilized by the radiologist in the interpretation of this examination. MAMMOGRAM FINDINGS: The breasts are heterogeneously dense, which may obscure small masses. There is a biopsy marker in the right breast. Benign post operative findings in the left breast. There are no significant changes from the prior study. No suspicious masses, calcifications or other abnormalities are seen in either breast. DIVISION OF RADIOLOGY Provider, Alfred Burgess - 12/31/2023 * * *Final Report* * * DATE OF EXAM: Dec 30 2023 7:22AM [facility] 0582 - RAJ SCREENING W ESTEFANI / PROCEDURE REASON: Encounter for screening mammogram for breast cancer * * * * Physician Interpretation * * * * RESULT: [place] [id number] HISTORY: Patient is 43 years old and is seen for screening and is asymptomatic in both breasts. Patient states no personal history of breast cancer. Patient states no personal history of other cancers. COMPARISON STUDIES: The present examination has been compared to prior imaging studies dated 07/03/2020 (mammogram), 07/15/2020 (mammogram), 11/20/2021 (mammogram) and 12/27/2022 (mammogram). MAMMOGRAM TECHNIQUE: The study was acquired using full field digital technology and interpreted from soft copy. Digital Breast Tomosynthesis (DBT) images were obtained and used to assist in the interpretation of this examination. Computer-aided detection was utilized by the radiologist in the interpretation of this examination. MAMMOGRAM FINDINGS: The breasts are heterogeneously dense, which may obscure small masses. There is a biopsy marker in the right breast. Benign post operative findings in the left breast. There are no significant changes from the prior study. No suspicious masses, calcifications or other abnormalities are seen in either breast. IMPRESSION IMPRESSION: There is no mammographic evidence of malignancy. Routine screening mammogram is recommended. Annual mammogram will be due in 1 year. BI-RADS Category 2: Benign RISK: Based on the Tyrer-Cuzick (TC) risk assessment model, this patient has a 14.4% lifetime risk of developing breast cancer, meaning they are at average risk for developing breast cancer. However, this is only an estimate based on available history provided on the patient's questionnaire. We encourage all patients to talk with their providers about these results, further recommendations for managing breast health, and appropriate supplemental screening options if the patient has dense breast tissue. Interpreting Radiologist: Malinda Bellamy M.D. Electronically signed on: 12/30/2023 Cheese Wrapper: SARA Transcribe Date/Time: Dec 30 2023 7:10A Dictated by: GABBI KOHLI MD This examination was interpreted and the report reviewed and electronically signed by: YUDELKA BRYANT MD on Dec 31 2023 5:55AM EST [facility] DBT Breast - bilateral scree ningOrdered By: [facility] Provider on 12-31-2023 [facility] DBT Breast - bilateral scree ningon 12-30-2023 Radiology Study observation (narrative) [facility] XR CALCANEOUS MINIMUM 2 VIEW S RIGHTon 10-28-2023 XR CALCANEOUS MINIMUM 2 VIEWS RIGHT ORIGINAL EXAMINATION: TWO RADIOGRAPHIC VIEW(S) OF THE RIGHT CALCANEUS ON 2 IMAGE(S) 10/28/2023 5:44 pm COMPARISON: None HISTORY: ORDERING SYSTEM PROVIDED HISTORY: Reason for Exam: pain FINDINGS: No acute fracture or suspicious osseous lesion. No ankle joint effusion. And os trigonum is noted. Tiny calcaneal spur. Vascular calcifications. IMPRESSION: No acute osseous abnormality. I have personally reviewed the images of this examination and agree with the resident's findings and interpretation. Interpreted by: Tom Granda Preliminary Report By: Rusty Live Electronically signed By Tom Granda Dictated Date: 10/28/2023 5:53:38 PM Prelim Date: 10/28/2023 5:56:23 PM Sign Date: 10/28/2023 7:04:22 PM Ordering Provider: ASIYA CAVAZOS [facility] ([place]) Basophil percentageOrdered B y: Martinez Gomez on 12-31-2022 Bilirubin [Mass/Vol] 0.60 mg/dL 0.20-1.00 [facility] Comment on above: For patients on eltr ombopag therapy, use of Dimension Gilman TBIL is not recommended. Chloride [Moles/Vol] 103 mmol/L 98-107 [facility] Cholesterol [Mass/Vol] 201 mg/dL <200 [facility] Comment on above: <200 mg/dL Desirable 200-240 mg/dL Borderline >240 mg/dL High Risk Glucose [Mass/Vol] 109 mg/dL 74-106 [facility] Comment on above: Fasting Glucose resu lt from 100 to 125 mg/dL suggests IMPAIRED HOMEOSTASIS per A.D.A. criteria. Potassium [Moles/Vol] 4.1 mmol/L 3.5-5.1 [facility] Protein [Mass/Vol] 6.6 g/dL 6.4-8.2 [facility] Sodium [Moles/Vol] 139 mmol/L 136-145 [facility] Triglyceride [Mass/Vol] 78 mg/dL <199 [facility] Comment on above: The drugs N-Acetylcy steine and Metamizole may falsely depress this assay.Serum Triglycerides Reference Interval Normal <150 mg/dL Borderline high 150 - 199 mg/dL High 200 - 499 mg/dL Very High > or = 500 mg/dL Laboratory - Chemistry and C hemistry - challengeOrdered By: Martinez Gomez on 12-31-2022 Free T4 [Mass/Vol] 1.36 ng/dL 0.76-1.46 [facility] ALP [Catalytic activity/Vol] 75 U/L 45-117 [facility] ALT [Catalytic activity/Vol] 48 U/L 13-56 [facility] CO2 [Moles/Vol] 31.0 mmol/L 21.0-32.0 [facility] Globulin (S) [Mass/Vol] 3.2 g/dL 2.2-4.2 [facility] Urea nitrogen/Creatinine [Mass ratio] 20.8 mg/mg 10-20 [facility] No Panel InformationOrdered By: Martinez Gomez on 12-31-2022 Free Triiodothyronine (T3) pg/dL 2.9 pg/mL 2.18-3.98 [facility] Thyroid Stimulating Hormone (TSH) 2.54 uIU/mL 0.358-3.74 [facility] Estimated GFR (MDRD) Amer 73 mL/min >60 [facility] Comment on above: GFR Calc Estimated GFR (MDRD) Non-Af Amer 60 mL/min >60 [facility] Comment on above: Non- GFR Calc Serum or plasma albumin betty urement (mass/volume)Ordered By: Martinez Gomez on 12-31-2022 Albumin [Mass/Vol] 3.4 g/dL 3.2-5.0 [facility] Serum or plasma albumin/glob ulin mass ratioOrdered By: Martinez Gomez on 12-31-2022 Albumin/Globulin [Mass ratio] 1.1 {ratio} 0.9-2.4 [facility] Serum or plasma calcium betty urement (mass/volume)Ordered By: Martinez Gomez on 12-31-2022 Calcium [Mass/Vol] 9.3 mg/dL 8.5-10.1 [facility] Serum or plasma cholesterol in HDL measurement (mass/volume)Ordered By: Martinez Gomez on 12-31-2022 Cholesterol in HDL [Mass/Vol] 66 mg/dL >40 [facility] Comment on above: The drugs N-Acetylcy steine and Metamizole may falsely depress this assay. Reference Range HDL <40 mg/dL Low HDL Cholesterol HDL >or= 60 mg/dL High HDL Cholesterol Serum or plasma cholesterol in VLDL measurement (mass/volume)Ordered By: Martinez Gomez on 12-31-2022 Cholesterol in VLDL [Mass/Vol] 16 mg/dL 5-40 [facility] Serum or plasma creatinine m easurement (mass/volume)Ordered By: Martinez Gomez on 12-31-2022 Creatinine [Mass/Vol] 1.06 mg/dL 0.55-1.02 [facility] Comment on above: The validity of the calculated GFR & GFRAA in patients over 70 years has not been determined. Clinical correlation is essential. Serum or plasma low density lipoprotein (LDL) cholesterol measurement (mass/volume)Ordered By: Martinez Gomez on 12-31-2022 Cholesterol in LDL [Mass/Vol] 119 mg/dL 0-130 [facility] Serum or plasma urea nitroge n measurement (mass/volume)Ordered By: Martinez Gomez on 12-31-2022 Urea nitrogen [Mass/Vol] 22 mg/dL 7-18 [facility] Thin prep Papanicolaou smear with manual screeningOrdered By: Martinez Gomez on 12-31-2022 Thin prep Papanicolaou smear with manual screening 32 U/L 15-37 [facility] Thin prep Papanicolaou smear with manual screening 5 5-15 [facility] Whole blood hemoglobin A1c/t otal hemoglobin ratio (mass fraction)Ordered By: Martinez Gomez on 12-31-2022 HbA1c (Bld) [Mass fraction] 6.6 % 3.8-5.6 [facility] Comment on above: Normal < 5.7 % Predi abetic 5.7 - 6.4 % Diabetic >or= 6.5 % Please note range changes. Culture, urineOrdered By: Patti Patten on 09-25-2022 Bacteria identified Cx Nom (U) Escherichia coli [facility] Culture, urineOrdered By: Patti Patten on 09-24-2022 Bacteria identified Cx Nom (U) Escherichia coli [facility] Laboratory - Hematology and Cell countson 08-30-2022 HbA1c (Bld) [Mass fraction] 6.9 % 4.2-6.3 [facility] Absolute lymphocyte countOrd ered By: Martinez Gomez on 06-30-2022 Lymphocytes Auto (Unsp spec) [#/Vol] 1.76 10*3/uL 0.83-4.51 [facility] Basophil percentageOrdered B y: Martinez Gomez on 06-30-2022 Basophils/100 WBC (Bld) 0.5 % 0-1 [facility] Bilirubin [Mass/Vol] 0.30 mg/dL 0.20-1.00 [facility] Comment on above: For patients on eltr ombopag therapy, use of Dimension Gilman TBIL is not recommended. Chloride [Moles/Vol] 106 mmol/L 98-107 [facility] Eosinophils/100 WBC (Bld) 1.2 % 0-5 [facility] Glucose [Mass/Vol] 91 mg/dL 74-106 [facility] Neutrophils (Bld) [#/Vol] 5.8 10*3/uL 2.0-7.7 [facility] Neutrophils/100 WBC (Bld) 67.6 % 47-70 [facility] Potassium [Moles/Vol] 3.6 mmol/L 3.5-5.1 [facility] Protein [Mass/Vol] 7.0 g/dL 6.4-8.2 [facility] Sodium [Moles/Vol] 139 mmol/L 136-145 [facility] WBC (Bld) [#/Vol] 8.6 10*3/uL 4.4-11.0 [facility] Blood erythrocytes count (nu mber/volume)Ordered By: Martinez Gomez on 06-30-2022 RBC (Bld) [#/Vol] 4.21 10*6/uL 4.2-5.4 [facility] Blood hemoglobin measurement (mass/volume)Ordered By: Martinez Gomez on 06-30-2022 Hemoglobin (Bld) [Mass/Vol] 12.4 g/dL 12.0-15.0 [facility] Blood lymphocytes/100 leukoc ytesOrdered By: Martinez Gomez on 06-30-2022 Lymphocytes/100 WBC (Bld) 20.5 % 19-41 [facility] Blood monocytes/100 leukocyt esOrdered By: Martinez Gomez on 06-30-2022 Monocytes/100 WBC (Bld) 9.7 % 0-10 [facility] Blood platelet mean volumeOr dered By: Martinez Gomez on 06-30-2022 Platelet mean volume (Bld) [Entitic vol] 11.5 fL 6.2-12.0 [facility] Determination of erythrocyte mean corpuscular volume (MCV)Ordered By: Martinez Gomez on 06-30-2022 MCV (RBC) [Entitic vol] 88.1 fL 81-99 [facility] Erythrocyte sedimentation ra teOrdered By: Martinez Gomez on 06-30-2022 ESR (Bld) [Velocity] 14 mm/h 0-30 [facility] Hematocrit Auto (Bld) [Volum e fraction]Ordered By: Martinez Gomez on 06-30-2022 Hematocrit (Bld) [Volume fraction] 37.1 % 37-47 [facility] Iron measurement (mass/mass) Ordered By: Martinez Gomez on 06-30-2022 Iron (Unsp spec) [Mass/Mass] 60 ug/dL 50-170 [facility] Laboratory - Chemistry and C hemistry - challengeOrdered By: Martinez Gomez on 06-30-2022 ALP [Catalytic activity/Vol] 52 U/L 45-117 [facility] ALT [Catalytic activity/Vol] 22 U/L 13-56 [facility] CO2 [Moles/Vol] 26.0 mmol/L 21.0-32.0 [facility] Cobalamin (Vitamin B12) [Mass/Vol] 740 pg/mL 211-911 [facility] Free T4 [Mass/Vol] 1.52 ng/dL 0.76-1.46 [facility] Globulin (S) [Mass/Vol] 3.8 g/dL 2.2-4.2 [facility] Urea nitrogen/Creatinine [Mass ratio] 19.8 mg/mg 10-20 [facility] Laboratory - Hematology and Cell countsOrdered By: Martinez Gomez on 06-30-2022 Erythrocyte distribution width (RBC) [Entitic vol] 39.5 fL 35.1-43.9 [facility] Erythrocyte distribution width (RBC) [Ratio] 12.3 % 11.6-14.6 [facility] Immature granulocytes/100 WBC (Bld) 0.500 % 0.0-0.9 [facility] Comment on above: IG% - Immature Granu locytes (promyelocytes, myelocytes and metamyelocytes) > 1% indicates that a LEFT SHIFT is Present. MCH (RBC) [Entitic mass] 29.5 pg 27.0-32.0 [facility] Nucleated RBC/100 WBC (Bld) [Ratio] 0 % 0-5 [facility] MCHC Auto (RBC) [Mass/Vol]Or dered By: Martinez Gomez on 06-30-2022 MCHC (RBC) [Mass/Vol] 33.4 g/dL 32-36 [facility] No Panel InformationOrdered By: Martinez Gomez on 06-30-2022 Estimated GFR (MDRD) Amer 77 mL/min >60 [facility] Comment on above: GFR Calc Estimated GFR (MDRD) Non-Af Amer 64 mL/min >60 [facility] Comment on above: Non- GFR Calc Free Triiodothyronine (T3) pg/dL 2.4 pg/mL 2.18-3.98 [facility] Vitamin D 25-Hydroxy 133.8 ng/mL [facility] Comment on above: Vitamin D 25(OH) Sta tus Range Deficiency <20 ng/mL (50nmol/L) Insufficiency 20 - 30 ng/mL (50 - 75 nmol/L) Sufficiency 30 - 100 ng/mL (75 - 250 nmol/L) Toxicity >100 ng/mL (>250 nmol/L)Evidence suggests that patients undergoing fluorescein dye angiography can retain small amounts of fluorescein in the body for up to 48 to 72 hours post-treatment. In the cases of patients with renal insufficiency, retention could be much longer. Samples containing fluorescein can produce falsely elevated values when tested with the Advia Centaur Vitamin D assay. With fluorescein interference, observed Vitamin D values can be as high as >150 ng/mL (>375 nmol/L). Samples should be resubmitted post fluorescein clearance to ensure there is no interference with Vitamin D test results. Platelets bldOrdered By: Spike Gomez on 06-30-2022 Platelets (Bld) [#/Vol] 280 10*3/uL 150-450 [facility] Serum or plasma albumin betty urement (mass/volume)Ordered By: Martinez Gomez on 06-30-2022 Albumin [Mass/Vol] 3.2 g/dL 3.2-5.0 [facility] Serum or plasma albumin/glob ulin mass ratioOrdered By: Martinez Gomez on 06-30-2022 Albumin/Globulin [Mass ratio] 0.8 {ratio} 0.9-2.4 [facility] Serum or plasma calcium betty urement (mass/volume)Ordered By: Martinez Gomez on 06-30-2022 Calcium [Mass/Vol] 8.7 mg/dL 8.5-10.1 [facility] Serum or plasma cortisol carl surement (mass/volume)Ordered By: Martinez Gomez on 06-30-2022 Cortisol [Mass/Vol] 19.30 ug/dL 3.44-22.45 [facility] Comment on above: Adult (AM) 5.27 - 22 .45 ug/dL Adult (PM) 3.44 - 16.76 ug/dLPlease note revised CORTISOL reference range effective 2019. Serum or plasma creatinine m easurement (mass/volume)Ordered By: Martinez Gomez on 06-30-2022 Creatinine [Mass/Vol] 1.01 mg/dL 0.55-1.02 [facility] Comment on above: The validity of the calculated GFR & GFRAA in patients over 70 years has not been determined. Clinical correlation is essential. Serum or plasma ferritin carl surement (mass/volume)Ordered By: Martinez Gomez on 06-30-2022 Ferritin [Mass/Vol] 97 ng/mL 8-252 [facility] Serum or plasma thyroperoxid ase antibody assay (units/volume)Ordered By: Martinez Gomez on 06-30-2022 TPO Ab Qn 60 [IU]/mL 0-34 [facility] Comment on above: Performed at: [place] [id number] Director: Jules Field PhD, Phone: [phone] Serum or plasma urea nitroge n measurement (mass/volume)Ordered By: Martinez Gomez on 06-30-2022 Urea nitrogen [Mass/Vol] 20 mg/dL 7-18 [facility] Thin prep Papanicolaou smear with manual screeningOrdered By: Martinez Gomez on 06-30-2022 Thin prep Papanicolaou smear with manual screening 18 U/L 15-37 [facility] Thin prep Papanicolaou smear with manual screening 7 5-15 [facility] Laboratory - Chemistry and C hemistry - challengeOrdered By: Melquiades Gonzalez on 06-22-2022 Free T4 [Mass/Vol] 1.50 ng/dL 0.76-1.46 [facility] No Panel InformationOrdered By: Melquiades Gonzalez on 06-22-2022 Thyroid Stimulating Hormone (TSH) 3.36 uIU/mL 0.358-3.74 [facility] RAJ SCREENING W [place] 11-20 [facility] Rapid Flu (21617 x 2)Ordered By: Corin Epstein on 02-03-2017 FLUAV Ag IA Ql (Throat) Negative Normal C [facility]; [facility] Work Phone: ANNE-MRAIEOVon 10-21-2016 CNOV Office Visit (AGGBRCR) KAUSHAL IRMA MARTINEZ ([id number]) 1980 FDate Time Provider Department10/21/16 2:45 PM ELIZABETH BATRES During your visit today, we recorded the following information about you: Pulse Blood pressure Weight Height 86/minute 147/89 80.7 kg 1.638 Amada Batres MD 10/21/2016 3:37 PM SignedHPI:Ms. Noel is a White 36 year old woman who presents for follow up films newright breast mass.Patient does perform monthly self breast exams.Patient denies: any new concernsPatient reports no discomfort in her breasts. She found the breast mass sixmonths ago but says it's possible it had been there before then.FAMILY HISTORYProblem Relation Age of Onset- papilloma [OTHER] MotherPAST MEDICAL HISTORYDiagnosis Date- Anemia- Diabetes (HCC)- Hyperlipidemia- Hypertension- Hypothyroid- Migraines- VertigoPAST SURGICAL HISTORYProcedure Laterality Date- BREAST BIOPSY HX Left- FOOT SURGERY HX- WRIST SURGERY HXSocial History Marital status: Spouse name: Years of education: Number of children:Social History Main Topics Smoking status: Never Smoker Alcohol use: Yes Comment: social Drug use: NoLAB ANDamp; IMAGING RESULTS:#[id number] - ESTEFANI DX BREAST BILATERALBILATERAL DIGITAL DIAGNOSTIC MAMMOGRAM 3D/2D WITH CAD WITH MEDIOLATERAL OBLIQUECRANIOCAUDAL: 10/21/2016Comparison is made to exams dated: ?12/17/2013 mammogram and 12/14/2013mammogram- [facility]. ?The tissue of both breasts is heterogeneously dense. ?Current study was also evaluated with a Computer Aided Detection (CAD) system.?No significant masses, calcifications, or other findings are seen in eitherbreast. ???INCOMPLETE: NEEDS ADDITIONAL IMAGING EVALUATIONThere is no abnormality seen in the right breast to correspond with thepalpableabnormality in the anterior depth in the upper outer quadrant, however,ultrasound?is recommended. ???Based on a modified June Model, this patient's calculated lifetime risk ofdeveloping breast cancer is 13.7%.?Please contact Centralized Scheduling at [phone] to schedule your patienttoreturn for additional imaging. ?Please fax an order to [phone]. ???#[id number] - US BREAST AXILLA LIMITED UNILATERALULTRASOUND OF RIGHT BREAST: 10/21/2016Comparison is made to exams dated: ?12/17/2013 mammogram and 12/14/2013wvmmogram- [facility]. ?Real-time ultrasound of the right breast was performed. ?Tai scale images ofthereal-time examination were reviewed. ?There is dense parenchyma corresponding to the area of palpable concern at theanterior upper outer right breast. This corresponds to dense fibroglandulartissue?on mammogram. No cystic or solid mass and no sonographic evidence ofmalignancy.???IMPRESS ION: BENIGNClinical follow up is recommended. ?There is no sonographic evidence of malignancy. ?A 3 year screening mammogram is recommended. ???Dr. Cristina Nguyen M.D. ?#[id number] - ESTEFANI DX BREAST BILATERALBILATERAL DIGITAL DIAGNOSTIC MAMMOGRAM 3D/2D WITH CAD WITH MEDIOLATERAL OBLIQUECRANIOCAUDAL: 10/21/2016Comparison is made to exams dated: ?[facility]17[facility] ?The tissue of both breasts is heterogeneously dense. ?Current study was also evaluated with a Computer Aided Detection (CAD) system.?No significant masses, calcifications, or other findings are seen in eitherbreast. ???INCOMPLETE: NEEDS ADDITIONAL IMAGING EVALUATIONThere is no abnormality seen in the right breast to correspond with thepalpableabnormality in the anterior depth in the upper outer quadrant, however,ultrasound?is recommended. ???Based on a modified June Model, this patient's calculated lifetime risk ofdeveloping breast cancer is 13.7%.?Please contact Centralized Scheduling at [phone] to schedule your patienttoreturn for additional imaging. ?Please fax an order to [phone]. ???#[id number] - US BREAST AXILLA LIMITED UNILATERALULTRASOUND OF RIGHT BREAST: 10/21/2016Comparison is made to exams dated: ?12/17/2013 mammogram and 12/14/2013wvmmogram- [facility]. ?Real-time ultrasound of the right breast was performed. ?Tai scale images ofthereal-time examination were reviewed. ?There is dense parenchyma corresponding to the area of palpable concern at theanterior upper outer right breast. This corresponds to dense fibroglandulartissue?on mammogram. No cystic or solid mass and no sonographic evidence ofmalignancy.???IMPRESS ION: BENIGNClinical follow up is recommended. ?There is no sonographic evidence of malignancy. ?A 3 year screening mammogram is recommended. ???Dr. Cristina Nguyen M.D. ? ?REVIEW OF SYSTEMSGENERAL: No weight loss, malaise or feversHEENT: Negative for frequent or significant headaches, No changes in hearing orvision, no nose bleeds or other nasal problemsNECK: Negative for lumps, goiter, pain and significant neck swellingMUSCULOSKELETAL : Negative for joint pain or swelling, back pain or muscle painSKIN: Negative for lesions, rash, and itchingHEMATOLOGY/LYMPH OLOGY: Negative for prolonged bleeding, bruising easily orswollen nodesNEURO: No history of headaches, syncope, paralysis, seizures or tremorsPHYSICAL EXAMINATION:BP 147/89 Pulse 86 Ht 163.8 cm (5' 4.5ANDquot;) Wt 80.7 kg (178 lb) BMI30.08 kg/i2Odcgmvu appearance: Well appearing, alertSkin: skin color, texture, turgor normal, no suspicious rashes or lesionsEyes: Anicteric sclera , Pupils are equally round and reactiveExtremities:No clubbing, cyanosis, or edema.Neuro: Alert and oriented times threeBreast Exam:On visual in spection of the breasts finds them to beBreasts: symmetric?RIGHTSkin changes: noNipple retraction: noAxillary adenopathy: noSupraclavicular adenopathy: noPalpable masses: Yes, Palpable mass measuring 4.5 cm located at 9:00 positionapproximately 4 cm from the nippleTenderness: noNipple discharge: noThickening: no?LEFTSkin changes: noNipple retraction: noAxillary adenopathy: noSupraclavicular adenopathy: noPalpable masses: noTenderness: noNipple discharge: noThickening: yes, Upper outer quadrantWell healed incisional scar circa areola areaIMPRESSION / PLAN:This is a 36-year-old female who presents after diagnostic bilateral breastimaging. This was done for a palpable lump/thickening located in the upperouter quadrant of the right breast. Patient found this proximal in 6 monthsago. It had not change in size. She is uncertain of whether the area wasactually new.Clinical examination is unchanged from previous examination.Her breast imaging performed today was reviewed both films and reports. Thereis dense parenchyma corresponding to the area of palpable concern at theanterior upper outer right breast. This corresponds to dense fibroglandulartissue?on mammogram. No cystic or solid mass and no sonographic evidence ofmalignancy. The study was read as benign.I'm attributing the masslike thickening to fibrocystic disease.She will follow-up in 6 months for clinical breast examination to check forstability. She should call with any new findings or changes in the interim.??DIAGNOSIS:No diagnosis found.Monthly self breast exams encouraged.I discussed my findings and recommendations with the patient. Ms. Noel is inagreement with the plan.Magali (Edwin) [facility] instituteThis document serves as a record of the services and decisions personallyperformed and made by Elizabeth Batres MD. It was created on their behalf by Dorothy, a trained medical technician.Referring Provider: YOSELIN DEMPSEY [[id number]]Allergies As of Date: 10/21/2016 Noted Allergy ReactionPOTASSIUM 10/07/2016 7 - Swelling Comments: When administered through IV Arm swellingDate Reviewed: 10/21/2016Reviewed by: Elizabeth Batres - Fully AssessedReason for Visit: Breast Mass [284] Cmt: f/u filmsPrimary Visit Diagnosis:Breast lump on right side at 9 o'clock position [N63]Prescriptions as of 10/21/2016 Sig: APIDRA SUBCUTANEOUS Inject subcutaneously. Admin* LOSARTAN ORAL Take 25 mg by mouth once joey* LEVOTHYROXINE 25 MCG TABLET Take 25 mcg by mouth daily be*Problem List As Of Date: 10/21/2016(None)Level of Service: EST PATIENT VISIT LEVEL 3 [95268]Disposition: Return in about 6 months (around 04/23/2017).Follow-up and Disposition History RecordedLetter TextEncounter Number: [id number] Status:Closed by ELIZABETH BATRES MD on 10/21/16 Normal [facility] PROGRESSon 10-21-2016 PROGRESS HNO ID: [id number]: Elizabeth Ware Devonte: (none)Author Type: PhysicianType: Progress NotesFiled: 10/21/2016 3:37 PMNote Text:HPI:Ms. Noel is a White 36 year old woman who presents for follow up filmsnew right breast mass.Patient does perform monthly self breast exams.Patient denies: any new concernsPatient reports no discomfort in her breasts. She found the breast masssix months ago but says it's possible it had been there before then.FAMILY HISTORYProblem Relation Age of Onset- papilloma [OTHER] MotherPAST MEDICAL HISTORYDiagnosis Date- Anemia- Diabetes (HCC)- Hyperlipidemia- Hypertension- Hypothyroid- Migraines- VertigoPAST SURGICAL HISTORYProcedure Laterality Date- BREAST BIOPSY HX Left- FOOT SURGERY HX- WRIST SURGERY HXSocial History Marital status: Spouse name: Years of education: Number of children:Social History Main Topics Smoking status: Never Smoker Alcohol use: Yes Comment: social Drug use: NoLAB AND IMAGING RESULTS:#[id number] - ESTEFANI DX BREAST BILATERALBILATERAL DIGITAL DIAGNOSTIC MAMMOGRAM 3D/2D WITH CAD WITH MEDIOLATERALOBLIQUECRAN IOCAUDAL: 10/21/2016Comparison is made to exams dated: ?12/17/2013 mammogram and 12/14/2013mammogram- [facility]. ?The tissue of both breasts is heterogeneously dense. ?Current study was also evaluated with a Computer Aided Detection (CAD)system. ?No significant masses, calcifications, or other findings are seen ineitherbreast. ???INCOMPLETE: NEEDS ADDITIONAL IMAGING EVALUATIONThere is no abnormality seen in the right breast to correspond with thepalpableabnormality in the anterior depth in the upper outer quadrant, however,ultrasound?is recommended. ???Based on a modified June Model, this patient's calculated lifetime risk ofdeveloping breast cancer is 13.7%.?Please contact Centralized Scheduling at [phone] to schedule yourpatient toreturn for additional imaging. ?Please fax an order to [phone]. ???#[id number] - US BREAST AXILLA LIMITED UNILATERALULTRASOUND OF RIGHT BREAST: 10/21/2016Comparison is made to exams dated: ?[facility]17[facility] [place]. ?Real-time ultrasound of the right breast was performed. ?Tai scale imagesof thereal-time examination were reviewed. ?There is dense parenchyma corresponding to the area of palpable concern attheanterior upper outer right breast. This corresponds to densefibroglandular tissue?on mammogram. No cystic or solid mass and no sonographic evidence ofmalignancy.???IMPRESS ION: BENIGNClinical follow up is recommended. ?There is no sonographic evidence of malignancy. ?A 3 year screening mammogram is recommended. ???Dr. Cristina Nguyen M.D. ?#[id number] - ESTEFANI DX BREAST BILATERALBILATERAL DIGITAL DIAGNOSTIC MAMMOGRAM 3D/2D WITH CAD WITH MEDIOLATERALOBLIQUECRAN IOCAUDAL: 10/21/2016Comparison is made to exams dated: ?12/17/2013 [facility]. ?The tissue of both breasts is heterogeneously dense. ?Current study was also evaluated with a Computer Aided Detection (CAD)system. ?No significant masses, calcifications, or other findings are seen ineitherbreast. ???INCOMPLETE: NEEDS ADDITIONAL IMAGING EVALUATIONThere is no abnormality seen in the right breast to correspond with thepalpableabnormality in the anterior depth in the upper outer quadrant, however,ultrasound?is recommended. ???Based on a modified June Model, this patient's calculated lifetime risk ofdeveloping breast cancer is 13.7%.?Please contact Centralized Scheduling at [phone] to schedule yourpatient toreturn for additional imaging. ?Please fax an order to [phone]. ???#[id number] - US BREAST AXILLA LIMITED UNILATERALULTRASOUND OF RIGHT BREAST: 10/21/2016Comparison is made to exams dated: ?12/17/2013 mammogram and 12/14/2013[facility]mmogram- [facility]. ?Real-time ultrasound of the right breast was performed. ?Tai scale imagesof thereal-time examination were reviewed. ?There is dense parenchyma corresponding to the area of palpable concern attheanterior upper outer right breast. This corresponds to densefibroglandular tissue?on mammogram. No cystic or solid mass and no sonographic evidence ofmalignancy.???IMPRESS ION: BENIGNClinical follow up is recommended. ?There is no sonographic evidence of malignancy. ?A 3 year screening mammogram is recommended. ???Dr. Cristina Nguyen M.D. ? ?REVIEW OF SYSTEMSGENERAL: No weight loss, malaise or feversHEENT: Negative for frequent or significant headaches, No changes inhearing or vision, no nose bleeds or other nasal problemsNECK: Negative for lumps, goiter, pain and significant neck swellingMUSCULOSKELETAL : Negative for joint pain or swelling, back pain or musclepainSKIN: Negative for lesions, rash, and itchingHEMATOLOGY/LYMPH OLOGY: Negative for prolonged bleeding, bruising easily orswollen nodesNEURO: No history of headaches, syncope, paralysis, seizures or tremorsPHYSICAL EXAMINATION:BP 147/89 Pulse 86 Ht 163.8 cm (5' 4.5) Wt 80.7 kg (178 lb) BMI30.08 kg/n0Psectzi appearance: Well appearing, alertSkin: skin color, texture, turgor normal, no suspicious rashes or lesionsEyes: Anicteric sclera , Pupils are equally round and reactiveExtremities:No clubbing, cyanosis, or edema.Neuro: Alert and oriented times threeBreast Exam:On visual in spection of the breasts finds them to beBreasts: symmetric?RIGHTSkin changes: noNipple retraction: noAxillary adenopathy: noSupraclavicular adenopathy: noPalpable masses: Yes, Palpable mass measuring 4.5 cm located at 9:00position approximately 4 cm from the nippleTenderness: noNipple discharge: noThickening: no?LEFTSkin changes: noNipple retraction: noAxillary adenopathy: noSupraclavicular adenopathy: noPalpable masses: noTenderness: noNipple discharge: noThickening: yes, Upper outer quadrantWell healed incisional scar circa areola areaIMPRESSION / PLAN:This is a 36-year-old female who presents after diagnostic bilateralbreast imaging. This was done for a palpable lump/thickening located inthe upper outer quadrant of the right breast. Patient found this proximalin 6 months ago. It had not change in size. She is uncertain of whetherthe area was actually new.Clinical examination is unchanged from previous examination.Her breast imaging performed today was reviewed both films and reports.There is dense parenchyma corresponding to the area of palpable concern atthe anterior upper outer right breast. This corresponds to densefibroglandular tissue?on mammogram. No cystic or solid mass and no sonographic evidence ofmalignancy. The study was read as benign.I'm attributing the masslike thickening to fibrocystic disease.She will follow-up in 6 months for clinical breast examination to checkfor stability. She should call with any new findings or changes in theinterim.??DIAGNOSIS: No diagnosis found.Monthly self breast exams encouraged.I discussed my findings and recommendations with the patient. Ms. Bert snell agreement with the plan.Magali (Edwin) Quique document serves as a record of the services and decisions personallyperformed and made by Elizabeth Batres MD. It was created on their behalf byGloria Kirkland, a trained medical technician. Normal [facility] ESTEFANI DX BREAST BILATERALon 0 10-21-2016 Bilirubin (total) Performed at [facility] APPROVED BY: CRISTINA NGUYEN MD #[id number] - ESTEFANI DX BREAST BILATERALBILATERAL DIGITAL DIAGNOSTIC MAMMOGRAM 3D/2D WITH CAD WITH MEDIOLATERAL OBLIQUE CRANIOCAUDAL: 10/21/2016Comparison is made to exams dated: 12/17/2013 mammogram and 12/14/2013 mammogram - [facility]. The tissue of both breasts is heterogeneously dense. Current study was also evaluated with a Computer Aided Detection (CAD) system. No significant masses, calcifications, or other findings are seen in either breast. INCOMPLETE: NEEDS ADDITIONAL IMAGING EVALUATIONThere is no abnormality seen in the right breast to correspond with the palpable abnormality in the anterior depth in the upper outer quadrant, however, ultrasound is recommended. Based on a modified June Model, this patient's calculated lifetime risk of developing breast cancer is 13.7%. Please contact Centralized Scheduling at [phone] to schedule your patient to return for additional imaging. Please fax an order to [phone]. #[id number] - US BREAST AXILLA LIMITED UNILATERALULTRASOUND OF RIGHT BREAST: 10/21/2016Comparison is made to exams dated: 12/17/2013 mammogram and 12/14/2013 mammogram - [facility]. Real-time ultrasound of the right breast was performed. Tai scale images of the real-time examination were reviewed. There is dense parenchyma corresponding to the area of palpable concern at the anterior upper outer right breast. This corresponds to dense fibroglandular tissue on mammogram. No cystic or solid mass and no sonographic evidence of malignancy. IMPRESSION: BENIGN Clinical follow up is recommended. There is no sonographic evidence of malignancy. A 3 year screening mammogram is recommended. Dr. Cristina gusman/navneet:10/21/2016 14:52:19 copy to: YOSELIN DEMPSEY DO, ph: [phone] Leather Seasoner: Maria Del Rosario Perea RT(R)(M), [facility] sent: Normal Birad 1 or 2 Mammogram BI-RADS: 0 Indeterminate Ultrasound BI-RADS: 2 Benign Normal [facility] US BREAST AXILLA LIMITED UNI LATERALon 10-21-2016 US BREAST AXILLA LIMITED UNILATERAL Performed at [facility] APPROVED BY: CRISTINA NGUYEN MD #[id number] - ESTEFANI DX BREAST BILATERALBILATERAL DIGITAL DIAGNOSTIC MAMMOGRAM 3D/2D WITH CAD WITH MEDIOLATERAL OBLIQUE CRANIOCAUDAL: 10/21/2016Comparison is made to exams dated: 12/17/2013 mammogram and 12/14/2013 mammogram - [facility]. The tissue of both breasts is heterogeneously dense. Current study was also evaluated with a Computer Aided Detection (CAD) system. No significant masses, calcifications, or other findings are seen in either breast. INCOMPLETE: NEEDS ADDITIONAL IMAGING EVALUATIONThere is no abnormality seen in the right breast to correspond with the palpable abnormality in the anterior depth in the upper outer quadrant, however, ultrasound is recommended. Based on a modified June Model, this patient's calculated lifetime risk of developing breast cancer is 13.7%. Please contact Centralized Scheduling at [phone] to schedule your patient to return for additional imaging. Please fax an order to [phone]. #[id number] - US BREAST AXILLA LIMITED UNILATERALULTRASOUND OF RIGHT BREAST: 10/21/2016Comparison is made to exams dated: 12/17/2013 mammogram and 12/14/2013 mammogram - [facility]. Real-time ultrasound of the right breast was performed. Tai scale images of the real-time examination were reviewed. There is dense parenchyma corresponding to the area of palpable concern at the anterior upper outer right breast. This corresponds to dense fibroglandular tissue on mammogram. No cystic or solid mass and no sonographic evidence of malignancy. IMPRESSION: BENIGN Clinical follow up is recommended. There is no sonographic evidence of malignancy. A 3 year screening mammogram is recommended. Dr. Cristina gusman/navneet:10/21/2016 14:52:19 copy to: YOSELIN DEMPSEY DO, ph: [phone] Leather Seasoner: Maria Del Rosario PRITCHETT(Crista)(M), [facility] Normal Birad 1 or 2 Mammogram BI-RADS: 0 Indeterminate Ultrasound BI-RADS: 2 Benign Normal [facility] CNOVon 10-07-2016 CNOV Office Visit (AGGBRCR) IRMA LEOS ([id number]) 1980 FDate Time Provider Department10/07/16 3:45 PM ELIZABETH BATRES AGGBRCR During your visit today, we recorded the following information about you: Pulse Blood pressure Weight Height 78/minute 134/88 80.7 kg 1.638 Amada Batres MD 10/07/2016 4:24 PM SignedHPI:Ms. Noel is a White 36 year old woman who presents for follow up new rightbreast mass.Patient does perform monthly self breast exams.Patient c/o new right breast massPatient reports that she found a new palpable mass approximately six monthsago. It has not grown since and she remembers it just being there one day.She denies pain, swollen lymph glands, or nipple discharge. She has no otherchanges in her health or her family history.FAMILY HISTORY papilloma [OTHER] MotherPAST MEDICAL HISTORYDiagnosis Date- Anemia- Diabetes (HCC)- Hyperlipidemia- Hypertension- Hypothyroid- Migraines- VertigoPAST SURGICAL HISTORYNo date: BREAST BIOPSY HX LeftNo date: FOOT SURGERY HXNo date: WRIST SURGERY HXSocial History Marital status: Spouse name: Years of education: Number of children:Social History Main Topics Smoking status: Never Smoker Alcohol use: Yes Comment: social Drug use: NoAGE AT [place] 12AGE AT FIRST 0 1/0FAMILY HISTORY OF BREAST CANCER No(IF YES) NUMBER OF FIRST DEGREE RELATIVES WITH BREAST CANCER 0PREVIOUS BREAST BIOPSIES Yes x1(IF YES) PREVIOUS BREAST BIOPSY WITH ATYPICAL HYPERPLASIA NoRACE CaucasianGAIL MODEL RISK 5 YEAR 0.4GAIL MODEL RISK LIFETIME 11.2REVIEW OF SYSTEMSGENERAL: No weight loss, malaise or feversHEENT: Negative for frequent or significant headaches, No changes in hearing orvision, no nose bleeds or other nasal problemsNECK: Negative for lumps, goiter, pain and significant neck swellingMUSCULOSKELETAL : Negative for joint pain or swelling, back pain or muscle painSKIN: Negative for lesions, rash, and itchingHEMATOLOGY/LYMPH OLOGY: Negative for prolonged bleeding, bruising easily orswollen nodesNEURO: No history of headaches, syncope, paralysis, seizures or tremorsPHYSICAL EXAMINATION:BP 134/88 Pulse 78 Ht 163.8 cm (5' 4.5ANDquot;) Wt 80.7 kg (178 lb) BMI30.08 kg/c0Rjfurqr appearance: Well appearing, alertSkin: skin color, texture, turgor normal, no suspicious rashes or lesionsEyes: Anicteric sclera , Pupils are equally round and reactiveExtremities:No clubbing, cyanosis, or edema.Neuro: Alert and oriented times threeBreast Exam:On visual in spection of the breasts finds them to beBreasts: symmetricRIGHTSkin changes: noNipple retraction: noAxillary adenopathy: noSupraclavicular adenopathy: noPalpable masses: Yes, Palpable mass measuring 4.5 cm located at 9:00 positionapproximately 4 cm from the nippleTenderness: noNipple discharge: noThickening: noLEFTSkin changes: noNipple retraction: noAxillary adenopathy: noSupraclavicular adenopathy: noPalpable masses: noTenderness: noNipple discharge: noThickening: Sherry healed incisional scar circa areola areaIMPRESSION / PLAN:This is a 36-year-old female who presents in consultation for a new palpableright breast mass found on self breast examination 6 months ago. She reportsthat it has not gotten any larger since she found it. She denies anyassociated symptoms such as pain,skin changes, nipple discharge or swollenglands.Clinical examination finds a 4 cm mass located in the right breast at the 9o'clock position approximately 4 cm from the nipple. It has ill-definedborders. There is no overlying bulge or associated skin changes. There is nonipple discharge or lymphadenopathy. The right breast is noted for an oldincisional circumareolar scar from previous biopsy.Have ordered diagnostic breast imaging to include bilateral mammogram and rightbreast ultrasound. We'll await the results.DIAGNOSIS:Encou nter Diagnosis ICD-10-CM1. Breast lump on right side at 9 o'clock position N63 MAMMOGRAM DX BREAST,ESTEFANI (AG) US BREAST (AG,EU,HL,FERCHO,MM,SP)Charbel hly self breast exams encouraged.I discussed my findings and recommendations with the patient. Ms. Noel is inagreement with the plan.Magali (Edwin) Quique document serves as a record of the services and decisions personallyperformed and made by Elizabeth Batres MD. It was created on their behalf by Dorothy, a trained medical technician.Clinician Attestation Statements: The information in this document, created bythe medical technician for me, accurately reflects the services I personallyperformed and the decisions made by me. I have reviewed and approved thisdocument for accuracy. Yaquelin Vargas Provider: YOSELIN DEMPSEY [[id number]]Allergies As of Date: 10/07/2016 Noted Allergy ReactionPOTASSIUM 10/07/2016 7 - Swelling Comments: When administered through IV Arm swellingDate Reviewed: 10/07/2016Reviewed by: Elizabeth Batres - Fully AssessedReason for Visit: Breast Mass [284] Cmt: rightPrimary Visit Diagnosis:Breast lump on right side at 9 o'clock position [N63]Order(s):MAMMOGRAM DX BREAST, ESTEFANI (AG) [[id number]] Order #: [id number] BREAST (AG,EU,HL,FERCHO,MM,SP) [[id number]] Order #: [id number] as of 10/07/2016 Sig: APIDRA SUBCUTANEOUS Inject subcutaneously. Admin* LOSARTAN ORAL Take 25 mg by mouth once joey* LEVOTHYROXINE 25 MCG TABLET Take 25 mcg by mouth daily be*Medication notes this encounter APIDRA SUBCUTANEOUS >> Magali Becerril 10/07/2016 4:08 PM >> MAGALI BECERRIL LPN Oct 07, 2016 4:08 PM Administered vis pumpProblem List As Of Date: 10/07/2016(None)Level of Service: EST PATIENT VISIT LEVEL 3 [[id number]]Follow-up and Disposition History Recorded Ques tionnaire: AG BRCR JUNE MODEL SCORINGAGE AT M[place] -> 12AGE AT FIRST -> 0 Cmt: 1/0FAMILY HISTORY OF BREAST CANCER -> No(IF YES) NUMBER OF FIRST DEGREE RELATIVES WITH BREAST CANCER -> 0PREVIOUS BREAST BIOPSIES -> Yes Cmt: x1(IF YES) PREVIOUS BREAST BIOPSY WITH ATYPICAL HYPERPLASIA -> NoRACE -> CaucasianGAIL MODEL RISK 5 YEAR -> 0.4GAIL MODEL RISK LIFETIME -> 11.2Letter TextEncounter Number: [id number] Status:Closed by ELIZABETH BATRES MD on 10/07/16 [facility] PROGRESSon 10-07-2016 PROGRESS HNO ID: [id number]: Elizabeth Whitney: (none)Author Type: PhysicianType: Progress NotesFiled: 10/07/2016 4:24 PMNote Text:HPI:Ms. Noel is a White 36 year old woman who presents for follow up newright breast mass.Patient does perform monthly self breast exams.Patient c/o new right breast massPatient reports that she found a new palpable mass approximately sixmonths ago. It has not grown since and she remembers it just being thereone day.She denies pain, swollen lymph glands, or nipple discharge. She has noother changes in her health or her family history.FAMILY HISTORY papilloma [OTHER] MotherPAST MEDICAL HISTORYDiagnosis Date- Anemia- Diabetes (HCC)- Hyperlipidemia- Hypertension- Hypothyroid- Migraines- VertigoPAST SURGICAL HISTORYNo date: BREAST BIOPSY HX LeftNo date: FOOT SURGERY HXNo date: WRIST SURGERY HXSocial History Marital status: Spouse name: Years of education: Number of children:Social History Main Topics Smoking status: Never Smoker Alcohol use: Yes Comment: social Drug use: NoAGE AT [place] 12AGE AT FIRST 0 1/0FAMILY HISTORY OF BREAST CANCER No(IF YES) NUMBER OF FIRST DEGREE RELATIVES WITH BREAST CANCER 0PREVIOUS BREAST BIOPSIES Yes x1(IF YES) PREVIOUS BREAST BIOPSY WITH ATYPICAL HYPERPLASIA NoRACE CaucasianGAIL MODEL RISK 5 YEAR 0.4GAIL MODEL RISK LIFETIME 11.2REVIEW OF SYSTEMSGENERAL: No weight loss, malaise or feversHEENT: Negative for frequent or significant headaches, No changes inhearing or vision, no nose bleeds or other nasal problemsNECK: Negative for lumps, goiter, pain and significant neck swellingMUSCULOSKELETAL : Negative for joint pain or swelling, back pain or musclepainSKIN: Negative for lesions, rash, and itchingHEMATOLOGY/LYMPH OLOGY: Negative for prolonged bleeding, bruising easily orswollen nodesNEURO: No history of headaches, syncope, paralysis, seizures or tremorsPHYSICAL EXAMINATION:BP 134/88 Pulse 78 Ht 163.8 cm (5' 4.5) Wt 80.7 kg (178 lb) BMI30.08 kg/b7Qgtydod appearance: Well appearing, alertSkin: skin color, texture, turgor normal, no suspicious rashes or lesionsEyes: Anicteric sclera , Pupils are equally round and reactiveExtremities:No clubbing, cyanosis, or edema.Neuro: Alert and oriented times threeBreast Exam:On visual in spection of the breasts finds them to beBreasts: symmetricRIGHTSkin changes: noNipple retraction: noAxillary adenopathy: noSupraclavicular adenopathy: noPalpable masses: Yes, Palpable mass measuring 4.5 cm located at 9:00position approximately 4 cm from the nippleTenderness: noNipple discharge: noThickening: noLEFTSkin changes: noNipple retraction: noAxillary adenopathy: noSupraclavicular adenopathy: noPalpable masses: noTenderness: noNipple discharge: noThickening: Sherry healed incisional scar circa areola areaIMPRESSION / PLAN:This is a 36-year-old female who presents in consultation for a newpalpable right breast mass found on self breast examination 6 months ago.She reports that it has not gotten any larger since she found it. Shedenies any associated symptoms such as pain,skin changes, nipple dischargeor swollen glands.Clinical examination finds a 4 cm mass located in the right breast at the9 o'clock position approximately 4 cm from the nipple. It has ill-definedborders. There is no overlying bulge or associated skin changes. Thereis no nipple discharge or lymphadenopathy. The right breast is noted nai old incisional circumareolar scar from previous biopsy.Have ordered diagnostic breast imaging to include bilateral mammogram andright breast ultrasound. We'll await the results.DIAGNOSIS:Encou nter Diagnosis ICD-10-CM1. Breast lump on right side at 9 o'clock position N63 MAMMOGRAM DXBREAST, ESTEFANI (AG) US BREAST (AG,EU,HL,FERCHO,MM,SP)Charbel hly self breast exams encouraged.I discussed my findings and recommendations with the patient. Ms. Noel isin agreement with the plan.Magali (Edwin) Quique document serves as a record of the services and decisions personallyperformed and made by Elizabeth Batres MD. It was created on their behalf byGloria Kirkland, a trained medical technician.Clinician Attestation Statements: The information in this document,created by the medical technician for me, accurately reflects the services Ipersonally performed and the decisions made by me. I have reviewed andapproved this document for accuracy. Elizabeth Batres MD Normal [facility] CBC & PLATELETS (AUTO) (2432 7)Ordered By: Car Wrecker on 09-28-2016 Erythrocyte distribution width (RBC) [Ratio] 14.5 % Normal 12.3-15.4 [facility]; [facility] Work Phone: Comment on above: PATIENT NOT FASTINGP ERFORMED BY: CB [facility] Xfxdxo1853 [address] RoadDublin [place] [id number] Hematocrit (Bld) [Volume fraction] 36.8 % Normal 34.0-46.6 [facility]; [facility] Work Phone: Comment on above: PATIENT NOT FASTINGP ERFORMED BY: CB [facility] Qiapjl3318 [address] RoadDublin [place] [id number] Hemoglobin (Bld) [Mass/Vol] 11.8 g/dL Normal 11.1-15.9 [facility]; [facility] Work Phone: Comment on above: PATIENT NOT FASTINGP ERFORMED BY: CB [facility] Vwovec9475 [address] RoadDublin [place] [id number] MCH (RBC) [Entitic mass] 26.0 pg Abnormal 26.6-33.0 [facility]; [facility] Work Phone: Comment on above: PATIENT NOT FASTINGP ERFORMED BY: CB [facility] Liawcn3344 [address]Dublin [place] [id number] MCHC (RBC) [Mass/Vol] 32.1 g/dL Normal 31.5-35.7 [facility] prehensive Internal Medicine; [facility] Work Phone: Comment on above: PATIENT NOT FASTINGP ERFORMED BY: CB [facility] Lfnzvs3338 [address] RoadDublin [place] [id number] MCV (RBC) [Entitic vol] 81 fL Normal 79-97 C omprehensive [facility]; [facility] Work Phone: Comment on above: PATIENT NOT FASTINGP ERFORMED BY: CB [facility] Dsleau5052 [address] RoadDublin [place] [id number] Platelets (Bld) [#/Vol] 286 10*3/uL Normal 150-379 [facility]; [facility] Work Phone: Comment on above: PATIENT NOT FASTINGP ERFORMED BY: SANTIAGO Andujar Fcjglr[address] [facility] [id number] RBC (Bld) [#/Vol] 4.53 10*6/uL Normal 3.77-5.28 [facility] Internal Medicine; [facility] Medicine Work Phone: Comment on above: PATIENT NOT FASTINGP ERFORMED BY: [facility]otaSaint [facility] Arhfzd[address] [facility] [id number] WBC (Bld) [#/Vol] 9.8 10*3/uL Normal 3.4-10.8 [facility] Medicine; [facility] Medicine Work Phone: Comment on above: PATIENT NOT FASTINGP ERFORMED BY: [facility]otaSaint [facility] Hospital Hvhnab[address] [facility] [id number] T3, FREE (TRIDOTHYRONINE) (8 5020)Ordered By: Car Wrecker on 09-28-2016 Free T3 [Mass/Vol] 2.7 pg/mL Normal 2.0-4.4 [facility]; [facility] Medicine Work Phone: Comment on above: PATIENT NOT FASTINGP ERFORMED BY: [facility]otaSaint [facility] Aakyww[address] [facility] [id number] T4, FREE (THYROXINE) (70421) Ordered By: Car Wrecker on 09-28-2016 Free T4 [Mass/Vol] 1.12 ng/dL Normal 0.82-1.77 [facility] Internal Medicine; [facility] Medicine Work Phone: Comment on above: PATIENT NOT FASTINGP ERFORMED BY: LabGarden [facility] [facility] [address] [facility] [id number] TSH (THYROID STIMULATING HOR SHARLA) (07385)Ordered By: Car Wrecker on 09-28-2016 TSH Qn 3.760 {uIU/mL} Normal 0.450-4.50 0 [facility]; [facility] Work Phone: Comment on above: PATIENT NOT FASTINGP ERFORMED BY: [employer] Exnwwp[address] [facility] [id number] Blood Glucose , Office (9196 2)Ordered By: Mallorie Aranda on 01-15-2016 Glucose Glucometer (BldC) [Moles/Vol] 142 1 Normal [facility]; [facility] Work Phone: HgA1C , Office (13385)Ordere d By: Nadira Valera on 01-15-2016 HbA1c (Bld) [Mass fraction] 10.2 % Abnormal 4.6 - 7.1 [facility]; [facility] Work Phone: CBC W/AUTO DIFF WBC (49843)O rdered By: Car Wrecker on 12-10-2015 Basophils (Bld) [#/Vol] 0.1 10*3/uL Normal 0.0-0.2 [facility]; [facility] Work Phone: Comment on above: PATIENT WAS FASTINGP ERFORMED BY: QikServe[address] [facility]signalPsychiatric hospital [id number] Basophils/100 WBC (Bld) 1 % Normal C omprehensive [facility]; [facility] Work Phone: Comment on above: PATIENT WAS FASTINGP ERFORMED BY: [employer] Nvdpdp[address] OMsignalPsychiatric hospital [id number] Eosinophils (Bld) [#/Vol] 0.2 10*3/uL Normal 0.0-0.4 [facility]; [facility] Work Phone: Comment on above: PATIENT WAS FASTINGP ERFORMED BY: [employer] Bsyvlb[address] OMsignalPsychiatric hospital [id number] Eosinophils/100 WBC (Bld) 2 % Normal [facility]; [facility] Work Phone: Comment on above: PATIENT WAS FASTINGP ERFORMED BY: [employer] Rnwimc[address] [facility] [id number] Erythrocyte distribution width (RBC) [Ratio] 13.5 % Normal 12.3-15.4 [facility]; [facility] Work Phone: Comment on above: PATIENT WAS FASTINGP ERFORMED BY: [facility] [facility] [id number] Hematocrit (Bld) [Volume fraction] 38.2 % Normal 34.0-46.6 [facility]; [facility] Work Phone: Comment on above: PATIENT WAS FASTINGP ERFORMED BY: [facility] [facility] [id number] Hemoglobin (Bld) [Mass/Vol] 12.1 g/dL Normal 11.1-15.9 [facility]; [facility] Work Phone: Comment on above: PATIENT WAS FASTINGP ERFORMED BY: [facility] [facility] [id number] Immature granulocytes (Bld) [#/Vol] 0.0 10*3/uL Normal 0.0-0.1 [facility]; [facility] Work Phone: Comment on above: PATIENT WAS FASTINGP ERFORMED BY: [facility] [facility] [id number] Immature granulocytes/100 WBC (Bld) 0 % Normal [facility]; [facility] Work Phone: Comment on above: PATIENT WAS FASTINGP ERFORMED BY: [facility] [facility] [id number] Lymphocytes (Bld) [#/Vol] 1.7 10*3/uL Normal 0.7-3.1 [facility]; [facility] Work Phone: Comment on above: PATIENT WAS FASTINGP ERFORMED BY: [facility] [facility] [id number] Lymphocytes/100 WBC (Bld) 22 % Normal [facility]; [facility] Work Phone: Comment on above: PATIENT WAS FASTINGP ERFORMED BY: LabGarden City Hospital[address] [facility]in [place] [id number] MCH (RBC) [Entitic mass] 27.9 pg Normal 26.6-33.0 [facility]; [facility] Work Phone: Comment on above: PATIENT WAS FASTINGP ERFORMED BY: SANTIAGO [facility] Iabply18[address]Dublin [place] [id number] MCHC (RBC) [Mass/Vol] 31.7 g/dL Normal 31.5-35.7 [facility] prehensive Internal Medicine; [facility] Work Phone: Comment on above: PATIENT WAS FASTINGP ERFORMED BY: CB [facility] Tjksvg8888 [address] RoadDublin [place] [id number] MCV (RBC) [Entitic vol] 88 fL Normal 79-97 C omprehensive [facility]; [facility] Work Phone: Comment on above: PATIENT WAS FASTINGP ERFORMED BY: CB [facility] Bshrit7250 [address] RoadDublin [place] [id number] Monocytes (Bld) [#/Vol] 0.8 10*3/uL Normal 0.1-0.9 [facility]; [facility] Work Phone: Comment on above: PATIENT WAS FASTINGP ERFORMED BY: CB [facility] Ydpkgh0587 [address] RoadDublin [place] [id number] Monocytes/100 WBC (Bld) 11 % Normal [facility] omp[facility]; [facility] Work Phone: Comment on above: PATIENT WAS FASTINGP ERFORMED BY: CB [facility] Kakvdk5504 [address] RoadDublin [place] [id number] Neutrophils (Bld) [#/Vol] 4.9 10*3/uL Normal 1.4-7.0 [facility]; [facility] Work Phone: Comment on above: PATIENT WAS FASTINGP ERFORMED BY: CB [facility] Ubyhwn2982 [address] RoadDublin [place] [id number] Neutrophils/100 WBC (Bld) 64 % Normal [facility]; [facility] Work Phone: Comment on above: PATIENT WAS FASTINGP ERFORMED BY: CB [facility] Epkgkf4696 [address] RoadDublin [place] [id number] Platelets (Bld) [#/Vol] 285 10*3/uL Normal 150-379 [facility]; [facility] Work Phone: Comment on above: PATIENT WAS FASTINGP ERFORMED BY: SANTIAGO Chávez[address] [facility]in [place] [id number] RBC (Bld) [#/Vol] 4.33 10*6/uL Normal 3.77-5.28 [facility]; [facility] Work Phone: Comment on above: PATIENT WAS FASTINGP ERFORMED BY: SANTIAGO LabCoreha ChávezMwkcfp2184 [address] RoadDublin [place] [id number] WBC (Bld) [#/Vol] 7.6 10*3/uL Normal 3.4-10.8 [facility]; [facility] Work Phone: Comment on above: PATIENT WAS FASTINGP ERFORMED BY: SANTIAGO Chávez[address] [facility] [id number] LIPID PANEL ([id number])Ordered B y: Car Wrecker on 12-10-2015 Cholesterol [Mass/Vol] 160 mg/dL Normal 100-199 [facility]; [facility] Work Phone: Comment on above: PATIENT WAS FASTINGP ERFORMED BY: SANTIAGO Chávez[address] [facility] [id number] Cholesterol in HDL [Mass/Vol] 58 mg/dL Normal [facility]; [facility] Work Phone: Comment on above: According to ATP-III Guidelines, HDL-C >59 mg/dL is considered anegative risk factor for CHD. PATIENT WAS FASTINGP ERFORMED BY: SANTIAGO LabNicole HaydenGvedyc[address] [facility]in [place] [id number] Cholesterol in LDL [Mass/Vol] 83 mg/dL Normal 0-99 [facility]; [facility] Work Phone: Comment on above: PATIENT WAS FASTINGP ERFORMED BY: SANTIAGO Chávez[address] [facility]in [place] [id number] Cholesterol in LDL/Cholesterol in HDL [Mass ratio] 1.4 {ratio_units} Normal 0.0-3.2 [facility]; [facility] Work Phone: Comment on above: LDL/HDL Ratio Men Wo men 1/2 Avg.Risk 1.0 1.5 Avg.Risk 3.6 3.2 2X Avg.Risk 6.2 5.0 3X Avg.Risk 8.0 6.1 PATIENT WAS FASTINGP ERFORMED BY: CB [facility] Mvbpku4986 [address] RoadDublin [place] [id number] Cholesterol in VLDL [Mass/Vol] 19 mg/dL Normal 5-40 [facility]; [facility] Work Phone: Comment on above: PATIENT WAS FASTINGP ERFORMED BY: CB [facility] Tgumzg1395 [address] RoadDublin [place] [id number] Triglyceride [Mass/Vol] 94 mg/dL Normal 0-149 C omprehensive [facility]; [facility] Work Phone: Comment on above: PATIENT WAS FASTINGP ERFORMED BY: CB [facility] Ygawmn2185 [address]Dublin [place] [id number] METABOLIC PANEL, COMPREHENSI VE (19874)Ordered By: Car Wrecker on 12-10-2015 Albumin [Mass/Vol] 3.9 g/dL Normal 3.5-5.5 [facility]; [facility] Work Phone: Comment on above: PATIENT WAS FASTINGP ERFORMED BY: CB [facility] Zewvpp0700 [address] RoadDublin [place] [id number] Albumin/Globulin [Mass ratio] 1.3 {ratio} Normal 1.1-2.5 [facility]; [facility] Work Phone: Comment on above: PATIENT WAS FASTINGP ERFORMED BY: CB [facility] Qgyfwj4378 [address] RoadDublin [place] [id number] ALP [Catalytic activity/Vol] 89 U/L Normal 39-117 [facility]; [facility] Work Phone: Comment on above: PATIENT WAS FASTINGP ERFORMED BY: CB [facility] Thqbzr3034 [address] RoadDublin [place] [id number] ALT [Catalytic activity/Vol] 13 U/L Normal 0-32 [facility]; [facility] Work Phone: Comment on above: PATIENT WAS FASTINGP ERFORMED BY: SANTIAGO [facility] Vsmael7205 [address] RoadDublin [place] [id number] AST [Catalytic activity/Vol] 16 U/L Normal 0-40 [facility]; [facility] Work Phone: Comment on above: PATIENT WAS FASTINGP ERFORMED BY: CB [facility] Vxqxrc8330 [address] RoadDublin [place] [id number] Bilirubin [Mass/Vol] 0.3 mg/dL Normal 0.0-1.2 [facility] rehensive Internal Medicine; [facility] Work Phone: Comment on above: PATIENT WAS FASTINGP ERFORMED BY: CB [facility] Obyzrb7332 [address] RoadDublin [place] [id number] Calcium [Mass/Vol] 9.4 mg/dL Normal 8.7-10.2 [facility]; [facility] Work Phone: Comment on above: PATIENT WAS FASTINGP ERFORMED BY: CB [facility] Qdyguy4542 [address] RoadDublin [place] [id number] Chloride [Moles/Vol] 101 mmol/L Normal 97-108 [facility] rehensive Internal Medicine; [facility] Work Phone: Comment on above: Effective December 15, 2015 the reference interval for Chloride, Serum will be changing to: 97 - 106 PATIENT WAS FASTINGP ERFORMED BY: CB [facility] Jbpgnz6973 [address] RoadDublin [place] [id number] CO2 [Moles/Vol] 24 mmol/L Normal 18-29 [facility] Internal [facility]; [facility] Work Phone: Comment on above: PATIENT WAS FASTINGP ERFORMED BY: CB [facility] Hwbejg2619 [address] RoadDublin [place] [id number] Creatinine [Mass/Vol] 0.89 mg/dL Normal 0.57-1.00 [facility] prehensive Internal Medicine; [facility] Work Phone: Comment on above: PATIENT WAS FASTINGP ERFORMED BY: CB [facility] Wmiken8[address] RoadDublin [place] [id number] GFR/1.73 sq M.predicted among blacks CKD-EPI (S/P/Bld) [Vol rate/Area] 96 mL/min/1.73 Normal [facility]; [facility] Work Phone: Comment on above: PATIENT WAS FASTINGP ERFORMED BY: [employer] Gqzzjj9505 [address] RoadDublin [place] [id number] GFR/1.73 sq M.predicted among non-blacks CKD-EPI (S/P/Bld) [Vol rate/Area] 84 mL/min/1.73 Normal [facility]; [facility] Work Phone: Comment on above: PATIENT WAS FASTINGP ERFORMED BY: [employer]Digital [employer] Trnsdh6389 [address] Roadblin [place] [id number] Globulin (S) [Mass/Vol] 2.9 g/dL Normal 1.5-4.5 C omprehensive [facility]; [facility] Work Phone: Comment on above: PATIENT WAS FASTINGP ERFORMED BY: [employer] Ddfxkw[address] OMsignalblin [place] [id number] Glucose [Mass/Vol] 175 mg/dL Abnormal 65-99 [facility]; [facility] Work Phone: Comment on above: PATIENT WAS FASTINGP ERFORMED BY: [employer] Ziwmtf[address] [facility] Hospitalblin [place] [id number] Potassium [Moles/Vol] 4.9 mmol/L Normal 3.5-5.2 [facility] prehensive Internal Medicine; [facility] Work Phone: Comment on above: Effective December 15, 2015 the reference interval for Potassium, Serum will be changing to: 0 - 7 days 3.7 - 5.2 8 - 30 days 3.7 - 6.4 1 - 6 months 3.8 - 6.0 7 months - 1 year 3.8 - 5.3 >1 year 3.5 - 5.2 PATIENT WAS FASTINGP ERFORMED BY: [employer]BlockSpring Ibjyzw[address] [facility] HospitalDublin [place] [id number] Protein [Mass/Vol] 6.8 g/dL Normal 6.0-8.5 Compre hensive Internal Medicine; [facility] Work Phone: Comment on above: PATIENT WAS FASTINGP ERFORMED BY: SANTIAGO LabCorhea Xougip7650 [address] RoadDublin [place] [id number] Sodium [Moles/Vol] 141 mmol/L Normal 134-144 [facility]; [facility] Work Phone: Comment on above: Effective December 15, 2015 the reference interval for Sodium, Serum will be changing to: 136 - 144 PATIENT WAS FASTINGP ERFORMED BY: SANTIAGO [facility] Vyrjsb7675 [address] RoadDublin [place] [id number] Urea nitrogen [Mass/Vol] 18 mg/dL Normal 6-20 [facility]; [facility] Work Phone: Comment on above: PATIENT WAS FASTINGP ERFORMED BY: SANTIAGO LabCorhea Bopqit6177 [address] RoadDublin [place] [id number] Urea nitrogen/Creatinine [Mass ratio] 20 mg/mg Normal 8-20 [facility]; [facility] Work Phone: Comment on above: PATIENT WAS FASTINGP ERFORMED BY: SANTIAGO LabCo Tjuqzy5930 [address] RoadDublin [place] [id number] MICROALBUMINOrdered By: Syst em Bandoleer Straightener Stamper on 12-10-2015 Albumin DL <= 20 mg/L (U) [Mass/Vol] 69.3 ug/mL Normal [facility]; [facility] Work Phone: Comment on above: PATIENT WAS FASTINGP ERFORMED BY: SANTIAGO [facility] Lyetow7135 [address] RoadDublin [place] [id number] Albumin/Creatinine (U) [Mass ratio] 26.6 {mg/g_creat} Normal 0.0-30.0 [facility]; [facility] Work Phone: Comment on above: PATIENT WAS FASTINGP ERFORMED BY: SANTIAGO [facility] Gkqcqx2522 [address] RoadDublin [place] [id number] Creatinine (U) [Mass/Vol] 260.4 mg/dL Normal [facility]; [facility] Work Phone: Comment on above: PATIENT WAS FASTINGP ERFORMED BY: SANTIAGO Pratima Rnitmj8132 [address] RoadDublin [place] [id number] TSH ([id number])Ordered By: Xiotechnory m Bandoleer Straightener Stamper on 12-10-2015 TSH Qn 5.580 {uIU/mL} Abnormal 0.450-4.50 0 [facility]; [facility] Work Phone: Comment on above: PATIENT WAS FASTINGP ERFORMED BY: SANTIAGO Pratima Xeybgp8432 [address]Dublin [place] [id number] URINALYSIS, W/ MICRO ([id number]) Ordered By: Car Wrecker on 12-10-2015 Appearance (U) Cloudy Abnormal Comprehens kristine Internal Medicine; [facility] Work Phone: Comment on above: PATIENT WAS FASTINGP ERFORMED BY: SANTIAGO Haydenlin6370 [address] RoadDublin [place] [id number] Bilirubin Ql (U) Negative Normal Comprehe nsive Internal Medicine; [facility] Work Phone: Comment on above: PATIENT WAS FASTINGP ERFORMED BY: SANTIAGO Haydenlin6[address]Dublin [place] [id number] Color (U) Yellow Normal [facility]; [facility] Work Phone: Comment on above: PATIENT WAS FASTINGP ERFORMED BY: SANTIAGO Haydenlin6[address]Dublin [place] [id number] Glucose Ql (U) Trace Abnormal Comprehens kristine [facility]; [facility] Work Phone: Comment on above: PATIENT WAS FASTINGP ERFORMED BY: SANTIAGO DorotaSaint [facility] Hospital Alkxuv3029 [address] RoadDublin [place] [id number] Hemoglobin Ql (U) 3+ Abnormal Compreh ensive Internal Medicine; [facility] Work Phone: Comment on above: PATIENT WAS FASTINGP ERFORMED BY: SANTIAGO Pratima Fbnbes0000 [address] RoadDublin [place] [id number] Ketones Ql (U) Trace Abnormal Comprehens kristine [facility]; [facility] Work Phone: Comment on above: PATIENT WAS FASTINGP ERFORMED BY: SANTIAGO Andujar Djgvtc1368 [address] RoadDublin [place] [id number] Leukocyte esterase Test strip Ql (U) 1+ Abnormal [facility]; [facility] Work Phone: Comment on above: PATIENT WAS FASTINGP ERFORMED BY: SANTIAGO Karin Chávez6[address] RoadDublin [place] [id number] Microscopic observation LM Nom (Urine sed) See below: Normal [facility]; [facility] Work Phone: Comment on above: Microscopic was yuliet cated and was performed. PATIENT WAS FASTINGP ERFORMED BY: SANTIAGO LabSaint [facility] Hospital Atpgzd4942 [address] RoadDublin [place] [id number] Nitrite Ql (U) Negative Normal Comprehens kristine [facility]; [facility] Work Phone: Comment on above: PATIENT WAS FASTINGP ERFORMED BY: SANTIAGO DorotaMelissa Qjtabl[address] [facility]in [place] [id number] pH (U) 6.0 [pH] Normal 5.0-7.5 [facility]; [facility] Work Phone: Comment on above: PATIENT WAS FASTINGP ERFORMED BY: SANTIAGO LabNicole HaydenIqwahf[address] [facility]blin [place] [id number] Protein Ql (U) 1+ Abnormal Comprehens kristine [facility]; [facility] Work Phone: Comment on above: PATIENT WAS FASTINGP ERFORMED BY: SANTIAGO Hayednlin[address] [facility] [id number] Specific gravity (U) [Rel density] 1.024 1 Normal 1.005-1.03 0 [facility]; [facility] Work Phone: Comment on above: PATIENT WAS FASTINGP ERFORMED BY: SANTIAGO LabMelissa Dqrocs[address] [facility]blin [place] [id number] Urobilinogen (U) [Mass/Vol] 1.0 mg/dL Normal 0.2-1.0 [facility]; [facility] Work Phone: Comment on above: PATIENT WAS FASTINGP ERFORMED BY: SANTIAGO LabSaint [facility] Hospital Gehriy[address] [facility] [id number] Vital Signs Date Time Vital Sign Value Performing Clinician Facility 01-07-2025 15:21-0500 Body height 162.[address] Rozina Gomez MD Work Phone: [facility] 01-07-2025 15:21-0500 Body mass index (BMI) [Ratio] 31.4 kg/m2 Dr. Rozina Gomez MD Work Phone: [phone] [place] [address] 01-07-2025 15:21-0500 Body weight [address] Rozina Gomez MD Work Phone: [phone] [address] 01-07-2025 15:21-0500 Diastolic blood pressure 78 mm[Hg] Dr. Rozina Gomez MD Work Phone: [phone] [place] [address] 01-07-2025 15:21-0500 Heart rate 86 /min Dr. Rozina Gomez MD Work Phone: [phone] [place] [address] 01-07-2025 15:21-0500 Systolic blood pressure 132 mm[Hg] Dr. Rozina Gomez MD Work Phone: [phone] [address] 12-19-2024 14:26-0400 Body mass index (BMI) [Ratio] 31.4 kg/m2 Dr. Rozina Gomez MD Work Phone: 7(518)714-951203 [place] [address] 12-19-2024 14:26-0400 Body weight [address] Rozina Gomez MD Work Phone: 5(083)685-898803 [place] [address] 12-19-2024 14:26-0400 Diastolic blood pressure 84 mm[Hg] Dr. Rozina Gomez MD Work Phone: 0(479)592-061703 [place] [address] 12-19-2024 14:26-0400 Heart rate 91 /min Dr. Rozina Gomez MD Work Phone: 1(481)512-392203 [place] [address] 12-19-2024 14:26-0400 Systolic blood pressure 115 mm[Hg] Dr. Rozina Gomez MD Work Phone: 7(062)777-392708 [address] 08-27-2024 08:00-0400 Body height 162.[address] Rozina Gomez MD Work Phone: 2(597)038-510508 [address] 08-27-2024 08:00-0400 Body mass index (BMI) [Ratio] 31.4 kg/m2 Dr. Rozina Gomez MD Work Phone: 0(266)120-552440 [place] [address] 08-27-2024 08:00-0400 Body weight [address] Rozina Gomez MD Work Phone: 9(732)324-825540 [place] [address] 08-27-2024 08:00-0400 Diastolic blood pressure 74 mm[Hg] Dr. Rozina Gomez MD Work Phone: 7(390)037-886840 [place] [address] 08-27-2024 08:00-0400 Heart rate 92 /min Dr. Rozina Gomez MD Work Phone: 2(863)586-654040 [place] [address] 08-27-2024 08:00-0400 SaO2% (BldA) [Mass fraction] 97 % Dr. Rozina Gomez MD Work Phone: 3(528)608-833840 [place] [address] 08-27-2024 08:00-0400 Systolic blood pressure 108 mm[Hg] Dr. Rozina Gomez MD Work Phone: 6(085)665-290940 [place] [address] 02-24-2024 09:26-0500 Body height 162.[address] Rozina Gomez MD Work Phone: 3(084)996-842040 [place] [address] 02-24-2024 09:26-0500 Body mass index (BMI) [Ratio] 34.5 kg/m2 Dr. Rozina Gomez MD Work Phone: 1(713)821-124640 [place] [address] 02-24-2024 09:26-0500 Body weight 91.[address] Rozina Gomez MD Work Phone: 5(273)833-366340 [place] [address] 02-24-2024 09:26-0500 Diastolic blood pressure 80 mm[Hg] Dr. Rozina Gomez MD Work Phone: 1(051)420-498440 [place] [address] 02-24-2024 09:26-0500 Heart rate 96 /min Dr. Rozina Gomez MD Work Phone: [facility] 02-24-2024 09:26-0500 SaO2% (BldA) [Mass fraction] 98 % Dr. Rozina Gomez MD Work Phone: [facility] 02-24-2024 09:26-0500 Systolic blood pressure 128 mm[Hg] Dr. Rozina Gomez MD Work Phone: [facility] 10-28-2023 18:18-0400 Diastolic Blood Pressure Non-Invasive 85 mm[Hg] ASIYA CAVAZOS MD [facility] 10-28-2023 18:18-0400 Respiratory rate 16 /min ASIYA CAVAZOS MD [facility] 10-28-2023 18:18-0400 Systolic Blood Pressure Non-Invasive 146 mm[Hg] ASIYA CAVAZOS MD [facility] 10-28-2023 17:08-0400 Body height 162 cm ASIYA CAVAZOS MD [facility] 10-28-2023 17:08-0400 Body temperature 97.34 [degF] ASIYA CAVAZOS MD [facility] 10-28-2023 17:08-0400 Body weight 85.3 kg ASIYA CAVAZOS MD [facility] 10-28-2023 17:08-0400 Diastolic Blood Pressure Non-Invasive 113 mm[Hg] ASIYA CAVAZOS MD [facility] 10-28-2023 17:08-0400 Heart rate 99 /min ASIYA CAVAZOS MD [facility] 10-28-2023 17:08-0400 Respiratory rate 16 /min ASIYA CAVAZOS MD [facility] 10-28-2023 17:08-0400 Systolic Blood Pressure Non-Invasive 175 mm[Hg] ASIYA CAVAZOS MD [facility] 07-28-2023 11:19-0400 Body height 162.6 cm Ana Vargas MD Work Phone: [facility] 07-28-2023 11:19-0400 Body mass index (BMI) [Ratio] 31.93 kg/m2 Ana Vargas MD Work Phone: [facility] 07-28-2023 11:19-0400 Body weight 84.37 kg Ana Vargas MD Work Phone: [facility] 07-28-2023 11:19-0400 Diastolic blood pressure 80 mm[Hg] Ana Vargas MD Work Phone: [facility] 07-28-2023 11:19-0400 Systolic blood pressure 138 mm[Hg] Ana Vargas MD Work Phone: [facility] 08-30-2022 16:07-0400 Body height 162.[address] Martinez Gomez Work Phone: [facility] 08-30-2022 16:07-0400 Body mass index (BMI) [Ratio] 31.7 kg/m2 Dr. Martinez Gomez Work Phone: [facility] 08-30-2022 16:07-0400 Body weight 83.[address] Martinez Gomez Work Phone: [facility] 08-30-2022 16:07-0400 Diastolic blood pressure 86 mm[Hg] Dr. Martinez Gomez Work Phone: [facility] 08-30-2022 16:07-0400 Heart rate 100 /min Dr. Martinez Gomez Work Phone: [facility] 08-30-2022 16:07-0400 Respiratory rate 18 /min Dr. Martinez Gomez Work Phone: [facility] 08-30-2022 16:07-0400 SaO2% (BldA) [Mass fraction] 98 % Dr. Martinez Gomez Work Phone: [facility] 08-30-2022 16:07-0400 Systolic blood pressure 138 mm[Hg] Dr. Martinez Gomez Work Phone: [facility] 10-28-2021 14:24-0400 Body height 162.6 cm Ana Vargas MD Work Phone: [facility] 10-28-2021 14:24-0400 Body weight 76.66 kg Ana Vargas MD Work Phone: [facility] 10-28-2021 14:24-0400 Diastolic blood pressure 86 mm[Hg] Ana Vargas MD Work Phone: [facility] 10-28-2021 14:24-0400 Systolic blood pressure 148 mm[Hg] Ana Vargas MD Work Phone: [facility] 06-28-2017 08:58-0400 Body height 161.29 cm Corin Epstein RN [facility] Work Phone: 06-28-2017 08:58-0400 Body mass index (BMI) [Ratio] 30.34 kg/m2 Corin Epstein RN [facility]; [facility] Work Phone: 06-28-2017 08:58-0400 Body surface area Derived from formula 1.83 m2 Corin Epstein RN [facility]; [facility] Work Phone: 06-28-2017 08:58-0400 Body temperature 97 [degF] Corin Epstein RN [facility]; [facility] Work Phone: Comment on above: Method: Temporal 06-28-2017 08:58-0400 Body weight 78.93 kg Corin Epstein RN [facility]; [facility] Work Phone: 06-28-2017 08:58-0400 Diastolic blood pressure 110 mm[Hg] Corin Epstein RN [facility]; [facility] Work Phone: Comment on above: Patient Position: Sitting; Cuff Location : Left Arm; Cuff Size: Standard 06-28-2017 08:58-0400 Heart rate 102 /min Corin Epstein RN [facility]; [facility] Work Phone: Comment on above: Pattern: Regular 06-28-2017 08:58-0400 Respiratory rate 16 /min Corin Epstein RN [facility]; [facility] Work Phone: Comment on above: Pattern: Unlabored 06-28-2017 08:58-0400 SaO2% (BldA) [Mass fraction] 99 % Corin Epstein RN [facility]; [facility] Work Phone: Comment on above: Room air 06-28-2017 08:58-0400 Systolic blood pressure 188 mm[Hg] Corin Epstein RN [facility]; [facility] Work Phone: Comment on above: Patient Position: Sitting; Cuff Location : Left Arm; Cuff Size: Standard 02-03-2017 14:54-0500 Body height 161.29 cm Malolrie Aranda RN [facility]; [facility] Work Phone: 02-03-2017 14:54-0500 Body mass index (BMI) [Ratio] 31.41 kg/m2 Mallorie Aranda RN [facility]; [facility] Work Phone: 02-03-2017 14:54-0500 Body surface area Derived from formula 1.86 m2 Mallorie Aranda RN [facility]; [facility] Work Phone: 02-03-2017 14:54-0500 Body weight 81.7 kg Mallorie Aranda RN [facility]; [facility] Work Phone: 02-03-2017 14:54-0500 Diastolic blood pressure 80 mm[Hg] Mallorie Aranda RN [facility]; [facility] Work Phone: Comment on above: Patient Position: Sitting; Cuff Location : Left Arm; Cuff Size: Standard 02-03-2017 14:54-0500 Heart rate 87 /min Mallorie Aranda RN [facility]; [facility] Work Phone: Comment on above: Pattern: Regular 02-03-2017 14:54-0500 Respiratory rate 18 /min Mallorie Aranda RN [facility] Work Phone: Comment on above: Pattern: Unlabored 02-03-2017 14:54-0500 SaO2% (BldA) [Mass fraction] 97 % Mallorie Aranda RN [facility]; [facility] Work Phone: Comment on above: Room air 02-03-2017 14:54-0500 Systolic blood pressure 138 mm[Hg] Mallorie Aranda RN [facility]; [facility] Work Phone: Comment on above: Patient Position: Sitting; Cuff Location : Left Arm; Cuff Size: Standard 09-27-2016 16:03-0400 Body height 161.29 cm Nadira Valera LPN [facility]; [facility] Work Phone: 09-27-2016 16:03-0400 Body mass index (BMI) [Ratio] 31.41 kg/m2 Nadira Valera LPN [facility]; [facility] Work Phone: 09-27-2016 16:03-0400 Body surface area Derived from formula 1.86 m2 Nadira Valera LPN [facility]; [facility] Work Phone: 09-27-2016 16:03-0400 Body temperature 97.3 [degF] Nadira Valera LPN [facility]; [facility] Work Phone: 09-27-2016 16:03-0400 Body weight 81.7 kg Nadira Valera LPN [facility]; [facility] Work Phone: 09-27-2016 16:03-0400 Diastolic blood pressure 90 mm[Hg] Nadira Valera LPN [facility]; [facility] Work Phone: Comment on above: Patient Position: Sitting; Cuff Location : Left Arm; Cuff Size: Standard 09-27-2016 16:03-0400 Heart rate 89 /min Nadiraleon Valera EDWIN [facility]; [facility] Work Phone: Comment on above: Pattern: Regular 09-27-2016 16:03-0400 Respiratory rate 16 /min Nadira Valera EDWIN [facility] Work Phone: Comment on above: Pattern: Unlabored 09-27-2016 16:03-0400 SaO2% (BldA) [Mass fraction] 98 % Nadiraleon Valera EDWIN [facility]; [facility] Work Phone: Comment on above: Room air 09-27-2016 16:03-0400 Systolic blood pressure 142 mm[Hg] Nadira Schaeffertonia PINEDA [facility]; [facility] Work Phone: Comment on above: Patient Position: Sitting; Cuff Location : Left Arm; Cuff Size: Standard 01-15-2016 12:20-0500 Body height 161.29 cm Mallorie Aranda RN [facility]; [facility] Work Phone: 01-15-2016 12:20-0500 Body mass index (BMI) [Ratio] 31.25 kg/m2 Mallorie Aranda RN [facility]; [facility] Work Phone: 01-15-2016 12:20-0500 Body surface area Derived from formula 1.86 m2 Mallorie Aranda RN [facility]; [facility] Work Phone: 01-15-2016 12:20-0500 Body temperature 98.2 [degF] Mallorie Aranda RN [facility] Work Phone: Comment on above: Method: Temporal 01-15-2016 12:20-0500 Body weight 81.31 kg Mallorie Aranda RN [facility]; [facility] Work Phone: 01-15-2016 12:20-0500 Diastolic blood pressure 90 mm[Hg] Mallorie Aranda RN [facility]; [facility] Work Phone: Comment on above: Patient Position: Sitting; Cuff Location : Left Arm; Cuff Size: Large 01-15-2016 12:20-0500 Heart rate 99 /min Mallorie Aranda RN [facility]; [facility] Work Phone: Comment on above: Pattern: Regular 01-15-2016 12:20-0500 Respiratory rate 18 /min Mallorie Aranda RN [facility] Work Phone: Comment on above: Pattern: Unlabored 01-15-2016 12:20-0500 SaO2% (BldA) [Mass fraction] 98 % Mallorie Aranda RN [facility]; [facility] Work Phone: Comment on above: Room air 01-15-2016 12:20-0500 Systolic blood pressure 150 mm[Hg] Mallorie Aranda RN [facility]; [facility] Work Phone: Comment on above: Patient Position: Sitting; Cuff Location : Left Arm; Cuff Size: Large 12-08-2015 12:29-0400 Diastolic blood pressure 78 mm[Hg] Yoselin Roselyn DO Work Phone: [facility]; [facility] Work Phone: Comment on above: Patient Position: Sitting; Cuff Location : Left Arm; Cuff Size: Standard 12-08-2015 12:29-0400 Systolic blood pressure 138 mm[Hg] Yoselin Roselyn DO Work Phone: [facility]; [facility] Work Phone: Comment on above: Patient Position: Sitting; Cuff Location : Left Arm; Cuff Size: Standard 12-08-2015 11:20-0400 Body height 161.29 cm Mallorie Aranda RN [facility]; [facility] Work Phone: 12-08-2015 11:20-0400 Body mass index (BMI) [Ratio] 30.88 kg/m2 Mallorie Aranda RN [facility]; [facility] Work Phone: 12-08-2015 11:20-0400 Body surface area Derived from formula 1.85 m2 Mallorie Aranda RN [facility]; [facility] Work Phone: 12-08-2015 11:20-0400 Body weight 80.34 kg Mallorie Aranda RN [facility]; [facility] Work Phone: 12-08-2015 11:20-0400 Diastolic blood pressure 90 mm[Hg] Mallorie Aranda RN [facility]; [facility] Work Phone: Comment on above: Patient Position: Standing; Cuff Locatio n: Left Arm; Cuff Size: Large 12-08-2015 11:20-0400 Heart rate 89 /min Mallorie Aranda RN [facility]; [facility] Work Phone: Comment on above: Pattern: Regular 12-08-2015 11:20-0400 Respiratory rate 18 /min Mallorie Aranda RN [facility] Work Phone: Comment on above: Pattern: Unlabored 12-08-2015 11:20-0400 SaO2% (BldA) [Mass fraction] 98 % Mallorie Aranda RN [facility]; [facility] Work Phone: Comment on above: Room air 12-08-2015 11:20-0400 Systolic blood pressure 148 mm[Hg] Mallorie Aranda RN [facility]; [facility] Work Phone: Comment on above: Patient Position: Standing; Cuff Locatio n: Left Arm; Cuff Size: Large Encounters Encounter Date Encounter Type Care Provider Facility Start: 01-07-2025 End: 01-07-2025 ambulatory Jazmín Adkins [place]: 01-04-2025 ambulatory ROZINA chawlaty:[facility] Start: 12-27-2024 End: 12-27-2024 ambulatory Jazmín Adkins Facility:[facility] Start: 12-25-2024 ambulatory ROZINA chawlaty:[facility] Start: 12-19-2024 End: 12-19-[address] Jazmín Adkins MD -[facility] Work Phone: Start: 12-19-2024 End: 12-19-2024 ambulatory Jazmín Adkins [place]: 11-30-2024 End: 11-30-2024 ambulatory ROZINA GOMEZ Facility:[facility] Start: 11-27-2024 End: 11-27-2024 ambulatory ROZINA GOMEZ Facility:[facility] Start: 11-27-2024 Encounter for gynecological examination (general) (routine) without abnormal findings ANA JOHNATHONVIRGILIO VARGAS [facility] Start: 10-15-2024 End: 10-15-[address] Rozina Gomez MD Work Phone: -[facility] Start: 10-15-2024 End: 10-15-[address] Rozina Gomez MD -[facility] Work Phone: Start: 10-15-2024 End: 10-15-2024 ambulatory Rozina Gomez Facility:[facility] Start: 08-27-2024 End: 08-27-[address] Melquiades Gonzalez MD -[facility] Work Phone: Start: 08-27-2024 End: 08-27-[address] Rozina Gomez MD Work Phone: -[facility] Start: 08-27-2024 End: 08-27-2024 ambulatory Melquiades Gonzalez Facility:[facility] Start: 08-08-2024 End: 08-08-[address] Rozina Gomez MD Work Phone: [facility] Work Phone: Start: 08-08-2024 End: 08-08-[address] Rozina Gomez MD -[facility] Work Phone: Start: 08-08-2024 End: 08-08-2024 ambulatory Rozina Gomez Facility:[facility] Start: 08-03-2024 End: 08-03-2024 Emergency department patient visit SYLVIE SMITH MD [facility] Start: 05-21-2024 End: 05-21-[address] Rozina Gomez MD Work Phone: [facility] Work Phone: Start: 05-21-2024 End: 05-21-[address] Rozina Gomez MD -Laboratory, [facility] Work Phone: Start: 05-21-2024 End: 05-21-2024 ambulatory [facility] Facility:[facility] Start: 02-24-2024 End: 02-24-[address] Melquiades Gonzalez MD -[facility] Work Phone: Start: 02-24-2024 End: 02-24-2024 ambulatory [facility] [place] Start: 02-24-2024 End: 02-24-2024 ambulatory [facility] Facility:[facility] Start: 02-08-2024 End: 02-08-[address] Rozina Gomez MD -Radiology, [facility] Work Phone: Start: 02-08-2024 End: 02-08-2024 [facility] Facility:[facility] Start: 02-03-2024 End: 02-03-[address] Elan Mccabe DO -Laboratory, [facility] Work Phone: Start: 02-03-2024 End: 02-03-2024 [facility] Facility:[facility] Start: 12-30-2023 End: 12-30-2023 Subsequent hospital visit by physician Screen Mammo [facility] Comment on above: Encounter for screen ing mammogram for breast cancer [Z12.31] Start: 10-28-2023 End: 10-28-2023 Emergency department patient visit ASIYA CAVAZOS MD Facility:[facility] Start: 07-28-2023 End: 07-28-2023 Patient encounter procedure Ana Vargas MD Work Phone: OB/Gynecology Comment on above: Encounter for gyneco logical examination (general) (routine) without abnormal findings (Primary Dx); Screening for cervical cancer; Encounter for screening for human papillomavirus (HPV); Encounter for screening mammogram for breast cancer Start: 07-28-2023 End: 07-28-2023 Patient encounter status Ana Vargas MD Work Phone: [facility] Start: 12-31-2022 End: 12-31-2022 ambulatory [facility] Work Phone: Start: 12-31-2022 End: 12-31-2022 Patient encounter procedure [facility] Work Phone: Start: 12-27-2022 Documentation procedure Mammog patricia Coordinator [facility] Start: 12-27-2022 Letter encounter Mammography Coordinator [facility] Department Start: 12-25-2022 Refill Ana Varags MD Work Phone: OB/Gynecology Comment on above: Refill Request Start: 12-22-2022 ambulatory Joan Jiang Work Phone: Internal Medicine [facility] Start: 09-24-2022 End: 09-24-[address] Martinez Gomez Work Phone: [facility] Work Phone: Start: 09-24-2022 End: 09-24-[address] Martinez Gomez Work Phone: [facility] Work Phone: Start: 08-30-2022 End: 08-30-[address] Martinez Gmoez Work Phone: [facility] Endocr[facility]ology Work Phone: Start: 06-30-2022 End: 06-30-[address] Martinez Gomez Work Phone: [facility] Start: 06-22-2022 End: 06-22-[address] Martinez Gomez Work Phone: [facility] Work Phone: Start: 05-22-2022 Refill Ana Vargas MD Work Phone: OB/Gynecology Comment on above: Refill Request Start: 11-20-2021 End: 11-20-2021 Subsequent hospital visit by physician Screen Mammo [facility] Comment on above: Encounter for screen ing mammogram for malignant neoplasm of breast [Z12.31] Start: 10-28-2021 End: 10-28-2021 Patient encounter procedure Ana Vargas MD Work Phone: OB/Gynecology Comment on above: Encounter for gyneco logical examination (general) (routine) without abnormal findings (Primary Dx); Encounter for screening mammogram for malignant neoplasm of breast Start: 10-28-2021 End: 10-28-2021 Patient encounter status Ana Vargas MD Work Phone: OB/Gynecology Start: 08-05-2021 ambulatory Joan Jiang Work Phone: Internal Medicine [facility] [place] Start: 08-02-2021 Refill Ana Vargas MD Work Phone: OB/Gynecology Comment on above: Refill Request Start: 06-13-2021 Refill Cuca Leaivtt APRN, .CNP Work Phone: Internal Medicine [place] Comment on above: Refill Request Start: 06-28-2017 End: 06-28-2017 Office outpatient visit 10 minutes Yoselin Roselyn DO Work Phone: [facility] Start: 04-25-2017 Ambulatory ELIZABETH BATRES Facility: [facility] Start: 02-03-2017 End: 02-03-2017 Office outpatient visit 15 minutes Yoselin Roselyn DO Work Phone: [facility] Start: 10-21-2016 End: 10-22-2016 Ambulatory ELIZABETH BATRES Facility:[facility] Start: 10-07-2016 End: 10-08-2016 Ambulatory ELIZABETH BATRES Facility:[facility] Start: 09-27-2016 End: 09-27-2016 Office outpatient visit 15 minutes Yoselin Roselyn DO Work Phone: [facility] Start: 01-15-2016 End: 01-15-2016 Office outpatient visit 40 minutes Yoselin Roselyn DO Work Phone: [facility] Start: 12-08-2015 End: 12-08-2015 Office outpatient new 45 minutes Yoselin Dempsey DO Work Phone: [facility] Patient encounter status Mallorie Aranda RN [facility]; [facility] Work Phone: Procedures Date Procedure Procedure Detail Performing Clinician Start: 08-08-[address] Suman Gomez MD Work Phone: Start: 05-21-[address] Suman Gomez MD Work Phone: Start: 02-08-2024 Plain x-ray of hand Dr. Rozina Gomez MD Work Phone: Start: 12-30-2023 Screening digital breast tomosynthesis bi Ana Vargas MD Work Phone: Start: 09-24-[address] Suman Gomez Work Phone: Start: 11-20-2021 RAJ SCREENING W ESTEFANI Alan MD Work Phone: Start: 11-20-2021 Mammography Screen [facility] Start: 08-05-2020 Adult depression screening assessment Cuca Leavitt APRN.INSPECTOR PROCESS Work Phone: Start: 07-03-2020 Mammography Cuca Leavitt APRN.INSPECTOR PROCESS Work Phone: Start: 10-10-2017 End: 10-10-2017 OT D/C Summary Comments: See Note; NOTES: [facility] Occupational Therapy [facility] [place] [address] Fax REHABILITATION SERVICES DISCHARGE SUMMARY MR#: [id number] Acct: [id number] Name: IRMA NOEL Rep #: [id number] : 1980 37 From: Shanna Rosen OTR/L, CHT Referring Dr.: Raúl Escobedo MD Status: REG RCR Eval Date: Discharge Date: - OT D/C Summary It has been my pleasure to treat IRMA NOEL under orders from Raúl Escobedo MD, for the diagnosis of right distal radius fx for a total of 6 visit(s). Please see the following information for a summary of their discharge status. - Objective Objective/Function: right wrist 65/45. right typesetting machine tender 43# a increase from 20#. right lateral pinch 10# a increase from 2#. lateral pinch 8# a increase from unable. - Goals Patient Goals: Regain Mobility, Regain Strength, Return to Work, Use Hand/Wrist/Arm Normally Again, Decrease Tingling/Numbness Goal:: pt will demo a increase in right typesetting machine tender strength to greater than 40# to return pt to PLOF with her ADLS and IADLs by d/c Goal:: pt will demo a increase in right wrist ROM 60/55 to gain increase ind. with home mtg tasks by d/c Goal:: pt will report pain no greater than 1/10 with use of right hand with BADLs and IADLS by d/c Goal:: pt will report return of sensation to median n. digits by d/c Goal:: pt will demo understanding of scar mtg by end of 1st session, to decrease scar adhesions. - Plan Plan: D/C - D/C Information Discharge Comments: PT attended 6 OT sessions. pt demo good increase in her functional ROM and strength pt has met goals in OT and is D/C with HEP to cont. to make improvments with her ROM /strength . pt is agreeable to tx plan. If there are questions or concerns regarding this patient's occupational therapy, please fell free to call me at [phone]. Thank you for the referral of this patient. Sincerely, Shanna Rosen, OTR/Mari, CHT <Electronically signed by Shanna Rosen OTR/Mari, CHT> 10/10/17917 CC: Raúl Escobedo MD; Yoselin Dempsey DO MK Signed Yoselin Demspey DO Work Phone: Start: 09-01-2017 End: 09-01-2017 OT General Evaluation Comments: See Note; NOTES: [facility] Occupational Therapy [facility] [address] [place] [address]. [address] [place] [address] Fax REHABILITATION SERVICES INITIAL EVALUATION MR#: [id number] Acct: [id number] Name: IRMA NOEL Rep #: [id number] : 1980 37 From: Shanna RON/Mari, PATTIT Referring Dr.: Raúl Escobedo MD Status: REG R Insurance: [employer]ITI Robles Date: SELF PAY INSURANCE Patient's Visit Information IRMA NOEL is a 37 year old F, referred to Occupational Therapy by Raúl Escobedo MD, with a diagnosis of right distal radius fx. Date of Evaluation: 08/30/17 Occupational Therapist: Shanna Rosen, ARIADNE/Mari, CHT - Subjective Subjective: This 37 year old female states she was at a bowling event July 08 and fell and broke her right wrist. pt is right handed. pt underwent sx August 14 for right radius ORIF and CTR. pt states her fingers still feel numb most of the time. pt states she is out of her brace while working and at home. Does use brace for travel. - Pain right wrist 1 Pain Intensity Range: 0, 3 - Objective Objective/Observation: pt states she is still having difficulty to home mtg and daily occupations due to her limited ROM and strength. - ROM Forearm: right WFL left WNL Wrist: right 35/40 left 65/65 ROM Comments: right UD [address] 15 left 20 - Strength Inspector Final Assembly Electrical: right 20# left 60# Lateral Pinch: right 2# left 12# Tripod Pinch: right NT left 14# - DASH-Disabilities of Arm, Shoulder AND Hand DASH Sum: 87 - Goals Goal:: pt will demo a increase in right typesetting machine tender strength to greater than 40# to return pt to PLOF with her ADLS and IADLs by d/c Goal:: pt will demo a increase in right wrist ROM 60/55 to gain increase ind. with home mtg tasks by d/c Goal:: pt will report pain no greater than 1/10 with use of right hand with BADLs and IADLS by d/c Goal:: pt will report return of sensation to median n. digits by d/c Goal:: pt will demo understanding of scar mtg by end of 1st session, to decrease scar adhesions. - Rehabilitation General Assessment: S/P ORIF right wrist with right CTR. pt currently demo with decrease right wrist ROM and decrease functional strength. Pt states she is having most difficulty with home mtg tasks and ADL tasks. pt would benefit from skilled OT services to return pt to OF. Due to pts work and work travel schedule pt may only be able to schdule every other week. Therapy will focus on ROM and follow Dr. alatorre to begin PRE in 3 weeks. Today pt was ed.on scar mtg, AROM/PROM of wrist, forearm and digits. pt demo understanding of HEP given. Rehabilitation Potential: Good - Anticipated Interventions Anticipated Interventions: A/AAROM/PROM, Strengthening, Scar Care, Triggerpoint Release, Sensory Retraining, Modalities, Orthoses, Fine Motor Coord/Abhijeet, Home Program - Visit Plan Frequency: 1-2x /Week Duration: 6 Weeks TEXT: Thank you for the opportunity to evaluate your patient. For Medicare and Medicare HMO plans, please review the plan of care and approve it. It will need to be FAXED BACK to us at [phone] for Medicare purposes. Please let me know if there are questions or concerns regarding this plan of care. Physician Signature: Date: _ <Electronically signed by Shanna RON/DEMETRA Guerra> 09/01/17 0801 CC: Raúl Escobedo MD; Yoselin Dempsey DO MK Signed For Medicare only, by signing this I certify the plan of care. ___ Physicians Signature Date Yoselin Dempsey DO Work Phone: Start: 07-25-2017 End: 07-25-2017 Orthopedic Visit Report Comments: See Note; NOTES: [facility] Orthopaedics AND Sports Medicine [address] [place] [address] OFFICE VISIT Date of Service: 07/11/17 MR#: [id number] Acct: [id number] Name: IRMA NOEL Rep #: [id number] : 1980 Provider: Deuce Nance DO Age/Sex: 37/F Location[place] [facility] [place] Status: Signed Intake Intake Visit Reasons: RIGHT WRIST Is patient in pain?: Yes Allergies potassium Allergy (Verified 07/08/17 18:29) Swelling Medications Hydrocodone/Acetaminophen [[place] 7.5-325 Tablet] 1 ea PO Q4H PRN PRN #30 tab 07/08/17 [Rx] Insulin Glulisine [Apidra] 07/08/17 [History Confirmed 07/08/17] Losartan Potassium 25 mg PO DAILY 07/08/17 [History Confirmed 07/08/17] Ondansetron [Zofran Odt] 4 mg PO Q4H PRN PRN #20 tab.rapdis 07/08/17 [Rx] PFSH Medical History Diabetes (Chronic) Surgical History H/O foot surgery (Inactive) left thumb tendon transfer (Inactive) left wrist hardware removal (Inactive) left wrist orif (Inactive) Social History Smoking Status: Never smoker HPI RIGHT WRIST: Details: IRMA NOEL is a 37 year old F here today for f/u from ED for right wrist fracture after falling while bowling this past weekend. She presents in a short arm splint, finger and elbow swelling, numbness in the tips of fingers and painful rom. She states she is using the norco at night to help her sleep, and otc nsaids in the day time. She has pain all the time and is using a sling. ROS Musc Reports joint pain, Reports joint swelling, Reports stiffness, Reports numbness, Reports limited joint movement, Reports tingling, Reports as per HPI Neuro Yes numbness, Yes tingling Ortho Exam Right Wrist/Hand Skin/Wound: Yes Ecchymosis, Yes Swelling Contralateral Normal: Yes A1 tray trigger: No Right Wrist: Yes TTP Fracture site Motor: EPL: 5, FDP-2: 5, 1st Dorsal Interosseous: 5, APB: 5 Sensation: Radial: I, Ulnar: I, Median: I WRIST: Patient is alert and oriented 3 no acute distress. Appropriate eye contact and affect. Otherwise intact the C5 the T2 distributions. She has positive pulses. She has no adenopathy. Her left wrist is currently in a dorsal volar splint. Patient has no elbow pain. Nontender palpation across medial epicondyles. Able to gently flex and extend the elbow joint through the splint. Otherwise guards with prone supination. Sensation otherwise maintained. X-rays: Evaluated by myself with patient-patient shows a right comminuted distal radius fracture with intra-articular extension. Left Wrist/Hand Skin/Wound: Yes CDI, Yes Ecchymosis, Yes Swelling Contralateral Normal: Yes A1 tary trigger: No Left Wrist: Yes ROM-Extension 0-60, Yes ROM-Flexion 0-80, Yes ROM-Pronation 0-80 and Yes ROM-Supination 0-90 Motor: EPL: 5, FDP-2: 5, 1st Dorsal Interosseous: 5, APB: 5 Sensation: Radial: I, Ulnar: I, Median: I Assessment AND Plan Problems 1. Other intraarticular fracture of lower end of right radius, initial encounter for closed fracture S52.571A Plan Assessment: Right closed intra-articular comminuted distal radius fracture. Plan: At this point time we discussed with the patient her fracture pattern and that my recommendation would be for a CT examination and then decision about whether or not operative intervention would be warranted. Patient told me that she had a left-sided wrist fracture that was treated by the [facility] and that she has a relationship with them. She told me she was happy for us to treat her but at the same time she was also happy to go up to the [facility]. Based on the degree of comminution and intra-articular extension with displacement I recommendation would be to follow-up with 1 of the hand surgeons who probably has more expertise with a complicated fracture and just a simple Colles' type fracture. At this point time the patient will go to the hospital she will get copies of her plain film x-rays and she will follow-up with the [facility] and her previous surgeon from her left sided injury. There is a major issues please contact me. Patient follow-up me on a as needed basis. Coding Level of Care Code Off vis,new,level 3 Diagnoses Other intraarticular fracture of lower end of right radius, initial encounter for closed fracture S52.571A 07/25/17 1701 <Electronically signed by Deuce Goyo DO> Date Deuce Nance DO Cosigner Signature: Date (if applicable) CC: Yoselin Dempsey DO Work Phone: Start: 07-09-2017 End: 07-11-2017 Discharge Instruction Comments: See Note; NOTES: [facility] Medical Records Department [address] [place] [address] Discharge Instruction 07/08/172015 MR#: [id number] Acct: [id number] Name: IRMA NOEL Rep #: [id number] : 1980 37 From: Derek Abad MD PCP: Yoselin Dempsey DO Status: DEP ER ED Disposition - Plan for ED Patient: Disposition: Home or Assisted Living Chief Complaint: Upper Extremity Injury Instructions: ED Fx Wrist General Prescriptions: Hydrocodone/Acetaminophen [[place] 7.5-325 Tablet] 1 ea PO Q4H PRN PRN #30 tab PRN Reason: Pain Ondansetron [Zofran Odt] 4 mg PO Q4H PRN PRN #20 tab.rapdis PRN Reason: Nausea Referrals: Deuce Nance DO [STAFF PHYSICIAN] - As soon as possible Additional Instructions: Keep splint dry and clean. Ice and elevate right hand and wrist as much as possible to decrease pain and swelling. Motrin and [place] for pain. If you become nauseated I wrote you a prescription for Zofran. Call and follow-up with the orthopedic physician Dr. Deuce Nance or any orthopedic physician of your choice as soon as possible. This may need surgical repair. What to do if you have Problems For any increased pain, shortness of breath, bleeding, nausea or vomiting, chest pain, or any unexpected problems, contact your Primary Care Provider. Call [facility] [employer] [facility] ([phone]) or report to the closest Emergency Room. Call 911 if necessary. 07/09/17 0012 <Electronically signed by Derek Abad MD> Date Derek Abad MD Cosigner Signature (If Indicated): Date CC: Yoselin Capellan DO Work Phone: Start: 07-09-2017 End: 07-11-2017 Emergency Department Summary Comments: See Note; NOTES: [facility] Medical Records Department [address] [place] [address] Emergency Department Summary 07/08/17 1842 MR#: [id number] Acct: [id number] Name: IRMA NOEL Rep #: [id number] : 1980 37 From: Derek Abad MD PCP: Yoselin Dempsey DO Status: DEP ER - ER Visit Summary Date of Service: 07/08/17 Chief Complaint: Fall complaining of right wrist pain History of Present Illness: The patient is a 37 F was bowling with her family. She slipped and fell injuring her right wrist. Denies other injuries. She is right-hand dominant. She has never broken her right wrist or any prior right upper extremity surgery. Physical Examination: Young female no acute distress. Vital signs are stable afebrile. Right arm is in a sling with an ice pack on it. H EENT exam atraumatic. Pupils round reactive light. No signs of trauma to her face or scalp. Nontender. C-spine normal range of motion nontender. Trachea midline. Lungs clear to auscultation bilaterally. Heart regular rate and rhythm. Chest wall nontender. Abdomen soft nontender. Pelvic girdle intact. Left upper extremity both lower extremities have normal range of motion. No deformities and nontender. Back nontender. Neurologically she is awake and alert without focal deficits. Her right collarbone, shoulder, humerus, elbow and proximal right forearm are all nontender neurovascular intact no deformity. She has an on palpation to her right wrist. Skin is intact. Right hand is neurovascular intact with cap refill and sensation. Neurologic exam is normal. Test Results: Right wrist x-ray comminuted distal radius fracture with dorsal angulation and ulnar styloid fracture. Emergency Department Course and Treatment: Per patient request only Motrin for pain. I spoke to Dr. Samir Nance about the x-rays. He had me reduce the patient's fracture and he will see her in follow-up. Treatment Plan: Satish with patient options. She was consciously sedated with propofol. She had not eaten since lunch. She was initially given 60 mg IV of propofol and 40 more for a total of 100 mg. Conscious sedation was achieved. I was able to reduce the distal radius fracture. She was placed in a short arm AP Ortho-Glass splint that I fabricated. It was well-padded. An Jony wrap. Patient tolerated procedure very well. She will be watched so she wakes up and is appropriate to be discharged. With the sling. Disposition: Discharged Impression: Acute fall Acute right wrist still radius comminuted fracture and dorsally angulated and ulnar styloid fracture Fracture reduction and fracture care by ER physician. Short arm AP splint by ER. Conscious sedation using propofol by ER This note was generated with [employer] dictation software. It may contain incorrect words, spelling, and punctuation that were not noted in review of the chart prior to signing ED Disposition - Plan for ED Patient: Chief Complaint: Upper Extremity Injury Referrals: Yoselin Dempsey, [Primary Care Provider] - What to do if you have Problems For any increased pain, shortness of breath, bleeding, nausea or vomiting, chest pain, or any unexpected problems, contact your Primary Care Provider. Call [employer] [facility] ([phone]) or report to the closest Emergency Room. Call 911 if necessary. 07/09/17 0012 <Electronically signed by Derek Abad MD> Date Derek Abad MD Cosigner Signature (If Indicated): Date CC: Yoselin Capellan DO Work Phone: Start: 07-08-2017 End: 07-08-2017 Wrist min 3 Views Comments: See Note; NOTES: [facility] Imaging Services [address] [place] [address] Wrist min 3 Views MR#: [id number] Acct: [id number] Name: IRMA NOEL Rep #: [id number] : 1980 F 37 From: Jen Hemphill MD PCP: Yoselin Dempsey DO Status: DEP ER Study: Wrist min 3 Views Date of Exam: 07/08/17 Exam# [id number] Ordering Dr: Derek Abad MD STUDY: X-RAY - RIGHT WRIST REASON FOR EXAM: Female, 37 years old. Post reduction TECHNIQUE: 3 view(s) of the wrist were obtained. COMPARISON: July 08, 2017 at 6:43 PM FINDINGS: Casting material obscures anatomic detail. There is an intra-articular distal radial fracture. There is improved alignment. There is a ulnar styloid fracture visualized as well. Normal carpometacarpal articulation of the thumb. Normal second through fifth carpometacarpal articulations. Normal visualized metacarpal bones. The soft tissue structures are unremarkable. RAD/Wrist min 3 Views IMPRESSION: Distal intra-articular radial fracture. Ulnar styloid fracture. Electronically Signed: Jen Hemphill MD at 20:55 EDT Tel , Service support , CC: Derek Abad MD; Yoselin Dempsey DO Cheese Wrapper: Signed Yoselin Dempsey DO Work Phone: Start: 07-08-2017 End: 07-08-2017 Wrist min 3 Views Comments: See Note; NOTES: [facility] Imaging Services [address] [place] [address] Wrist min 3 Views MR#: [id number] Acct: [id number] Name: IRMA NOEL Rep #: [id number] : 1980 F 37 From: Jen Hemphill MD PCP: Yoselin Dempsey DO Status: REG ER Study: Wrist min 3 Views Date of Exam: 07/08/17 Exam# [id number] Ordering Dr: Derek Abad MD STUDY: X-RAY - RIGHT WRIST REASON FOR EXAM: Female, 37 years old. Fall TECHNIQUE: 3 view(s) of the wrist were obtained. COMPARISON: None. FINDINGS: There is a comminuted intra-articular distal radial fracture with dorsal displacement of the distal radius. There is an ulnar styloid fracture visualized as well. Normal carpal bones. Normal carpal articulations. Normal carpometacarpal articulation of the thumb. Normal second through fifth carpometacarpal articulations. Normal visualized metacarpal bones. There is diffuse soft tissue swelling overlying the distal radius and ulna. RAD/Wrist min 3 Views IMPRESSION: Comminuted distal radial fracture. Ulnar styloid fracture. Electronically Signed: Jen Hemphill MD at 20:08 EDT Tel , Service support , CC: Derek Abad MD; Yoselin Dempsey DO Cheese Wrapper: Signed Yoselin Dempsey DO Work Phone: Start: 01-27-2016 End: 01-29-2016 Extremity Non Vasc Limited Comments: See Note; NOTES: [facility] Imaging Services [address] [place] [address] Verdana 4d Extremity Non Vasc Limited MR#: [id number] Acct: [id number] Name: IRMA NOEL Rep #: [id number] : 1980 F 35 From: Nancy Awad MD PCP: Yoselin Dempsey DO Status: REG CLI Study: Extremity Non Vasc Limited Date of Exam: 01/27/16 Exam# [id number] Ordering Dr: Martinez Gomez MD STUDY: SUPERFICIAL ULTRASOUND - RIGHT WRIST REASON FOR EXAM: Female, 35 years old. A palpable abnormality of the right wrist. TECHNIQUE: A superficial ultrasound was performed with real-time and static tai-scale imaging. COMPARISON: None. FINDINGS: A multiple static grayscale images were obtained of the palpable bowel abnormality. There is a lobular anechoic structure that corresponds to the palpable abnormality. Color Doppler was obtained as well which does not reveal any internal vascularity. This cyst measures approximately 2.0 x 0.5 x 1.2 cm. US/Extremity Non Vasc Limited IMPRESSION: Lobular cystic lesion correlating with the palpable abnormality of the radial right wrist. This is likely a ganglion cyst. Electronically Signed: Nancy Awad MD at 10:46 EST , Service support [phone], CC: Rozina Gomez MD; Yoselin Dempsey DO Cheese Wrapper: Signed Yoselin Dempsey DO Work Phone: Biopsy of breast Mallorie castillo RN Comment on above: 2014 lt D&C Mallorie Aranda RN Comment on above: 1997 Operative procedure on foot Mallorie Aranda RN Comment on above: 1992 Tendon transfer in l t wrist Mallorie Aranda RN Comment on above: 2014 Wrist sx Mallorie Aranda RN Comment on above: lt Plan of Treatment Date Care Activity Detail Author Start: 07-27-2028 Screening for malignant neoplasm of cervix Cervical Cancer Screening [facility] Start: 01-07-2025 End: 01-07-2025 Patient encounter procedure Nocturia -[facility] Work Phone: Start: 01-07-2025 Transurethral cystoscopy [facility] Start: 12-28-2024 Non-patient / Non-visit Non-patient / Non-visit -[facility] Work Phone: Start: 12-27-2024 Us retroperitoneal real time w/image complete Kidney and Bladder [facility] Start: 12-27-2024 End: 12-27-2024 Patient encounter procedure Departed Clinical -Ultrasound [facility] Work Phone: Start: 07-31-2024 End: 07-31-2024 Patient encounter procedure 07/31/2024 8:40 AM EDT Office Visit OB/Gynecology [address] [place] [id number] Ana Hong MD [address] [place] [address] annual OB/Gynecology Comment on above: annual Start: 02-28-2024 HPV TESTING HPV TESTING [facility] Start: 02-28-2024 PAP TESTING PAP TESTING [facility] Start: 02-28-2024 Screening for malignant neoplasm of cervix [facility] Start: 12-30-2023 End: 12-30-2023 Patient encounter procedure 12/30/2023 7:10 AM EDT Appointment Mammogram [address] [place] [address] Encounter for screening mammogram for breast cancer [Z12.31] Mammogram Comment on above: Encounter for screening mammogram for br east cancer [Z12.31] Start: 12-28-2023 Mammography Mammogram Screening [facility] Start: 12-28-2023 Screening for malignant neoplasm of breast Mammogram Screening [facility] Start: 10-30-2023 Covid-19 Vaccine ( season) Covid-19 Vaccine () [facility] Start: 02-28-2023 Behavioral Health Screening Behavioral Health Screening [facility] Start: 11-20-2022 Mammography [facility] Start: 10-29-2022 Covid-19 Vaccine (4 - 2023-24 season) Covid-19 Vaccine ( season) [facility] Start: 10-29-2022 Influenza vaccination Influenza Vaccine (#1) [facility] Start: 02-28-2022 DEPRESSION ASSESSMENT DEPRESSION ASSESSMENT [facility] Start: 10-29-2021 Influenza vaccination INFLUENZA (#1) [facility] Start: 08-11-2021 ANNUAL PCP TEAM CHRONIC DISEASE VISIT ANNUAL PCP TEAM CHRONIC DISEASE VISIT [facility] Start: 08-05-2021 Adult depression screening assessment DEPRESSION SCREENING [facility] Start: 07-03-2021 Mammography MAMMOGRAM [facility] Start: 05-06-2021 COVID-19 VACCINE (4 - Booster for Pfizer series) COVID-19 VACCINE (4 - Booster for Pfizer series) [facility] Start: 10-23-2020 COVID-19 VACCINE (3 - Booster for Pfizer series) COVID-19 VACCINE (3 - Booster for Pfizer series) [facility] Start: 06-28-2017 Procedure Education Eprescribed prescriptions (G8553) [facility]; [facility] Work Phone: Start: 02-03-2017 Patient Education Sinusitis *: sinus infection [facility]; [facility] Work Phone: Start: 02-03-2017 Procedure Education Eprescribed prescriptions (G8553) [facility]; [facility] Work Phone: Start: 02-03-2017 Provider Instructions for Treatment [facility]; [facility] Work Phone: Start: 09-27-2016 Cytp cerv/vag auto thin layer prep mnl screen Thin prep Pap (22000) (no STD testing) [facility]; [facility] Work Phone: Start: 09-27-2016 Procedure Education Eprescribed prescriptions (G8553) [facility]; [facility] Work Phone: Start: 09-27-2016 Provider Instructions for Treatment Follow up if no improvement or if symptoms worsen [facility]; [facility] Work Phone: Start: 01-15-2016 Provider Instructions for Treatment [facility]; [facility] Work Phone: Start: 01-15-2016 Assay of free thyroxine T4, FREE (THYROXINE) (58790) [facility]; [facility] Work Phone: Start: 01-15-2016 Assay of triiodothyronine t3 total tt3 T3, TOTAL (TRIDOTHYRONINE) (87875) [facility]; [facility] Work Phone: Start: 01-15-2016 Assay of thyroid stimulating hormone tsh TSH (13932) [facility]; [facility] Work Phone: Start: 12-08-2015 Procedure Education Eprescribed prescriptions (G8553) [facility]; [facility] Work Phone: Start: 12-08-2015 Provider Instructions for Treatment HTN/CAD Red Flags [facility]; [facility] Work Phone: Start: 06-06-1998 HEPATITIS B (1 of 3 - Risk 3-dose series) HEPATITIS B (1 of 3 - Risk 3-dose series) [facility] Start: 06-06-1998 Hepatitis B Vaccine (1 of 3 - 19+ 3-dose series) Hepatitis B Vaccine (1 of 3 - 19+ 3-dose series) [facility] Start: 06-06-1998 Urine microalbumin profile [facility] Start: 06-06-1997 Anxiety Screening Anxiety Screening [facility] Start: 06-06-1997 Depression Screening Depression Screening [facility] Start: 06-06-1997 Hepatitis B surface antibody level LDL CHOLESTEROL [facility] Start: 1995 ONE PNEUMOVAX PRIOR TO AGE 65 ONE PNEUMOVAX PRIOR TO AGE 65 [facility] Start: 06-06-1989 3 comp foot exam completed DIABETIC FOOT EXAM [facility] Start: 06-06-1989 Hepatitis B screening URINE ALBUMIN:CREATININE RATIO [facility] Start: 06-06-1989 Hepatitis C antibody, confirmatory test DILATED RETINAL EXAM [facility] Start: 06-06-1985 PNEUMOCOCCAL (1 - PCV) PNEUMOCOCCAL (1 - PCV) [facility] Start: 06-06-1984 Hemoglobin A1c/Hemoglobin.total in Blood HBA1C [facility] Start: 1980 HEPATITIS B (1 of 3 - 3-dose series) HEPATITIS B (1 of 3 - 3-dose series) [facility] Start: 1980 Hepatitis B Vaccine (1 of 3 - 3-dose series) Hepatitis B Vaccine (1 of 3 - 3-dose series) [facility] End: 08-26-2024 DBT Breast - bilateral screening RAJ SCREENING W ESTEFANI Radiology Routine Encounter for screening mammogram for breast cancer 1 Occurrences starting 07/28/2023 until 08/26/2024 [facility] Work Phone: Comment on above: 1 Occurrences starting 07/28/2023 until 08/26/2024 End: 09-04-2022 RAJ SCREENING W ESTEFANI RAJ SCREENING W ESTEFANI Radiology Routine Encounter for screening mammogram for breast cancer 1 Occurrences starting 08/05/2021 until 09/04/2022 [facility] Work Phone: Comment on above: 1 Occurrences starting 08/05/2021 until 09/04/2022 End: 11-27-2022 RAJ SCREENING W ESTEFANI RAJ SCREENING W ESTEFANI Radiology Routine Encounter for screening mammogram for malignant neoplasm of breast 1 Occurrences starting 10/28/2021 until 11/27/2022 [facility] Work Phone: Comment on above: 1 Occurrences starting 10/28/2021 until 11/27/2022 End: 01-21-2024 RAJ SCREENING W ESTEFANI RAJ SCREENING W ESTEFANI Radiology Routine Encounter for screening mammogram for breast cancer 1 Occurrences starting 12/22/2022 until 01/21/2024 [facility] Work Phone: Comment on above: 1 Occurrences starting 12/22/2022 until 01/21/2024 PAP TEST PAP TEST Lab Rou [facility] Screening for cervical cancer Encounter for screening for human papillomavirus (HPV) 07/28/2023 11:52 AM EDT [facility] Work Phone: [facility] Work Phone: [facility] Work Phone: [facility] Immunizations Immunization Date Immunization Notes Care Provider [facility] 12-18-2020 influenza virus vaccine, unspecified formulation Joan Maza MD Work Phone: [facility] 05-23-2020 COVID-19 vaccine, ag e 12+ yr ([employer] - PURPLE TOP) Cuca Older TECHNICAL ACCOUNT REPRESENTATIVE.INSPECTOR PROCESS Work Phone: [facility] Work Phone: 05-02-2020 COVID-19 vaccine, ag e 12+ yr ([employer] - PURPLE TOP) Cuca Older TECHNICAL ACCOUNT REPRESENTATIVE.INSPECTOR PROCESS Work Phone: [facility] Work Phone: Payers Date Payer Category Payer Self-pay [id number] 2019 Private Health Insurance STEPHANI Gee [facility] [id number] 2019-Present [phone] [address] [place] [id number] PPO [id number] 2019 Private Health Insurance [id number] 2019 Private Health Insurance [id number] 1979 Unknown [id number] 1979 Unknown [id number]. 627 Private Health Insurance [id number] Unknown [employer]ign[employer] PPO Unknown [id number] Unknown [id number]. 462 Unknown [id number]. 462 Unknown [id number] [id number]. 462 Unknown [id number] [id number]. 462 Unknown [id number]. 462 Unknown [id number] [id number]. 462 Unknown [id number] [id number]. 462 Unknown [id number] [id number]. 462 Unknown [id number] [id number]. 462 Unknown [id number] [id number]. 462 Unknown [id number] [id number]. 462 Unknown [id number]. 462 Social History Date Type Detail Facility Alcohol Use: Alcohol Use: [facility]; [facility] Work Phone: Start: 08-05-2020 End: 12-27-2022 Caffeine Use Caffeine Use [facility]; [facility] Work Phone: Comment on above: qd Exercise History: Exercise History: Compr e[facility]; [facility] Work Phone: [facility] Work Phone: Start: 10-07-2016 End: 11-12-2024 Tobacco smoking status NHIS Never smoked tobacco [facility] Start: 10-07-2016 End: 10-28-2021 Tobacco use and exposure Smokeless tobacco non-user [facility] Start: 09-03-2020 End: 07-28-2023 Alcohol intake Current drinker of alcohol (finding) [facility] Start: 08-05-2020 History SDOH Alcohol Frequency 3 [facility] Start: 08-05-2020 End: 05-24-2021 History SDOH Alcohol Std Drinks 2 [facility] Start: 08-05-2020 End: 05-24-2021 History SDOH Alcohol Binge 1 [facility] Start: 10-07-2016 History SDOH Alcohol Comment social [facility] Start: 08-05-2020 History SDOH Social Connections Phone 5 [facility] Start: 08-05-2020 History SDOH Physica l Activity DPW 4 [facility] Start: 08-05-2020 Education 16 [facility] Start: 1980 Sex Assigned At Not on file [facility] Start: 10-18-2021 End: 10-28-2021 Exposure to SARS-CoV-2 (event) Not sure [facility] Start: 08-30-2022 End: 08-30-2022 Tobacco smoking status NJIS Unknown if ever smoked [facility] Start: 1980 Sex Assigned At Female [facility] Start: 08-05-2020 End: 12-27-2022 Social connection and isolation panel [facility] Do you belong to any clubs or organizations such as religion groups, unions, fraternal or athletic groups, or school groups? Yes [facility] Are you now , , , , never or living with a partner? [facility] How often to you hav e a drink containing alcohol? 2-4 times a month [facility] How many standard drinks containing alcohol do you have on a typical day? 3 or 4 [facility] How often do you hav e 6 or more drinks on 1 occasion? Never [facility] How hard is it for y ou to pay for the very basics like food, housing, medical care, and heating Not very hard [facility] Adult Depression Screening Assessment 0 [facility] Do you feel stress - tense, restless, nervous, or anxious, or unable to sleep at night because your mind is troubled all the time - these days [OSQ] Only a little [facility] (I/We) worried whesharon er (my/our) food would run out before (I/we) got money to buy more. Never true [facility] In the past 12 month s, was there a time when you were not able to pay the mortgage or rent on time? No [facility] Start: 07-31-2020 Sexual orientation Heterosexual (emerson harper) [facility] Tobacco smoking status [facility] Start: 04-14-2021 End: 05-28-2024 Sex Female (finding) [facility] Medical Equipment Procedure Code Equipment Code Equipment Origin al Text Equipment Identifier Dates Insulin Syringe-Needle U-100 (Bd Insulin Syringe Ultra-Fine) 0.3 mL 31 gauge x 5/16 syringe Start: 12-27-2022 Insulin Syringe-Needle U-100 (Bd Insulin Syringe Ultra-Fine) 0.3 mL 31 gauge x 5/16 syringe Start: 12-27-2022 Insulin Syringe-Needle U-100 (Bd Insulin Syringe Ultra-Fine) 0.3 mL 31 gauge x 5/16 syringe Start: 12-27-2022 Insulin Syringe-Needle U-100 (Bd Insulin Syringe Ultra-Fine) 0.3 mL 31 gauge x 5/16 syringe Start: 12-27-2022 Insulin Syringe-Needle U-100 (Bd Insulin Syringe Ultra-Fine) 0.3 mL 31 gauge x 5/16 syringe Start: 12-27-2022 Insulin Syringe-Needle U-100 (Bd Insulin Syringe Ultra-Fine) 0.3 mL 31 gauge x 5/16 syringe Start: 12-27-2022 Insulin Syringe-Needle U-100 (Bd Insulin Syringe Ultra-Fine) 0.3 mL 31 gauge x 5/16 syringe Start: 12-27-2022 Functional Status Date Assessment Result Facility 10-28-2023 Functional Status Independent [facility] 10-28-2023 Functional Status Standard Safet y ID band on, Call device within reach, Bed in low position, Wheels locked [facility] Mental Status Date Assessment Result Facility 10-28-2023 Mental Status Orientation Oriented x 4 [facility] 10-28-2023 [facility] Clinical Notes 08-03-2021 to 01-04-2025 Note Date & Type Note Facility 01-04-2025 Note HNO ID: [id number] Author: KAREN TARANGO RT(R) Service: ? Author Type: Technologist Type: Progress Notes Filed: 01/04/2025 09:41 Note Text: Radiology Service Progress Note PATIENT NAME: Irma Soriano DATE OF SERVICE: January 04, 2025 TIME: 9:40 AM PATIENT IDENTITY VERIFICATION COMPLETED USING TWO (2) IDENTIFIERS: Name and Date of confirmed by patient verbally. FALL SCREENING: Has the patient had 2 falls in the last year or 1 fall with injury or currently using an Ambulatory Assistive Device (Walker, Cane, Wheelchair, Crutches, etc.)? No PATIENT GENDER DATA: Assigned female at . status: : No status: NO. PATIENT RELEVANT IMPLANT DATA REVIEWED: Not Applicable PATIENT PRESENTS WITH AN IMPLANTABLE OR ATTACHED AUTOMOBILE ENGINE ASSEMBLER: No RADIOLOGY DEPARTMENT: Mammography PERIPHERAL IV DATA: Not applicable SIGNED BY: Karen Tarango RT(R) January 04, 2025 9:40 AM [facility] 12-19-2024 Progress note [facility] 12-19-2024 Evaluation note Diagnosis Onset Date Resolution Nocturia acute December 19, 2024 1:50pm Stress incontinence acute Octob er 2024 1:50pm UTI (urinary tract infection) acute December 19 1:50pm Type 1 diabetes mellitus with hyperglycemia chronic December 19, 2024 1:50pm Nocturia acute January 07, 2025 2:40pm Stress incontinence acute Novem 2024 2:40pm UTI (urinary tract infection) acute January 07, 025 2:40pm Type 1 diabetes mellitus with hyperglycemia chronic December 2:40pm [facility] Work Phone: 1(700) 302-424610-22-2025 Progress note Author Jazmín Adkins [facility] Note Date/Time December 19, 2024 3 :59pm [facility] [address], [address] [place] [address] OFFICE VISIT Date of Service: 12/19/24 MR#: [id number] Acct: [id number] Name: IRMA SORIANO Rep #: [id number] : 1980 Provider: Dr. Davis Adkins MD Age/Sex: 44/F [facility] [facility] Status: Signed Intake Vital Signs 08/27/24 08:00 12/19/24 14:26 Height 5 ft 4 in 5 ft 4 in Weight: 183 lb 183 lb BMI 31.4 31.4 BP 108/74 115/84 H Blood Pressure Location Lt brachial Position Sitting Pulse 92 91 Pulse Source Monitor Pulse Oximetry (%) 97 Oxygen Delivery Method room air Intake Visit Reasons: Recurrent UTI Chief Complaint: new patient- recurrent uti Senior Maintenance Technician Required: No Accompanied by: self Allergies potassium Allergy (Verified 12/19/24 14:24) Swelling Medications ?Medication ?Instructions ?Recorded ?Confirmed ?Type multivitamin 1 tab PO DAILY 09/03/2011/29 History insulin syringe-needle U-100 0.3 #100 ea 12/27/2207/31 Rx mL 31 gauge x 5/16 (BD Insulin Syringe Ultra-Fine) levothyroxine 125 mcg tablet 125 mcg PO DAILY #90 tabs 02/13/24 12/19/24 Rx losartan 50 mg-hydrochlorothiazide 1 tab PO DAILY #90 tabs 02/13/24 12/19/24 Rx 12.5 mg tablet blood-glucose sensor (Dexcom G7 #1 ea 02/24/24 5 Rx Sensor device) Novolog U-100 Insulin aspart 100 100 unit subcut DAILY #90 mL 08/27/24 12/19/24 Rx unit/mL subcutaneous solution (insulin aspart U-100) bupropion HCl 300 mg 24 hr tablet, 300 mg PO QAM 08/2712/19/24 History extended release cholecalciferol (vitamin D3) 125 125 mcg PO QDAY 08/2712/19/24 History mcg (5,000 unit) capsule insulin pump cart,auto,BT,G6/7 #30 ea 08/27/24 5 Rx (Omnipod 5 G6-G7 Pods (Gen 5) subcutaneous cartridge) biotin 10,000 mcg capsule mcg PO 12/19/24 12/19/24 His tory cephalexin 250 mg capsule 250 mg PO QHS PRN sexual act ivity 12/19/24 12/19/24 Rx #90 caps estradiol 0.01% (0.1 mg/gram) 1 g vaginal 3XW 3 months #42.5 12/19/24 12/19/24 Rx vaginal cream grams levocetirizine 5 mg tablet (Xyzal) 5 mg PO QDAY 12/19/24 History nitrofurantoin 100 mg PO BID #14 caps 12/1912/19/24 Rx monohydrate/macrocrystals 100 mg capsule (Macrobid) semaglutide 3 mg tablet 3 mg PO QDAY 12/19/24 History Nurse's Note: recurrent uti, sx come back within weeks of finishing abx H/o diabetes bladder scan PVR 0cc PFSH Medical History Type 1 diabetes mellitus with hyperglycemia Overweight (BMI 25.0-29.9) Insulin pump titration Presence of insulin pump Obesity Hypothyroid Vertigo Migraine High cholesterol Hypertension Surgical History H/O lumpectomy left wrist hardware removal left thumb tendon transfer left wrist orif H/O foot surgery Family History Grandfather Alcoholism Diabetes Mother Diabetes Thyroid disorder Celiac disease Father Hypertension High cholesterol CVA (cerebral vascular accident) Brother Severe allergy Sister Sarcoidosis Social History Smoking Status: Never smoker alcohol intake: current alcohol intake frequency: holidays/special occasions only Alcohol type: hard liquor substance use type: does not use what type of physical activity do you participate in: walking and aerobics frequency: 1-2 times per week HPI HPI Urology Chief Complaint: new patient- recurrent uti Details: IRMA SORIANO, is a 44 F. She is here for evaluation and management of recurrent urinary tract infection. She has had these for a long time, but many more in the last year. She has had at least 5 in the last year. Her symptoms are typically odor, pressure, urgency, frequency and nocturia. No fever, chills, nausea, vomiting, hematuria or dysuria. She has been seen by urology a long time ago, she remembers a bladder ultrasound, nothing else. She is a type on diabetic. She is voiding 5-6 times during the day, 1 times at night. There is no urge incontinence where she cannot make it to the bathroom. There is mild stress incontinence with cough, laugh, sneeze, lifting, etc. She is using 0 pads in 24 hours. She has not had visible blood in her urine. She is sexually active, 1-2 times weekly, no issues. There is no sensation of vaginal bulging. One that was a miscarriage. She has the following issues with chronic bowel function: none. There is no pelvic pain. She has no history of smoking. There is no history of blood clots or easy bleeding. There is not a family history of female cancer. ROS Const Constitutional: No chills, fatigue, fever(s), headache(s), night sweats, weakness, weight change, abnormal sleep pattern or change in appetite Eyes Eyes: No change in vision ENT ENT: No headache(s) or dry mouth Resp Respiratory: No cough, chest congestion, shortness of breath or wheezing Cardio Cardiology: Positive for other (No chest pain.); No shortness of breath, irregular heart rhythm or lightheadedness Gastro GI: Positive for other (No nausea.); No abdominal pain, change in bowel habits, constipation, diarrhea or vomiting Musc Musculoskeletal: No abnormal gait Skin Skin: No yellowing of the eye, lesions, itchy eyes, rash or skin ulcer Neuro Neurology: No abnormal gait, confusion, dizziness, weakness, headache(s) or memory loss Psych Psychiatric: No abnormal sleep pattern, No change in appetite, No confusion and No memory loss Endo Endocrine: No fatigue, increased thirst/drinking or weight change Aller/Imm Allergy/Immunologic: No itchy eyes or wheezing Paulo/Lymp Hematologic/Lymphatic: No easy bleeding, easy bruising or enlarged lymph nodes Exam Const General: cooperative, healthy appearing, comfortable and no acute distress [facility] Head: normocephalic and atraumatic Ears: hearing grossly normal bilaterally and external ears normal Nose: external nose normal Eyes General: appearance normal, both eyes and all related structures Neck Neck: normal visual inspection and trachea midline Chest Chest palpation & inspection: normal inspection of the chest Resp Effort & Inspection: normal respiratory effort, able to speak in complete sentences and symmetric chest movement Cardio Rate: regular rate GI Inspection: normal to inspection Palpation: soft and nontender General: No CVA tenderness Skin General: no rashes or lesions noted Neuro General: patient alert, patient awake, patient oriented x3 and CN's II-XI intactbilaterally Extrem General: normal to inspection Psych Appearance: grossly normal and well kempt Mental Status: mental status grossly normal Office Procedures Post Void Residual Post Void Residual: 0cc Results POC UA Auto w/o Microscopy Office Urine Color Last Edit by Jazz Barber on 12/19/24 14:29 Office Urine Clarity Last Edit by Jazz Barber on 12/19/24 14:29 Office Urine Glucose Negative Last Edit by Jazz Barber on 12/19/24 14:2 9 Office Urine Ketones Negative Last Edit by Jazz Barber on 12/19/24 14:2 9 Office Urine Bilirubin Negative Last Edit by Jazz Barber on 12/19/24 14 :29 Office Urine Urobilinogen 0.2 mg/dL Last Edit by Jazz Barber on 5 14:29 Off Ur Spec Sod 1.015 Last Edit by Jazz Barber on 12/19/24 14:29 Office Urine pH 6 Last Edit by Jazz Barber on 12/19/24 14:29 Office Urine Protein Trace Last Edit by Jazz Barber on 12/19/24 14:29 Office Urine Blood Negative Last Edit by Jazz Barber on 12/19/24 14:29 Office Urine Blood Hemolyzed Negative Last Edit by Jazz Barber on 12/19 14:29 Office Urine Nitrate Negative Last Edit by Jazz Barber on 12/19/24 14:2 9 Off Ur Leukocytes Negatve Last Edit by Jazz Barber on 12/19/24 14:29 Coding Level of Care Code Off vis,new,level 4 Diagnoses UTI (urinary tract infection) N39.0 Nocturia R35.1 Stress incontinence N39.3 Type 1 diabetes mellitus with hyperglycemia E10.65 Assessment and Plan Assessment and Plan (1) UTI (urinary tract infection): Status: Acute (2) Nocturia: Status: Acute (3) Stress incontinence: Status: Acute (4) Type 1 diabetes mellitus with hyperglycemia: Status: Chronic Orders: Orders POC UA Auto w/o Microscopy 12/19/24 N39.0 - Urinary tract infection, site not specified Kidney and Bladder 12/19/24 N39.0 - Urinary tract infection, site not specified PVR 12/19/24 R35.1 - Nocturia Medications: New nitrofurantoin monohyd/m-cryst 100 mg (Macrobid) must administer with a meal/food 100 mg PO BID 14 caps 0RF cephalexin 250 mg PO QHS PRN 90 caps 0RF sexual activity estradiol 0.01%(0.1mg/gram) 1 g vaginal 3XW 42.5 grams 3RF 3 months Plan infection prevention with vitamin C, cranberry, probiotics vaginal estrogen cream, start once weekly renal ultrasound, cystoscopy and pelvic exam, risks discussed cephalexin 250mg after intercourse Macrobid start therapy Plan Details Follow Up: next available (cystoscopy and pelvic exam) 12/20/242030 <Electronically signed by Jazmín Adkins MD> Date _ Jazmín Adkins MD Cosigner Signature: Date (if applicable) CC: Dr. Rozina Gomez MD ~ [facility] Work Phone: 1(539) 663-613810-03-2025 NoteHNO ID: [id number] Author: SHIRA ARREDONDO MD Service: ? 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 Encounter Diagnosis ICD-10-CM 1. Deep dyspareunia N94.12 2. Pelvic pain in female R10.20 Please see report under imaging tab. Shira Arredondo MD November 30, 2024 5:18 [facility]09-30-2025 NoteHNO ID: [id number] Author: ANA HONG MD Service: ? Author Type: Physician Type: Progress Notes Filed: 11/27/2024 16:07 Note Text: Garment Cutter offered: Patient declines.[facility]09-30-2025 NoteHNO ID: [id number] Author: ANA HONG MD Service: ? Author Type: Physician Type: Progress Notes Filed: 11/27/2024 16:07 Note Text: Garment Cutter offered: Patient declines.Garment Cutter offered: Patient declines. Some documentation from previous visit of 07/28/23 was copied and pasted, documentation has been reviewed and edited as necessary for today's visit. Eli is a 44 year old who presents for an annual gynecologic exam with concerns- sporadic RLQ during intercourse. Has had 6 UTIs this year. Will be seeing urology this month. Works for [employer]. 2 daughters- 15/16yo. Using testosterone pellets and progesterone PO By outside MANAGER ADOBE Menses: cycles every 28 days and 3-4 days of flow. Contraception: vasectomy HPV vaccine: No Last Pap: 08/09/2023 normal HPV: 08/09/2023 negative History of abnormal pap: No Last mammogram: 2023 normal Sexually active: Yes History of STDS: None Patient concerns for STD exposure: No. 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: 10/12/2024, Having periods Age at Menarche: 12 Age at First : Age at Menopause: Certified Composites Technician History Comments: Sexual Activity: Yes; Male Contraception: Vasectomy Menstrual Tracking History Flowsheet Row Office Visit from 11/27/2024 in OB/Gynecology Period Cycle (Days) 28 Period Duration (Days) 5 Menstrual Flow Moderate PAST MEDICAL HISTORY Diagnosis Date Anemia Diabetes (HCC) Hyperlipidemia Hypertension Hypothyroid Migraines Seasonal allergies Sinus tachycardia Vertigo PAST SURGICAL HISTORY Procedure Laterality Date BREAST BIOPSY HX Left BX BREAST W/DEVICE 1ST LESION STEREOTACTIC GUID Right 08/13/2020 FOOT SURGERY HX Left 1993 WRIST SURGERY HX Bilateral 2018- Right 2015-Left FAMILY HISTORY Problem Relation Age of Onset other (papilloma) Mother Celiac Disease Mother Diabetes Mother type 2 other (htn) Father Stroke Father TIA Hyperlipidemia Father Lung Cancer Father Sarcoidosis Sister Thyroid Brother SOCIAL HISTORY Social History Tobacco Use Smoking status: Never Smokeless tobacco: Never Vaping Use Vaping status: Never Used Substance Use Topics Alcohol use: Yes Comment: social Drug use: No REVIEW OF SYSTEMS Abdomen: No abdominal pain, nausea, vomiting, diarrhea, or constipation. No bloating, early satiety, indigestion, or increased flatulence. Bladder: No dysuria, gross hematuria, urinary frequency, urinary urgency, or incontinence. Breast: No breast lumps, nipple d/c, overlying skin changes, redness or skin retraction. Allergies and current medication updated:Yes EXAM: BP 128/80 Ht 5' 4 (1.63m) Wt 169 lb (76.7kg) LMP 10/12/2024 BMI 28.99 kg/(m2). GENERAL: pleasant, female in no apparent distress HEENT: Normocephalic, atraumatic, mucus membranes moist, and no lesions NECK: Supple, full range of motion, no adenopathy, and thyroid normal DERMATOLOGY: Normal, without lesions, non-icteric, and non-hirsute BREAST: soft, non-tender, symmetric, no dominant mass, normal nipple-areolar complex, no lymphadenopathy, and no nipple discharge ABDOMEN: soft, non-tender, and no masses PELVIC: external genitalia normal, normal Bartholin's glands, urethra, Olar's glands, no vulvar lesions, no cervical lesions, good vaginal support, physiologic discharge present, normal appearing perineal body and perianal region BIMANUAL: uterus normal size, shape and consistency, no adnexal masses, and non-tender RECTOVAGINAL: deferred. NEURO: alert and oriented x3,exam grossly non-focal EXTREMITIES: normal ASSESSMENT/PLAN: 1) Health maintenance: Pap done with HPV. Mammogram ordered Nutrition, exercise and routine health maintenance exams reviewed. Calcium/Vitamin D supplementation information provided. Colon cancer screening: start at age 45 2) Contraception: Vasectomy 3) STD screening: Declined STD check. 4) Follow up one year or sooner as needed Ana Amezcua [facility]06-30-2025 Evaluation note * Diagnosis Onset Date Resolution Status Admit Date Hypertension chronic August 27 025 8:00am Hypothyroid chronic August 27 8:00am Obesity chronic August 27 8:00am Presence of insulin pump chronic August 27, 2024 8:00am Proliferative retinopathy of both eyes chronic August 27, 2024 8:00am Type 1 diabetes mellitus wit h hyperglycemia chronic August 27, 2024 8:00am [facility] Work Phone: [phone]) 951-932506-06-2025 Hospital Discharge instructions Patient Education 08/03/2024 13:06:09 Fracture, Foot Foot Fracture You have a broken bone (fracture) in your foot. This will cause pain, swelling, and often bruising.It will usually take about 4 to 8 weeks to heal. A foot fracture may be treated with a special shoe, splint, cast, or boot. Home care Follow these guidelines when caring for yourself at home: You may be given a splint, cast, shoe, or boot to keep the injured area from moving. Unless you were told otherwise, use crutches or a walker. Don t put weight on the injured foot until your health care provider says you can do so. (You can rent crutches and a walker at many pharmacies and [employer]wi orthopedic supply stores.) Don t put weight on a splint, or it will break. Keep your leg elevated to reduce pain and swelling. When sleeping, put a pillow under the injured leg. When sitting, support the injured leg so it is above your waist. This is very important during the first 2 days (48 hours). Put an ice pack on the injured area. Do this for 20 minutes every 1 to 2 hours the first day for pain relief. You can make an ice pack by wrapping a plastic bag of ice cubes in a thin towel. As the ice melts, be careful that the splint, cast, boot, or shoe doesn t get wet. You can place the ice pack directly over the splint or cast. Unless told otherwise, you can open the boot or shoe to apply the ice pack. Continue using the ice pack 3 to 4 times a day for the next 2 days. Then use the ice pack as needed to ease pain and swelling. Keep the splint, cast, boot, or shoe dry. When bathing, protect it with a large plastic bag, rubber-banded at the top end. If a fiberglass splint or cast or boot gets wet, you can dry it with a wheelchair van driver. Unless told otherwise, you can take off the boot or shoe to bathe. You may use acetaminophen or ibuprofen to control pain, unless another pain medicine was prescribed. If you have chronic liver or kidney disease, talk with your healthcare provider before using thesemedicines. Also talk with your provider if you ve had a stomach ulcer or gastrointestinal bleeding. Don t put creams or objects under the cast if you have itching. Follow-up care Follow up with your healthcare provider, or as advised. This is to make sure the bone is healing the way it should. If you were given a splint, it may be changed to a cast or boot at your follow-up visit. X-rays may be taken. You will be told of any new findings that may affect your care. When to seek medical advice Call your healthcare provider right away if any of these occur: The cast or splint cracks The plaster cast or splint becomes wet or soft The fiberglass cast or splint stays wet for more than 24 hours Bad odor from the cast or wound fluid stains the cast Tightness or pain under the cast or splint gets worse Toes become swollen, cold, blue, numb, or tingly You can t move your toes Skin around cast or splint becomes red Fever of 100.4 F (38 C) or higher, or as directed by your healthcare provider 5322-4004 [employer]. [address] [place] [address]. All rights reserved. This information is not intended as a substitute for professional medical care. Always follow yourhealthcare professional's instructions. Follow Up Care 08/03/2024 11:51:37 With:MADDIE TODD DPM, Surgery Address: [address] [place] [address], [place] [address] [place] [address] Foot and Ankle [place], [place] [id number]- When:2-4 days [facility] 06-06-2025 Note Discharge Instructions Thank you for allowing [facility] to assist you with your healthcare needs. The following is importantdischarge information regarding your hospital visit. Diagnosis from Today's Visit Fracture of 5th metatarsal What to Do Next Instructions from Your Care Team Discharge Home Equipment - Ordered -- Post-op shoe, 99 month(s), Right foot, 08/03/24 13:06:00 EDT Post Acute Orders No qualifying data available. You Need to Schedule the Following Appointments Follow Up with MADDIE TODD DPM, Surgery When:Within 2-4 days Where:[address] [place] [address], [address] [facility] Foot and Ankle [place], [place] [id number]- Allergies No Known Medication Allergies Medications Please ask your primary doctor or pharmacist before taking any other medication not listed, including over the counter drugs, herbal medications, vitamins and or supplements as they may interact withyour home medications. What How Much When Instructions Last Dose New naproxen (naproxen 250 mg oral tablet) 1 tab(s) by mouth Two (2) times a day Printed Prescription Unchanged atorvastatin (atorvastatin 20 mg oral tablet) Unchanged buPROPion (buPROPion 300 mg/ 24 hours (XL) oral tablet, extended release) Unchanged hydrochlorothiazide-losartan (hydrochlorothiazide-losartan 12.5-50 mg oral tablet) Unchanged insulin aspart (Novolog) (NovoLOG 100 units/ mL injectable solution) Unchanged levothyroxine (levothyroxine 125 mcg (0.125 mg) oral tablet) Please take this list to your next doctor s visit. Bring all medications you take, including over the counter medications, herbals and other supplements with you to your doctor s visit. Patients and families are reminded to discard old lists and to update any records with all medication providers or retail pharmacies. Medication Leaflets naproxen (na PROX en) Aleve, Aleve Back and Muscle Pain, Aleve Easy Open Arthritis, Aleve Liquid Gels, Anaprox-DS, EC-Naprosyn, Naprelan, Naprosyn What is the most important information I should know about naproxen? Naproxen can increase your risk of fatal heart attack or stroke. Do not use this medicine just before or after heart bypass surgery (coronary artery bypass graft, or CABG). Naproxen may also cause stomach or intestinal bleeding, which can be fatal. What is naproxen? Naproxen is a nonsteroidal anti-inflammatory drug (NSAID). Naproxen is used to treat pain or inflammation caused by conditions such as arthritis, ankylosing spondylitis, tendinitis, bursitis, gout, or menstrual cramps. The delayed-release or extended-release tablets are slower-acting forms of naproxen that are used only for treating chronic conditions such as arthritis or ankylosing spondylitis. These forms of naproxen will not work fast enough to treat acute pain. Naproxen may also be used for purposes not listed in this medication guide. What should I discuss with my healthcare provider before taking naproxen? Naproxen can increase your risk of fatal heart attack or stroke, even if you don't have any risk factors. Do not use this medicine just before or after heart bypass surgery (coronary artery bypass graft, or CABG). Naproxen may also cause stomach or intestinal bleeding, which can be fatal. These conditions can occur without warning while you are using naproxen, especially in older adults. You should not use naproxen if you are allergic to it, or if you have ever had an asthma attack or severe allergic reaction after taking aspirin or an NSAID. Ask a doctor before giving naproxen to a child younger than 12 years old. Ask a doctor or pharmacist if this medicine is safe to use if you have: heart disease, high blood pressure, high cholesterol, diabetes, or if you smoke; a heart attack, stroke, or blood clot; stomach ulcers or bleeding; asthma; liver or kidney disease; fluid retention; or if you take aspirin to prevent heart attack or stroke. If you are , you should not take naproxen unless your doctor tells you to. Taking an NSAID during the last 20 weeks of can cause serious heart or kidney problems in the unborn baby and possible complications with your . It may not be safe to breastfeed while using this medicine. Ask your doctor about any risk. How should I take naproxen? Use exactly as directed on the label, or as prescribed by your doctor. Use the lowest dose that is effective in treating your condition. Shake the oral suspension (liquid) before you measure a dose. Measure a dose with the supplied measuring device (not a kitchen spoon). Take this medicine with food or milk if it upsets your stomach. Always follow directions on the medicine label about giving this medicine to a child. Naproxen doses are based on weight in children. Your child's dose needs may change if the child gains or loses weight. If you use naproxen long-term, you may need frequent medical tests. This medicine can affect the results of certain medical tests. Tell any doctor who treats you that you are using naproxen. Store at room temperature away from moisture, heat, and light. Keep the bottle tightly closed when not in use. What happens if I miss a dose? Since naproxen is used when needed, you may not be on a dosing schedule. Skip any missed dose if it's almost time for your next dose. Do not use two doses at one time. What happens if I overdose? Seek emergency medical attention or call the Poison Help line at . What should I avoid while taking naproxen? Avoid drinking alcohol. It may increase your risk of stomach bleeding. Avoid taking aspirin or other NSAIDs unless your doctor tells you to. Ask a doctor or pharmacist before using other medicines for pain, fever, swelling, or cold/flu symptoms. They may contain ingredients similar to naproxen (such as aspirin, ibuprofen, or ketoprofen). Ask your doctor before using an antacid, and use only the type your doctor recommends. Some antacids can make it harder for your body to absorb naproxen. What are the possible side effects of naproxen? Get emergency medical help if you have signs of an allergic reaction (runny or stuffy nose, wheezing or trouble breathing, hives, swelling in your face or throat) or a severe skin reaction (fever, sore throat, burning eyes, skin pain, red or purple skin rash with blistering and peeling). Stop using naproxen and seek medical treatment if you have a serious drug reaction that can affect many parts of your body. Symptoms may include skin rash, fever, swollen glands, muscle aches, severeweakness, unusual bruising, or yellowing of your skin or eyes. Get emergency medical help if you have signs of a heart attack or stroke: chest pain spreading to your jaw or shoulder, sudden numbness or weakness on one side of the body, slurred speech, leg swelling, feeling short of breath. Stop using naproxen and call your doctor at once if you have: shortness of breath (even with mild exertion); swelling or rapid weight gain; the first sign of any skin rash or blister, no matter how mild; signs of stomach bleeding--bloody or tarry stools, coughing up blood or vomit that looks like coffee grounds; liver problems--nausea, upper stomach pain, loss of appetite, dark urine, alea- colored stools, jaundice (yellowing of the skin or eyes); kidney problems--little or no urination, painful urination, swelling in your feet or ankles; or low red blood cells (anemia)--pale skin, unusual tiredness, feeling light-headed or short of breath, cold hands and feet. Common side effects may include: headache; indigestion, heartburn, stomach pain; or flu symptoms; This is not a complete list of side effects and others may occur. Call your doctor for medical advice about side effects. You may report side effects to FDA at 7-981-DZS-5909. What other drugs will affect naproxen? Ask your doctor before using naproxen if you take an antidepressant. Taking certain antidepressantswith an NSAID may cause you to bruise or bleed easily. Ask a doctor or pharmacist before using naproxen with any other medications, especially: other NSAIDs or salicylates (diflunisal, salsalate); antacids and sucralfate; cholestyramine; cyclosporine; digoxin; lithium; methotrexate; pemetrexed; probenecid; warfarin (Coumadin, Jantoven) or similar blood thinners; a diuretic or 'water pill'; or heart or blood pressure medication. This list is not complete. Other drugs may affect naproxen, including prescription and aqdw-akl-cskgznw medicines, vitamins, and herbal products. Not all possible drug interactions are listed here. Where can I get more information? Your pharmacist can provide more information about naproxen. Remember, keep this and all other medicines out of the reach of children, never share your medicines with others, and use this medication only for the indication prescribed. Every effort has been made to ensure that the information provided by [employer]. ('[employer]') is accurate, up-to-date, and complete, but no guarantee is made to that effect. Drug information contained herein may be time sensitive. [employer] information has been compiled for use by healthcare practitioners and consumers in the [place] and therefore [employer] does not warrant that uses outside of the [place] are appropriate, unless specifically indicated otherwise. [employer] drug information does not endorse drugs, diagnose patients or recommend therapy. [employer] drug information isan informational resource designed to assist licensed healthcare practitioners in caring for their p atients and/or to serve consumers viewing this service as a supplement to, and not a substitute for, the expertise, skill, knowledge and judgment of healthcare practitioners. The absence of a warningfor a given drug or drug combination in no way should be construed to indicate that the drug or drug combination is safe, effective or appropriate for any given patient. [employer] does not assume any responsibility for any aspect of healthcare administered with the aid of information [employer] provides. The information contained herein is not intended to cover all possible uses, directions, precautions, warnings, drug interactions, allergic reactions, or adverse effects. If you have questions about the drugs you are taking, check with your doctor, nurse or pharmacist. Copyright 8439-4291 [employer]. Version: 22.01. Revision Date: 09/30/2022. Education Materials Foot Fracture You have a broken bone (fracture) in your foot. This will cause pain, swelling, and often bruising.It will usually take about 4 to 8 weeks to heal. A foot fracture may be treated with a special shoe, splint, cast, or boot. Home care Follow these guidelines when caring for yourself at home: You may be given a splint, cast, shoe, or boot to keep the injured area from moving. Unless you were told otherwise, use crutches or a walker. Don t put weight on the injured foot until your health care provider says you can do so. (You can rent crutches and a walker at many pharmacies and [employer] orthopedic supply stores.) Don t put weight on a splint, or it will break. Keep your leg elevated to reduce pain and swelling. When sleeping, put a pillow under the injured leg. When sitting, support the injured leg so it is above your waist. This is very important during the first 2 days (48 hours). Put an ice pack on the injured area. Do this for 20 minutes every 1 to 2 hours the first day for pain relief. You can make an ice pack by wrapping a plastic bag of ice cubes in a thin towel. As the ice melts, be careful that the splint, cast, boot, or shoe doesn t get wet. You can place the ice pack directly over the splint or cast. Unless told otherwise, you can open the boot or shoe to apply the ice pack. Continue using the ice pack 3 to 4 times a day for the next 2 days. Then use the ice pack as needed to ease pain and swelling. Keep the splint, cast, boot, or shoe dry. When bathing, protect it with a large plastic bag, rubber-banded at the top end. If a fiberglass splint or cast or boot gets wet, you can dry it with a wheelchair van driver. Unless told otherwise, you can take off the boot or shoe to bathe. You may use acetaminophen or ibuprofen to control pain, unless another pain medicine was prescribed. If you have chronic liver or kidney disease, talk with your healthcare provider before using thesemedicines. Also talk with your provider if you ve had a stomach ulcer or gastrointestinal bleeding. Don t put creams or objects under the cast if you have itching. Follow-up care Follow up with your healthcare provider, or as advised. This is to make sure the bone is healing the way it should. If you were given a splint, it may be changed to a cast or boot at your follow-up visit. X-rays may be taken. You will be told of any new findings that may affect your care. When to seek medical advice Call your healthcare provider right away if any of these occur: The cast or splint cracks The plaster cast or splint becomes wet or soft The fiberglass cast or splint stays wet for more than 24 hours Bad odor from the cast or wound fluid stains the cast Tightness or pain under the cast or splint gets worse Toes become swollen, cold, blue, numb, or tingly You can t move your toes Skin around cast or splint becomes red Fever of 100.4 F (38 C) or higher, or as directed by your healthcare provider [id number] [employer]. [address] [place] [address]. All rights reserved. This information is not intended as a substitute for professional medical care. Always follow yourhealthcare professional's instructions. Additional Information VACCINATE! IT SAVES LIVES! Members of the community who have not yet received the COVID-19 vaccine and would like to receive it can visit one of [facility] vaccine clinics. There are many vaccine clinic locations within the [facility]. For locations and available times, please visit www.gettheshot.coronavirus.[place].gov/. It is important to note that some COVID mobile vaccine clinics are held outdoors and may be canceled in rainy or stormy conditions. To learn more about pediatric vaccinations (ages 5-11), we invite you to visit the [facility] webpage. https://www.[facility].org/pages/7148-Ljkui-Fscpvnnblfq-Zmajldicxh-Qbocv-Nut stions.htmlTo learn more about the COVID-19 vaccine, we invite you to visit the CDC website for a list of frequently asked questions. https://www.cdc.gov/coronavirus/2019-ncov/vaccines/faq.html [facility] Patient Portal Access Instructions: Stay connected with your healthcare team and access your personal medical information anytime with the [employer] Patient Portal. If you would like a full copy of your medical records please contact the [facility] Medical Records Department Tuesday through Tuesday between 8a.m. and 4:30p.m. Please follow the directions below to access the portal: 1.Access the email account you provided upon registration to the [facility].2.Look for an invitation email from [facility].3.Open the email and access the invitation link: Accept Invitation to [facility]4.Fill in the required ramirez to create your account. Sign into [email or web address] with your username and password that you created in the above steps to stay up to date. You can then view a summary of results, a summary of your visits, and the ability to download your summaries to your computer or send the information securely to a physician. Remember that your healthcare information is confidential, so carefully consider who you will allow to register on the [facility] Patient Portal for access to your information. You can also access the [employer] Patient Portal on the [employer]. Simply click on Health Records under [facility] and then click on the [employer] logo. HOW TO SAFELY DISPOSE OF PRESCRIPTION MEDICATIONS Please use one of the following methods to safely dispose of your unused medications. 1.Use a drug disposal kit: the drug disposal pouch allows you to safely discard your old and unuseddrugs. Ask your nurse to give you one when you are discharged.2.Visit a local take-back location: Many local pharmacies and police departments have programs that collect old and unwanted prescriptiondrugs. Call your local pharmacy or go to http://bit.TRUSTe/5N0Zh1q to find one close to you.3.Make use of household items: Use cat litter or old coffee grounds to dispose medications if other options arenot available. Mix your drugs with these household products, seal them in an airtight container andthrow it into the garbage. Call [facility]: [phone] to be sure your drugs can be disposed of in this way. Some medicines may require a different approach.4.Never flush your medications down the toilet. IF YOU HAVE BEEN PRESCRIBED AN OPIOIDS FOR PAIN If you have been prescribed an opioid (such as hydrocodone, oxycodone or morphine), it is critical to understand the possible side effects and risks of opioid pain medications. Even when taken as directed, opioids can have several side effects including: Tolerance, meaning you might need to take more of a medication for the same pain relief. Nausea, vomiting and/or constipation. Sleepiness, dizziness, dry mouth, confusion, depression or itching. Physical dependence, meaning you have withdrawal symptoms when a medication is stopped ? this can develop within a few days. KNOW YOUR RESPONSIBILITIES It is important to know exactly how much and how often to take the opioid pain medications you are prescribed. Never take opioids in higher amounts or more often than prescribed. Do not combine opioids with alcohol or other drugs that cause drowsiness, such as benzodiazepines, also known as benzos,including diazepam and alprazolam, muscle relaxants or sleep aids. Never sell or share prescriptionopioids. This is illegal. Store opioids in a secure place and out of reach of others (including children, family, friends and visitors). The last page(s) of this document has been signed and retained as a CHART COPY Signatures Patient Education Materials Fracture, Foot Medication Leaflets naproxen My discharge plan and instructions have been reviewed and explained to me and I,IRMA SORIANO understand my current condition and have read and understand these discharge instructions. I have received a written copy of the plan/instructions. If I have questions, I am aware that I should contact my doctor. Patient/City [place] Signature: Date/Time: Relationship to Patient: Witness Name/Signature: Date/Time: [facility] [id number] Note* Exam Date Time Procedure Performing Provider Status 08/03/24 12:42 PM XR Toes 5th Digit 3 Views Right FERN BAEZ MD; Auth (Verified) [id number] ORIGINAL EXAMINATION: THREE XRAY VIEWS OF THE RIGHT TOE(S)08/03/2024 12:43 pm Right foot 5th digit three views COMPARISON: None HISTORY: ORDERING SYSTEM PROVIDED HISTORY: Reason for Exam: pain, swelling, injury FINDINGS: There is an oblique mildly displaced and minimally comminuted fracture of the 5th proximal phalanx without articular extension. No radiopaque foreign body. IMPRESSION: Fracture 5th proximal phalanx. Interpreted by: Fern Baez MD Preliminary Report By: Fern Baez MD Electronically signed By Fern Baez MD Dictated Date: 08/03/2024 12:58:15 PM Prelim Date: 08/03/2024 12:58:56 PM Sign Date: 08/03/2024 12:58:56 PM Ordering Provider: [facility]12-27-2024 Evaluation note* Diagnosis Onset Date Resolution Status Admit Date Hypertension chronic January, 2023 9:24am Hypothyroid chronic January 9:24am Obesity chronic February 24, 2024 9:24am Presence of insulin pump chronic February 24, 2024 9:24am Proliferative retinopathy of both eyes chronic February 23, 024 9:24am Type 1 diabetes mellitus wit h hyperglycemia chronic February 23, 2 024 9:24am [facility] Work Phone: 1(139) 285-575911-01-2024 History of Present illness Narrative* Lily Colon Mammo Tech - 12/30/2023 7:10 AM EDT Radiology Service Progress Note PATIENT NAME: Irma Soriano DATE OF SERVICE: December 30, 2023 TIME: 7:31 AM PATIENT IDENTITY VERIFICATION COMPLETED USING TWO (2) IDENTIFIERS: Name and Date of confirmedby patient verbally. FALL SCREENING: Has the patient had 2 falls in the last year or 1 fall with injury or currently using an Ambulatory Assistive Device (Walker, Cane, Wheelchair, Crutches, etc.)? No PATIENT GENDER DATA: Female. status: : No status: NO. PATIENT RELEVANT IMPLANT DATA REVIEWED: Not Applicable PATIENT PRESENTS WITH AN IMPLANTABLE OR ATTACHED AUTOMOBILE ENGINE ASSEMBLER: No RADIOLOGY DEPARTMENT: Mammography PERIPHERAL IV DATA: Not applicable SIGNED BY: Esteban Patel December 30, 2023 7:31 AM documented in this encounterPro[facility] Hospital Discharge instructions Patient Education 10/28/2023 18:02:01 Plantar Fasciitis Plantar Fasciitis Plantar fasciitis is a painful swelling of the plantar fascia. The plantar fascia is a thick, fibrous layer of tissue that covers the bones on the bottom of your foot. It supports the foot bones in an arched position. Plantar fasciitis can happen gradually or suddenly. It usually affects one foot at a time. Heel pain can be sharp, like a knife sticking into the bottom of your foot. You may feel pain after exercising, long-distance jogging, stair climbing, long periods of standing, or after standing up. Risk factors include: non-active lifestyle, arthritis, diabetes, obesity or recent weight gain, flat foot, high arch. Wearing high heels, loose shoes, or shoes with poor arch support for long periodsof time adds to the risk. This problem is commonly found in runners and dancers. It also found in people who stand on hard surfaces for long periods of time. Foot pain from this condition is usually worse in the morning. But it often improves with walking. By the end of the day there may be a dull aching. Treatment requires short-term rest and controllingswelling. It may take up to 9 months before all symptoms go away. Rarely, a steroid injection into the foot, or surgery, may be needed. Home care If you are overweight, lose weight to help healing. Choose supportive shoes with good arch support and shock absorbency. Replace athletic shoes when they become worn out. Don t walk or run barefoot. Premade or custom-fitted shoe inserts may be helpful. Inserts made of silicone seem to be the most effective. Custom-made inserts can be provided by operating systems specialist, physical therapist, or orthopedist. Premade or custom-made night splints keep the heel stretched out while you sleep. They may prevent morning pain. Limit activities that stress the feet: jogging, prolonged standing or walking, contact sports, etc. First thing in the morning and before sports, stretch the bottom of your feet. Gently flex your ankle so the toes move toward your knee. Icing may help control heel pain. Apply an ice pack to the heel for 10 to 20 minutes as a preventive. Or ice your heel after a severe flare-up of symptoms. You may repeat this every 1 to 2 hours as needed. You may use viwg-wtc-gghjvki pain medicine to control pain, unless another medicine was prescribed.Anti-inflammatory pain medicines, such as ibuprofen or naproxen, may work better than acetaminophen. If you have chronic liver or kidney disease or ever had a stomach ulcer or gastrointestinal bleeding, talk with your healthcare provider before using these medicines. Follow-up care Follow up with your healthcare provider, or as advised. Call for an appointment if pain worsens or there is no relief after a few weeks of home treatment. Shoe inserts, a night splint, or a special boot may be required. If X-rays were taken, you will be told of any new findings that may affect your care. When to seek medical advice Call your healthcare provider right away if any of these occur: Foot swelling Redness or warmth with increasing pain 9523-5622 The [employer]. [address] [place] [address]. All rights reserved. This information is not intended as a substitute for professional medical care. Always follow yourhealthcare professional's instructions. Follow Up Care 10/28/2023 17:10:01 With:MADDIE TODD Address: [address] [place] [address], [address] [facility] [place] [address] Business (1) When:Within 1 Week(s) Comments:Schedule appointment for follow-up if symptoms persist.Limit activity and weightbearing as tolerated.Use ice/cold compresses to the painful area.Use ibuprofen or naproxen for pain and inflammation.Doheel/calf stretches as instructed.Roll a ball or frozen water bottle on the heel and arch as instruc bernie.Return to the ED if symptoms worsen. [facility] 08-30-2024 Note Discharge Instructions Thank you for allowing [facility] to assist you with your healthcare needs. The following is importantdischarge information regarding your hospital visit. What to Do Next Instructions from Your Care Team No qualifying data available. Post Acute Orders No qualifying data available. You Need to Schedule the Following Appointments Follow Up with MADDIE PEYTON When:In 1 week Where:[address] [facility] [place] [address]- Business (1) Additional Information: Schedule appointment for follow-up if symptoms persist. Limit activity and weightbearing as tolerated. Use ice/cold compresses to the painful area. Use ibuprofen or naproxen for pain and inflammation. Do heel/calf stretches as instructed. Roll a ball or frozen water bottle on the heel and arch as instructed. Return to the ED if symptoms worsen. Allergies No Known Medication Allergies Medications Please ask your primary doctor or pharmacist before taking any other medication not listed, including over the counter drugs, herbal medications, vitamins and or supplements as they may interact withyour home medications. What When Instructions Last Dose Unchanged atorvastatin (atorvastatin 20 mg oral tablet) Unchanged buPROPion (buPROPion 300 mg/ 24 hours (XL) oral tablet, extended release) Unchanged hydrochlorothiazide-losartan (hydrochlorothiazide-losartan 12.5-50 mg oral tablet) Unchanged insulin aspart (Novolog) (NovoLOG 100 units/ mL injectable solution) Unchanged levothyroxine (levothyroxine 125 mcg (0.125 mg) oral tablet) Please take this list to your next doctor s visit. Bring all medications you take, including over the counter medications, herbals and other supplements with you to your doctor s visit. Patients and families are reminded to discard old lists and to update any records with all medication providers or retail pharmacies. Education Materials Plantar Fasciitis Plantar fasciitis is a painful swelling of the plantar fascia. The plantar fascia is a thick, fibrous layer of tissue that covers the bones on the bottom of your foot. It supports the foot bones in an arched position. Plantar fasciitis can happen gradually or suddenly. It usually affects one foot at a time. Heel pain can be sharp, like a knife sticking into the bottom of your foot. You may feel pain after exercising, long-distance jogging, stair climbing, long periods of standing, or after standing up. Risk factors include: non-active lifestyle, arthritis, diabetes, obesity or recent weight gain, flat foot, high arch. Wearing high heels, loose shoes, or shoes with poor arch support for long periodsof time adds to the risk. This problem is commonly found in runners and dancers. It also found in people who stand on hard surfaces for long periods of time. Foot pain from this condition is usually worse in the morning. But it often improves with walking. By the end of the day there may be a dull aching. Treatment requires short-term rest and controllingswelling. It may take up to 9 months before all symptoms go away. Rarely, a steroid injection into the foot, or surgery, may be needed. Home care If you are overweight, lose weight to help healing. Choose supportive shoes with good arch support and shock absorbency. Replace athletic shoes when they become worn out. Don t walk or run barefoot. Premade or custom-fitted shoe inserts may be helpful. Inserts made of silicone seem to be the most effective. Custom-made inserts can be provided by operating systems specialist, physical therapist, or orthopedist. Premade or custom-made night splints keep the heel stretched out while you sleep. They may prevent morning pain. Limit activities that stress the feet: jogging, prolonged standing or walking, contact sports, etc. First thing in the morning and before sports, stretch the bottom of your feet. Gently flex your ankle so the toes move toward your knee. Icing may help control heel pain. Apply an ice pack to the heel for 10 to 20 minutes as a preventive. Or ice your heel after a severe flare-up of symptoms. You may repeat this every 1 to 2 hours as needed. You may use nyzx-edb-lzbafuo pain medicine to control pain, unless another medicine was prescribed.Anti-inflammatory pain medicines, such as ibuprofen or naproxen, may work better than acetaminophen. If you have chronic liver or kidney disease or ever had a stomach ulcer or gastrointestinal bleeding, talk with your healthcare provider before using these medicines. Follow-up care Follow up with your healthcare provider, or as advised. Call for an appointment if pain worsens or there is no relief after a few weeks of home treatment. Shoe inserts, a night splint, or a special boot may be required. If X-rays were taken, you will be told of any new findings that may affect your care. When to seek medical advice Call your healthcare provider right away if any of these occur: Foot swelling Redness or warmth with increasing pain [phone] [employer]. [address] [place] [address], [place] [address]. All rights reserved. This information is not intended as a substitute for professional medical care. Always follow yourhealthcare professional's instructions. Additional Information VACCINATE! IT SAVES LIVES! Members of the community who have not yet received the COVID-19 vaccine and would like to receive it can visit one of [facility] vaccine clinics. There are many vaccine clinic locations within the [facility]. For locations and available times, please visit www.gettheshot.coronavirus.[place].gov/. It is important to note that some COVID mobile vaccine clinics are held outdoors and may be canceled in rainy or stormy conditions. To learn more about pediatric vaccinations (ages 5-11), we invite you to visit the [facility] webpage. https://www.[facility].org/pages/5332-Eprlb-Bnqmwiuqkrq-Oxafiuaaxe-Rmzmh-Pin stions.htmlTo learn more about the COVID-19 vaccine, we invite you to visit the CDC website for a list of frequently asked questions. https://www.cdc.gov/coronavirus/2019-ncov/vaccines/faq.html [employer] Patient Portal Access Instructions: Stay connected with your healthcare team and access your personal medical information anytime with the [employer] Patient Portal. If you would like a full copy of your medical records please contact the [facility] Medical Records Department Tuesday through Tuesday between 8a.m. and 4:30p.m. Please follow the directions below to access the portal: 1.Access the email account you provided upon registration to the hospital.2.Look for an invitation email from [facility].3.Open the email and access the invitation link: Accept Invitation to [facility]4.Fill in the required ramirez to create your account. Sign into [email or web address] with your username and password that you created in the above steps to stay up to date. You can then view a summary of results, a summary of your visits, and the ability to download your summaries to your computer or send the information securely to a physician. Remember that your healthcare information is confidential, so carefully consider who you will allow to register on the [employer] Patient Portal for access to your information. You can also access the [employer] Patient Portal on the [employer] gurmeet. Simply click on Health Records under [facility] and then click on the [employer] logo. HOW TO SAFELY DISPOSE OF PRESCRIPTION MEDICATIONS Please use one of the following methods to safely dispose of your unused medications. 1.Use a drug disposal kit: the drug disposal pouch allows you to safely discard your old and unuseddrugs. Ask your nurse to give you one when you are discharged.2.Visit a local take-back location: Many local pharmacies and police departments have programs that collect old and unwanted prescriptiondrugs. Call your local pharmacy or go to http://[employer].TRUSTe/2K8Ph2x to find one close to you.3.Make use of household items: Use cat litter or old coffee grounds to dispose medications if other options arenot available. Mix your drugs with these household products, seal them in an airtight container andthrow it into the garbage. Call [facility]: [phone] to be sure your drugs can be disposed of in this way. Some medicines may require a different approach.4.Never flush your medications down the toilet. IF YOU HAVE BEEN PRESCRIBED AN OPIOIDS FOR PAIN If you have been prescribed an opioid (such as hydrocodone, oxycodone or morphine), it is critical to understand the possible side effects and risks of opioid pain medications. Even when taken as directed, opioids can have several side effects including: Tolerance, meaning you might need to take more of a medication for the same pain relief. Nausea, vomiting and/or constipation. Sleepiness, dizziness, dry mouth, confusion, depression or itching. Physical dependence, meaning you have withdrawal symptoms when a medication is stopped ? this can develop within a few days. KNOW YOUR RESPONSIBILITIES It is important to know exactly how much and how often to take the opioid pain medications you are prescribed. Never take opioids in higher amounts or more often than prescribed. Do not combine opioids with alcohol or other drugs that cause drowsiness, such as benzodiazepines, also known as benzos,including diazepam and alprazolam, muscle relaxants or sleep aids. Never sell or share prescriptionopioids. This is illegal. Store opioids in a secure place and out of reach of others (including children, family, friends and visitors). The last page(s) of this document has been signed and retained as a CHART COPY Signatures Patient Education Materials Plantar Fasciitis Medication Leaflets My discharge plan and instructions have been reviewed and explained to me and I,IRMA SORIANO understand my current condition and have read and understand these discharge instructions. I have received a written copy of the plan/instructions. If I have questions, I am aware that I should contact my doctor. Patient/City [place] Signature: Date/Time: Relationship to Patient: Witness Name/Signature: Date/Time: [facility]08-30-2024 Note ORIGINAL EXAMINATION: TWO RADIOGRAPHIC VIEW(S) OF THE RIGHT CALCANEUS ON 2 IMAGE(S) 10/28/2023 5:44 pm COMPARISON: None HISTORY: ORDERING SYSTEM PROVIDED HISTORY: Reason for Exam: pain FINDINGS: No acute fracture or suspicious osseous lesion. No ankle joint effusion. And os trigonum is noted. Tiny calcaneal spur. Vascular calcifications. IMPRESSION: No acute osseous abnormality. I have personally reviewed the images of this examination and agree with the resident's findings and interpretation. 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 Benitez is a 43 year old who presents for an annual gynecologic exam without complaints. Gained 20# in last 1-2 yrs - not sure why. 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 Contraception: combined hormonal contraceptives HPV vaccine: No Last Pap: 03/02/2019 normal HPV: 03/02/2019 negative History of abnormal pap: No Last mammogram: 2022normal Sexually active: Yes History of STDS: None Patient concerns for STD exposure: No. 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 History Comments: Sexual Activity: Yes; Male Contraception: Vasectomy PAST MEDICAL HISTORY Diagnosis Date Anemia Diabetes (HCC) Hyperlipidemia Hypertension Hypothyroid Migraines Seasonal allergies Sinus tachycardia Vertigo PAST SURGICAL HISTORY Procedure Laterality Date BREAST BIOPSY HX Left BX BREAST W/DEVICE 1ST LESION STEREOTACTIC GUID Right 08/13/2020 FOOT SURGERY HX Left 1993 WRIST SURGERY HX Bilateral 2018- Right 2015-Left FAMILY HISTORY Problem Relation Age of Onset other (papilloma) Mother Celiac Disease Mother Diabetes Mother type 2 other (htn) Father Stroke Father TIA Hyperlipidemia Father Sarcoidosis Sister Thyroid Brother SOCIAL HISTORY Social History Tobacco Use Smoking status: Never Smokeless tobacco: Never Vaping Use Vaping Use: Never used Substance Use Topics Alcohol use: Yes Comment: social Drug use: No REVIEW OF SYSTEMS Abdomen: No abdominal pain, nausea, vomiting, diarrhea, or constipation. No bloating, early satiety, indigestion, or increased flatulence. Bladder: No dysuria, gross hematuria, urinary frequency, urinary urgency, or incontinence. Breast: No breast lumps, nipple d/c, overlying skin changes, redness or skin retraction. Allergies and current medication updated:Yes EXAM: Ht 5' 4 (1.63m) Wt 186 lb (84.4kg) LMP 07/19/2023 BMI 31.91 kg/(m^2). GENERAL: pleasant, female in no apparent distress HEENT: Normocephalic, atraumatic, mucus membranes moist, and no lesions NECK: Supple, full range of motion, no adenopathy, and thyroid normal DERMATOLOGY: Normal, without lesions, non-icteric, and non-hirsute BREAST: soft, non-tender, symmetric, no dominant mass, normal nipple-areolar complex, no lymphadenopathy, and no nipple discharge ABDOMEN: soft, non-tender, and no masses PELVIC: external genitalia normal, normal Bartholin's glands, urethra, Olar's glands, no vulvar lesions, no cervical lesions, good vaginal support, physiologic discharge present, normal appearing perineal body and perianal region BIMANUAL: uterus normal size, shape and consistency, no adnexal masses, and non-tender RECTOVAGINAL: deferred. NEURO: alert and oriented x3,exam grossly non-focal EXTREMITIES: normal ASSESSMENT/PLAN: 1) Health maintenance: Pap done with HPV. Mammogram ordered Nutrition, exercise and routine health maintenance exams reviewed. Calcium/Vitamin D supplementation information provided. Colon cancer screening: start at age 45 2) Contraception: combined hormonal contraceptives. BP WELL CONTROLLED Contraceptive options reviewed and information provided. 3) STD screening: Declined STD check. 4) Follow up one year or sooner as needed 5) weight mgmt reviewed Ana Amezcua MD documented in this encounterPro[facility]10-30-[facility]23 Miscellaneous Notes* Telephone Encounter - Kalli Up RN - 12/27/2022 10:34 AM EDT Patient last seen in office 10/28/21, has an appointment 03/2023, needs a refill to get through untilappointment. Requested Prescriptions Pending Prescriptions Disp Refills Norethindrone Acet-Ethinyl Est (,) 1.5-30 mg-mcg 84 tablet 1 Sig: Take 1 tablet by mouth once daily. KALLI UP RN documented in this encounterProtestant [facility]acon[facility]10-30-2023 Miscellaneous Notes* Letter - Coordinator, Mammography - 12/27/2022 8:36 AM EDT December 27, 2022 PID: [id number] Irma Soriano [address] [place] [address] Dear Ms. Soriano, We are pleased to inform you that the results of your recent breast imaging exam on 12/27/2022 are normal. Your mammogram demonstrates that you have dense breast tissue, which could hide abnormalities. Dense breast tissue, in and of itself, is a relatively common condition. Therefore, this information is not provided to cause undue concern; rather, it is to raise your awareness and promote discussion with your health care provider regarding the presence of dense breast tissue in addition to other riskfactors. Early detection of cancer is very important. We also understand recommendations regarding breast cancer screening are controversial. Please discuss with your primary care provider which strategy is best for you and whether a mammogram is right for you. Your imaging studies and report will be [facility] as part of your permanent medical record and are available for your continuing care. Thank you for allowing us to help in meeting your health care needs. Sincerely, Dr. Kenyon Interpreting Radiologist [facility] (Normal over 40) documented in this encounterProtestant Deacon[facility]03-27-2023 Miscellaneous Notes* Telephone Encounter - Christy Carbajal RN - 05/24/2022 9:00 AM EDT Pharmacy requesting 90 day supply. Last annual with DM 10/28/21. Requested Prescriptions Pending Prescriptions Disp Refills .07/27, 21, 1.5-30 mg-mcg [Pharmacy Med Name: 1.5 MG-30 MCG TABLET] 84 tablet 1 Sig: TAKE 1 TABLET BY MOUTH EVERY DAY Christy Carbajal RN documented in this encounterProtestant [facility]acon[facility]09-23-2022 History of Present illness Narrative* Karen Tarango RT(R) - 11/20/2021 11:10 AM EDT Radiology Service Progress Note PATIENT NAME: Irma Soriano DATE OF SERVICE: November 20, 2021 TIME: 11:18 AM PATIENT IDENTITY VERIFICATION COMPLETED USING TWO (2) IDENTIFIERS: Name and Date of confirmedby patient verbally. FALL SCREENING: Has the patient had 2 falls in the last year or 1 fall with injury or currently using an Ambulatory Assistive Device (Walker, Cane, Wheelchair, Crutches, etc.)? No PATIENT GENDER DATA: Female. status: : No status: NO. PATIENT RELEVANT IMPLANT DATA REVIEWED: Not Applicable RADIOLOGY DEPARTMENT: Mammography PERIPHERAL IV DATA: Not applicable SIGNED BY: RT Mala(R) November 20, 2021 11:18 AM documented in this encounterProtestant [facility]acon[facility]08-31-2022 History of Present illness Narrative* Ana Vargas MD - 10/28/2021 2:28 PM EDT Eli is a 41 year old who presents for an annual gynecologic exam without complaints. Works at [employer]. Two children ages 12/13. Starting having some pain with initial penetration- but resolves quickly. Menses: cycles every 28 days and 4 days of flow. Contraception: combined hormonal contraceptives HPV vaccine: No Last Pap: 03/02/2019 normal HPV: 03/02/2019 negative History of abnormal pap: No Last mammogram: bnormal, breast bx on right was negative Sexually active: Yes History of STDS: None Patient concerns for STD exposure: No. 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 History Comments: Sexual Activity: Yes; Male Contraception: Vasectomy PAST MEDICAL HISTORY Diagnosis Date Anemia Diabetes (HCC) Hyperlipidemia Hypertension Hypothyroid Migraines Seasonal allergies Sinus tachycardia Vertigo PAST SURGICAL HISTORY Procedure Laterality Date BREAST BIOPSY HX Left BX BREAST W/DEVICE 1ST LESION STEREOTACTIC GUID Right 08/13/2020 FOOT SURGERY HX Left 1993 WRIST SURGERY HX Bilateral 2018- Right 2015-Left FAMILY HISTORY Problem Relation Age of Onset other (papilloma) Mother Celiac Disease Mother Diabetes Mother type 2 other (htn) Father Stroke Father TIA Hyperlipidemia Father Sarcoidosis Sister Thyroid Brother SOCIAL HISTORY Social History Tobacco Use Smoking status: Never Smokeless tobacco: Never Vaping Use Vaping Use: Never used Substance Use Topics Alcohol use: Yes Comment: social Drug use: No REVIEW OF SYSTEMS Abdomen: No abdominal pain, nausea, vomiting, diarrhea, or constipation. No bloating, early satiety, indigestion, or increased flatulence. Bladder: No dysuria, gross hematuria, urinary frequency, urinary urgency, or incontinence. Breast: No breast lumps, nipple d/c, overlying skin changes, redness or skin retraction. Allergies and current medication updated:Yes EXAM: BP 148/86 Ht 5' 4 (1.63m) Wt 169 lb (76.7kg) LMP 10/12/2021 BMI 28.99 kg/(m^2). GENERAL: pleasant, female in no apparent distress HEENT: Normocephalic, atraumatic, mucus membranes moist, and no lesions NECK: Supple, full range of motion, no adenopathy, and thyroid normal DERMATOLOGY: Normal, without lesions, non-icteric, and non-hirsute BREAST: soft, non-tender, symmetric, no dominant mass, normal nipple-areolar complex, no lymphadenopathy, and no nipple discharge ABDOMEN: soft, non-tender, and no masses PELVIC: external genitalia normal, normal Bartholin's glands, urethra, Olar's glands, no vulvar lesions, no cervical lesions, good vaginal support, physiologic discharge present, normal appearing perineal body and perianal region BIMANUAL: uterus normal size, shape and consistency, no adnexal masses, and non-tender RECTOVAGINAL: deferred. NEURO: alert and oriented x3,exam grossly non-focal EXTREMITIES: normal ASSESSMENT/PLAN: 1) Health maintenance: Pap/HPV up to date. Mammogram ordered. Nutrition, exercise and routine health maintenance exams reviewed. Calcium/Vitamin D supplementation information provided. 2) Contraception: combined hormonal contraceptives. Contraceptive options reviewed and information provided. 3) STD screening: Declined STD check. 4) Follow up one year or sooner as needed 5) refill given on Hyzaar - until she can see pcp 6) OCPs refill- given- reviewed to monitor BPs- if trending up then may need to change. Ana Amezcua MD * Keila Valladares Ma - 10/28/2021 2:14 PM EDT Garment Cutter offered: Patient declines. [facility] Miscellaneous Notes* Telephone Encounter - Shala Oates LPN - 08/03/2021 9:49 AM EDT See pt's [employer] refill request. Pt is due to be seen in the office. [employer] message sent to pt. Shala Oates LPN documented in this encounterC[facility] Centeraluation + Plan note No data available for this section [facility] Evaluation note* Diagnosis Encounter for screening mammogram for breast cancer [facility] Diagnosis Encounter for gynecological examination (general) (routine) without abnormal findings- Primary Encounter for screening mammogram for malignant neoplasm of breast Other screening mammogram [facility]* Diagnosis Encounter for screening mammogram for malignant neoplasm of breast Other screening mammogram [facility] this [facility]* Diagnosis Onset Date Resolution Status Hypertension chronic Hypothyroid chronic Obesity chronic Presence of insulin pump chr onic Type 1 diabetes mellitus with hyperglycemia chronic [facility] Work Phone: Evaluation noteNo assessment information available [facility] Work Phone: Evaluation note* Diagnosis Encounter for gynecological examination (general) (routine) without abnormal findings- Primary Screening for cervical cancer Screening for malignant neoplasm of the cervix Encounter for screening for human papillomavirus (HPV) Special screening examination for human papillomavirus (HPV) Encounter for screening mammogram for breast cancer documented [facility]* Diagnosis Encounter for screening mammogram for breast cancer [facility] encounter [facility]* Name Dates Details How to access health informa tion online Indication:BMI 30.0-30.9,adult Start:28-Jun-2017 Instruction Type:Patient Education How to access health informa tion online - Detail Indication:BMI 30.0-30.9,adult Start:28-Jun-2017 Instruction Type:Patient Education Patient Instructions Indication:BMI 30.0-30.9,adult Start:28-Jun-2017 Instruction Type:Provider Instructions for Treatment How to access health informa tion online Indication:Non-smoker Start:03-Feb-2017 Instruction Type:Patient Education How to access health informa tion online - Detail Indication:Non-smoker Start:03-Feb-2017 Instruction Type:Patient Education Patient Instructions Indication:SOB (shortness of breath) Start:03-Feb-2017 Instruction Type:Provider Instructions for Treatment How to access health informa tion online Indication:BMI 31.0-31.9,adult Start:27-Sep-2016 Instruction Type:Patient Education How to access health informa tion online - Detail Indication:BMI 31.0-31.9,adult Start:27-Sep-2016 Instruction Type:Patient Education Patient Instructions Indication:BMI 31.0-31.9,adult Start:27-Sep-2016 Instruction Type:Provider Instructions for Treatment How to access health informa tion online Indication:Diabetes type I, uncontrolled, ophthalmic comp (250.53) Start:15-Jan-2016 Instruction Type:Patient Education How to access health informa tion online - Detail Indication:Diabetes type I, uncontrolled, ophthalmic comp (250.53) Start:15-Jan-2016 Instruction Type:Patient Education Patient Instructions Indication:Diabetes type I, uncontrolled, ophthalmic comp (250.53) Start:15-Jan-2016 Instruction Type:Provider Instructions for Treatment Patient Instructions Indication:Encounter for well adult exam with abnormal findings (Renamed from Encounter for general adult medical examination with abnormal findings) Start:08-Dec-2015 Instruction Type:Provider Instructions for Treatment How to access health informa tion online Indication:Encounter for well adult exam with abnormal findings (Renamed from Encounter for general adult medical examination with abnormal findings) Start:08-Dec-2015 Instruction Type:Patient Education How to access health informa tion online - Detail Indication:Encounter for well adult exam with abnormal findings (Renamed from Encounter for general adult medical examination with abnormal findings) Start:08-Dec-2015 Instruction Type:Patient Education [facility] Work Phone: reason for referral (narrative)* Diagnostic Procedure Only (Routine) - Pending Review Specialty Diagnoses / Procedures Referred By Gerber camp Referred To Contact [facility] Diagnoses Encounter for screening mammogram for breast cancer Procedures RAJ SCREENING W ESTEFANI SCREENING DIGITAL BREAST TOMOSYNTHESIS BI SCREENING MAMMOGRAPHY BI 2-VIEW BREAST INC CAD Joan Maza MD [address] [place] [address] [facility] [address] [place] [phone] Referral ID Status Reason Start Date Expiration Date Visits Requested Visits Authorized [id number] Pending Review Auto-Generat ed Referral 08/05/2021 09/04/2022 1 1 [facility] for referral (narrative)* Diagnostic Procedure Only (Routine) - Authorized Specialty Diagnoses / Procedures Referred By Gerber camp Referred To Contact [facility] Diagnoses Encounter for screening mammogram for malignant neoplasm of breast Procedures RAJ SCREENING W ESTEFANI SCREENING DIGITAL BREAST TOMOSYNTHESIS BI SCREENING MAMMOGRAPHY BI 2-VIEW BREAST INC CAD Ana Hong MD [address] [place] [address] [facility] [address] [place] [phone] Referral ID Status Reason Start Date Expiration Date Visits Requested Visits Authorized [id number] Authorized Auto-Generat ed Referral 10/28/2021 11/27/2022 1 1 [facility] for referral (narrative)* Diagnostic Procedure Only (Routine) - Closed Specialty Diagnoses / Procedures Referred By Gerber camp Referred To Contact [facility] Diagnoses Encounter for screening mammogram for malignant neoplasm of breast Procedures RAJ SCREENING W ESTEFANI SCREENING DIGITAL BREAST TOMOSYNTHESIS BI SCREENING MAMMOGRAPHY BI 2-VIEW BREAST INC CAD Ana Hong MD [address] [place] [address] [facility] [address] [place] [address] Referral ID Status Reason Start Date Expiration Date V isits Requested Visits Authorized [id number] Closed Auto-Generate d Referral 10/28/2021 11/27/2022 1 1 [facility] for referral (narrative)* Diagnostic Procedure Only (Routine) - Authorized Specialty Diagnoses / Procedures Referred By Gerber t Referred To Contact [facility] Diagnoses Encounter for screening mammogram for breast cancer Procedures RAJ SCREENING W ESTEFANI SCREENING DIGITAL BREAST TOMOSYNTHESIS BI SCREENING MAMMOGRAPHY BI 2-VIEW BREAST INC CAD Joan Maza MD [facility] [place] [address] [facility] [address] [place] [address] Referral ID Status Reason Start Date Expiration Date Visits Requested Visits Authorized [id number] Authorized Auto-Generat ed Referral 01/21/2024 1 1 [facility] for referral (narrative)* Diagnostic Procedure Only (Routine) - Authorized Specialty Diagnoses / Procedures Referred By Gerber camp Referred To Contact [facility] Diagnoses Encounter for screening mammogram for breast cancer Procedures RAJ SCREENING W ESTEFANI SCREENING DIGITAL BREAST TOMOSYNTHESIS BI SCREENING MAMMOGRAPHY BI 2-VIEW BREAST INC CAD Ana Hong MD [facility] [place] [address] [facility] [address] [place] [address] Referral ID Status Reason Start Date Expiration Date Visits Requested Visits Authorized [id number] Authorized Auto-Generat ed Referral 07/28/2023 08/26/2024 1 1 [facility] for referral (narrative)No reason for referral information availableWDayton [facility] Work Phone: Reason for visit Narrative* Diagnostic Procedure Only (Routine) - Closed Specialty Diagnoses / Procedures Referred By Gerber camp Referred To Contact [facility] Diagnoses Encounter for screening mammogram for malignant neoplasm of breast Procedures RAJ SCREENING W ESTEFANI SCREENING DIGITAL BREAST TOMOSYNTHESIS BI SCREENING MAMMOGRAPHY BI 2-VIEW BREAST INC CAD Ana Hong MD [address] [place] [address] [facility] [address] [facility] [place] [address] Referral ID Status Reason Start Date Expiration Date V isits Requested Visits Authorized [id number] Closed Auto-Generate d Referral 10/28/2021 11/27/2022 1 1 [facility] N[facility]ative* Diagnostic Procedure Only (Routine) - Closed Specialty Diagnoses / Procedures Referred By [employer]ber camp Referred To Contact [facility] Diagnoses Encounter for screening mammogram for breast cancer Procedures RAJ SCREENING W ESTEFANI SCREENING DIGITAL BREAST TOMOSYNTHESIS BI SCREENING MAMMOGRAPHY BI 2-VIEW BREAST INC CAD Ana Hong MD [address] [place] [address] [facility] [address] [place] [address] Referral ID Status Reason Start Date Expiration Date V isits Requested Visits Authorized [id number] Closed Auto-Generate d Referral 07/28/2023 08/26/2024 1 1 [facility] Summary Purpose Family History Relationship Condition Age at Onset Recorded Date/T aurea grandfather Alcoholism Unknown Diabetes mellitus Unknown mother Diabetes mellitus Unknown Disorder of thyroid Unknown Celiac disease Unknown father Hypertension Unknown High blood cholesterol Unknown Cerebrovascular accident (CVA) Unknown brother Severe allergy Unknown sister Sarcoidosis Unknown Advance Directives Advance Directive Response Recorded Date/ Time Living Will No July 08, 2017 6 :36pm Power of Door Fitter No July 08, 2017 6:36pm Advance Directive Response Recorded Date/ Time Living Will No July 08, 2017 5 :36pm Power of Door Fitter No July 08, 2017 5:36pm Advance Directive Response Recorded Date/ Time Living Will No July 08, 2017 6 :36pm Do you have a Healthcare Power of Door Fitter? No July 08, 2017 6:36pm Chief Complaint and Reason for Visit Chief Complaint E ORDER 9 M FU, Cx Appt 05/04 Reason for Visit Hypertension Hypothyroid Obesity Presence of insulin pump Type 1 diabetes mellitus with hyperglycemia Chief Complaint EORDERS- DO ALL LABW ORK Chief Complaint Admit Date R 3rd PIP pain- RIGHT HAND January 5:03pm 4 M FU February 24, 2024 9:24am EORDER February 24, 2024 10:07am Reason for Visit Admit Date Hypertension February 24, 2024 9:24am Hypothyroid February 24, 2024 9:24am Obesity February 24, 2024 9:24am Presence of insulin pump February 24, 2024 9:24am Proliferative retinopathy of both eyes D ecember 2023 9:24am Type 1 diabetes mellitus with hyperglyce asia February 24, 2024 9:24am Chief Complaint Admit Date 6 M FU August 27, 2024 8:00 am Chief Complaint Admit Date 6 M FU August 27, 2024 8:00 am EORDER- URINE ONLY August 27, 2024 8:58 am Reason for Visit Admit Date Hypertension August 27, 2024 8:00 am Hypothyroid August 27, 2024 8:00 am Obesity August 27, 2024 8:00 am Presence of insulin pump August 27, 2024 8:00am Proliferative retinopathy of both eyes J [facility] 2024 8:00am Type 1 diabetes mellitus with hyperglyce [facility] August 27, 2024 8:00am Chief Complaint Admit Date 6 M FU August 27, 2024 8:00 am EORDER- URINE ONLY August 27, 2024 8:58 am EORDERS October 15, 2024 9: 03am Chief Complaint Admit Date EORDERS October 15, 2024 9: 03am Recurrent UTI December 19, 2024 1 :50pm UTI December 27, 2024 1 1:58am cysto pelvic exam January 07, 2025 2:40pm Reason for Visit Admit Date Nocturia December 19, 2024 1 :50pm Stress incontinence December 19, 2024 1 :50pm UTI (urinary tract infection) December 192024 1:50pm Type 1 diabetes mellitus with hyperglyce asia December 19, 2024 1:50pm Nocturia January 07, 2025 2:40pm Stress incontinence January 07, 2025 2:40pm UTI (urinary tract infection) December 292024 2:40pm Type 1 diabetes mellitus with hyperglyce asia January 07, 2025 2:40pm Additional Source Comments INFORMATION SOURCE (unrecogn ized section and content) DATE CREATED AUTHOR 08/19/2017 Kaitlyn [facility] DATE CREATED AUTHOR AUTHOR'S ORGANIZ ATION 08/24/2017 [facility] DATE CREATED AUTHOR AUTHOR'S ORGANIZ ATION 10/29/2023 [facility] ([place]) DATE CREATED AUTHOR AUTHOR'S ORGANIZ ATION 08/11/2024 [facility] DATE CREATED AUTHOR AUTHOR'S ORGANIZ ATION 01/06/2025 [facility] DATE CREATED AUTHOR AUTHOR'S ORGANIZ ATION 01/08/2025 [facility] Source Comments (unrecognize d section and content) In the event this informatio n is protected by the Federal Confidentiality of Alcohol and Drug Abuse Patient Records regulations: The Federal rules restrict any use of the information to criminally investigate or prosecute any alcohol or drug abuse patient.[facility] the event this information is protected by the Federal Confidentiality of Alcohol and Drug Abuse Patient Records regulations: The Federal rules restrict any use of the information to criminally investigate or prosecute any alcohol or drug abuse patient.[facility] the event this information is protected by the Federal Confidentiality of Alcohol and Drug Abuse Patient Records regulations: The Federal rules restrict any use of the information to criminally investigate or prosecute any alcohol or drug abuse patient.[facility] the event this information is protected by the Federal Confidentiality of Alcohol and Drug Abuse Patient Records regulations: The Federal rules restrict any use of the information to criminally investigate or prosecute any alcohol or drug abuse patient.[facility] HospitalIn the event this information is protected by the Federal Confidentiality of Alcohol and Drug Abuse Patient Records regulations: The Federal rules restrict any use of the information to criminally investigate or prosecute any alcohol or drug abuse patient.[facility] HospitalIn the event this information is protected by the Federal Confidentiality of Alcohol and Drug Abuse Patient Records regulations: The Federal rules restrict any use of the information to criminally investigate or prosecute any alcohol or drug abuse patient.[facility] HospitalIn the event this information is protected by the Federal Confidentiality of Alcohol and Drug Abuse Patient Records regulations: The Federal rules restrict any use of the information to criminally investigate or prosecute any alcohol or drug abuse patient.[facility] HospitalIn the event this information is protected by the Federal Confidentiality of Alcohol and Drug Abuse Patient Records regulations: The Federal rules restrict any use of the information to criminally investigate or prosecute any alcohol or drug abuse patient.[facility] HospitalIn the event this information is protected by the Federal Confidentiality of Alcohol and Drug Abuse Patient Records regulations: The Federal rules restrict any use of the information to criminally investigate or prosecute any alcohol or drug abuse patient.[facility] HospitalIn the event this information is protected by the Federal Confidentiality of Alcohol and Drug Abuse Patient Records regulations: The Federal rules restrict any use of the information to criminally investigate or prosecute any alcohol or drug abuse patient.[facility] HospitalIn the event this information is protected by the Federal Confidentiality of Alcohol and Drug Abuse Patient Records regulations: The Federal rules restrict any use of the information to criminally investigate or prosecute any alcohol or drug abuse patient.[facility] Reason for Visit (unrecogniz ed section and content) Reason Comments Refill Request Reason Comments Yearly Exam Reason Onset Date Comments Refill Request 12/25/2022 Care Teams (unrecognized sec tion and content) Machine Tech Relationship Specialty Start Date End Date Joan Maza MD [address] [place] [address] PCP - General Internal Medicine 08/15/20 Machine Tech Relationship Specialty Start Date End Date Joan Maza MD [address] [place] [address] PCP - General Internal Medicine 08/15/20 Machine Tech Relationship Specialty Start Date End Date Joan Maza MD [address] [place] [address] PCP - General Internal Medicine 08/15/20 Machine Tech Relationship Specialty Start Date End Date Joan Maza MD [address] [place] [address] PCP - General Internal Medicine 08/15/20 Machine Tech Relationship Specialty Start Date End Date Joan Maza MD [address] [place] [address] PCP - General Internal Medicine 08/15/20 Team Status: Active Member Role Status Dates Dr. Martinez Gomez MD Family Provider Active Team Status: Inactive Member Role Status Dates Dr. Martinez Gomez MD Referring Provider Active Dr. Melquiades Gonzalez MD Attending Provider Active Team Status: Inactive Member Role Status Dates Dr. Martinez Gomez MD Primary Care Provider Activ e Dr. Melquiades Gonzalez MD Attending Provider, Referring Provi terell Active Team Status: Inactive Member Role Status Dates Dr. Martinez Gomez MD Primary Care Provider, Atte nding Provider Active Team Status: Inactive Member Role Status Dates Amelia Patten MD Attending Provider, Referring Provide r Active Machine Tech Relationship Specialty Start Date End Date Joan Maza MD [address] [place] [address] PCP - General Internal Medicine 08/15/20 Machine Tech Relationship Specialty Start Date End Date Joan Maza MD [address] [place] [address] PCP - General Internal Medicine 08/15/20 Machine Tech Relationship Specialty Start Date End Date Joan Maza MD [address] [place] [address] PCP - General Internal Medicine 08/15/20 Team Status: Active Member Role Status Dates Dr. Martinez Gomez MD Family Provider Active Dr. Martinez Gomez MD Primary Care Provider Activ e Team Status: Inactive Member Role Status Dates Dr. Martinez Gomez MD Primary Care Provider, Attending Provider, Referring Provider Active Machine Tech Relationship Specialty Start Date End Date Rozina Gomez MD [address] [facility] [place] [address] PCP - General Family Medicine 07/28/23 Machine Tech Relationship Specialty Start Date End Date Rozina Gomez MD [address] [facility] [place], [place] [address] PCP - General Family Medicine 07/28/23 Team Status: Active Member Role Status Dates Dr. Rozina Gomez MD Family Provider Active Dr. Rozina Gomez MD Primary Care Provider Acti ve Team Status: Inactive Member Role Status Dates Dr. Rozina Gomez MD Primary Care Provider Acti ve Start: February 03, 2024 End: February 03, 2024 Dr. Elan Mccabe DO Attending Provider Active Start: February 03, 2024 End: February 03, 2024 Dr. Elan Mccabe DO Referring Provider Active Start: February 03, 2024 End: February 03, 2024 Team Status: Inactive Member Role Status Dates Dr. Rozina Gomez MD Primary Care Provider Acti ve Start: February 08, 2024 End: February 08, 2024 Dr. Rozina Gomez MD Attending Provider Active Start: February 08, 2024 End: February 08, 2024 Dr. Rozina Gomez MD Referring Provider Active Start: February 08, 2024 End: February 08, 2024 Team Status: Inactive Member Role Status Dates Dr. Rozina Gomez MD Primary Care Provider Acti ve Start: February 24, 2024 End: February 24, 2024 Dr. Rozina Gomez MD Referring Provider Active Start: February 24, 2024 End: February 24, 2024 Dr. Melquiades Gonzalez MD Attending Provider Active Sta rt: February 24, 2024 End: February 24, 2024 Team Status: Inactive Member Role Status Dates Dr. Rozina Gomez MD Primary Care Provider Acti ve Start: February 24, 2024 End: February 24, 2024 Dr. Rozina Gomez MD Attending Provider Active Start: February 24, 2024 End: February 24, 2024 Dr. Rozina Gomez MD Referring Provider Active Start: February 24, 2024 End: February 24, 2024 Team Status: Inactive Member Role Status Dates Dr. Rozina Gomez MD Primary Care Provider Acti ve Start: May 21, 2024 End: May 21, 2024 Dr. Rozina Gomez MD Attending Provider Active Start: May 21, 2024 End: May 21, 2024 Team Status: Inactive Member Role Status Dates Dr. Rozina Gomez MD Primary Care Provider Acti ve Start: August 08, 2024 End: August 08, 2024 Dr. Rozina Gomez MD Attending Provider Active Start: August 08, 2024 End: August 08, 2024 Dr. Rozina Gomez MD Referring Provider Active Start: August 08, 2024 End: August 08, 2024 Team Status: Active Member Role/Relationship Status Dates Dr. Rozina Gomez MD Family Provider Active Dr. Rozina Gomez MD Primary Care Provider Acti ve Team Status: Inactive Member Role/Relationship Status Dates Dr. Rozina Gomez MD Primary Care Provider Acti ve Start: May 21, 2024 End: May 21, 2024 Dr. Rozina Gomez MD Attending Provider Active Start: May 21, 2024 End: May 21, 2024 Team Status: Inactive Member Role/Relationship Status Dates Dr. Rozina Gomez MD Primary Care Provider Acti ve Start: August 08, 2024 End: August 08, 2024 Dr. Rozina Gomez MD Attending Provider Active Start: August 08, 2024 End: August 08, 2024 Dr. Rozina Gomez MD Referring Provider Active Start: August 08, 2024 End: August 08, 2024 Team Status: Inactive Member Role/Relationship Status Dates Dr. Rozina Gomez MD Primary Care Provider Acti ve Start: August 27, 2024 End: August 27, 2024 Dr. Rozina Gomez MD Referring Provider Active Start: August 27, 2024 End: August 27, 2024 Dr. Melquiades Gonzalez MD Attending Provider Active Sta rt: August 27, 2024 End: August 27, 2024 Team Status: Inactive Member Role/Relationship Status Dates Dr. Rozina Gomez MD Primary Care Provider Acti ve Start: August 27, 2024 End: August 27, 2024 Dr. Melquiades Gonzalez MD Attending Provider Active Sta rt: August 27, 2024 End: August 27, 2024 Dr. Melquiades Gonzalez MD Referring Provider Active Sta rt: August 27, 2024 End: August 27, 2024 Team Status: Inactive Member Role/Relationship Status Dates Dr. Rozina Gomez MD Primary Care Provider Acti ve Start: August 08, 2024 End: August 08, 2024 Dr. Rozina Gomez MD Attending Provider Active Start: August 08, 2024 End: August 08, 2024 Dr. Rozina Gomez MD Referring Provider Active Start: August 08, 2024 End: August 08, 2024 Team Status: Inactive Member Role/Relationship Status Dates Dr. Rozina Gomez MD Primary Care Provider Acti ve Start: August 27, 2024 End: August 27, 2024 Dr. Rozina Gomez MD Referring Provider Active Start: August 27, 2024 End: August 27, 2024 Dr. Melquiades Gonzalez MD Attending Provider Active Sta rt: August 27, 2024 End: August 27, 2024 Team Status: Inactive Member Role/Relationship Status Dates Dr. Rozina Gomez MD Primary Care Provider Acti ve Start: August 27, 2024 End: August 27, 2024 Dr. Melquiades Gonzalez MD Attending Provider Active Sta rt: August 27, 2024 End: August 27, 2024 Dr. Melquiades Gonzalez MD Referring Provider Active Sta rt: August 27, 2024 End: August 27, 2024 Team Status: Inactive Member Role/Relationship Status Dates Dr. Rozina Gomez MD Primary Care Provider Acti ve Start: October 15, 2024 End: October 15, 2024 Dr. Rozina Gomez MD Attending Provider Active Start: October 15, 2024 End: October 15, 2024 Dr. Rozina Gomez MD Referring Provider Active Start: October 15, 2024 End: October 15, 2024 Team Status: Active Member Role/Relationship Status Dates Dr. Rozina Gomez MD Primary care physician Act kristine Team Status: Inactive Member Role/Relationship Status Dates Dr. Rozina Gomez MD Primary care physician Act kristine Start: October 15, 2024 End: October 15, 2024 Dr. Rozina Gomez MD Attending physician Active Start: October 15, 2024 End: October 15, 2024 Dr. Rozina Gomez MD Referring Provider Active Start: October 15, 2024 End: October 15, 2024 Team Status: Inactive Member Role/Relationship Status Dates Dr. Rozina Gomez MD Primary care physician Act kristine Start: December 19, 2024 End: December 19, 2024 Dr. Rozina Gomez MD Referring Provider Active Start: December 19, 2024 End: December 19, 2024 Dr. Jazmín Adkins MD Attending physician Active Start: December 19, 2024 End: December 19, 2024 Team Status: Inactive Member Role/Relationship Status Dates Dr. Rozina Gomez MD Primary care physician Act kristine Start: December 27, 2024 End: December 27, 2024 Dr. Jazmín Adkins MD Attending physician Active Start: December 27, 2024 End: December 27, 2024 Dr. Jazmín Adkins MD Referring Provider Active Start: December 27, 2024 End: December 27, 2024 Team Status: Inactive Member Role/Relationship Status Dates Dr. Rozina Gomez MD Primary care physician Act kristine Start: December 28, 2024 Dr. Yoslein Dempsey DO Attending physician Active Start: December 28, 2024 Team Status: Inactive Member Role/Relationship Status Dates Dr. Rozina Gomez MD Primary care physician Act kristine Start: January 07, 2025 End: January 07, 2025 Dr. Rozina oGmez MD Referring Provider Active Start: January 07, 2025 End: January 07, 2025 Dr. Jazmín Adkins MD Attending physician Active Start: January 07, 2025 End: January 07, 2025 Goals (unrecognized section and content) Goals may be documented in a n alternate sectionGoals may be documented in an alternate section No data available for this sectionGoals may be documented in an alternate section No data available for this sectionGoals may be documented in an alternate sectionGoals may be documented in an alternate sectionGoals may be documented in an alternate sectionGoals may be documented in an alternate sectionGoals may be documented in an alternate section FOR RECORDS PERTAINING TO PATIENTS WHO ARE OR HAVE BEEN ENROLLED IN A CHEMICAL DEPENDENCY/SUBSTANCEABUSE PROGRAM, SOME INFORMATION MAY BE OMITTED. This clinical summary was aggregated from multiple sources. Caution should be exercised in using it in the provision of clinical care. This summary normalizes information from multiple sources, and as a consequence, information in this document may materially change the coding, format and clinical context of patient data. In addition, data may be omitted in some cases. CLINICAL DECISIONS SHOULD BE BASED ON THE PRIMARY CLINICAL RECORDS. [facility] [employer] [facility]. provides no warranty or guarantee of the accuracy or completeness of information in this document.
[2025-02-20 08:08] LABS: PROGESTERONE 0.3 ng/mL (.)
[2025-02-26 09:08] LABS: Testosterone, % Free 1.21 % (0.50-2.80); Testosterone, Free 2.40 ng/dL (0.10-0.85)
== END | disposition home or self-care (01) ==
LOC: MTLAB 08:07
PROVIDERS: PCP Family Medicine; Referring Provider Internal Medicine Endocrinology, Diabetes & Metabolism; Visit Provider Internal Medicine Endocrinology, Diabetes & Metabolism
DX: E28.8 Other ovarian dysfunction (principal); E03.8 Other specified hypothyroidism; E06.3 Autoimmune thyroiditis
CPT/HCPCS: 36415; 82670; 84144; 84402; 84403; 84443